=== PATIENT | male | born 1980 | race Caucasian/White ===

== ENCOUNTER 2022-01-29 16:15 | Emergency (ER) | payer MEDICAID ==
[~2022-01-29] VITALS: Ht 175 cm; Wt 90.7 kg
--- NOTE | 2022-01-29 17:08 | ED Neurological Problem ---
General Chief Complaint: Eye Problems Stated Complaint: VISION PROBLEMS Nursing Triage Note: PT AMBULATORY TO ER, REPORTS WOKE UP ON THURSDAY 01/25, UNABLE TO SEE OUT OF HIS L EYE, REPORTS JUST BLACK. PT REPORTS THAT HIS R EYE IS BLURRY. PT REPORTS HE IS LEGALLY BRANDI IN HIS R EYE. PT STATES HE WAITED SO LONG TO BE SEEN BECAUSE HE DOES NOT LIKE GOING TO THE DOCTOR. PT REPORTS SAW A EYE DOCTOR RECENTLY DUE TO VISION CHANGES, BUT NEVER FOLLOWED UP. Source: patient, family Exam Limitations: no limitations History of Present Illness Date Seen by Provider: January 29, 2022 Time Seen by Provider: 23:25 Allergies and Home Medications Allergies Coded Allergies: No Known Drug Allergies (Unverified , 01/29/22) Past Glkbkja-Cabtkb-Zcwiym Hx Patient Social History Tobacco Use?: No Use of E-Cig and/or Vaping dev: No Substance use?: No Alcohol Use?: No Pt feels they are or have been: No Immunizations Up To Date First/Initial COVID19 Vaccinat: NO Physical Exam Vital Signs Vital Signs - First Documented 01/29/22 01/29/22 16:26 17:41 Temp 36.4 Pulse 107 Resp 18 B/P (MAP) 189/97 (127) Pulse Ox 18 O2 Delivery Room Air Capillary Refill : Height, Weight, BMI Height: '" Weight: lbs. oz. kg; 29.00 BMI Method: Progress/Results/Core Measures Results/Orders Lab Results Laboratory Tests Test 01/29/22 17:00 01/29/22 17:01 01/29/22 17:37 Range/Units Glucometer 399 H 70-110 MG/DL White Blood Count 7.9 4.3-11.0 10^3/uL Red Blood Count 4.64 4.30-5.52 10^6/uL Hemoglobin 12.9 L 13.3-17.7 g/dL Hematocrit 38 L 40-54 % Mean Corpuscular Volume 81 80-99 fL Mean Corpuscular Hemoglobin 28 25-34 pg Mean Corpuscular Hemoglobin Concent 34 32-36 g/dL Red Cell Distribution Width 12.7 10.0-14.5 % Platelet Count 407 H 130-400 10^3/uL Mean Platelet Volume 10.2 9.0-12.2 fL Immature Granulocyte % (Auto) 2 % Neutrophils (%) (Auto) 73 42-75 % Lymphocytes (%) (Auto) 14 12-44 % Monocytes (%) (Auto) 8 0-12 % Eosinophils (%) (Auto) 2 0-10 % Basophils (%) (Auto) 1 0-10 % Neutrophils # (Auto) 5.8 1.8-7.8 10^3/uL Lymphocytes # (Auto) 1.1 1.0-4.0 10^3/uL Monocytes # (Auto) 0.7 0.0-1.0 10^3/uL Eosinophils # (Auto) 0.1 0.0-0.3 10^3/uL Basophils # (Auto) 0.1 0.0-0.1 10^3/uL Immature Granulocyte # (Auto) 0.1 0.0-0.1 10^3/uL Prothrombin Time 12.3 12.2-14.7 SEC INR Comment 0.9 0.8-1.4 Activated Partial Thromboplast Time 35 24-35 SEC D-Dimer 0.94 H 0.00-0.49 UG/ML Sodium Level 132 L 135-145 MMOL/L Potassium Level 4.0 3.6-5.0 MMOL/L Chloride Level 100 98-107 MMOL/L Carbon Dioxide Level 23 21-32 MMOL/L Anion Gap 9 5-14 MMOL/L Blood Urea Nitrogen 19 H 7-18 MG/DL Creatinine 1.03 0.60-1.30 MG/DL Estimat Glomerular Filtration Rate 92 BUN/Creatinine Ratio 18 Glucose Level 430 *H 70-105 MG/DL Calcium Level 8.0 L 8.5-10.1 MG/DL Corrected Calcium 9.4 8.5-10.1 MG/DL Total Bilirubin 0.2 0.1-1.0 MG/DL Aspartate Amino Transf (AST/SGOT) 12 5-34 U/L Alanine Aminotransferase (ALT/SGPT) 14 0-55 U/L Alkaline Phosphatase 142 H 40-136 U/L Troponin I < 0.028 <0.028 NG/ML Total Protein 4.8 L 6.4-8.2 GM/DL Albumin 2.3 L 3.2-4.5 GM/DL Urine Color YELLOW Urine Clarity CLEAR Urine pH 6.5 5-9 Urine Specific [place] 1.015 L 1.016-1.022 Urine Protein 3+ H NEGATIVE Urine Glucose (UA) 3+ H NEGATIVE Urine Ketones NEGATIVE NEGATIVE Urine Nitrite NEGATIVE NEGATIVE Urine Bilirubin NEGATIVE NEGATIVE Urine Urobilinogen 0.2 < = 1.0 MG/DL Urine Leukocyte Esterase NEGATIVE NEGATIVE Urine RBC (Auto) 2+ H NEGATIVE Urine RBC 2-5 H /HPF Urine WBC 0-2 /HPF Urine Squamous Epithelial Cells 0-2 /HPF Urine Renal Epithelial Cells NONE /HPF Urine Crystals NONE /LPF Urine Bacteria NEGATIVE /HPF Urine Casts NONE /LPF Urine Mucus NEGATIVE /LPF Urine Culture Indicated NO My Orders Orders - VERITO DE LA ROSA APRN Cbc With Automated Diff (01/29/22 16:56) Protime With Inr (01/29/22 16:56) Partial Thromboplastin Time (01/29/22 16:56) Comprehensive Metabolic Panel (01/29/22 16:56) Fibrin Degradation Products (01/29/22 16:56) Troponin I Lacy (01/29/22 16:56) Ua Culture If Indicated (01/29/22 16:56) Chest 1 View, Ap/Pa Only (01/29/22 16:56) Ekg Tracing (01/29/22 16:56) Accucheck Stat ONCE (01/29/22 16:56) Ed Iv/Invasive Line Start (01/29/22 16:56) Ed Iv/Invasive Line Start (01/29/22 16:56) Vital Signs Stroke Patient Q15M (01/29/22 16:56) Ct Head Wo-R/O Stroke (01/29/22 16:56) O2 (01/29/22 16:56) Intake & Output 06,14,22 (01/29/22 16:56) Monitor-Rhythm Ecg Trace Only (01/29/22 16:56) Dysphagia Screening Tool Q10MX1 (01/29/22 16:56) Lipid Panel (01/30/22 06:00) Insulin Aspart (Novolog) (Novolog (Charg (01/29/22 18:30) Tetracaine 0.5% Ophth Malgorzata Sdv (Tetracai (01/29/22 18:30) Tetracaine 0.5% Ophth Malgorzata Sdv (Tetracai (01/29/22 18:31) Medications Given in ED Current Medications Medications Dose Ordered Sig/Bang Route Start Time Stop Time Status Last Admin Dose Admin Insulin Aspart 10 unit ONCE ONCE SC 01/29/22 18:30 01/29/22 18:31 DC 01/29/22 18:27 10 UNIT Tetracaine HCl 1 OR 2 DROPS INTO AFFEC... ONCE ONCE OP 01/29/22 18:30 01/29/22 18:31 DC 01/29/22 18:47 1 ML Vital Signs/I&O 01/29/22 01/29/22 01/29/22 01/29/22 16:26 17:05 17:41 18:07 Temp 36.4 Pulse 107 107 104 Resp 18 B/P (MAP) 189/97 (127) 167/97 156/99 Pulse Ox 18 95 99 100 O2 Delivery Room Air Room Air Room Air Blood Pressure Mean: 127 FSBG Bedside Testing Finger Stick Blood Glucose: 399 Departure Impression Primary Impression: Diabetic retinopathy associated with uncontrolled type 2 diabetes mellitus Disposition: 01 HOME, SELF-CARE Condition: Stable Departure-Patient Inst. Decision time for Depature: 19:04 Patient Instructions: High Blood Sugar, Adult ED Add. Discharge Instructions: Plan: 1. Call your eye doctor tomorrow for close follow up. 2. Try to keep your blood glucose below 250. When your blood sugar is constantly elevated this causes damage to the tiny arteries of the eyes. 3. Return for any new, concerning, or worsening symptoms. All discharge instructions reviewed with patient and/or family. Voiced understanding. VERITO DE LA ROSA ROTARY RIG ENGINE OPERATOR January 29, 2022 17:08
[2022-01-29 17:20] LABS: BASOPHILS # (AUTO) 0.1 10^3/uL (0.0-0.1); BASOPHILS % (AUTO) 1 % (0-10); EOSINOPHILS # (AUTO) 0.1 10^3/uL (0.0-0.3); EOSINOPHILS % (AUTO) 2 % (0-10); HEMATOCRIT 38 % (40-54); HEMOGLOBIN 12.9 g/dL (13.3-17.7); LYMPHOCYTES # (AUTO) 1.1 10^3/uL (1.0-4.0); LYMPHOCYTES % (AUTO) 14 % (12-44); MEAN CORPUSCULAR HEMOGLOBIN 28 pg (25-34); MEAN CORPUSCULAR HGB CONC 34 g/dL (32-36); MEAN CORPUSCULAR VOLUME 81 fL (80-99); MEAN PLATELET VOLUME 10.2 fL (9.0-12.2); MONOCYTES # (AUTO) 0.7 10^3/uL (0.0-1.0); MONOCYTES % (AUTO) 8 % (0-12); NEUTROPHILS # (AUTO) 5.8 10^3/uL (1.8-7.8); NEUTROPHILS % (AUTO) 73 % (42-75); PLATELET COUNT 407 10^3/uL (130-400); WHITE BLOOD COUNT 7.9 10^3/uL (4.3-11.0)
--- NOTE | 2022-01-29 17:29 | Diagnostic Imaging Report ---
EXAMINATION: CT head without contrast. TECHNIQUE: Multiple contiguous axial images were obtained through the brain without the use of intravenous contrast. All CT scans use one or more of the following dose optimizing techniques: automated exposure control, MA and/or KvP adjustment based on patient size and exam type or iterative reconstruction. HISTORY: Right-sided vision loss. COMPARISON: None available. FINDINGS: The ventricles and sulci are normal. No abnormal attenuation of brain parenchyma is present. No acute intracranial hemorrhage or abnormal extra-axial fluid collections are present. Calcification of the intracranial ICAs. No hyperdense vessel. The calvarium is intact. The mastoid air cells are clear. The visualized paranasal sinuses are clear. The orbits are normal. IMPRESSION: No acute intracranial abnormality. Results communicated to Sol Cohen APRN by Dr. Jere Bejarano at 5:25 PM on 01/29/2022. Dictated by: Dictated on workstation # [id number]
[2022-01-29 17:31] LABS: ALBUMIN 2.3 GM/DL (3.2-4.5); CHLORIDE 100 MMOL/L (98-107); SODIUM 132 MMOL/L (135-145)
--- NOTE | 2022-01-29 17:32 | Diagnostic Imaging Report ---
EXAMINATION: Chest 1 view. HISTORY: Strokelike symptoms. Right-sided vision loss. COMPARISON: None available. FINDINGS: The lung volumes are normal. No focal consolidation is seen. No large pleural effusion or pneumothorax is seen. The cardiomediastinal silhouette is normal in size and contour. No acute osseous abnormality is seen. IMPRESSION: No acute pleuroparenchymal process. Dictated by: Dictated on workstation # [id number]
[2022-01-29 17:33] LABS: FIBRIN DEGRADATION PRODUCTS 0.94 UG/ML (0.00-0.49); INR 0.9 (0.8-1.4); PROTHROMBIN TIME PATIENT 12.3 SEC (12.2-14.7); TOTAL PROTEIN 4.8 GM/DL (6.4-8.2)
[2022-01-29 17:35] LABS: BILIRUBIN,TOTAL 0.2 MG/DL (0.1-1.0); CARBON DIOXIDE 23 MMOL/L (21-32)
[2022-01-29 17:37] LABS: ALKALINE PHOSPHATASE 142 U/L (40-136); CREATININE SERUM 1.03 MG/DL (0.60-1.30); GFR ESTIMATED 92
[2022-01-29 17:38] LABS: BUN/CREATININE RATIO 18
[2022-01-29 17:40] LABS: ALANINE AMINOTRANSFERASE 14 U/L (0-55)
[2022-01-29 17:41] VITALS: BP 167/97
[2022-01-29 17:45] LABS: BILIRUBIN,URINE NEGATIVE (NEGATIVE); CLARITY,URINE CLEAR; COLOR,URINE YELLOW; GLUCOSE, URINE (UA) 3+ (NEGATIVE); KETONES,URINE NEGATIVE (NEGATIVE); LEUKOCYTE ESTERASE ,URINE NEGATIVE (NEGATIVE); NITRITE,URINE NEGATIVE (NEGATIVE); PH,URINE 6.5 (5-9); PROTEIN,URINE 3+ (NEGATIVE)
[2022-01-29 17:55] LABS: BACTERIA,URINE NEGATIVE /HPF; SQUAMOUS EPITHELIAL CELL,UR 0-2 /HPF; WBC,URINE 0-2 /HPF
[2022-01-29 18:05] LABS: GLUCOSE 430 MG/DL (70-105)
[2022-01-29] MEDS ORDERED: inSUlin ASPART (NovoLOG) 1 UNIT/0.01 ML (CHARGE PER UNIT) SC ONE (18:30)
[2022-01-29] MEDS ORDERED: TETRACAINE 0.5% OPHTH SOLN 4 ML BTL (SINGLE DOSE ONLY) OP ONE (18:30)
[2022-01-29] MEDS ORDERED: TETRACAINE 0.5% OPHTH SOLN 4 ML BTL (SINGLE DOSE ONLY) ONE (18:31)
[2022-01-29 19:24] VITALS: BP 135/89
== END 2022-01-29 19:24 | disposition home or self-care (01) ==
LOC: ER 16:20
DX: E11.319 Type 2 diabetes mellitus with unspecified diabetic retinopathy without macular edema (principal)
CPT/HCPCS: 36415; 70450; 71045; 80053; 81000; 82947; 84484; 85025; 85379; 85610; 85730; 93005; 93041

== ENCOUNTER 2022-05-28 12:18 | Inpatient (IN) | payer MEDICARE, MEDICAID ==
[~2022-05-28] VITALS: Ht 142 cm; Wt 112.3 kg
[~2022-05-28 12:18] MED LIST: ACETAMINOPHEN 325 MG TABLET PO PRN; ACHD5005 PO; ALLO100T PO; ALPRAZolam 0.25 MG (XANAX) TAB PO PRN; ATOR40TA70 PO; BISACODYL 10 MG SUPP (DULCOLAX) PR PRN; CALCIUM CARBONATE 500 MG (TUMS) TAB.CHEW PO PRN; CITA20TA9 PO; DOCU100C37 PO; DOCUSATE SODIUM 100 MG (COLACE) CAP PO PRN; DOCUSATE SODIUM 100 MG (COLACE) CAP PO SCH; FAMO20TA5 PO; FERR-74 PO; FLEET ENEMA ADULT 1 EA BTL PR PRN; INSU100V SQ; INSU100V6 SQ; LACT1CAP39 PO; LACTULOSE SYRUP 10GM/15ML (ENULOSE) 30ML UDC PO PRN; LEVE500T99 PO; MELATONIN 3 MG TABLET PO PRN; NIFE60TA2 PO; ONDANSETRON 4 MG (ZOFRAN) ORAL DISSOLVE TAB PO PRN; diphenhydrAMINE 25 MG TAB (BENADRYL) PO PRN; guaiFENesin/CODEINE (ROBITUSSIN AC) 10ML UDC PO PRN
--- NOTE | 2022-05-28 12:30 | PM&R Post Admission Assessment ---
PM&R Date of Visit: May 28, 2022 Time of Visit: 14:00 History of Present Illness CC: Bilateral BKA HPI: This is a 42yoWM with no PCP who has a h/o DM who presents to the ARU in need of recovery following bilateral BKA's. He does not take any home meds and does not check his sugar. Pain is a 5/10 right now. Bowels have not moved so will initiate meds. Using IS. PLOF was independent. Patient not forthcoming with details. CC: Bilateral BKA HPI: Patient is a 42 y/o M with history of DM and retinopathy who presents to inpatient rehab after having bilateral BKA approximately 1 week ago at [facility]. He states he was initially septic with an infection in both lower extremities when he presented to the ER at [facility]. Patient then had surgery. He states his pain is currently at a 6/10 and he is receiving pain medications. Denies chest pain, SOB, fever, chills. PMH: IDDM, DM retinopathy PSH: Bilateral BKA Allergies: None Home Medications Allopurinol (Allopurinol), 100 MG PO DAILY, (Reported) Atorvastatin Calcium (Atorvastatin Calcium), 40 MG PO HS, (Reported) Citalopram Hydrobromide (Citalopram HBr), 20 MG PO DAILY, (Reported) Docusate Sodium (Docusate Sodium), 200 MG PO BID, (Reported) Famotidine (Famotidine), 20 MG PO HS, (Reported) Ferrous Sulfate (Ferrous Sulfate), 325 MG PO BID WITH MEALS, (Reported) Insulin Glargine,Hum.rec.anlog (Lantus), 30 UNIT SQ DAILY, (Reported) Insulin Lispro (Humalog), 10 UNIT SQ AC, (Reported) Lactobacillus Rhamnosus GG (Culturelle), 1 EACH PO BID, (Reported) Levetiracetam (Keppra), 500 MG PO BID, (Reported) Nifedipine (Procardia Xl), 60 MG PO DAILY, (Reported) Hydrocodone/Acetaminophen (Hydrocodone-Acetamin 5-325 mg), 1-2 TAB PO Q6H PRN for PAIN-MODERATE (5-7)(Reported) SH: Denies any smoking, EtOH, or illicit drug use. FH: denies ROS: denies chest pain, denies SOB, denies fever, or chills. EXAM: General Appearance: Patient is calm and cooperative. Heart: RRR, no m/r/gs Lungs: CTAB Extremities: lower extremities with dressing Labs/Imaging: none Assessment: S/p Bilateral BKA at [facility] DM Retinopathy Plan: PT/OT Pain control Home Meds Monitor sugars Past Hrpopbh-Cizmki-Dzqagc Hx Past Med/Social Hx: Reviewed Nursing Past Med/Soc Hx, Reviewed and Corrections made Patient Social History Marrital Status: Employed/Student: unemployed Alcohol Use: Denies Use Smoking Status: Former Smoker Past Medical History Surgeries: Orthopedic Cardiac: High Cholesterol, Hypertension, Peripheral Vascular Neurological: Seizure Disorder Musculoskeletal: Gout Endocrine: Diabetes, Non-Insulin dep Psychosocial: Depression PM&R Allergy/Meds/Data Review Allergies Coded Allergies: No Known Drug Allergies (Unverified , 01/29/22) Home Medications Scheduled Allopurinol (Allopurinol), 100 MG PO DAILY, (Reported) Atorvastatin Calcium (Atorvastatin Calcium), 40 MG PO HS, (Reported) Citalopram Hydrobromide (Citalopram HBr), 20 MG PO DAILY, (Reported) Docusate Sodium (Docusate Sodium), 200 MG PO BID, (Reported) Famotidine (Famotidine), 20 MG PO HS, (Reported) Ferrous Sulfate (Ferrous Sulfate), 325 MG PO BID WITH MEALS, (Reported) Insulin Glargine,Hum.rec.anlog (Lantus), 30 UNIT SQ DAILY, (Reported) Insulin Lispro (Humalog), 10 UNIT SQ AC, (Reported) Lactobacillus Rhamnosus GG (Culturelle), 1 EACH PO BID, (Reported) Levetiracetam (Keppra), 500 MG PO BID, (Reported) Nifedipine (Procardia Xl), 60 MG PO DAILY, (Reported) Scheduled PRN Hydrocodone/Acetaminophen (Hydrocodone-Acetamin 5-325 mg), 1-2 TAB PO Q6H PRN for PAIN-MODERATE (5-7), (Reported) Current Medications Current Medications Reviewed Review of Systems Constitutional: see HPI, malaise, weakness EENTM: no symptoms reported Respiratory: no symptoms reported Cardiovascular: no symptoms reported Gastrointestinal: constipation Genitourinary: no symptoms reported Musculoskeletal: back pain, joint pain Skin: no symptoms reported Psychiatric/Neurological: Depressed All Other Systems Reviewed Negative Unless Noted: Yes Physical Exam Physical Exam Vital Signs Capillary Refill : Height, Weight, BMI Height: '" Weight: lbs. oz. kg; 29.00 BMI Method: General Appearance: No Apparent Distress, WD/WN, Chronically ill, Obese Eyes: Bilateral Eye Normal Inspection, Bilateral Eye PERRL HEENT: PERRL/EOMI, Normal ENT Inspection, Pharynx Normal Neck: Full Range of Motion, Normal Inspection, Non Tender, Supple, Carotid Bruit Respiratory: Chest Non Tender, Lungs Clear, Normal Breath Sounds, No Accessory Muscle Use, No Respiratory Distress Cardiovascular: Regular Rate, Rhythm, No Edema, No Gallop, No JVD, No Murmur, Normal Peripheral Pulses Gastrointestinal: Normal Bowel Sounds, No Organomegaly, No Pulsatile Mass, Non Tender, Soft Back: Normal Inspection, No CVA Tenderness, No Vertebral Tenderness Extremity: Normal Capillary Refill, Normal Inspection, Normal Range of Motion, Non Tender, No Calf Tenderness, No Pedal Edema Neurologic/Psychiatric: Alert, Oriented x3, No Motor/Sensory Deficits, sign fabricator II- XII Norm as Tested, Depressed Affect, Motor Weakness (legs BKA bilateral) Skin: Normal Color, Warm/Dry Lymphatic: No Adenopathy PM&R Medical Assessment & Plan REHAB/MEDICAL ASSESSMENT AND PLAN: REHAB IMPAIRMENT GROUP: bilateral BKA's ETIOLOGIC DIAGNOSIS: bilateral BKA's The comorbidities that impact the patients function and/or functional outcome by: DM, seizures, HTN, HLP, social dysfunction REHAB PLAN: The patient is being admitted to our comprehensive inpatient rehabilitation facility and can tolerate the intensity of service consisting of at least: 180 minutes of therapy a day, 5 out of 7 days a week Rehab treatment will consist of: PT OT will focus on regaining function with use of AD in order to decrease coremaker floor burden at DC and help with wheelchair mobiity The patient/family has a good understanding of our discharge process and will benefit from an interdisciplinary inpatient rehabilitation program. The patient has potential to make improvement and is in need of at least two of the following multidisciplinary therapies including but not limited to physical, occupational, speech, and prosthetics and orthotics. Additionally the patient will need services from respiratory, nutritional services, wound care, psychology, etc. (Customize this to each patient). Given the patients complex condition and risk of further medical complications, rehabilitation services cannot be safely or effectively provided at a lower level of care such as a [facility] facility. BARRIERS TO DISCHARGE: bilateral BKA ESTIMATED LOS: 14 days DISPOSITION: [facility]'s home RELEVANT CHANGES SINCE PREADMISSION SCREENING: I have compared the patients medical and functional status at the time of the preadmission screening and there are: no changes PROGNOSIS: Fair REHABILITATION GOALS: 1. PT OT will focus on regaining function with use of AD in order to decrease coremaker floor burden at DC and help with wheelchair mobiity All the above goals were reviewed with the patient and he/she is in agreement. By signing this document, I acknowledge that I have personally performed a full physical examination on this patient within 24 hours of admission to this inpatient rehabilitation facility and have determined the patient to be able to tolerate the above course of treatment at an intensive level for a reasonable period of time. I will be completing a detailed individualized Plan of Care for this patient by day #4 of the patients stay based upon the Preadmission Screen, the Post-Admission Evaluation, and the therapy evaluations. Admission Dx/Comorbidities: (1) S/P bilateral below knee amputation ICD Codes: Z89.512 - Acquired absence of left leg below knee; Z89.511 - Acquired absence of right leg below knee (2) Diabetic retinopathy associated with uncontrolled type 2 diabetes mellitus Status: Acute Assessment/Plan Assessment and Plan Assess & Plan/Chief Complaint Assessment: Bilateral BKA's DM HTN HLP Low vision from retinopathy Seizures Poor social situation Plan: Pain control PT OT Wheelchair mobility FINA OTTO DO May 28, 2022 12:30
[2022-05-28 12:31] VITALS: BP 133/74
--- NOTE | 2022-05-28 14:04 | ST Cognitive Linguistic Eval ---
Speech Evaluation-General Medical Diagnosis Bilateral BKA Onset Date: May 28, 2022 Therapy Diagnosis Therapy Diagnosis: Intact Cognitive Linguistic Skills Precautions Precautions: Fall, Pressure Ulcer Precautions/Isolations: Fall Prevention, Contact/Enteric Isolation, Pressure Ulcer Referral Referring Physician: Dr. Dowd Reason for Referral: Evaluation/Treatment Medical History Pertinent Medical History: DM Current History The patient reports to the inpatient rehabilitation unit following a bilateral BKA. Social History Home: Single Level (The patient reported he will be moving into "I believe it's a trailer" following discharge.) Current Living Status: Friend ("Stacy"- Friend.) Speech PLF-Current Status Prior Level of Function The patient denied prior challenges or current concerns with speech, cognition, or language. Subjective The patient was reclined in bed, awake and alert upon entrance to his room by the clinician. The patient greeted the clinician appropriately and was agreeable to participation in the cognitive linguistic assessment. Language Eval: Auditory Comprehends Simple Yes/No Ques: Functional Indent/Objects Multiple Siegel: Functional Follows 1-Step Commands: Functional Follows General Conversations: Functional Language Eval: Verbal Language Completes Spontaneous Greeting: Functional Produces Auto, Serial Info: Functional Imitates Simple Words/Phrases: Functional Word Finding: Functional Requests Basic Needs: Functional States Basic Personal Info: Functional Language Evaluation: Reading The patient reports a visual deficit to the clinician. 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 The patient stated, "That's one not very good either. It's also blurry. I have glasses and they sometimes help." The patient could not recall if his glasses were present in the room. With permission, the clinician searched the patient's belongings, however, the glasses were not located. Cognitive Patient Orientation The patient was independently oriented to month, year, location, and city. Per patient, "I honestly couldn't tell you the day of the week." Objective Cognitive Domain Attention: WNL Memory: WNL Problem Solving: Functional Composite Severity Rating: WNL Objective Oral Motor/Speech Production The patient does not display dysarthria or apraxia of speech at this time. The patient remains 100% intelligible in known and unknown contexts. Impression The patient demonstrates intact cognitive linguistic skills. The patient reports a visual deficit to the clinician. 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 The patient stated, "That's one not very good either. It's also blurry. I have glasses and they sometimes help." The patient could not recall if his glasses were present in the room. With permission, the clinician searched the patient's belongings, however, the glasses were not located. Speech Patient Assess Expression of Ideas/Wants: Expression (4) Understanding Verbal Content: Understands (4) Brief Interview-Mental Status: Yes Repetition of Three Words: Three (3) Temporal Orientation: Year: Correct (3) Temporal Orientation: Month: Accurate within 5 days(2) Temporal Orientation: Day: Incorrect or No Answer(0) Recall : Wear to say "Sock": Yes, no cue required (2) Recall : Color: Yes, no cue required (2) Recall : Bed: Yes, no cue required (2) Memory/Recall Ability: Current season, That he or she is in a hsp/hsp unit Speech-Plan Treatment Plan Speech Therapy Treatment Plan: Discontinue ST Treatment Duration: May 28, 2022 Frequency: 1 time per week Estimated Hrs Per Day: .5 hour per day Rehab Potential: Fair Pt/Family Agrees to Plan: Yes Safety Risks/Education Teaching Recipient: Patient Teaching Methods: Discussion Response to Teaching: Verbalize Understanding Education Topics Provided: Results, Plan of Care Time Speech Therapy Time In: 12:19 Speech Therapy Time Out: 12:49 Total Billed Time: 30 Billed Treatment Time 1, HALLIE MCCULLOUGH [facility] May 28, 2022 14:04
--- NOTE | 2022-05-28 14:17 | Progress Note ---
AGNIESZKA RAPP 05/28/22 1417: Progress Note CC: Bilateral BKA HPI: Patient is a 42 y/o M with history of DM and retinopathy who presents to inpatient rehab after having bilateral BKA approximately 1 week ago at [place]. He states he was initially septic with an infection in both lower extremities when he presented to the ER at [place]. Patient then had surgery. He states his pain is currently at a 6/10 and he is receiving pain medications. Denies chest pain, SOB, fever, chills. PMH: IDDM, DM retinopathy PSH: Bilateral BKA Allergies: None Home Medications Allopurinol (Allopurinol), 100 MG PO DAILY, (Reported) Atorvastatin Calcium (Atorvastatin Calcium), 40 MG PO HS, (Reported) Citalopram Hydrobromide (Citalopram HBr), 20 MG PO DAILY, (Reported) Docusate Sodium (Docusate Sodium), 200 MG PO BID, (Reported) Famotidine (Famotidine), 20 MG PO HS, (Reported) Ferrous Sulfate (Ferrous Sulfate), 325 MG PO BID WITH MEALS, (Reported) Insulin Glargine,Hum.rec.anlog (Lantus), 30 UNIT SQ DAILY, (Reported) Insulin Lispro (Humalog), 10 UNIT SQ AC, (Reported) Lactobacillus Rhamnosus GG (Culturelle), 1 EACH PO BID, (Reported) Levetiracetam (Keppra), 500 MG PO BID, (Reported) Nifedipine (Procardia Xl), 60 MG PO DAILY, (Reported) Hydrocodone/Acetaminophen (Hydrocodone-Acetamin 5-325 mg), 1-2 TAB PO Q6H PRN for PAIN-MODERATE (5-7)(Reported) SH: Denies any smoking, EtOH, or illicit drug use. FH: denies ROS: denies chest pain, denies SOB, denies fever, or chills. EXAM: General Appearance: Patient is calm and cooperative. Heart: RRR, no m/r/gs Lungs: CTAB Extremities: lower extremities with dressing Labs/Imaging: none Assessment: S/p Bilateral BKA at [place] DM Retinopathy Plan: PT/OT Pain control Home Meds Monitor STEPHANY Duque DO 05/28/222048: Supervisory-Addendum Brief Verification & Attestation Participated in pt care: history, MDM, physical Personally performed: exam, history, MDM, supervision of care Care discussed with: Medical Student Procedures: n/a Results interpretation: Verified all documentation Verification and Attestation of Medical Student E/M Service A medical student performed and documented this service in my presence. I reviewed and verified all information documented by the medical student and made modifications to such information, when appropriate. I personally performed the physical exam and medical decision making. Stephany Dowd, May 28, 2022,20:49 AGNIESZKA RAPP May 28, 2022 14:17 STEPHANY DOWD DO May 28, 2022 20:49
--- NOTE | 2022-05-28 14:29 | Occupational Therapy Eval ---
OT Evaluation-General/PLF Medical Diagnosis Admission Date May 28, 2022 at 12:18 Medical Diagnosis: Bilateral BKA Onset Date: May 21, 2022 Therapy Diagnosis Therapy Diagnosis: Impaired mobility, and ADLs Precautions Precautions/Isolations: Fall Prevention, Standard Precautions, Contact/Enteric Isolation, Pressure Ulcer Referral Physician: Nile Maciel Reason: Evaluation/Treatment Medical History Pertinent Medical History: DM, HTN, Neuropathy Current History Pt arrived to ARU with bilateral BKA. He was living at home with his and daughter, but states that he will not be going back home after ARU stay. Pt stated he will be living with a friend at their house but does not know anything about the home. He reports being independent with all ADLs and IADLs prior to hospitalization. He stated he used a walker and a w/c before hospitalization. He reported minimal feeling and lack of interior wirer strength in bilateral hands/fingers, which makes gripping items hard. Reviewed History: Yes Social History Current Living Status: Friend ("Stacy"- Friend.) Does not know anything about the friends house that he will be staying in. Pt stated he will not be going home to his and daughter after ARU stay. ADL-Prior Level of Function SCALE: Activities may be completed with or without assistive devices. 7-Xxjfiamqej-iozkccc completes the activity by him/herself with no assistance from a helper. 5-Set-up or Clean-up Assistance-helper sets up or cleans up; patient completes activity. [place] assists only prior to or following the activity. 4-Supervision or Touching Assistance-helper provides verbal cues and/or touching/steadying and/or contact guard assistance as patient completes activity. Assistance may be provided throughout the activity or intermittently. 3-Partial/Moderate Assistance-helper does LESS THAN HALF the effort. [place] lifts, holds or supports trunk or limbs, but provides less than half the effort. 2-Substantial/Maximal Assistance-helper does MORE THAN HALF the effort. [place] lifts or holds trunk or limbs and provides more than half the effort. 5-Hagryvdad-txcqqc does ALL the effort. Patient does none of the effort to complete the activity. Or, the assistance of 2 or more helpers is required for the patient to complete the activity. If activity was not attempted, code reason: 7-Patient Refused. 9-Not Applicable-not attempted and the patient did not perform the activity before the current illness, exacerbation or injury. 10-Not Attempted due to Environmental Limitations-(lack of equipment, weather restraints, etc.). 88-Not Attempted due to Medical Conditions or Safety Concerns. Self Care: Independent Functional Cognition: Independent Drive Self: Yes OT Current Status Subjective Pt laying in bed upon arrival with PT present. C/o of 5/10 pain at beginning of OT session with reports of phantom pain at times. Co-treat ([id number]) was completed with PT secondary to fall risk, decreased strength, balance deficits, and lack of mobility. Appearance Pt left laying in bed with wound care nurse and student in room. All needs within reach. Mental Status/Objective Patient Orientation: Person, Place, Time, Situation Attachments: Jerry Catheter, IV (PIC line) Current Glasses/Contacts: Yes (Loss of vision in R eye) Dentures/Partials: No Hand Dominance: Right Upper Extremity ROM WFL Upper Extremity Strength [place] Hammerer Strength: Right: 27.33 pounds (average for age 116.8 lbs) Left: 24.33 pounds (average for age 112.8 lbs) ADL-Treatment Eating (QC): 5 Oral Hygiene (QC): 5 Shower/Bathe Self (QC): 7 Upper Body Dressing (QC): 5 Lower Body Dressing (QC): 3 On/Off Footwear (QC): 9 Toileting Hygiene (QC): 2 Bed mobility: Min assist with min cues for technique and safety. Dressing performed at bed level. Post cue for long sitting, pt was able to don briefs and shorts over bilateral stumps. Pt cued to return to supine for rolling to each side in order to pull up brief and pants. Min-mod verbal cues and mod assist needed secondary to poor sensation and interior wirer in bilateral hands. While managing pants, OT observed what appears to be yeast infection on inner groin as well as an ulcer on sacrum. RN notified. Slide board transfer (bed <>chair) with min verbal cues and min assist. Pt sat in w/c to eat lunch. He was able to hold onto utensil but with some difficulty. OT provided pt with built up handle which appeared to help. Post modification, He reports that he uses built up handles at home. Education OT Patient Education: Correct positioning, Disease process, Energy conservation, Modified ADL techniques, Progress toward Goal/Update tx plan, Purpose of tx/functional activities, Reviewed precautions, Rehab process, Safety issues, Transfer techniques, Use of adapted equipment, W/C management Teaching Recipient: Patient Teaching Methods: Demonstration, Discussion Response to Teaching: Verbalize Understanding, Return Demonstration, Reinforcement Needed OT Short Term Goals Short Term Goals Time Frame: Jun 07, 2022 Eatin Oral hygiene: 6 Toileting hygiene: 3 Shower/bathe self: 4 Upper body dressin Lower body dressin Putting on/taking off footwear: 9 OT Special Needs Teacher Goals Special Needs Teacher Goals Time Frame: Jun 14, 2022 Eating (QC): 6 Oral Hygiene (QC): 6 Toileting Hygiene (QC): 5 Shower/Bathe Self (QC): 5 Upper Body Dressing (QC): 6 Lower Body Dressing (QC): 5 On/Off Footwear (QC): 9 Additional Goals: 1-Demonstrate ADL Tasks, 2-Verbalize Understanding, 3-ImproveStrength/Slade 1=Demonstrate adherence to instructed precautions during ADL tasks. 2=Patient will verbalize/demonstrate understanding of assistive devices/modifications for ADL. 3=Patient will improve strength/tolerance for activity to enable patient to perform ADL's. OT Education/Plan Problem List/Assessment Assessment: Decreased Activ Tolerance, Decreased Safety Aware, Decreased UE Strength, Impaired Cognition, Impaired Coordination, Impaired Funct Balance, Impaired I ADL's, Impaired Self-Care Skills, Restricted Funct UE ROM, Visual- Perceptual Deficit Discharge Recommendations Plan/Recommendations: Continue POC Therapy Discharge Recommendati: Post Acute OT (home health) Treatment Plan/Plan of Care Treatment,Training & Education: Yes Patient would benefit from OT for education, treatment and training to promote independence in ADL's, mobility, safety and/or upper extremity function for AD L's. Plan of Care: ADL Retraining, Caregiver Training, Functional Mobility, Group Exercise/Act as Ind, Orthotic Fitting/Training, UE Funct Exercise/Act, UE Neuromus Re-Ed/Coord, W/C Management Training Treatment Duration: Jun 14, 2022 Frequency: At least 5 of 7 days/Wk (IRF) Estimated Hrs Per Day: 1.5 hours per day (75-90 min per day) Agreement: Yes Rehab Potential: Fair Time/GCodes Start Time: 13:40 Stop Time: 14:55 Total Time Billed (hr/min): 75 Billed Treatment Time 1 visit EVM (10 min) ADL x4 (65 min) OT eval: ([id number]) Co-treat ([id number]) Alisha Rios OT May 28, 2022 14:29
--- NOTE | 2022-05-28 14:43 | Physical Therapy Evaluation ---
PT Evaluation-General Medical Diagnosis Admission Date May 28, 2022 at 12:18 Medical Diagnosis: Bilateral BKA Onset Date: May 28, 2022 Therapy Diagnosis Therapy Diagnosis: Strength deficit, poor mobility Precautions Precautions/Isolations: Fall Prevention, Contact/Enteric Isolation, Pressure Ulcer Weight Bear Status Right Lower Extremity: Right Non Weight Bearing Left Lower Extremity: Left Non Weight Bearing Referral Physician: Nile Reason for Referral: Evaluation/Treatment Medical History Pertinent Medical History: DM Reviewed History: Yes Social History Home: Current Living Status: Friend ("Stacy"- Friend.) Entry Into Home: Ramp Patient reports he will be living in a trailer with a friend and they are currently putting in a ramp. Prior Prior Level of Function SCALE: Activities may be completed with or without assistive devices. 3-Aqvjwbdljx-dgfunkk completes the activity by him/herself with no assistance from a helper. 5-Set-up or Clean-up Assistance-helper sets up or cleans up; patient completes activity. [place] assists only prior to or following the activity. 4-Supervision or Touching Assistance-helper provides verbal cues and/or touching/steadying and/or contact guard assistance as patient completes acti vity. Assistance may be provided throughout the activity or intermittently. 3-Partial/Moderate Assistance-helper does LESS THAN HALF the effort. [place] lifts, holds or supports trunk or limbs, but provides less than half the effort. 2-Substantial/Maximal Assistance-helper does MORE THAN HALF the effort. [place] lifts or holds trunk or limbs and provides more than half the effort. 7-Qxawtymjk-vaaspp does ALL the effort. Patient does none of the effort to complete the activity. Or, the assistance of 2 or more helpers is required for the patient to complete the activity. If activity was not attempted, code reason: 7-Patient Refused. 9-Not Applicable-not attempted and the patient did not perform the activity before the current illness, exacerbation or injury. 10-Not Attempted due to Environmental Limitations-(lack of equipment, weather restraints, etc.). 88-Not Attempted due to Medical Conditions or Safety Concerns. Bed Mobility: 6 Transfers (B,C,W/C): 6 Gait: 6 Stairs: 6 Reports he has a F4WW, w/c, shower chair and BSC at home PT Evaluation-Current Subjective Patient lying supine in bed upon PT arrival, agreeable to treatment. Patient rates pain at 5/10 in bilateral residual limbs. ROM/Strength ROM Lower Extremities Right knee extension limited 20 degrees, left knee extension limited 15 degrees. All other ROMs appear WFLs bilaterally. Strength Lower Extremities 3/5 bilaterally all planes. Integumentary/Posture Bowel Incontinence: Yes Bladder Incontinence: Jerry Cath Sensory Vision: R eye Hearing: Functional Sensation Right Lower Extremit: Impaired Sensation Left Lower Extremity: Impaired Transfers Roll Left & Right (QC): 3 Sit to Lying (QC): 4 Lying to Sitting/Side of Bed(Q: 4 Sit to Stand (QC): 88 Chair/Ocx-ef-Umyuj Xfer(QC): 3 Toilet Transfer (QC): 88 Car Transfer (QC): 88 Gait Does the Patient Walk?: No and Walking Goal NOT indicated Mode of Locomotion: Wheelchair Anticipated Mode of Locomotion: Wheelchair Walk 10 feet (QC): 88 Walk 50 ft with 2 Turns(QC): 88 Walk 150 ft (QC): 88 Walking 10ft/uneven surface-QC: 88 Wheelchair Training Does the Pt Use a Wheelchair?: Yes Distance: 0 Wheel 50 ft with 2 turns (QC): 88 Wheel 150 ft (QC): 88 Type of Wheelchair: Manual Patient transferred to W/C with Slideboard. His tray was then brought and he requested to eat. Stairs #of Steps: 0 1 Step (curb) (QC): 88 4 Steps (QC): 88 12 Steps (QC): 88 Balance Sitting Static: Fair Sitting Dynamic: Fair Picking up an Object (QC): 88 Assessment/Needs Patient tolerated treatment fair. He received co-treatment with OT due to increased level of complexity of the patient and the benefit of receiving both therapies at the same time. OT addressed functional ADLs, dressing, hygiene, and PT addressed bed mobility, transfers with the slideboard and w/c management. Patient performed all bed mobility with CGA/min A. He rolled in the bed with PT and OT assisted him verbally and physically with lower body dressing. Patient presents with redness and irritation along the abdomen, inferior to the umbilicus. Patient also presents with tunnelling wound in the sacro-coxxygeal region. Nurse was notified and manufacturing specialist contacted for assessment. Patient was educated on and performed bed mobility and slideboard transfers to the wheelchair with focus on proper performance and safety. Patient in w/c with OT in the room, eating lunch upon PT departure. Rehab Potential: Fair Equipment Needs slideboard PT [employer] Weapons Sergeant Goals [employer] Weapons Sergeant Goals PT [employer] Weapons Sergeant Goals Time Frame: Jul 11, 2022 Roll Left & Right (QC): 6 Sit to Lying (QC): 6 Lying-Sitting on Side/Bed(QC): 6 Sit to Stand (QC): 88 Chair/Jxf-nm-Qllau Xfer(QC): 6 Toilet Transfer (QC): 6 Car Transfer (QC): 6 Does the Patient Walk: No and Walking Goal NOT indicated Walk 10 feet (QC): 88 Walk 50ft with 2 Turns (QC): 88 Walk 150 ft (QC): 88 Walking 10ft on Uneven Surface: 88 1 Step (curb) (QC): 88 4 Steps (QC): 88 12 Steps (QC): 88 Picking up an Object (QC): 88 Does the Pt use WC or Scooter?: Yes Wheel 50 feet with 2 turns (QC: 6 Type: Manual Wheel 150 feet: 6 Type: Manual PT Plan Problem List Problem List: Activity Tolerance, Functional Strength, Safety, Balance, Transfer, Bed Mobility, ROM Treatment/Plan Treatment Plan: Continue Plan of Care Treatment Plan: Bed Mobility, Education, Functional Activity Slade, Functional Strength, Group Therapy, Safety, Therapeutic Exercise, Transfers Treatment Duration: Jul 12, 2022 Frequency: At least 5 of 7 days/Wk (IRF) Estimated Hrs Per Day: 1.5 hours per day Patient and/or Family Agrees t: Yes Safety Risks/Education Patient Education: Transfer Techniques, W/C Management Teaching Recipient: Patient Teaching Methods: Demonstration, Discussion Response to Teaching: Reinforcement Needed Time/GCodes Time In: 1325 Time Out: 1420 Total Billed Treatment Time: 45 Total Billed Treatment Visit, EVM (10), FA (35) co-treat with OT 35 minutes GABY WAGNER PT May 28, 2022 14:43
--- NOTE | 2022-05-28 14:59 | Physical Therapy Daily Note ---
PT Daily Note-Current Subjective Pt. sitting up in w/c finishing lunch .PT OT co Rx for orientation to rehab and complexity of TRFs and mobility. Pt. states his pain right now is 5/10 in distal residual limbs bilat. Pt. explains a long history of diabetes and early deaths in his family . Pt. agrees to TRF btb after orientation etc. Pain Numeric Pain Scale: 5-Moderate Pain Location: Left (and right) Location Body Site: Calf (residual distal LE amp) Pain Description: Pressure Appearance edema in trunk and all of LEs bilat, necrotic areas on distal phalanges left hand, bilat trigger finger mult fingers Mental Status Patient Orientation: Normal For Age Attachments: Jerry Catheter Transfers SCALE: Activities may be completed with or without assistive devices. 8-Cvnvmvfmnh-fwxbnhh completes the activity by him/herself with no assistance from a helper. 5-Set-up or Clean-up Assistance-helper sets up or cleans up; patient completes activity. [place] assists only prior to or following the activity. 4-Supervision or Touching Assistance-helper provides verbal cues and/or touching/steadying and/or contact guard assistance as patient completes activity. Assistance may be provided throughout the activity or intermittently. 3-Partial/Moderate Assistance-helper does LESS THAN HALF the effort. [place] lifts, holds or supports trunk or limbs, but provides less than half the effort. 2-Substantial/Maximal Assistance-helper does MORE THAN HALF the effort. [place] lifts or holds trunk or limbs and provides more than half the effort. 2-Vguexuvzr-sujtxr does ALL the effort. Patient does none of the effort to complete the activity. Or, the assistance of 2 or more helpers is required for the patient to complete the activity. If activity was not attempted, code reason: 7-Patient Refused. 9-Not Applicable-not attempted and the patient did not perform the activity before the current illness, exacerbation or injury. 10-Not Attempted due to Environmental Limitations-(lack of equipment, weather restraints, etc.). 88-Not Attempted due to Medical Conditions or Safety Concerns. Chair/Nif-np-Iwwmr Xfer(QC): 2 slide brd TRF w/c to bed with mod assist of 2, pt. essentially laying back in bed as soon as he reached a safe enough position and layed down then used UEs to straighten and move pretty well with mod assist Weight Bearing Right Lower Extremity: Right Non Weight Bearing Left Lower Extremity: Left Non Weight Bearing Wheelchair Training pt. required assist to brake and to move roll back arm rest Exercises Supine Ex: Rolling Supine Reps: 4 Treatments orientation, OT assessed eating and set pt up with adaptive utensils , sld brd TRF, rolling, Assessment Current Status: Good Progress pleasant and gives good effort PT Manager Utility Goals Manager Utility Goals PT Manager Utility Goals Time Frame: Jul 11, 2022 Roll Left & Right (QC): 6 Sit to Lying (QC): 6 Lying-Sitting on Side/Bed(QC): 6 Sit to Stand (QC): 88 Chair/Pgf-ev-Kixbd Xfer(QC): 6 Toilet Transfer (QC): 6 Car Transfer (QC): 6 Does the Patient Walk: No and Walking Goal NOT indicated Walk 10 feet (QC): 88 Walk 50ft with 2 Turns (QC): 88 Walk 150 ft (QC): 88 Walking 10ft on Uneven Surface: 88 1 Step (curb) (QC): 88 4 Steps (QC): 88 12 Steps (QC): 88 Picking up an Object (QC): 88 Does the Pt use WC or Scooter?: Yes Wheel 50 feet with 2 turns (QC: 6 Type: Manual Wheel 150 feet: 6 Type: Manual PT Plan Treatment/Plan Treatment Plan: Continue Plan of Care Treatment Plan: Bed Mobility, Education, Functional Activity Slade, Functional Strength, Group Therapy, Safety, Therapeutic Exercise, Transfers Treatment Duration: Jul 12, 2022 Frequency: At least 5 of 7 days/Wk (IRF) Estimated Hrs Per Day: 1.5 hours per day Patient and/or Family Agrees t: Yes Safety Risks/Education Patient Education: Transfer Techniques, Correct Positioning, W/C Management, Disease Process, Safety Issues Teaching Recipient: Patient Teaching Methods: Demonstration, Discussion Response to Teaching: Verbalize Understanding, Unable to Return Demonstration, Reinforcement Needed Time/GCodes Time In: 1425 Time Out: 1455 Total Billed Treatment Time: 0 Total Billed Treatment 1,FA30m (30 m co Rx ) DIMAS URSSELL TICKET PRINTER May 28, 2022 14:59
[2022-05-28] MEDS: polyethylene glycoL POWDER 17 GM (MIRALAX) PACK PO SCH ×2 (15:01→19:45)
[2022-05-28] MEDS: SENNA W/DOCUSATE (SENOKOT S) TABLET PO SCH ×2 (15:01→19:45)
--- NOTE | 2022-05-28 15:36 | Wound Care Assessment ---
Wound Care Assessment Date Seen by Provider: May 28, 2022 Time Seen by Provider: 15:15 Chief Complaint Sacral pressure ulcer SOFIA Parsons is a 42yo M with a past medical history of diabetes mellitus type 1 and seizures. He has come to the rehabilitation facility from [facility] after having bilateral below the knee amputations 1 week ago. While he was there he had to have debridement done on his legs for osteomyelitis and a necrotizing soft tissue infection. He was on broad spectrum antibiotics (Zosyn and vancomycin) for those infections. He has had a stage 4 sacral pressure ulcer for over a year and was seen in a wound clinic at [facility] for it. Patient reports that he has had a wound vacuum on the sacral wound before. The patient was laying in bed awake at the start of the interview. He reports that his sacral area is somewhat tender. Per nurse reports, when his sacral bandage was initially changed there was a large amount of yellow exudate around the wound. The primary etiology of the wound is being bedridden and secondary etiology is diabetes mellitus. Past Medical History: Admits Diabetes Type I Smoking Status: Current Everyday Smoker Recreational Drug Use: Yes Alcohol Use: Occasionally Uses Other Social Hx Is planning on moving in with a friend in [place] after being discharged from the hospital Review of Systems General: No Chills, No Night Sweats; Fatigue HEENT: No Head Aches, No Visual Changes, No Sinus Congestion, No Sore Throat Pulmonary: No Dyspnea, No Cough Cardiovascular: No: Chest Pain, Palpitations Gastrointestinal: No: Nausea, Vomiting, Diarrhea, Constipation Neurological: No: Weakness, Numbness Exam Vital Signs Date Time Temp Pulse Resp B/P (MAP) Pulse Ox O2 Delivery O2 Flow Rate FiO2 05/28/22 14:00 Room Air 05/28/22 12:31 37.2 87 16 133/74 (93) 93 Capillary Refill : General Appearance: WD/WN, no apparent distress HEENT: PERRL/EOMI Neck: non-tender, full range of motion, supple Cardiovascular: regular rate, rhythm, no edema, no murmur Respiratory: lungs clear, normal breath sounds, no respiratory distress Gastrointestinal: non tender, soft Back: normal inspection Extremities: normal range of motion, other (bilateral BKA with stichetes and sherman still in place, no erythema or discharge around the surgical wounds) Neurologic/Psychiatric: no motor/sensory deficits, alert, normal mood/affect, oriented x 3 Skin: normal color, warm/dry Skin Problem Location: other (Sacral area) Sacral wound is a stage 4 pressure ulcer measuring 1.5x0.9x0.6 with tunneling at the 4:00 position that measures 3cm. There was a small amount of serosanguineous exudate. Margins have epibole. Medium amount of granulation, no epithelial ization, and a small amount of slough. There are no deep structures exposed. Surrounding area has erythema with blanching and appears to be a fungal infection Assessment/Plan/Dx Assessment: Stage 3 sacral pressure ulcer Yeast infection of the buttock area Bilateral BKA DM type 1 Plan: 1) The sacral wound will be packed with vashe wet to dry. Iodoform and barrier cream will be used as well 2) Miconazole powder will be used on the skin surrounding the sacral ulcer 3) A culture of the sacral ulcer was taken to assess for infection due to the amount of exudate at the initial bandage change 4) ESR and CRP have been ordered to assess for infection as well 5) [facility] will be contacted to ensure that a MRI or CT scan of that sacral area has been done in the past to rule out osteomyelitis 6) Work with PT and OT to regain strength 7) Tight control of blood sugars is conducive to wound healing and is being managed by the primary team Supervisory-Addendum Brief Verification & Attestation Participated in pt care: history, MDM, physical Personally performed: exam, history, MDM, supervision of care Care discussed with: Medical Student Procedures: n/a Results interpretation: Verified all documentation GARETT Shaw May 28, 2022 15:36 TOMMY PARRA MD May 28, 2022 15:59
[2022-05-28] MEDS ORDERED: NON-FORMULARY MEDICATION 1 EA EA (Insulin Lispro (Humalog) 10 UNIT) SQ SCH (17:00)
[2022-05-28] MEDS: inSUlin ASPART (NovoLOG) 1 UNIT/0.01 ML (CHARGE PER UNIT) SC SCH (17:22)
[2022-05-28] MEDS: FERROUS SULF 325 MG (IRON) TAB PO SCH (17:22)
[2022-05-28 19:05] VITALS: BP 151/71
[2022-05-28] MEDS: DOCUSATE SODIUM 100 MG (COLACE) CAP PO SCH (19:45)
[2022-05-28] MEDS ORDERED: NON-FORMULARY MEDICATION 1 EA EA (Lactobacillus Rhamnosus GG (Culturelle) 1 EACH) PO SCH (21:00)
[2022-05-28] MEDS: FAMOTIDINE 20 MG (PEPCID) TABLET PO SCH (21:11)
[2022-05-28] MEDS: LACTOBACILLUS ACIDOPHILUS (PROBIOTIC) CAPSULE PO SCH (21:11)
[2022-05-28] MEDS: MICONAZOLE 2% POWDER (DESENEX AF) 90 GM TOP SCH (21:11)
[2022-05-28] MEDS: HYDROcodone/APAP 5 MG/325 MG (LORTAB) TAB PO PRN (21:14)
[2022-05-29] MEDS: inSUlin ASPART (NovoLOG) 1 UNIT/0.01 ML (CHARGE PER UNIT) SC SCH ×3 (07:03→16:52)
[2022-05-29 07:28] LABS: ALBUMIN 1.6 GM/DL (3.2-4.5); BILIRUBIN,TOTAL 0.1 MG/DL (0.1-1.0); CALCIUM 7.8 MG/DL (8.5-10.1); CREATININE SERUM 0.84 MG/DL (0.60-1.30); POTASSIUM 4.6 MMOL/L (3.6-5.0); TOTAL PROTEIN 4.8 GM/DL (6.4-8.2)
[2022-05-29 07:46] VITALS: BP 169/84
[2022-05-29] MEDS: MICONAZOLE 2% POWDER (DESENEX AF) 90 GM TOP SCH ×2 (08:08→21:12)
[2022-05-29] MEDS: FERROUS SULF 325 MG (IRON) TAB PO SCH ×2 (08:09→16:51)
[2022-05-29] MEDS: LACTOBACILLUS ACIDOPHILUS (PROBIOTIC) CAPSULE PO SCH ×2 (08:09→20:35)
[2022-05-29] MEDS: ALLOPURINOL 100 MG (ZYLOPRIM) TAB PO SCH (08:09)
[2022-05-29] MEDS: HYDROcodone/APAP 5 MG/325 MG (LORTAB) TAB PO PRN ×3 (08:09→20:36)
[2022-05-29] MEDS: DOCUSATE SODIUM 100 MG (COLACE) CAP PO SCH ×2 (08:10→20:44)
[2022-05-29] MEDS: polyethylene glycoL POWDER 17 GM (MIRALAX) PACK PO SCH ×2 (08:10→20:44)
[2022-05-29] MEDS: SENNA W/DOCUSATE (SENOKOT S) TABLET PO SCH ×2 (08:10→20:44)
[2022-05-29] MEDS: NIFEdipine ER 60 MG (PROCARDIA XL) TAB PO SCH (08:10)
[2022-05-29] MEDS ORDERED: NIFEDIPINE 60 MG PO SCH (09:00)
[2022-05-29] MEDS ORDERED: INSULIN GLARGINE HUM REC ANLOG 30 UNIT SQ SCH (09:00)
[2022-05-29 09:41] VITALS: BP 174/91
[2022-05-29 09:57] LABS: BASOPHILS # (AUTO) 0.1 10^3/uL (0.0-0.1); BASOPHILS % (AUTO) 1 % (0-10); EOSINOPHILS # (AUTO) 0.2 10^3/uL (0.0-0.3); EOSINOPHILS % (AUTO) 2 % (0-10); HEMATOCRIT 23 % (40-54); HEMOGLOBIN 7.4 g/dL (13.3-17.7); LYMPHOCYTES # (AUTO) 1.3 10^3/uL (1.0-4.0); LYMPHOCYTES % (AUTO) 17 % (12-44); MEAN CORPUSCULAR HEMOGLOBIN 28 pg (25-34); MEAN CORPUSCULAR HGB CONC 32 g/dL (32-36); MEAN CORPUSCULAR VOLUME 88 fL (80-99); MEAN PLATELET VOLUME 9.3 fL (9.0-12.2); MONOCYTES # (AUTO) 0.5 10^3/uL (0.0-1.0); MONOCYTES % (AUTO) 6 % (0-12); NEUTROPHILS # (AUTO) 5.5 10^3/uL (1.8-7.8); NEUTROPHILS % (AUTO) 72 % (42-75); PLATELET COUNT 385 10^3/uL (130-400); WHITE BLOOD COUNT 7.6 10^3/uL (4.3-11.0)
[2022-05-29] MEDS ORDERED: amLODIPine 5 MG (NORVASC) TAB PO NR (10:30)
[2022-05-29] MEDS ORDERED: lisINopril 10 MG (PRINIVIL) TABLET PO NR (10:30)
--- NOTE | 2022-05-29 10:42 | Individualized Plan of Care ---
Individualized Plan of Care Rehab Nursing IPOC Order Admission Date May 28, 2022 at 12:18 Current Orders Orders Admission Order(Inpt,Obs,Sdc) (05/27/22 20:23) Vital Signs: Per Unit Policy ( 08,16,00 (05/27/22 20:23) Brett Bass ,21 (05/27/22 20:23) Sequential Compression Device (05/27/22 20:23) Stress Analyst-Inpt Rehab Con (05/27/22 20:23) Rehab Nursing Orders-Ipoc (05/27/22 20:23) Physical Therapy Rehab Orders (05/27/22 20:23) Occupational Therapy Rehab Ord (05/27/22 20:23) Speech Therapy Rehab Orders (05/27/22:) Cbc With Automated Diff (05/29/22 06:00) Comprehensive Metabolic Panel (05/29/22 06:00) Precautions (Aru) (05/27/22:) Weekly Weight WEEK (05/27/22:) Rehab-Intensity Of Therapy (05/27/22:23) Initiate Admission Nursing Pro .admission (05/27/22 20:23) Alprazolam Tablet (Xanax Tablet) (05/27/22 20:30) Calcium Carbonate Chew Tablet (Antacid C (05/27/22 20:30) Diphenhydramine Tablet (Benadryl Tablet) (05/27/22 20:30) Docusate Sodium Capsule (Colace Capsule) (05/27/22 21:00) Docusate Sodium Capsule (Colace Capsule) (05/27/22 20:30) Bisacodyl Suppository (Dulcolax Supposit (05/27/22 20:30) Lactulose Oral Solution (Enulose Oral So (05/27/22 20:30) Na Phos/Na Biphos Enema (Fleet Enema Chuckie (05/27/22 20:30) Guaifenesin/Codeine Syrup (Robitussin Ac (05/27/22 20:30) Loperamide Tablet (Imodium Tablet) (05/27/22 20:30) Melatonin Tablet (Melatonin Tablet) (05/27/22 20:30) Polyethylene Glycol Powder Pkt (Miralax (05/27/22 21:00) Ondansetron Oral Dissolve Tab (Zofran (05/27/22 20:30) Senna S Tablet (Senokot S Tablet) (05/27/22 21:00) Acetaminophen Tablet/Caplet (Tylenol T (05/27/22 20:30) Code/Resuscitation (05/27/22 20:23) Initiate Admission Nursing Pro .admission (05/27/22 20:23) Admission Arrival Bed Request (05/28/22 12:18) Allopurinol Tablet (Zyloprim Tablet) (05/29/22 09:00) Atorvastatin Tablet (Lipitor Tablet) (05/28/22 21:00) Citalopram Tablet (Celexa Tablet) (05/29/22 09:00) Docusate Sodium Capsule (Colace Capsule) (05/28/22 21:00) Famotidine Tablet (Pepcid Tablet) (05/28/22 21:00) Ferrous Sulfate Tablet (Feosol Tablet) (05/28/22 18:00) Hydrocodone/Apap 5/325 Tablet (Lortab 5 (05/28/22 12:30) Levetiracetam Tablet (Keppra Tablet) (05/28/22 21:00) (Nf) Insulin Glargine,Hum.Rec.Anlog (Merrill (05/29/22 09:00) (Nf) Insulin Lispro (Humalog) (05/28/22 17:00) (Nf) Lactobacillus Rhamnosus Gg (Culture (05/28/22 21:00) (Nf) Nifedipine (Procardia Xl) (05/29/22 09:00) Lactobacillus Acidophilus Cap (Acidophil (05/28/22 21:00) Nifedipine Xl Tablet (Procardia Xl Tab (05/29/22 09:00) Insulin Aspart (Novolog) (Novolog (Charg (05/28/22 17:00) Insulin Determir (Per Unit) (Levemir (Pe (05/29/22 09:00) Cho 75g/M 1snack (21-2400 Jose) (05/28/22 Lunch) Accucheck Achs ACHS (05/28/22 12:53) Patient Visit (05/28/22 ) Treat. Speech/Lang/Voice (05/28/22 ) Speech Sound Lang Comp (05/28/22 ) Consult Wound Care Physician (05/28/22 14:04) Wound Culture (05/28/22 14:05) Patient Visit (05/28/22 ) Pt Eval Moderate Complexity (05/28/22 ) Functional Activities, Ea 15 (05/28/22 ) Miconazole 2% Powder (Phytoplex Af 2% Po (05/28/22 21:00) Dressing Order (Intervention) BID PRN (05/28/22 15:37) Patient Visit (05/28/22 ) Functional Activities, Ea 15 (05/28/22 ) Erythrocyte Sedimentation Rate (05/28/22 15:59) Hs C Reactive Protein (05/28/22 15:59) Amlodipine Tablet (Norvasc Tablet) (05/29/22 10:30) Amlodipine Tablet (Norvasc Tablet) (05/30/22 09:00) Lisinopril Tablet (Zestril Tablet) (05/29/22 10:30) Lisinopril Tablet (Zestril Tablet) (05/30/22 09:00) Iron Test (Fe) (05/29/22 10:21) Vitamin B 12 (05/29/22 10:21) Patient Visit (05/29/22 ) Functional Activities, Ea 15 (05/29/22 ) Hypochlorous Acid/Sod Chloride (Vashe Wo (05/29/22 15:30) Hypochlorous Acid/Sod Chloride (Vashe Wo (05/29/22 15:30) Rehab Nursing Orders: Ongoing Assess. of Cognitive Status, Ongoing Assess. of Function Status, Bladder Management, Bladder Scan, Bladder Training, Bowel Management, Bowel Training, Disease Management & Educaiton, DVT Prophylaxis, Fall Prevention, Fluid/Electrolyte/Nutrition Mgmt, Infection Prevention, Medication Management & Education, Management of Risks & Complications, Management of Skin Intergrity, Nutrition Management, Pain Management, Safety Management, Wound Management Intensity of Therapy to be met Patient to be seen: Min.3h per day/5 of 7d PT IPOC Problem List: Activity Tolerance, Functional Strength, Safety, Balance, Transfer, Bed Mobility, ROM Treatment Plan: Continue Plan of Care Bed Mobility, Education, Functional Activity Slade, Functional Strength, Group Therapy, Safety, Therapeutic Exercise, Transfers Treatment Duration: Jul 12, 2022 Frequency: At least 5 of 7 days/Wk (IRF) Estimated Hrs Per Day: 1.5 hours per day OT IPOC Problems: Decreased Activ Tolerance, Decreased Safety Aware, Decreased UE Strength, Impaired Cognition, Impaired Coordination, Impaired Funct Balance, Impaired I ADL's, Impaired Self-Care Skills, Restricted Funct UE ROM, Visual- Perceptual Deficit OT Treatment, Training and Edu: Yes Plan of Care: ADL Retraining, Caregiver Training, Functional Mobility, Group Exercise/Act as Ind, Orthotic Fitting/Training, UE Funct Exercise/Act, UE Jorge romus Re-Ed/Coord, W/C Management Training Treatment Duration: Jun 14, 2022 Frequency: At least 5 of 7 days/Wk (IRF) Estimated Hrs Per Day: 1.5 hours per day (75-90 min per day) ST IPOC Speech Therapy Treatment Plan: Discontinue ST Treatment Duration: May 28, 2022 Frequency: 1 time per week Estimated Hrs Per Day: .5 hour per day Stress Analyst/Case Mgmt Stress Analyst/Case Managemen: Discharge Planning Dietitian/Touring Production Manager Dietitian/Touring Production Manager to monitor nutritional status and make changes and/or recommendations as needed and work with speech pathology on dietary upgrades as the occur. Physician IPOC Medical Issues being managed closely and that require the 24 hour availability of a physician: Recent bilateral BKA's will need close monitoring of the wounds along with sugar and BP levels in order to help regain function to gain independence to return to independence living Medical Issues: Bowel/Bladder Function, DVT Prophylaxis, Falls Precautions, Fluid/Electrolyte/Nutrition Balance, Infection Protection, Pain Management, Wound Care Brief Synthesis of Preadmission Screen, Post-Admission Evaluation, and Therapy Evaluations: PT OT will focus on regaining function with use of assistive devices in order to regain function to return home and live independently Medical Prognosis: Fair Anticipated Length of Stay: 10 days FINA OTTO DO May 29, 2022 10:42
--- NOTE | 2022-05-29 10:42 | PM&R Progress Note ---
Subjective HPI/CC On Admission Date Seen by Provider: May 29, 2022 Time Seen by Provider: 10:00 Subjective/Events-last exam 05/29/2022: Doing well Pain controlled BP elevated so will begin treatment Labs reviewed Iron level and B12 checked and pending No issues Review of Systems General: Fatigue, Malaise Musculoskeletal: leg pain Objective Exam Vital Signs Vital Signs Date Time Temp Pulse Resp B/P (MAP) Pulse Ox O2 Delivery O2 Flow Rate FiO2 05/29/22 21:40 Room Air 05/29/22 20:33 36.7 82 16 132/73 (92) 95 Capillary Refill : General Appearance: No Apparent Distress, WD/WN, Chronically ill, Obese HEENT: PERRL/EOMI, Normal ENT Inspection, Pharynx Normal Neck: Full Range of Motion, Normal Inspection, Non Tender, Supple, Carotid Bruit Respiratory: Chest Non Tender, Lungs Clear, Normal Breath Sounds, No Accessory Muscle Use, No Respiratory Distress Cardiovascular: Regular Rate, Rhythm, No Edema, No Gallop, No JVD, No Murmur, Normal Peripheral Pulses Gastrointestinal: Normal Bowel Sounds, No Organomegaly, No Pulsatile Mass, Non Tender, Soft Back: Normal Inspection, No CVA Tenderness, No Vertebral Tenderness Extremity: Normal Capillary Refill, Normal Inspection, Normal Range of Motion, Non Tender, No Calf Tenderness, No Pedal Edema Neurologic/Psychiatric: Alert, Oriented x3, No Motor/Sensory Deficits, dependency case manager II- XII Norm as Tested, Depressed Affect, Motor Weakness (legs BKA bilateral) Skin: Normal Color, Warm/Dry Lymphatic: No Adenopathy Results/Procedures Lab Laboratory Tests 05/29/22 06:40 05/29/22 09:50 Patient resulted labs reviewed. FIM Transfers Therapy Code Descriptions/Definitions Functional [place] Measure: 0=Not Assessed/NA 4=Minimal Assistance 1=Total Assistance 5=Supervision or Setup 2=Maximal Assistance 6=Modified [place] 3=Moderate Assistance 7=Complete IndependenceSCALE: Activities may be completed with or without assistive devices. 4-Zkaoeafgoo-eoojtae completes the activity by him/herself with no assistance from a helper. 5-Set-up or Clean-up Assistance-helper sets up or cleans up; patient completes activity. [place] assists only prior to or following the activity. 4-Supervision or Touching Assistance-helper provides verbal cues and/or touching/steadying and/or contact guard assistance as patient completes activity. Assistance may be provided throughout the activity or intermittently. 3-Partial/Moderate Assistance-helper does LESS THAN HALF the effort. [place] lifts, holds or supports trunk or limbs, but provides less than half the effort. 2-Substantial/Maximal Assistance-helper does MORE THAN HALF the effort. [place] lifts or holds trunk or limbs and provides more than half the effort. 1-Wnjyrkbwj-oatimz does ALL the effort. Patient does none of the effort to complete the activity. Or, the assistance of 2 or more helpers is required for the patient to complete the activity. If activity was not attempted, code reason: 7-Patient Refused. 9-Not Applicable-not attempted and the patient did not perform the activity before the current illness, exacerbation or injury. 10-Not Attempted due to Environmental Limitations-(lack of equipment, weather restraints, etc.). 88-Not Attempted due to Medical Conditions or Safety Concerns. Roll Left to Right (QC): 3 Sit to Lying (QC): 4 Sit to Stand (QC): 88 Chair/Nob-rx-Omadx Xfer(QC): 2 Car Transfer (QC): 88 Gait Training Does the Patient Walk?: No and Walking Goal NOT indicated Walk 10 feet (QC): 88 Walk 50 ft with 2 Turns(QC): 88 Walk 150 ft (QC): 88 Walking 10ft/uneven surface-QC: 88 Wheelchair Training Does the Pt Use a Wheelchair?: Yes Distance: 0 Wheel 50 ft with 2 turns (QC): 88 Wheel 150 ft (QC): 88 Type of Wheelchair: Manual Stair Training #of Steps: 0 1 Step (curb) (QC): 88 4 Steps (QC): 88 12 Steps (QC): 88 Balance Picking up an Object (QC): 88 ADL-Treatment Eating (QC): 5 Oral Hygiene (QC): 5 Shower/Bathe Self (QC): 7 Upper Body Dressing (QC): 5 Lower Body Dressing (QC): 3 On/Off Footwear (QC): 9 Toileting Hygiene (QC): 2 Assessment/Plan Assessment and Plan Assess & Plan/Chief Complaint Assessment: Bilateral BKA's DM HTN HLP Low vision from retinopathy Seizures Poor social situation Post op acute blood loss anemia Plan: Pain control PT OT Wheelchair mobility 05/29/2022: Pain control Iron check (1) S/P bilateral below knee amputation (2) Diabetic retinopathy associated with uncontrolled type 2 diabetes mellitus Status: FINA Salinas DO May 29, 2022 10:42
--- NOTE | 2022-05-29 11:53 | Physical Therapy Daily Note ---
PT Daily Note-Current Subjective Patient in bed pre tx, agrees to PT, has 6/10 pain in legs. Will be co-treating with OT due to poor patient mobility, strength, endurance, severe debility and pain with activity, coordinate UE and LE with activity, safety and reduce risk of falls. Appearance Patient in WC at bedside post tx with nurse call, phone, tray, all needs met. Mental Status Patient Orientation: Person, Place, Situation Attachments: Jerry Catheter Transfers SCALE: Activities may be completed with or without assistive devices. 4-Woqxacqbrr-wrvubxp completes the activity by him/herself with no assistance from a helper. 5-Set-up or Clean-up Assistance-helper sets up or cleans up; patient completes activity. [place] assists only prior to or following the activity. 4-Supervision or Touching Assistance-helper provides verbal cues and/or touching/steadying and/or contact guard assistance as patient completes activity. Assistance may be provided throughout the activity or intermittently. 3-Partial/Moderate Assistance-helper does LESS THAN HALF the effort. [place] lifts, holds or supports trunk or limbs, but provides less than half the effort. 2-Substantial/Maximal Assistance-helper does MORE THAN HALF the effort. [place] lifts or holds trunk or limbs and provides more than half the effort. 1-Cwpdhxqty-matazk does ALL the effort. Patient does none of the effort to complete the activity. Or, the assistance of 2 or more helpers is required for the patient to complete the activity. If activity was not attempted, code reason: 7-Patient Refused. 9-Not Applicable-not attempted and the patient did not perform the activity before the current illness, exacerbation or injury. 10-Not Attempted due to Environmental Limitations-(lack of equipment, weather restraints, etc.). 88-Not Attempted due to Medical Conditions or Safety Concerns. Roll Left & Right (QC): 4 Lying to Sitting/Side of Bed(Q: 3 Chair/Qgx-go-Flwgz Xfer(QC): 3 Min assist for supine to sit. Patient transfers to using sliding board with mod assist, propels WC to shower and mod assist sliding board transfer to shower bench. Patient showers, dries off, dresses on shower bench and then mod assist sliding board transfer to . Weight Bearing Right Lower Extremity: Right Non Weight Bearing Left Lower Extremity: Left Non Weight Bearing Wheelchair Training Does the Pt Use a Wheelchair?: Yes Wheel 50 ft with 2 turns (QC): 4 Wheel 150 ft (QC): 4 Type of Wheelchair: Manual SBA, slow propelling, needs occasional rest break, patient went down and up fairly long ramp, was able to propel all the way from the bottom to the top without resting, ramp was approx 50' long. Overall patient propelled WC a di stance of about 1000' Exercises 2 sets of 10 of wheelchair pushups Treatments PT performed bed mobility and transfers, WC mobility, positioning and safety during bathing and dressing, UE strengthening, OT performed bathing, dressing, UE positioning and safety during activity. Assessment Current Status: Fair Progress patient needs to strengthen arms to improve sliding board transfers PT Fire Dispatcher Goals Fire Dispatcher Goals PT Senior Living Goals Time Frame: Jul 11, 2022 Roll Left & Right (QC): 6 Sit to Lying (QC): 6 Lying-Sitting on Side/Bed(QC): 6 Sit to Stand (QC): 88 Chair/Ftz-vd-Gutqk Xfer(QC): 6 Toilet Transfer (QC): 6 Car Transfer (QC): 6 Does the Patient Walk: No and Walking Goal NOT indicated Walk 10 feet (QC): 88 Walk 50ft with 2 Turns (QC): 88 Walk 150 ft (QC): 88 Walking 10ft on Uneven Surface: 88 1 Step (curb) (QC): 88 4 Steps (QC): 88 12 Steps (QC): 88 Picking up an Object (QC): 88 Does the Pt use WC or Scooter?: Yes Wheel 50 feet with 2 turns (QC: 6 Type: Manual Wheel 150 feet: 6 Type: Manual PT Plan Problem List Problem List: Activity Tolerance, Functional Strength, Safety, Balance, Gait, Transfer, Bed Mobility, ROM Treatment/Plan Treatment Plan: Continue Plan of Care Treatment Plan: Bed Mobility, Education, Functional Activity Slade, Functional Strength, Group Therapy, Safety, Therapeutic Exercise, Transfers Treatment Duration: Jul 12, 2022 Frequency: At least 5 of 7 days/Wk (IRF) Estimated Hrs Per Day: 1.5 hours per day Patient and/or Family Agrees t: Yes Safety Risks/Education Patient Education: Transfer Techniques, Correct Positioning, W/C Management, Safety Issues Teaching Recipient: Patient Teaching Methods: Demonstration, Discussion Response to Teaching: Reinforcement Needed Time/GCodes Time In: 1030 Time Out: 1200 Total Billed Treatment Time: 90 Total Billed Treatment 1 visit FA NUNO FERREIRA PT May 29, 2022 11:53
--- NOTE | 2022-05-29 13:17 | Occupational Ther Daily Note ---
OT Current Status-Daily Note Subjective Pt was in bed upon arrival. Pt agrees to a shower. Co-treat was completed with pt secondary to fall risk, coordination, weakness, and impaired balance. Appearance Pt left seated in w/c with all needs within reach. Mental Status/Objective Patient Orientation: Person, Place, Time, Situation Attachments: Jerry Catheter, IV ADL-Treatment Therapy Code Descriptions/Definitions Functional [place] Measure: 0=Not Assessed/NA 4=Minimal Assistance 1=Total Assistance 5=Supervision or Setup 2=Maximal Assistance 6=Modified [place] 3=Moderate Assistance 7=Complete IndependenceSCALE: Activities may be completed with or without assistive devices. 4-Jltrkrifpn-jvtffya completes the activity by him/herself with no assistance from a helper. 5-Set-up or Clean-up Assistance-helper sets up or cleans up; patient completes activity. [place] assists only prior to or following the activity. 4-Supervision or Touching Assistance-helper provides verbal cues and/or touching/steadying and/or contact guard assistance as patient completes activity. Assistance may be provided throughout the activity or intermittently. 3-Partial/Moderate Assistance-helper does LESS THAN HALF the effort. [place] lifts, holds or supports trunk or limbs, but provides less than half the effort. 2-Substantial/Maximal Assistance-helper does MORE THAN HALF the effort. [place] lifts or holds trunk or limbs and provides more than half the effort. 7-Jxtzjjtqu-ogmjxk does ALL the effort. Patient does none of the effort to complete the activity. Or, the assistance of 2 or more helpers is required for the patient to complete the activity. If activity was not attempted, code reason: 7-Patient Refused. 9-Not Applicable-not attempted and the patient did not perform the activity before the current illness, exacerbation or injury. 10-Not Attempted due to Environmental Limitations-(lack of equipment, weather restraints, etc.). 88-Not Attempted due to Medical Conditions or Safety Concerns. Shower/Bathe Self (QC): 4 Upper Body Dressing (QC): 5 Lower Body Dressing (QC): 2 (Pt able to help therapists by leaning side to side to help with clothing management, but unable to pul them up.) On/Off Footwear: 9 Slide board transfer completed x3 with min assist and min cues for hand and slide board positioning. Pt completed shower 100% in seated with supervision, showing good balance and ability to reach buttocks by leaning side to side. Unable to thread bilateral legs secondary to needing one hand to hold onto grab bar and inability to raise legs. Max assist for LE clothing management while seated due to incoordination and balance deficits. Other Treatment Pt participated in w/c mobility using a ramp. He was able to control w/c appropriately and make it back up the ramp with no rest breaks or assist. Increased fatigue and reports of "arms feel like jello" after completion of ramp. He participated in 2x10 seated w/c pushups with an increased rest break in between. Pt unable to raise bottom completely off of w/c. Education OT Patient Education: Correct positioning, Disease process, Energy conservation, Exercise program, Home exercise program, Modified ADL techniques, Progress toward Goal/Update tx plan, Purpose of tx/functional activities, Reviewed precautions, Rehab process, Safety issues, Transfer techniques, W/C management Teaching Recipient: Patient Teaching Methods: Demonstration, Discussion Response to Teaching: Verbalize Understanding, Return Demonstration OT Short Term Goals Short Term Goals Time Frame: Jun 07, 2022 Eatin Oral hygiene: 6 Toileting hygiene: 3 Shower/bathe self: 4 Upper body dressin Lower body dressin Putting on/taking off footwear: 9 OT Intermediate Goals Intermediate Goals Time Frame: Jun 14, 2022 Eating (QC): 6 Oral Hygiene (QC): 6 Toileting Hygiene (QC): 5 Shower/Bathe Self (QC): 5 Upper Body Dressing (QC): 6 Lower Body Dressing (QC): 5 On/Off Footwear (QC): 9 Additional Goals: 1-Demonstrate ADL Tasks, 2-Verbalize Understanding, 3- ImproveStrength/[place] 1=Demonstrate adherence to instructed precautions during ADL tasks. 2=Patient will verbalize/demonstrate understanding of assistive devices/modifications for ADL. 3=Patient will improve strength/tolerance for activity to enable patient to perform ADL's. OT Education/Plan Problem List/Assessment Assessment: Decreased Activ Tolerance, Decreased Safety Aware, Decreased UE Strength, Dependent Transfers, Impaired Bed Mobility, Impaired Cognition, Impaired Coordination, Impaired Funct Balance, Impaired I ADL's, Impaired Self- Care Skills, Restricted Funct UE ROM Discharge Recommendations Plan/Recommendations: Continue POC Treatment Plan/Plan of Care Treatment,Training & Education: Yes Patient would benefit from OT for education, treatment and training to promote independence in ADL's, mobility, safety and/or upper extremity function for ADL's. Plan of Care: ADL Retraining, Caregiver Training, Functional Mobility, Group Exercise/Act as Ind, Orthotic Fitting/Training, UE Funct Exercise/Act, UE Neuromus Re-Ed/Coord, W/C Management Training Treatment Duration: Jun 14, 2022 Frequency: At least 5 of 7 days/Wk (IRF) Estimated Hrs Per Day: 1.5 hours per day (75-90 min per day) Agreement: Yes Rehab Potential: Fair Time/GCodes Start Time: 10:35 Stop Time: 12:05 Total Time Billed (hr/min): 90 Billed Treatment Time 1 visit ADL x4 (60 minutes) EX x2 (30 minutes) Co-treat ([id number]) Alisha Rios OT May 29, 2022 13:17
[2022-05-29] MEDS: HYPOCHLOROUS ACID/NaCl (VASHE) 250 ML IR SCH ×2 (16:09→21:12)
[2022-05-29 20:33] VITALS: BP 132/73
[2022-05-29] MEDS: FAMOTIDINE 20 MG (PEPCID) TABLET PO SCH (20:35)
[2022-05-30] MEDS: inSUlin ASPART (NovoLOG) 1 UNIT/0.01 ML (CHARGE PER UNIT) SC SCH ×3 (06:53→17:38)
[2022-05-30 07:35] VITALS: BP 162/79
[2022-05-30] MEDS: LACTOBACILLUS ACIDOPHILUS (PROBIOTIC) CAPSULE PO SCH ×2 (08:29→21:23)
[2022-05-30] MEDS: DOCUSATE SODIUM 100 MG (COLACE) CAP PO SCH ×2 (08:29→21:27)
[2022-05-30] MEDS: SENNA W/DOCUSATE (SENOKOT S) TABLET PO SCH ×2 (08:29→21:27)
[2022-05-30] MEDS: NIFEdipine ER 60 MG (PROCARDIA XL) TAB PO SCH (08:29)
[2022-05-30] MEDS: FERROUS SULF 325 MG (IRON) TAB PO SCH ×2 (08:29→17:38)
[2022-05-30] MEDS: lisINopril 10 MG (PRINIVIL) TABLET PO SCH (08:29)
[2022-05-30] MEDS: ALLOPURINOL 100 MG (ZYLOPRIM) TAB PO SCH (08:29)
[2022-05-30] MEDS: polyethylene glycoL POWDER 17 GM (MIRALAX) PACK PO SCH ×2 (08:30→21:27)
[2022-05-30] MEDS: HYDROcodone/APAP 5 MG/325 MG (LORTAB) TAB PO PRN ×2 (08:30→17:43)
[2022-05-30] MEDS: amLODIPine 5 MG (NORVASC) TAB PO SCH (08:30)
[2022-05-30] MEDS: HYPOCHLOROUS ACID/NaCl (VASHE) 250 ML IR SCH ×2 (09:00→21:25)
--- NOTE | 2022-05-30 09:53 | Occupational Ther Daily Note ---
OT Current Status-Daily Note Subjective Pt in bed upon arrival. He agrees to therapy. Appearance Pt left in w/c. All needs within reach. Mental Status/Objective Patient Orientation: Person, Place, Time, Situation Attachments: Jerry Catheter, IV Acute change in mental status: 0 Inattention: 0 Disorganized thinkin Altered level of consciousness: 0 ADL-Treatment Therapy Code Descriptions/Definitions Functional [place] Measure: 0=Not Assessed/NA 4=Minimal Assistance 1=Total Assistance 5=Supervision or Setup 2=Maximal Assistance 6=Modified [place] 3=Moderate Assistance 7=Complete IndependenceSCALE: Activities may be completed with or without assistive devices. 4-Amgdzajgnm-jwjtaup completes the activity by him/herself with no assistance from a helper. 5-Set-up or Clean-up Assistance-helper sets up or cleans up; patient completes activity. [place] assists only prior to or following the activity. 4-Supervision or Touching Assistance-helper provides verbal cues and/or touching/steadying and/or contact guard assistance as patient completes activity. Assistance may be provided throughout the activity or intermittently. 3-Partial/Moderate Assistance-helper does LESS THAN HALF the effort. [place] lifts, holds or supports trunk or limbs, but provides less than half the effort. 2-Substantial/Maximal Assistance-helper does MORE THAN HALF the effort. [place] lifts or holds trunk or limbs and provides more than half the effort. 8-Qtbkktmto-nobggv does ALL the effort. Patient does none of the effort to complete the activity. Or, the assistance of 2 or more helpers is required for the patient to complete the activity. If activity was not attempted, code reason: 7-Patient Refused. 9-Not Applicable-not attempted and the patient did not perform the activity before the current illness, exacerbation or injury. 10-Not Attempted due to Environmental Limitations-(lack of equipment, weather restraints, etc.). 88-Not Attempted due to Medical Conditions or Safety Concerns. Slide board transfer initially was mod assist and moved to min assist for set up of board and slide technique. Pt's is independent with w/c mobility and has been maneuvering throughout room when therapy is not present. Pt combed hair and washed face with set up assist. Other Treatment (Session 1) Practiced slide board transfers on gym mat with min assist. Participated in functional activity of reaching to each side, forward and backwards to retrieve and drop objects to improve coordination, pelvic rotation, fine motor skills, upper body and core strength and balance x15 to improve funct ional activities such as dressing, bathing, and transfers. Practiced leaning on bilateral forearms and using core strength to sit back up x10 each side. Pt performed 2x10 reps of seated crunches to improve core strength and balance. (Session 2) Handout and yellow theraputty given to pt for a home exercise program. All theraputty exercises were explained, demonstrated and practiced 10+x to improve hand and finger strength, hand manipulation, and proprioceptive input. Beads were incorporated into theraputty to work on hand manipulation and fine motor skills. He was able to follow directions and tolerated it well. Advanced resistance in theraputty will be beneficial in future sessions. Education OT Patient Education: Correct positioning, Disease process, Energy conservation, Exercise program, Home exercise program, Progress toward Goal/Update tx plan, Purpose of tx/functional activities, Reviewed precautions, Rehab process, Safety issues, Transfer techniques, W/C management Teaching Recipient: Patient Teaching Methods: Demonstration, Discussion Response to Teaching: Verbalize Understanding, Return Demonstration OT Short Term Goals Short Term Goals Time Frame: Jun 07, 2022 Eatin Oral hygiene: 6 Toileting hygiene: 3 Shower/bathe self: 4 Upper body dressin Lower body dressin Putting on/taking off footwear: 9 OT Senior Care Goals Managed Care Director Goals Time Frame: Jun 14, 2022 Acute change in mental status: 0 Inattention: 0 Disorganized thinkin Altered level of consciousness: 0 Eating (QC): 6 Oral Hygiene (QC): 6 Toileting Hygiene (QC): 5 Shower/Bathe Self (QC): 5 Upper Body Dressing (QC): 6 Lower Body Dressing (QC): 5 On/Off Footwear (QC): 9 Additional Goals: 1-Demonstrate ADL Tasks, 2-Verbalize Understanding, 3- ImproveStrength/[place] 1=Demonstrate adherence to instructed precautions during ADL tasks. 2=Patient will verbalize/demonstrate understanding of assistive devices/modifications for ADL. 3=Patient will improve strength/tolerance for activity to enable patient to perform ADL's. OT Education/Plan Problem List/Assessment Assessment: Decreased Activ Tolerance, Decreased Safety Aware, Decreased UE Strength, Dependent Transfers, Edema, Impaired Bed Mobility, Impaired Coordination, Impaired Funct Balance, Impaired I ADL's, Impaired Self-Care Skil ls, Restricted Funct UE ROM Discharge Recommendations Plan/Recommendations: Continue POC Treatment Plan/Plan of Care Treatment,Training & Education: Yes Patient would benefit from OT for education, treatment and training to promote independence in ADL's, mobility, safety and/or upper extremity function for ADL's. Plan of Care: ADL Retraining, Caregiver Training, Functional Mobility, Group Exercise/Act as Ind, Orthotic Fitting/Training, UE Funct Exercise/Act, UE Neuromus Re-Ed/Coord, W/C Management Training Treatment Duration: Jun 14, 2022 Frequency: At least 5 of 7 days/Wk (IRF) Estimated Hrs Per Day: 1.5 hours per day (75-90 min per day) Agreement: Yes Rehab Potential: Fair Time/GCodes Start Time: 09:00 (1130) Stop Time: 10:00 (1200) Total Time Billed (hr/min): 90 Billed Treatment Time 2 visits 1st session: [id number] ADL (10 min) FA x3 (50 min) 2nd session: [id number] EX x2 (30 min) Alisha Rios OT May 30, 2022 09:53
--- NOTE | 2022-05-30 09:56 | Physical Therapy Daily Note ---
PT Daily Note-Current Subjective Patient in bed pre tx, agrees to PT, has no complaints of pain. Will be co- treating with OT due to poor patient mobility, strength, endurance, severe debility, coordinate UE and LE during activity, safety and reduce risk of falls. Pain Section J - Health Conditions 1. Rarely or not at all 2. Occasionally 3. Frequently 4. Almost constantly 8. Unable to answer Pain Effect on Sleep: 1 Pain Interference with Therapy: 2 Pain Interference w/Day-to-Day: 2 Appearance Patient in WC post tx with nurse call, phone, tray, all needs met. Mental Status Patient Orientation: Person, Place, Situation Attachments: Jerry Catheter Transfers SCALE: Activities may be completed with or without assistive devices. 0-Hwrdhvrmnv-bkeladl completes the activity by him/herself with no assistance from a helper. 5-Set-up or Clean-up Assistance-helper sets up or cleans up; patient completes activity. [place] assists only prior to or following the activity. 4-Supervision or Touching Assistance-helper provides verbal cues and/or touching/steadying and/or contact guard assistance as patient completes activity. Assistance may be provided throughout the activity or intermittently. 3-Partial/Moderate Assistance-helper does LESS THAN HALF the effort. [place] lifts, holds or supports trunk or limbs, but provides less than half the effort. 2-Substantial/Maximal Assistance-helper does MORE THAN HALF the effort. [place] lifts or holds trunk or limbs and provides more than half the effort. 9-Shovhotpm-bizjvh does ALL the effort. Patient does none of the effort to complete the activity. Or, the assistance of 2 or more helpers is required for the patient to complete the activity. If activity was not attempted, code reason: 7-Patient Refused. 9-Not Applicable-not attempted and the patient did not perform the activity before the current illness, exacerbation or injury. 10-Not Attempted due to Environmental Limitations-(lack of equipment, weather restraints, etc.). 88-Not Attempted due to Medical Conditions or Safety Concerns. Roll Left & Right (QC): 4 Lying to Sitting/Side of Bed(Q: 4 Chair/Epj-th-Qabjm Xfer(QC): 3 mod assist sliding board transfer to Weight Bearing Right Lower Extremity: Right Non Weight Bearing Left Lower Extremity: Left Non Weight Bearing Wheelchair Training Does the Pt Use a Wheelchair?: Yes Wheel 50 ft with 2 turns (QC): 4 Wheel 150 ft (QC): 4 Type of Wheelchair: Manual 150'x2 Exercises Sliding board transfer to therapy table (mod assist), practice trunk strengthening and limits of stability with reaching and leaning all 4 directions, sliding board transfer back to WC and then he propels back to his room. Treatments PT performed bed mobility and transfers, positioning and safety during trunk activity, OT performed UE positioning and safety during activity, reaching and leaning activity. Assessment Current Status: Fair Progress Patient needs careful guarding and assistance from a therapist experienced with sliding board transfers, he tends to slide forward on the board and proper positioning and directional assistance is needed to prevent a fall. PT Customer Service Sales Consultant Goals Retirement Goals PT Customer Service Sales Consultant Goals Time Frame: Jul 11, 2022 Roll Left & Right (QC): 6 Sit to Lying (QC): 6 Lying-Sitting on Side/Bed(QC): 6 Sit to Stand (QC): 88 Chair/Sri-ta-Bvrom Xfer(QC): 6 Toilet Transfer (QC): 6 Car Transfer (QC): 6 Does the Patient Walk: No and Walking Goal NOT indicated Walk 10 feet (QC): 88 Walk 50ft with 2 Turns (QC): 88 Walk 150 ft (QC): 88 Walking 10ft on Uneven Surface: 88 1 Step (curb) (QC): 88 4 Steps (QC): 88 12 Steps (QC): 88 Picking up an Object (QC): 88 Does the Pt use WC or Scooter?: Yes Wheel 50 feet with 2 turns (QC: 6 Type: Manual Wheel 150 feet: 6 Type: Manual PT Plan Problem List Problem List: Activity Tolerance, Functional Strength, Safety, Balance, Gait, Transfer, Bed Mobility, ROM Treatment/Plan Treatment Plan: Continue Plan of Care Treatment Plan: Bed Mobility, Education, Functional Activity [place], Functional Strength, Group Therapy, Safety, Therapeutic Exercise, Transfers Treatment Duration: Jul 12, 2022 Frequency: At least 5 of 7 days/Wk (IRF) Estimated Hrs Per Day: 1.5 hours per day Patient and/or Family Agrees t: Yes Safety Risks/Education Patient Education: Transfer Techniques, Correct Positioning, W/C Management, Safety Issues Teaching Recipient: Patient Teaching Methods: Demonstration, Discussion Response to Teaching: Reinforcement Needed Time/GCodes Time In: 0900 Time Out: 1000 Total Billed Treatment Time: 60 Total Billed Treatment 1 visit FA 60' NUNO DUNCAN PT May 30, 2022 09:56
[2022-05-30] MEDS: MICONAZOLE 2% POWDER (DESENEX AF) 90 GM TOP SCH ×2 (10:04→21:26)
--- NOTE | 2022-05-30 11:29 | Physical Therapy Daily Note ---
PT Daily Note-Current Subjective Patient in WC at bedside pre tx, agrees to PT, has 6/10 pain in legs. Pain Section J - Health Conditions 1. Rarely or not at all 2. Occasionally 3. Frequently 4. Almost constantly 8. Unable to answer Pain Effect on Sleep: 2 Pain Interference with Therapy: 2 Pain Interference w/Day-to-Day: 2 Appearance Patient in WC at bedside post tx with nurse call, phone, tray, all needs met. Mental Status Patient Orientation: Person, Place, Situation Attachments: Jerry Catheter Transfers SCALE: Activities may be completed with or without assistive devices. 1-Mitzrdcxwx-doiiggu completes the activity by him/herself with no assistance from a helper. 5-Set-up or Clean-up Assistance-helper sets up or cleans up; patient completes activity. [place] assists only prior to or following the activity. 4-Supervision or Touching Assistance-helper provides verbal cues and/or touching/steadying and/or contact guard assistance as patient completes activity. Assistance may be provided throughout the activity or intermittently. 3-Partial/Moderate Assistance-helper does LESS THAN HALF the effort. [place] lifts, holds or supports trunk or limbs, but provides less than half the effort. 2-Substantial/Maximal Assistance-helper does MORE THAN HALF the effort. [place] lifts or holds trunk or limbs and provides more than half the effort. 5-Ctqhkoyva-dltosl does ALL the effort. Patient does none of the effort to complete the activity. Or, the assistance of 2 or more helpers is required for the patient to complete the activity. If activity was not attempted, code reason: 7-Patient Refused. 9-Not Applicable-not attempted and the patient did not perform the activity before the current illness, exacerbation or injury. 10-Not Attempted due to Environmental Limitations-(lack of equipment, weather restraints, etc.). 88-Not Attempted due to Medical Conditions or Safety Concerns. Weight Bearing Right Lower Extremity: Right Non Weight Bearing Left Lower Extremity: Left Non Weight Bearing Wheelchair Training Does the Pt Use a Wheelchair?: Yes Wheel 50 ft with 2 turns (QC): 6 Type of Wheelchair: Manual 120'x2, slow propulsion but is able to do it safely on his own. Exercises Seated Therapy Exercises: Long arc quads, Hip flexion, Hamstring Curls, Hip a bd/add (with ball and RTB) knee extension stretch BLE for 5 min Treatments BLE strengthening and stretching, WC mobility Assessment Current Status: Fair Progress Patient expressed some depression due to his current circumstances and marital issues. PT County Manager Goals County Manager Goals PT County Manager Goals Time Frame: Jul 11, 2022 Roll Left & Right (QC): 6 Sit to Lying (QC): 6 Lying-Sitting on Side/Bed(QC): 6 Sit to Stand (QC): 88 Chair/Jyb-sk-Iuosh Xfer(QC): 6 Toilet Transfer (QC): 6 Car Transfer (QC): 6 Does the Patient Walk: No and Walking Goal NOT indicated Walk 10 feet (QC): 88 Walk 50ft with 2 Turns (QC): 88 Walk 150 ft (QC): 88 Walking 10ft on Uneven Surface: 88 1 Step (curb) (QC): 88 4 Steps (QC): 88 12 Steps (QC): 88 Picking up an Object (QC): 88 Does the Pt use WC or Scooter?: Yes Wheel 50 feet with 2 turns (QC: 6 Type: Manual Wheel 150 feet: 6 Type: Manual PT Plan Problem List Problem List: Activity Tolerance, Functional Strength, Safety, Balance, Transfer, Bed Mobility, ROM Treatment/Plan Treatment Plan: Continue Plan of Care Treatment Plan: Bed Mobility, Education, Functional Activity [place], Functional Strength, Group Therapy, Safety, Therapeutic Exercise, Transfers Treatment Duration: Jul 12, 2022 Frequency: At least 5 of 7 days/Wk (IRF) Estimated Hrs Per Day: 1.5 hours per day Patient and/or Family Agrees t: Yes Safety Risks/Education Patient Education: Transfer Techniques, Correct Positioning, W/C Management, Safety Issues Teaching Recipient: Patient Teaching Methods: Demonstration, Discussion Response to Teaching: Reinforcement Needed Time/GCodes Time In: 1100 Time Out: 1130 Total Billed Treatment Time: 30 Total Billed Treatment 1 visit EX 30' NUNO DUNCAN PT May 30, 2022 11:29
--- NOTE | 2022-05-30 12:30 | PM&R Progress Note ---
Subjective HPI/CC On Admission Date Seen by Provider: May 30, 2022 Time Seen by Provider: 11:30 Subjective/Events-last exam 05/30/2022: Doing well Depression noted so ordered Behavioral health evaluation Pain about the same No falls DC catheter today BM+ 05/29/2022: Doing well Pain controlled BP elevated so will begin treatment Labs reviewed Iron level and B12 checked and pending No issues Review of Systems General: Fatigue, Malaise Musculoskeletal: leg pain Objective Exam Vital Signs Vital Signs Date Time Temp Pulse Resp B/P (MAP) Pulse Ox O2 Delivery O2 Flow Rate FiO2 05/30/22 21:20 Room Air 05/30/22 20:24 36.6 81 16 133/70 (91) 95 Capillary Refill : General Appearance: No Apparent Distress, WD/WN, Chronically ill, Obese HEENT: PERRL/EOMI, Normal ENT Inspection, Pharynx Normal Neck: Full Range of Motion, Normal Inspection, Non Tender, Supple, Carotid B ruit Respiratory: Chest Non Tender, Lungs Clear, Normal Breath Sounds, No Accessory Muscle Use, No Respiratory Distress Cardiovascular: Regular Rate, Rhythm, No Edema, No Gallop, No JVD, No Murmur, Normal Peripheral Pulses Gastrointestinal: Normal Bowel Sounds, No Organomegaly, No Pulsatile Mass, Non Tender, Soft Back: Normal Inspection, No CVA Tenderness, No Vertebral Tenderness Extremity: Normal Capillary Refill, Normal Inspection, Normal Range of Motion, Non Tender, No Calf Tenderness, No Pedal Edema Neurologic/Psychiatric: Alert, Oriented x3, No Motor/Sensory Deficits, beet flumer II- XII Norm as Tested, Depressed Affect, Motor Weakness (legs BKA bilateral) Skin: Normal Color, Warm/Dry Lymphatic: No Adenopathy Results/Procedures Lab Patient resulted labs reviewed. FIM Transfers Therapy Code Descriptions/Definitions Functional [place] Measure: 0=Not Assessed/NA 4=Minimal Assistance 1=Total Assistance 5=Supervision or Setup 2=Maximal Assistance 6=Modified [place] 3=Moderate Assistance 7=Complete IndependenceSCALE: Activities may be completed with or without assistive devices. 8-Zqgjfzjhod-kizjsja completes the activity by him/herself with no assistance from a helper. 5-Set-up or Clean-up Assistance-helper sets up or cleans up; patient completes activity. [place] assists only prior to or following the activity. 4-Supervision or Touching Assistance-helper provides verbal cues and/or touching/steadying and/or contact guard assistance as patient completes activity. Assistance may be provided throughout the activity or intermittently. 3-Partial/Moderate Assistance-helper does LESS THAN HALF the effort. [place] lifts, holds or supports trunk or limbs, but provides less than half the effort. 2-Substantial/Maximal Assistance-helper does MORE THAN HALF the effort. [place] lifts or holds trunk or limbs and provides more than half the effort. 8-Pwicccgku-jexhit does ALL the effort. Patient does none of the effort to complete the activity. Or, the assistance of 2 or more helpers is required for the patient to complete the activity. If activity was not attempted, code reason: 7-Patient Refused. 9-Not Applicable-not attempted and the patient did not perform the activity before the current illness, exacerbation or injury. 10-Not Attempted due to Environmental Limitations-(lack of equipment, weather restraints, etc.). 88-Not Attempted due to Medical Conditions or Safety Concerns. Roll Left to Right (QC): 4 Sit to Lying (QC): 4 Sit to Stand (QC): 88 Chair/Hos-ey-Rsxrx Xfer(QC): 3 Car Transfer (QC): 88 Gait Training Does the Patient Walk?: No and Walking Goal NOT indicated Walk 10 feet (QC): 88 Walk 50 ft with 2 Turns(QC): 88 Walk 150 ft (QC): 88 Walking 10ft/uneven surface-QC: 88 Wheelchair Training Does the Pt Use a Wheelchair?: Yes Distance: 0 Wheel 50 ft with 2 turns (QC): 6 Wheel 150 ft (QC): 4 Type of Wheelchair: Manual Stair Training #of Steps: 0 1 Step (curb) (QC): 88 4 Steps (QC): 88 12 Steps (QC): 88 Balance Picking up an Object (QC): 88 ADL-Treatment Eating (QC): 5 Oral Hygiene (QC): 5 Shower/Bathe Self (QC): 4 Upper Body Dressing (QC): 5 Lower Body Dressing (QC): 2 (Pt able to help therapists by leaning side to side to help with clothing management, but unable to pul them up.) On/Off Footwear (QC): 9 Toileting Hygiene (QC): 2 Assessment/Plan Assessment and Plan Assess & Plan/Chief Complaint Assessment: Bilateral BKA's DM HTN HLP Low vision from retinopathy Seizures Poor social situation Post op acute blood loss anemia with severe iron def ordered iron infusions Jerry cath in place so DC 05/30/22 Poor nutrition albumin 1.8 Plan: Pain control PT OT Wheelchair mobility 05/29/2022: Pain control Iron check 05/30/2022: DC catheter Venofer B12 injection (1) S/P bilateral below knee amputation (2) Diabetic retinopathy associated with uncontrolled type 2 diabetes mellitus Status: Acute FINA OTTO DO May 30, 2022 12:30
[2022-05-30] MEDS ORDERED: CATHETER FLUSH 10 ML SYR IVP PRN (17:45)
[2022-05-30 20:24] VITALS: BP 133/70
[2022-05-30] MEDS: FAMOTIDINE 20 MG (PEPCID) TABLET PO SCH (21:23)
[2022-05-30] MEDS: HYPOCHLOROUS ACID/NaCl (VASHE) 250 ML IR PRN (21:24)
[2022-05-30] MEDS: CATHETER FLUSH 10 ML SYR IVP SCH (22:24)
[2022-05-31] MEDS: inSUlin ASPART (NovoLOG) 1 UNIT/0.01 ML (CHARGE PER UNIT) SC SCH ×3 (07:05→17:07)
[2022-05-31] MEDS: CATHETER FLUSH 10 ML SYR IVP SCH ×3 (07:05→20:57)
[2022-05-31 07:08] VITALS: BP 165/84
--- NOTE | 2022-05-31 07:09 | PM&R Progress Note ---
Subjective HPI/CC On Admission Date Seen by Provider: May 31, 2022 Time Seen by Provider: 11:00 Subjective/Events-last exam 05/31/2022: Doing well Urinary retention discussed and will start Flomax and Urecholine although he is emptying he does have tendency for retention and he reports he had issues like this before Dr Ramsey will see him Thursday at 1300 for depression Loose stools so will hold laxatives Lortab used on occasion 05/30/2022: Doing well Depression noted so ordered Behavioral health evaluation Pain about the same No falls DC catheter today BM+ 05/29/2022: Doing well Pain controlled BP elevated so will begin treatment Labs reviewed Iron level and B12 checked and pending No issues Review of Systems General: Fatigue, Malaise Gastrointestinal: Diarrhea Genitourinary: Retention Musculoskeletal: leg pain Objective Exam Vital Signs Vital Signs Date Time Temp Pulse Resp B/P (MAP) Pulse Ox O2 Delivery O2 Flow Rate FiO2 05/31/22 09:00 Room Air 05/31/22 07:08 36.9 80 16 165/84 (111) 96 Capillary Refill : General Appearance: No Apparent Distress, WD/WN, Chronically ill, Obese HEENT: PERRL/EOMI, Normal ENT Inspection, Pharynx Normal Neck: Full Range of Motion, Normal Inspection, Non Tender, Supple, Carotid Bruit Respiratory: Chest Non Tender, Lungs Clear, Normal Breath Sounds, No Accessory Muscle Use, No Respiratory Distress Cardiovascular: Regular Rate, Rhythm, No Edema, No Gallop, No JVD, No Murmur, Normal Peripheral Pulses Gastrointestinal: Normal Bowel Sounds, No Organomegaly, No Pulsatile Mass, Non Tender, Soft Back: Normal Inspection, No CVA Tenderness, No Vertebral Tenderness Extremity: Normal Capillary Refill, Normal Inspection, Normal Range of Motion, Non Tender, No Calf Tenderness, No Pedal Edema Neurologic/Psychiatric: Alert, Oriented x3, No Motor/Sensory Deficits, 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 FIM Transfers Therapy Code Descriptions/Definitions Functional [place] Measure: 0=Not Assessed/NA 4=Minimal Assistance 1=Total Assistance 5=Supervision or Setup 2=Maximal Assistance 6=Modified [place] 3=Moderate Assistance 7=Complete IndependenceSCALE: Activities may be completed with or without assistive devices. 9-Blmifndtca-kdaykds completes the activity by him/herself with no assistance from a helper. 5-Set-up or Clean-up Assistance-helper sets up or cleans up; patient completes activity. [place] assists only prior to or following the activity. 4-Supervision or Touching Assistance-helper provides verbal cues and/or touching/steadying and/or contact guard assistance as patient completes activity. Assistance may be provided throughout the activity or intermittently. 3-Partial/Moderate Assistance-helper does LESS THAN HALF the effort. [place] lifts, holds or supports trunk or limbs, but provides less than half the effort. 2-Substantial/Maximal Assistance-helper does MORE THAN HALF the effort. [place] lifts or holds trunk or limbs and provides more than half the effort. 3-Vgdkgjxhr-doufhk does ALL the effort. Patient does none of the effort to complete the activity. Or, the assistance of 2 or more helpers is required for the patient to complete the activity. If activity was not attempted, code reason: 7-Patient Refused. 9-Not Applicable-not attempted and the patient did not perform the activity before the current illness, exacerbation or injury. 10-Not Attempted due to Environmental Limitations-(lack of equipment, weather restraints, etc.). 88-Not Attempted due to Medical Conditions or Safety Concerns. Roll Left to Right (QC): 4 Sit to Lying (QC): 4 Sit to Stand (QC): 88 Chair/Vrc-as-Boakf Xfer(QC): 3 Car Transfer (QC): 88 Gait Training Does the Patient Walk?: No and Walking Goal NOT indicated Walk 10 feet (QC): 88 Walk 50 ft with 2 Turns(QC): 88 Walk 150 ft (QC): 88 Walking 10ft/uneven surface-QC: 88 Wheelchair Training Does the Pt Use a Wheelchair?: Yes Distance: 0 Wheel 50 ft with 2 turns (QC): 6 Wheel 150 ft (QC): 4 Type of Wheelchair: Manual Stair Training #of Steps: 0 1 Step (curb) (QC): 88 4 Steps (QC): 88 12 Steps (QC): 88 Balance Picking up an Object (QC): 88 ADL-Treatment Eating (QC): 5 Oral Hygiene (QC): 5 Shower/Bathe Self (QC): 4 Upper Body Dressing (QC): 5 Lower Body Dressing (QC): 2 (Pt able to help therapists by leaning side to side to help with clothing management, but unable to pul them up.) On/Off Footwear (QC): 9 Toileting Hygiene (QC): 2 Assessment/Plan Assessment and Plan Assess & Plan/Chief Complaint Assessment: Bilateral BKA's DM HTN HLP Low vision from retinopathy Seizures Poor social situation Post op acute blood loss anemia with severe iron def ordered iron infusions Jerry cath in place so DC 05/30/22 and having acute on chronic urinary retention Poor nutrition albumin 1.8 Plan: Pain control PT OT Wheelchair mobility 05/29/2022: Pain control Iron check 05/30/2022: DC catheter Venofer B12 injection 05/31/2022: Flomax Urecholine (1) S/P bilateral below knee amputation (2) Diabetic retinopathy associated with uncontrolled type 2 diabetes mellitus Status: Acute FINA OTTO DO May 31, 2022 07:09
[2022-05-31] MEDS: HYDROcodone/APAP 5 MG/325 MG (LORTAB) TAB PO PRN ×3 (07:23→20:43)
[2022-05-31] MEDS ORDERED: CYANOCOBALAMIN INJ 1000 MCG/ML IM ONE (08:00)
[2022-05-31] MEDS: IRON SUCROSE 200 MG/10 ML (VENOFER) VIAL IV SCH (08:55)
[2022-05-31] MEDS: ALLOPURINOL 100 MG (ZYLOPRIM) TAB PO SCH (09:00)
[2022-05-31] MEDS: FERROUS SULF 325 MG (IRON) TAB PO SCH ×2 (09:00→17:06)
[2022-05-31] MEDS: LACTOBACILLUS ACIDOPHILUS (PROBIOTIC) CAPSULE PO SCH ×2 (09:00→20:43)
[2022-05-31] MEDS: SENNA W/DOCUSATE (SENOKOT S) TABLET PO SCH ×2 (09:01→20:45)
[2022-05-31] MEDS: DOCUSATE SODIUM 100 MG (COLACE) CAP PO SCH ×2 (09:01→20:44)
[2022-05-31] MEDS: NIFEdipine ER 60 MG (PROCARDIA XL) TAB PO SCH (09:01)
[2022-05-31] MEDS: lisINopril 10 MG (PRINIVIL) TABLET PO SCH (09:01)
[2022-05-31] MEDS: amLODIPine 5 MG (NORVASC) TAB PO SCH (09:01)
[2022-05-31] MEDS: polyethylene glycoL POWDER 17 GM (MIRALAX) PACK PO SCH ×2 (09:02→20:45)
[2022-05-31] MEDS: MICONAZOLE 2% POWDER (DESENEX AF) 90 GM TOP SCH ×2 (09:22→20:45)
[2022-05-31] MEDS: HYPOCHLOROUS ACID/NaCl (VASHE) 250 ML IR SCH ×2 (11:12→20:44)
--- NOTE | 2022-05-31 12:04 | Physical Therapy Daily Note ---
PT Daily Note-Current Subjective Pt laying Supine in bed upon arrival. Pt agrees to B LE ROM & EX as pt is pantless and wants to continue "airing out". Pain Section J - Health Conditions 1. Rarely or not at all 2. Occasionally 3. Frequently 4. Almost constantly 8. Unable to answer Pain Effect on Sleep: 2 Pain Interference with Therapy: 2 Pain Interference w/Day-to-Day: 2 Mental Status Patient Orientation: Person, Place, Time, Situation Transfers SCALE: Activities may be completed with or without assistive devices. 8-Pkcryxrgzn-ermpabo completes the activity by him/herself with no assistance from a helper. 5-Set-up or Clean-up Assistance-helper sets up or cleans up; patient completes activity. [place] assists only prior to or following the activity. 4-Supervision or Touching Assistance-helper provides verbal cues and/or touching/steadying and/or contact guard assistance as patient completes activity. Assistance may be provided throughout the activity or intermittently. 3-Partial/Moderate Assistance-helper does LESS THAN HALF the effort. [place] lifts, holds or supports trunk or limbs, but provides less than half the effort. 2-Substantial/Maximal Assistance-helper does MORE THAN HALF the effort. [place] lifts or holds trunk or limbs and provides more than half the effort. 6-Dhadgivua-zeyceh does ALL the effort. Patient does none of the effort to complete the activity. Or, the assistance of 2 or more helpers is required for the patient to complete the activity. If activity was not attempted, code reason: 7-Patient Refused. 9-Not Applicable-not attempted and the patient did not perform the activity before the current illness, exacerbation or injury. 10-Not Attempted due to Environmental Limitations-(lack of equipment, weather restraints, etc.). 88-Not Attempted due to Medical Conditions or Safety Concerns. Weight Bearing Right Lower Extremity: Right Non Weight Bearing Left Lower Extremity: Left Non Weight Bearing Exercises Supine Ex: Quad Set, Glut sets, Heel Slides, Straight leg raise, Hip abd/add Supine Reps: 15 Treatments Pt completes Supine EX as AROM. Pt resting at end of tx with all needs met, call light in hand. Assessment Current Status: Good Progress Pt is able to move fairly easily with a little resistance at times due to tightness. PT Long-Term Goals Supervisor Cartography Goals PT Long-Term Goals Time Frame: Jul 11, 2022 Roll Left & Right (QC): 6 Sit to Lying (QC): 6 Lying-Sitting on Side/Bed(QC): 6 Sit to Stand (QC): 88 Chair/Oxe-sb-Juoww Xfer(QC): 6 Toilet Transfer (QC): 6 Car Transfer (QC): 6 Does the Patient Walk: No and Walking Goal NOT indicated Walk 10 feet (QC): 88 Walk 50ft with 2 Turns (QC): 88 Walk 150 ft (QC): 88 Walking 10ft on Uneven Surface: 88 1 Step (curb) (QC): 88 4 Steps (QC): 88 12 Steps (QC): 88 Picking up an Object (QC): 88 Does the Pt use WC or Scooter?: Yes Wheel 50 feet with 2 turns (QC: 6 Type: Manual Wheel 150 feet: 6 Type: Manual PT Plan Problem List Problem List: Activity Tolerance Treatment/Plan Treatment Plan: Continue Plan of Care Treatment Plan: Bed Mobility, Education, Functional Activity [place], Functional Strength, Group Therapy, Safety, Therapeutic Exercise, Transfers Treatment Duration: Jul 12, 2022 Frequency: At least 5 of 7 days/Wk (IRF) Estimated Hrs Per Day: 1.5 hours per day Patient and/or Family Agrees t: Yes Time/GCodes Time In: 1020 Time Out: 1040 Total Billed Treatment Time: 20 Total Billed Treatment 1, EX (20m) LINDSEY CARVALHO PTA May 31, 2022 12:04
[2022-05-31] MEDS: BETHANECHOL 10 MG (URECHOLINE) TAB PO SCH ×2 (15:43→20:43)
[2022-05-31 20:00] VITALS: BP 131/63
[2022-05-31] MEDS: FAMOTIDINE 20 MG (PEPCID) TABLET PO SCH (20:43)
[2022-05-31] MEDS: TAMSULOSIN 0.4 MG (FLOMAX) CAP PO SCH (20:43)
[2022-06-01] MEDS: CATHETER FLUSH 10 ML SYR IVP SCH ×3 (05:33→23:23)
[2022-06-01] MEDS: BETHANECHOL 10 MG (URECHOLINE) TAB PO SCH ×4 (05:34→20:05)
[2022-06-01] MEDS: inSUlin ASPART (NovoLOG) 1 UNIT/0.01 ML (CHARGE PER UNIT) SC SCH ×3 (06:42→16:06)
[2022-06-01 07:03] VITALS: BP 176/89
--- NOTE | 2022-06-01 08:31 | PM&R Progress Note ---
Subjective HPI/CC On Admission Date Seen by Provider: Jun 01, 2022 Time Seen by Provider: 16:00 Subjective/Events-last exam 06/01/2022: Improved status Sleeping right now No falls No pain most of the time 05/31/2022: Doing well Urinary retention discussed and will start Flomax and Urecholine although he is emptying he does have tendency for retention and he reports he had issues like this before Dr Ramsey will see him Thursday at 1300 for depression Loose stools so will hold laxatives Lortab used on occasion 05/30/2022: Doing well Depression noted so ordered Behavioral health evaluation Pain about the same No falls DC catheter today BM+ 05/29/2022: Doing well Pain controlled BP elevated so will begin treatment Labs reviewed Iron level and B12 checked and pending No issues Review of Systems General: Fatigue, Malaise Genitourinary: Retention Musculoskeletal: leg pain Objective Exam Vital Signs Vital Signs Date Time Temp Pulse Resp B/P (MAP) Pulse Ox O2 Delivery O2 Flow Rate FiO2 06/01/22 21:00 Room Air 06/01/22 19:55 37.2 83 18 127/61 (83) 94 Capillary Refill : General Appearance: No Apparent Distress, WD/WN, Chronically ill, Obese HEENT: PERRL/EOMI, Normal ENT Inspection, Pharynx Normal Neck: Full Range of Motion, Normal Inspection, Non Tender, Supple, Carotid Bruit Respiratory: Chest Non Tender, Lungs Clear, Normal Breath Sounds, No Accessory Muscle Use, No Respiratory Distress Cardiovascular: Regular Rate, Rhythm, No Edema, No Gallop, No JVD, No Murmur, Normal Peripheral Pulses Gastrointestinal: Normal Bowel Sounds, No Organomegaly, No Pulsatile Mass, Non Tender, Soft Back: Normal Inspection, No CVA Tenderness, No Vertebral Tenderness Extremity: Normal Capillary Refill, Normal Inspection, Normal Range of Motion, Non Tender, No Calf Tenderness, No Pedal Edema Neurologic/Psychiatric: Alert, Oriented x3, No Motor/Sensory Deficits, 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 FIM Transfers Therapy Code Descriptions/Definitions Functional [place] Measure: 0=Not Assessed/NA 4=Minimal Assistance 1=Total Assistance 5=Supervision or Setup 2=Maximal Assistance 6=Modified [place] 3=Moderate Assistance 7=Complete IndependenceSCALE: Activities may be completed with or without assistive devices. 6-Spvlznjztq-iwpxeyn completes the activity by him/herself with no assistance from a helper. 5-Set-up or Clean-up Assistance-helper sets up or cleans up; patient completes activity. [place] assists only prior to or following the activity. 4-Supervision or Touching Assistance-helper provides verbal cues and/or touching/steadying and/or contact guard assistance as patient completes activity. Assistance may be provided throughout the activity or intermittently. 3-Partial/Moderate Assistance-helper does LESS THAN HALF the effort. [place] lifts, holds or supports trunk or limbs, but provides less than half the effort. 2-Substantial/Maximal Assistance-helper does MORE THAN HALF the effort. [place] lifts or holds trunk or limbs and provides more than half the effort. 1-Mukecnolv-cdexkd does ALL the effort. Patient does none of the effort to complete the activity. Or, the assistance of 2 or more helpers is required for the patient to complete the activity. If activity was not attempted, code reason: 7-Patient Refused. 9-Not Applicable-not attempted and the patient did not perform the activity before the current illness, exacerbation or injury. 10-Not Attempted due to Environmental Limitations-(lack of equipment, weather restraints, etc.). 88-Not Attempted due to Medical Conditions or Safety Concerns. Roll Left to Right (QC): 4 Sit to Lying (QC): 4 Sit to Stand (QC): 88 Chair/Xtv-ws-Qvrvv Xfer(QC): 3 Car Transfer (QC): 88 Gait Training Does the Patient Walk?: No and Walking Goal NOT indicated Walk 10 feet (QC): 88 Walk 50 ft with 2 Turns(QC): 88 Walk 150 ft (QC): 88 Walking 10ft/uneven surface-QC: 88 Wheelchair Training Does the Pt Use a Wheelchair?: Yes Distance: 0 Wheel 50 ft with 2 turns (QC): 6 Wheel 150 ft (QC): 4 Type of Wheelchair: Manual Stair Training #of Steps: 0 1 Step (curb) (QC): 88 4 Steps (QC): 88 12 Steps (QC): 88 Balance Picking up an Object (QC): 88 ADL-Treatment Eating (QC): 5 Oral Hygiene (QC): 5 Shower/Bathe Self (QC): 4 Upper Body Dressing (QC): 5 Lower Body Dressing (QC): 2 (Pt able to help therapists by leaning side to side to help with clothing management, but unable to pul them up.) On/Off Footwear (QC): 9 Toileting Hygiene (QC): 2 Assessment/Plan Assessment and Plan Assess & Plan/Chief Complaint Assessment: Bilateral BKA's DM HTN HLP Low vision from retinopathy Seizures Poor social situation Post op acute blood loss anemia with severe iron def ordered iron infusions Jerry cath in place so DC 05/30/22 and having acute on chronic urinary retention Poor nutrition albumin 1.8 Plan: Pain control PT OT Wheelchair mobility 05/29/2022: Pain control Iron check 05/30/2022: DC catheter Venofer B12 injection 05/31/2022: Flomax Urecholine 06/01/2022: Monitor sugar (1) S/P bilateral below knee amputation (2) Diabetic retinopathy associated with uncontrolled type 2 diabetes mellitus Status: Acute FINA OTTO DO Jun 01, 2022 08:31
[2022-06-01] MEDS: LACTOBACILLUS ACIDOPHILUS (PROBIOTIC) CAPSULE PO SCH ×2 (08:43→20:04)
[2022-06-01] MEDS: FERROUS SULF 325 MG (IRON) TAB PO SCH ×2 (08:43→18:05)
[2022-06-01] MEDS: lisINopril 10 MG (PRINIVIL) TABLET PO SCH (08:43)
[2022-06-01] MEDS: amLODIPine 5 MG (NORVASC) TAB PO SCH (08:43)
[2022-06-01] MEDS: NIFEdipine ER 60 MG (PROCARDIA XL) TAB PO SCH (08:43)
[2022-06-01] MEDS: ALLOPURINOL 100 MG (ZYLOPRIM) TAB PO SCH (08:43)
[2022-06-01] MEDS: TAMSULOSIN 0.4 MG (FLOMAX) CAP PO SCH ×2 (08:43→20:05)
[2022-06-01] MEDS: HYPOCHLOROUS ACID/NaCl (VASHE) 250 ML IR PRN ×2 (08:44→08:45)
[2022-06-01] MEDS: DOCUSATE SODIUM 100 MG (COLACE) CAP PO SCH ×2 (08:44→20:06)
[2022-06-01] MEDS: SENNA W/DOCUSATE (SENOKOT S) TABLET PO SCH ×2 (08:44→20:07)
[2022-06-01] MEDS: polyethylene glycoL POWDER 17 GM (MIRALAX) PACK PO SCH ×2 (08:44→20:07)
[2022-06-01] MEDS: MICONAZOLE 2% POWDER (DESENEX AF) 90 GM TOP SCH ×2 (08:46→20:07)
[2022-06-01] MEDS: HYDROcodone/APAP 5 MG/325 MG (LORTAB) TAB PO PRN ×2 (08:46→16:49)
[2022-06-01] MEDS: HYPOCHLOROUS ACID/NaCl (VASHE) 250 ML IR SCH ×2 (08:50→20:06)
[2022-06-01 19:55] VITALS: BP 127/61
[2022-06-01] MEDS: FAMOTIDINE 20 MG (PEPCID) TABLET PO SCH (20:05)
[2022-06-02] MEDS: BETHANECHOL 10 MG (URECHOLINE) TAB PO SCH ×4 (05:38→19:51)
[2022-06-02] MEDS: CATHETER FLUSH 10 ML SYR IVP SCH ×3 (05:40→19:52)
[2022-06-02 05:50] LABS: BASOPHILS # (AUTO) 0.1 10^3/uL (0.0-0.1); BASOPHILS % (AUTO) 1 % (0-10); EOSINOPHILS # (AUTO) 0.2 10^3/uL (0.0-0.3); EOSINOPHILS % (AUTO) 4 % (0-10); HEMATOCRIT 21 % (40-54); LYMPHOCYTES # (AUTO) 1.3 10^3/uL (1.0-4.0); LYMPHOCYTES % (AUTO) 23 % (12-44); MEAN CORPUSCULAR HEMOGLOBIN 28 pg (25-34); MEAN CORPUSCULAR HGB CONC 32 g/dL (32-36); MEAN CORPUSCULAR VOLUME 89 fL (80-99); MONOCYTES # (AUTO) 0.5 10^3/uL (0.0-1.0); MONOCYTES % (AUTO) 8 % (0-12); NEUTROPHILS # (AUTO) 3.5 10^3/uL (1.8-7.8); NEUTROPHILS % (AUTO) 63 % (42-75); PLATELET COUNT 327 10^3/uL (130-400); WHITE BLOOD COUNT 5.6 10^3/uL (4.3-11.0)
[2022-06-02 06:06] LABS: ALANINE AMINOTRANSFERASE 15 U/L (0-55); ALBUMIN 1.8 GM/DL (3.2-4.5); ALKALINE PHOSPHATASE 84 U/L (40-136); BILIRUBIN,TOTAL < 0.1 MG/DL (0.1-1.0); BUN/CREATININE RATIO 21; CALCIUM 8.1 MG/DL (8.5-10.1); CARBON DIOXIDE 23 MMOL/L (21-32); CHLORIDE 106 MMOL/L (98-107); CREATININE SERUM 1.16 MG/DL (0.60-1.30); GFR ESTIMATED 80; GLUCOSE 142 MG/DL (70-105); POTASSIUM 5.3 MMOL/L (3.6-5.0); SODIUM 136 MMOL/L (135-145)
[2022-06-02] MEDS: inSUlin ASPART (NovoLOG) 1 UNIT/0.01 ML (CHARGE PER UNIT) SC SCH ×3 (06:07→17:17)
[2022-06-02 06:09] LABS: HEMOGLOBIN 6.7 g/dL (13.3-17.7)
[2022-06-02] MEDS ORDERED: NS IV 500 ML 500 ML IV SCH (06:30)
[2022-06-02 07:33] VITALS: BP 158/75
[2022-06-02] MEDS: TAMSULOSIN 0.4 MG (FLOMAX) CAP PO SCH ×2 (08:07→19:51)
[2022-06-02] MEDS: ALLOPURINOL 100 MG (ZYLOPRIM) TAB PO SCH (08:07)
[2022-06-02] MEDS: NIFEdipine ER 60 MG (PROCARDIA XL) TAB PO SCH (08:07)
[2022-06-02] MEDS: amLODIPine 5 MG (NORVASC) TAB PO SCH (08:07)
[2022-06-02] MEDS: HYDROcodone/APAP 5 MG/325 MG (LORTAB) TAB PO PRN ×3 (08:07→19:51)
[2022-06-02] MEDS: lisINopril 10 MG (PRINIVIL) TABLET PO SCH (08:07)
[2022-06-02] MEDS: LACTOBACILLUS ACIDOPHILUS (PROBIOTIC) CAPSULE PO SCH ×2 (08:07→19:50)
[2022-06-02] MEDS: FERROUS SULF 325 MG (IRON) TAB PO SCH ×2 (08:08→17:08)
[2022-06-02] MEDS: MICONAZOLE 2% POWDER (DESENEX AF) 90 GM TOP SCH ×2 (08:46→10:22)
[2022-06-02] MEDS: HYPOCHLOROUS ACID/NaCl (VASHE) 250 ML IR PRN ×2 (08:46→10:22)
--- NOTE | 2022-06-02 08:54 | Physical Therapy Daily Note ---
PT Daily Note-Current Subjective Patient in bed pre tx, agrees to PT, has 7/10 pain in legs. Will be co-treating with OT due to poor patient mobility, strength, endurance, severe debility, coordinate UE and LE during activity, safety and reduce risk of falls. Pain Section J - Health Conditions 1. Rarely or not at all 2. Occasionally 3. Frequently 4. Almost constantly 8. Unable to answer Pain Effect on Sleep: 2 Pain Interference with Therapy: 2 Pain Interference w/Day-to-Day: 2 Appearance Patient in bed post tx with nurse call, phone, tray, all needs met. Mental Status Patient Orientation: Person, Place, Situation Transfers SCALE: Activities may be completed with or without assistive devices. 7-Tedgsskivy-fzkokto completes the activity by him/herself with no assistance from a helper. 5-Set-up or Clean-up Assistance-helper sets up or cleans up; patient completes activity. [place] assists only prior to or following the activity. 4-Supervision or Touching Assistance-helper provides verbal cues and/or touching/steadying and/or contact guard assistance as patient completes activity. Assistance may be provided throughout the activity or intermittently. 3-Partial/Moderate Assistance-helper does LESS THAN HALF the effort. [place] lifts, holds or supports trunk or limbs, but provides less than half the effort. 2-Substantial/Maximal Assistance-helper does MORE THAN HALF the effort. [place] lifts or holds trunk or limbs and provides more than half the effort. 5-Knxjujxyz-xfjlui does ALL the effort. Patient does none of the effort to complete the activity. Or, the assistance of 2 or more helpers is required for the patient to complete the activity. If activity was not attempted, code reason: 7-Patient Refused. 9-Not Applicable-not attempted and the patient did not perform the activity before the current illness, exacerbation or injury. 10-Not Attempted due to Environmental Limitations-(lack of equipment, weather restraints, etc.). 88-Not Attempted due to Medical Conditions or Safety Concerns. Roll Left & Right (QC): 6 Sit to Lying (QC): 4 Lying to Sitting/Side of Bed(Q: 4 (patient had difficulty with this but was eventually able to do it on his own.) Chair/Bbj-xl-Sfqof Xfer(QC): 3 Toilet Transfer (QC): 3 Patient transferred from bed to , wheeled into restroom and transferred to shower bench, showered, dried off and partially dressed, transferred to commode, when done transferred to WC, wheeled to sink to wash hands, then transferred one last time to bed. All transfers were sliding board transfers mod assist. Careful attention to keep patient from sliding forward off of board. Weight Bearing Right Lower Extremity: Right Non Weight Bearing Left Lower Extremity: Left Non Weight Bearing Treatments PT performed bed mobility and transfers, positioning and safety during bathing and dressing and toileting, OT performed bathing, dressing, toileting, UE positioning and safety during activity Assessment Current Status: Fair Progress Patient has not made a lot of progress with sliding board transfers due to weight and weakness PT Skilled Nursing Goals Food Technologist Goals PT Skilled Nursing Goals Time Frame: Jul 11, 2022 Roll Left & Right (QC): 6 Sit to Lying (QC): 6 Lying-Sitting on Side/Bed(QC): 6 Sit to Stand (QC): 88 Chair/Sse-ml-Zrmso Xfer(QC): 6 Toilet Transfer (QC): 6 Car Transfer (QC): 6 Does the Patient Walk: No and Walking Goal NOT indicated Walk 10 feet (QC): 88 Walk 50ft with 2 Turns (QC): 88 Walk 150 ft (QC): 88 Walking 10ft on Uneven Surface: 88 1 Step (curb) (QC): 88 4 Steps (QC): 88 12 Steps (QC): 88 Picking up an Object (QC): 88 Does the Pt use WC or Scooter?: Yes Wheel 50 feet with 2 turns (QC: 6 Type: Manual Wheel 150 feet: 6 Type: Manual PT Plan Problem List Problem List: Activity Tolerance, Functional Strength, Safety, Balance, Gait, Transfer, Bed Mobility, ROM Treatment/Plan Treatment Plan: Continue Plan of Care Treatment Plan: Bed Mobility, Education, Functional Activity [place], Functional Strength, Group Therapy, Safety, Therapeutic Exercise, Transfers Treatment Duration: Jul 12, 2022 Frequency: At least 5 of 7 days/Wk (IRF) Estimated Hrs Per Day: 1.5 hours per day Patient and/or Family Agrees t: Yes Safety Risks/Education Patient Education: Transfer Techniques, Correct Positioning, W/C Management, Safety Issues Teaching Recipient: Patient Teaching Methods: Demonstration, Discussion Response to Teaching: Reinforcement Needed Time/GCodes Time In: 0800 Time Out: 0900 Total Billed Treatment Time: 60 Total Billed Treatment 1 visit FA 60' co-treated for 60' NUNO DUNCAN PT Jun 02, 2022 08:54
[2022-06-02] MEDS: polyethylene glycoL POWDER 17 GM (MIRALAX) PACK PO SCH ×2 (09:00→19:56)
[2022-06-02] MEDS: SENNA W/DOCUSATE (SENOKOT S) TABLET PO SCH ×2 (09:00→19:57)
[2022-06-02] MEDS: HYPOCHLOROUS ACID/NaCl (VASHE) 250 ML IR SCH ×2 (09:00→21:03)
[2022-06-02] MEDS: DOCUSATE SODIUM 100 MG (COLACE) CAP PO SCH ×2 (09:00→19:56)
--- NOTE | 2022-06-02 09:16 | Occupational Ther Daily Note ---
OT Current Status-Daily Note Subjective Pt laying in bed upon arrival. Pt states he would like to shower. Nursing stated if he feels up to it, then it's fine to shower, but his hemoglobin is low. Co- treat was completed secondary to fall risk, weakness, balance, coordination, and balance deficits. Appearance Pt left sitting in bed with all needs within reach. Mental Status/Objective Patient Orientation: Person, Place, Time, Situation Attachments: IV Acute change in mental status: 0 Inattention: 0 Disorganized thinkin Altered level of consciousness: 0 ADL-Treatment Therapy Code Descriptions/Definitions Functional [place] Measure: 0=Not Assessed/NA 4=Minimal Assistance 1=Total Assistance 5=Supervision or Setup 2=Maximal Assistance 6=Modified [place] 3=Moderate Assistance 7=Complete IndependenceSCALE: Activities may be completed with or without assistive devices. 5-Gfveqmzknp-mfvmqru completes the activity by him/herself with no assistance from a helper. 5-Set-up or Clean-up Assistance-helper sets up or cleans up; patient completes activity. [place] assists only prior to or following the activity. 4-Supervision or Touching Assistance-helper provides verbal cues and/or touching/steadying and/or contact guard assistance as patient completes activity. Assistance may be provided throughout the activity or intermittently. 3-Partial/Moderate Assistance-helper does LESS THAN HALF the effort. [place] lifts, holds or supports trunk or limbs, but provides less than half the effort. 2-Substantial/Maximal Assistance-helper does MORE THAN HALF the effort. [place] lifts or holds trunk or limbs and provides more than half the effort. 4-Mnkyxtxye-kuopfm does ALL the effort. Patient does none of the effort to complete the activity. Or, the assistance of 2 or more helpers is required for the patient to complete the activity. If activity was not attempted, code reason: 7-Patient Refused. 9-Not Applicable-not attempted and the patient did not perform the activity before the current illness, exacerbation or injury. 10-Not Attempted due to Environmental Limitations-(lack of equipment, weather restraints, etc.). 88-Not Attempted due to Medical Conditions or Safety Concerns. Shower/Bathe Self (QC): 5 Upper Body Dressing (QC): 5 Lower Body Dressing (QC): 4 On/Off Footwear: 9 Toileting Hygiene (QC): 2 Toilet Transfer (QC): 3 Slide board transfer x5 with min-mod assist and min verbal cues. Pt completed shower 100% in sitting with no physical assistance required. He was able to reach/wash buttocks by leaning side to side. He transferred from shower chair to commode for toileting, but required max assist for toileting hygiene due to safety, thoroughness and poor mail distributor strength. LB clothing donned at bed level. Pt able to thread shorts in long sitting and then completed clothing management in supine with supervision. He reports that the friend he will be staying with post discharge has a "garden tub" with an attachable shower head. Further discussion and problem solving for transferring in/out of that specific tub will be necessary in further sessions. Other Treatment Pt participated in UE AROM exercises in all planes to assist in ROM, strength, edema, and overall functional performance in ADLs. He tolerated well with short rest breaks. Encouragement to complete these exercises throughout the day was given with pt agreeable. Education on edema management also provided. Education OT Patient Education: Correct positioning, Disease process, Energy conservation, Modified ADL techniques, Progress toward Goal/Update tx plan, Purpose of tx/functional activities, Reviewed precautions, Rehab process, Safety issues, Transfer techniques, W/C management Teaching Recipient: Patient Teaching Methods: Discussion Response to Teaching: Verbalize Understanding, Return Demonstration OT Short Term Goals Short Term Goals Time Frame: Jun 07, 2022 Eatin Oral hygiene: 6 Toileting hygiene: 3 Shower/bathe self: 4 Upper body dressin Lower body dressin Putting on/taking off footwear: 9 OT Order Make Up Clerk Goals Alf Goals Time Frame: Jun 14, 2022 Acute change in mental status: 0 Inattention: 0 Disorganized thinkin Altered level of consciousness: 0 Eating (QC): 6 Oral Hygiene (QC): 6 Toileting Hygiene (QC): 5 Shower/Bathe Self (QC): 5 Upper Body Dressing (QC): 6 Lower Body Dressing (QC): 5 On/Off Footwear (QC): 9 Additional Goals: 1-Demonstrate ADL Tasks, 2-Verbalize Understanding, 3- ImproveStrength/[place] 1=Demonstrate adherence to instructed precautions during ADL tasks. 2=Patient will verbalize/demonstrate understanding of assistive devices/modifications for ADL. 3=Patient will improve strength/tolerance for activity to enable patient to perform ADL's. OT Education/Plan Problem List/Assessment Assessment: Decreased Activ Tolerance, Decreased Safety Aware, Decreased UE Strength, Edema, Impaired Cognition, Impaired Coordination, Impaired Funct Balance, Impaired I ADL's, Impaired Self-Care Skills, Restricted Funct UE ROM Discharge Recommendations Plan/Recommendations: Continue POC Treatment Plan/Plan of Care Treatment,Training & Education: Yes Patient would benefit from OT for education, treatment and training to promote independence in ADL's, mobility, safety and/or upper extremity function for ADL's. Plan of Care: ADL Retraining, Caregiver Training, Functional Mobility, Group Exercise/Act as Ind, Orthotic Fitting/Training, UE Funct Exercise/Act, UE Neuromus Re-Ed/Coord, W/C Management Training Treatment Duration: Jun 14, 2022 Frequency: At least 5 of 7 days/Wk (IRF) Estimated Hrs Per Day: 1.5 hours per day (75-90 min per day) Agreement: Yes Rehab Potential: Fair Time/GCodes Start Time: 07:45 Stop Time: 09:15 Total Time Billed (hr/min): 90 Billed Treatment Time 1 visit ADL x5 (80 min) EX (10 min) Co-treat ([id number]) Alisha Rios OT Jun 02, 2022 09:15
[2022-06-02] MEDS: IRON SUCROSE 200 MG/10 ML (VENOFER) VIAL IV SCH (10:21)
--- NOTE | 2022-06-02 11:00 | PM&R Progress Note ---
Subjective HPI/CC On Admission Date Seen by Provider: Jun 02, 2022 Subjective/Events-last exam 06/02/2022: Pt is doing about the same Hemoglobin is 6.7, will get one unit of blood Keppra maintained for possible seizure disorder 06/01/2022: Improved status Sleeping right now No falls No pain most of the time 05/31/2022: Doing well Urinary retention discussed and will start Flomax and Urecholine although he is emptying he does have tendency for retention and he reports he had issues like this before Dr Ramsey will see him Thursday at 1300 for depression Loose stools so will hold laxatives Lortab used on occasion 05/30/2022: Doing well Depression noted so ordered Behavioral health evaluation Pain about the same No falls DC catheter today BM+ 05/29/2022: Doing well Pain controlled BP elevated so will begin treatment Labs reviewed Iron level and B12 checked and pending No issues Review of Systems General: Fatigue, Malaise Musculoskeletal: leg pain Objective Exam Vital Signs Vital Signs Date Time Temp Pulse Resp B/P (MAP) Pulse Ox O2 Delivery O2 Flow Rate FiO2 06/02/22 20:38 Room Air 06/02/22 19:24 37.0 77 20 155/79 (104) 95 Capillary Refill : General Appearance: No Apparent Distress, WD/WN, Chronically ill, Obese HEENT: PERRL/EOMI, Normal ENT Inspection, Pharynx Normal Neck: Full Range of Motion, Normal Inspection, Non Tender, Supple, Carotid Bruit Respiratory: Chest Non Tender, Lungs Clear, Normal Breath Sounds, No Accessory Muscle Use, No Respiratory Distress Cardiovascular: Regular Rate, Rhythm, No Edema, No Gallop, No JVD, No Murmur, Normal Peripheral Pulses Gastrointestinal: Normal Bowel Sounds, No Organomegaly, No Pulsatile Mass, Non Tender, Soft Back: Normal Inspection, No CVA Tenderness, No Vertebral Tenderness Extremity: Normal Capillary Refill, Normal Inspection, Normal Range of Motion, Non Tender, No Calf Tenderness, No Pedal Edema Neurologic/Psychiatric: Alert, Oriented x3, No Motor/Sensory Deficits, irrigation flume layer II- XII Norm as Tested, Depressed Affect, Motor Weakness (legs BKA bilateral) Skin: Normal Color, Warm/Dry Lymphatic: No Adenopathy Results/Procedures Lab Laboratory Tests 06/02/22 05:42 Patient resulted labs reviewed. FIM Transfers Therapy Code Descriptions/Definitions Functional [place] Measure: 0=Not Assessed/NA 4=Minimal Assistance 1=Total Assistance 5=Supervision or Setup 2=Maximal Assistance 6=Modified [place] 3=Moderate Assistance 7=Complete IndependenceSCALE: Activities may be completed with or without assistive devices. 8-Bgdjltgtvk-vkzoogx completes the activity by him/herself with no assistance from a helper. 5-Set-up or Clean-up Assistance-helper sets up or cleans up; patient completes activity. [place] assists only prior to or following the activity. 4-Supervision or Touching Assistance-helper provides verbal cues and/or touching/steadying and/or contact guard assistance as patient completes activity. Assistance may be provided throughout the activity or intermittently. 3-Partial/Moderate Assistance-helper does LESS THAN HALF the effort. [place] lifts, holds or supports trunk or limbs, but provides less than half the effort. 2-Substantial/Maximal Assistance-helper does MORE THAN HALF the effort. [place] lifts or holds trunk or limbs and provides more than half the effort. 9-Moejarsqa-ujdnrq does ALL the effort. Patient does none of the effort to complete the activity. Or, the assistance of 2 or more helpers is required for the patient to complete the activity. If activity was not attempted, code reason: 7-Patient Refused. 9-Not Applicable-not attempted and the patient did not perform the activity before the current illness, exacerbation or injury. 10-Not Attempted due to Environmental Limitations-(lack of equipment, weather restraints, etc.). 88-Not Attempted due to Medical Conditions or Safety Concerns. Roll Left to Right (QC): 6 Sit to Lying (QC): 4 Sit to Stand (QC): 88 Chair/Fku-nw-Oeeyl Xfer(QC): 3 Car Transfer (QC): 88 Gait Training Does the Patient Walk?: No and Walking Goal NOT indicated Walk 10 feet (QC): 88 Walk 50 ft with 2 Turns(QC): 88 Walk 150 ft (QC): 88 Walking 10ft/uneven surface-QC: 88 Wheelchair Training Does the Pt Use a Wheelchair?: Yes Distance: 0 Wheel 50 ft with 2 turns (QC): 6 Wheel 150 ft (QC): 4 Type of Wheelchair: Manual Stair Training #of Steps: 0 1 Step (curb) (QC): 88 4 Steps (QC): 88 12 Steps (QC): 88 Balance Picking up an Object (QC): 88 ADL-Treatment Eating (QC): 5 Oral Hygiene (QC): 5 Shower/Bathe Self (QC): 5 Upper Body Dressing (QC): 5 Lower Body Dressing (QC): 4 On/Off Footwear (QC): 9 Toileting Hygiene (QC): 2 Toilet Transfer (QC): 3 Assessment/Plan Assessment and Plan Assess & Plan/Chief Complaint Assessment: Bilateral BKA's DM HTN HLP Low vision from retinopathy Seizures Poor social situation Post op acute blood loss anemia with severe iron def ordered iron infusions then transfused 1 unit 06/[address] so DC 05/30/22 and having acute on chronic urinary retention Poor nutrition albumin 1.8 Plan: Pain control PT OT Wheelchair mobility 05/29/2022: Pain control Iron check 05/30/2022: DC catheter Venofer B12 injection 05/31/2022: Flomax Urecholine 06/01/2022: Monitor sugar 06/02/2022: Transfuse (1) S/P bilateral below knee amputation (2) Diabetic retinopathy associated with uncontrolled type 2 diabetes mellitus Status: Acute FINA OTTO DO Jun 02, 2022 11:00
--- NOTE | 2022-06-02 11:43 | Progress Note ---
FERNANDO FINLEY 06/02/22 1143: Progress Note CC: Bilateral BKA HPI: This is a 42yoWM with no PCP who has a h/o DM who presents to the ARU in need of recovery following bilateral BKA's. He does not take any home meds and does not check his sugar. Patient lying in bed and reports he is doing overall well when I visited today. Pain is controlled. Today will provide OMM to patient for assistance with recovery ROS: General: Fatigue, Malaise Musculoskeletal: leg pain, improving and controlled today Exam: General Appearance: No Apparent Distress, Chronically ill, Obese HEENT: PERRL/EOMI Respiratory: Chest Non Tender, Lungs Clear, Normal Breath Sounds, No Accessory Muscle Use, No Respiratory Distress Cardiovascular: RRR, No Edema, No Gallop, No JVD, No Murmur, Normal Peripheral Pulses Upper Extremity Extremity: bilateral BKA bilateral, normal inspection, amputation site c/d/i Neurologic/Psychiatric: Alert, Oriented x3, Depressed Affect, Motor Weakness (legs BKA bilateral) Skin: Normal Color, Warm/Dry Lymphatic: No Adenopathy Assessment: Bilateral BKA's DM HTN HLP Low vision from retinopathy Seizures Poor social situation Post op acute blood loss anemia with severe iron def ordered iron infusions Jerry cath in place so DC 05/30/22 and having acute on chronic urinary retention Poor nutrition albumin 1.8 Somatic dysfunction due to bilateral BKA Plan: -Bilateral leg/thigh myofascial release and lymphatic drainage -Thoracic inlet release STEPHANY OTTO DO 06/03/22 0523: Supervisory-Addendum Brief Verification & Attestation Participated in pt care: history, MDM, physical Personally performed: exam, history, MDM, supervision of care Care discussed with: Medical Student Procedures: n/a Results interpretation: Verified all documentation Verification and Attestation of Medical Student E/M Service A medical student performed and documented this service in my presence. I reviewed and verified all information documented by the medical student and made modifications to such information, when appropriate. I personally performed the physical exam and medical decision making. Stephany Otto Jun 03, 2022,05:23 FERNANDO FINLEY Jun 02, 2022 11:43 STEPHANY OTTO DO Jun 03, 2022 05:23
[2022-06-02 11:44] VITALS: BP 116/63
[2022-06-02 11:59] VITALS: BP 115/63
[2022-06-02 13:51] VITALS: BP 129/62
--- NOTE | 2022-06-02 14:14 | Physical Therapy Daily Note ---
PT Daily Note-Current Subjective Patient in bed pre tx, agrees to PT, has 5/10 pain in both legs. Patient has scooted down in bed quite a bit, he is able to scoot back up with the use of bedrails and cues for positioning and with some difficulty. Pain Section J - Health Conditions 1. Rarely or not at all 2. Occasionally 3. Frequently 4. Almost constantly 8. Unable to answer Pain Effect on Sleep: 2 Pain Interference with Therapy: 2 Pain Interference w/Day-to-Day: 2 Appearance Patient in bed post tx with nurse call, phone, tray, all needs met. Mental Status Patient Orientation: Person, Place, Situation Attachments: IV Transfers SCALE: Activities may be completed with or without assistive devices. 0-Oyaimouqsm-tuonjjz completes the activity by him/herself with no assistance from a helper. 5-Set-up or Clean-up Assistance-helper sets up or cleans up; patient completes activity. [place] assists only prior to or following the activity. 4-Supervision or Touching Assistance-helper provides verbal cues and/or touching/steadying and/or contact guard assistance as patient completes activity. Assistance may be provided throughout the activity or intermittently. 3-Partial/Moderate Assistance-helper does LESS THAN HALF the effort. [place] lifts, holds or supports trunk or limbs, but provides less than half the effort. 2-Substantial/Maximal Assistance-helper does MORE THAN HALF the effort. [place] lifts or holds trunk or limbs and provides more than half the effort. 2-Tcnoibemn-ywefhh does ALL the effort. Patient does none of the effort to complete the activity. Or, the assistance of 2 or more helpers is required for the patient to complete the activity. If activity was not attempted, code reason: 7-Patient Refused. 9-Not Applicable-not attempted and the patient did not perform the activity before the current illness, exacerbation or injury. 10-Not Attempted due to Environmental Limitations-(lack of equipment, weather restraints, etc.). 88-Not Attempted due to Medical Conditions or Safety Concerns. Roll Left & Right (QC): 4 Weight Bearing Right Lower Extremity: Right Non Weight Bearing Left Lower Extremity: Left Non Weight Bearing Exercises Supine Ex: Bridging (legs on bolster), Quad Set, Glut sets, Lower trunk rotation (legs on theraball), Heel Slides (raises leg and flex/ext knee), Short Arc Quads, Straight leg raise, Hip abd/add Supine Reps: 20 Treatments positioning, LE strengthening Assessment Current Status: Fair Progress needed several rest breaks PT Yacht Builder Goals Yacht Builder Goals PT Group Home Goals Time Frame: Jul 11, 2022 Roll Left & Right (QC): 6 Sit to Lying (QC): 6 Lying-Sitting on Side/Bed(QC): 6 Sit to Stand (QC): 88 Chair/Thu-cp-Mvgcj Xfer(QC): 6 Toilet Transfer (QC): 6 Car Transfer (QC): 6 Does the Patient Walk: No and Walking Goal NOT indicated Walk 10 feet (QC): 88 Walk 50ft with 2 Turns (QC): 88 Walk 150 ft (QC): 88 Walking 10ft on Uneven Surface: 88 1 Step (curb) (QC): 88 4 Steps (QC): 88 12 Steps (QC): 88 Picking up an Object (QC): 88 Does the Pt use WC or Scooter?: Yes Wheel 50 feet with 2 turns (QC: 6 Type: Manual Wheel 150 feet: 6 Type: Manual PT Plan Problem List Problem List: Activity Tolerance, Functional Strength, Safety, Balance, Transfer, Bed Mobility, ROM Treatment/Plan Treatment Plan: Continue Plan of Care Treatment Plan: Bed Mobility, Education, Functional Activity [place], Functional Strength, Group Therapy, Safety, Therapeutic Exercise, Transfers Treatment Duration: Jul 12, 2022 Frequency: At least 5 of 7 days/Wk (IRF) Estimated Hrs Per Day: 1.5 hours per day Patient and/or Family Agrees t: Yes Safety Risks/Education Patient Education: Correct Positioning, Safety Issues Teaching Recipient: Patient Teaching Methods: Demonstration, Discussion Response to Teaching: Reinforcement Needed Time/GCodes Time In: 1345 Time Out: 1415 Total Billed Treatment Time: 30 Total Billed Treatment 1 visit FA 10' EX 20' NUNO DUNCAN PT Jun 02, 2022 14:14
--- NOTE | 2022-06-02 16:56 | Behavioral Health Consult ---
Consult- Consult Date Seen by Provider: Jun 02, 2022 Time Seen by Provider: 13:05 [facility] PSYCH[facility]ATION PATIENT: Issa Veras DATE: 1980 DATE OF EVALUATION: 06/02/22 (13:05-13:45) DATE OF REPORT: 06/02/22 REFERRAL QUESTION: Issa Veras is a 42-year-old male who was admitted to the hospital rehab floor due to recent bilateral leg amputation. Dr. Otto asked for a psychological consultation due to depressed mood. TESTS ADMINISTERED: Clinical Interview with Patient PRESENTING PROBLEMS: Issa Veras recently had both of his legs amputated below the knee. He talked about how his left him a few weeks ago and took their two children. He denies hearing from them since they left. He states that a week later his legs hurt bad enough that he knew he needed to go to the hospital. He states that he was surprised that they amputated both legs as he knew that his right leg was bad. Mr. 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 He states that he is doing okay with losing his legs and is ready to move forward with his life. He attempted to downplay the impact of losing his legs, his , and children. CURRENT/PREVIOUS MENTAL HEALTH TREATMENT: Mr. Veras denied any previous therapy or counseling. He states that used to take Xanax because he did not do well around crowds. MEDICAL HISTORY: See medical chart for detailed history. He reports being diagnosed with diabetes at 17. He states that he saw his mother lose her legs from diabetes as well and knows what the process is like. He states that he deals with heart issues as well as he mentioned having blockage. RECREATIONAL DRUG USAGE: Not assessed. EDUCATIONAL AND VOCATIONAL HISTORIES: Mr. 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 He reports that he went on disability last year. LEGAL HISTORY: No legal problems were reported although he said his house may go to probate. FAMILY AND SOCIAL HISTORIES/SOCIAL SUPPORT: Mr. Veras currently lives in [place], [place] in the house he grew up in with his mother. He states that his mother 22 years ago and that his father when he was [age] years old. He states that he and his sister do not get along well and that she is contesting the house. Mr. Veras states that he plans to move in with a female friend in [place], [place] upon discharge as she works as a home health aide. He reports that he has a 19 year-old son who lives with his mother in [place] who he talks to some. He states that his current is 21 years younger than him and the mother of his two younger children, ages 5 and 3. He states that he has not heard from her since she left a few weeks ago. BEHAVIORAL OBSERVATIONS/MENTAL STATUS: The patient was seen in his hospital room as he was lying on his side in his hospital bed. He was cooperative and alert throughout the interview and answered all the questions asked of him. Mr. Glory melton reports accepting his fate that his legs are gone and plans on doing what he can to get out of the hospital and to become mobile again. He appears motivated to follow through with his treatment. SUMMARY: Mr. Veras is currently at the hospital due to bilateral leg amputation. He is receiving physical therapy to help regain his functioning and ability to function at home. Mr. Bettencourt medical record indicates that he is taking Celexa and is recommended to continue to do so. Mr. Veras was p rovided information about following up with this provider on an outpatient basis as he will have a challenging adjustment when he leaves the hospital. DIAGNOSTIC IMPRESSIONS: F43.21 Adjustment Disorder with Depressed Mood Thank you for the opportunity to consult on this patient. Copy Copies To 1: FINA OTTO JEFFREY M PSYD Jun 02, 2022 16:56
[2022-06-02 19:24] VITALS: BP 155/79
[2022-06-02] MEDS: FAMOTIDINE 20 MG (PEPCID) TABLET PO SCH (19:50)
[2022-06-03] MEDS: glyBURIDE 2.5 MG (MICRONASE) TAB PO SCH (05:26)
[2022-06-03] MEDS: BETHANECHOL 10 MG (URECHOLINE) TAB PO SCH ×4 (05:26→20:46)
[2022-06-03] MEDS: CATHETER FLUSH 10 ML SYR IVP SCH ×3 (05:27→20:51)
[2022-06-03 05:34] LABS: BASOPHILS # (AUTO) 0.1 10^3/uL (0.0-0.1); BASOPHILS % (AUTO) 1 % (0-10); EOSINOPHILS # (AUTO) 0.3 10^3/uL (0.0-0.3); EOSINOPHILS % (AUTO) 5 % (0-10); HEMATOCRIT 25 % (40-54); HEMOGLOBIN 8.2 g/dL (13.3-17.7); LYMPHOCYTES % (AUTO) 18 % (12-44); MEAN CORPUSCULAR HEMOGLOBIN 29 pg (25-34); MEAN CORPUSCULAR HGB CONC 32 g/dL (32-36); MEAN CORPUSCULAR VOLUME 89 fL (80-99); MONOCYTES # (AUTO) 0.5 10^3/uL (0.0-1.0); MONOCYTES % (AUTO) 9 % (0-12); NEUTROPHILS # (AUTO) 3.7 10^3/uL (1.8-7.8); NEUTROPHILS % (AUTO) 66 % (42-75); PLATELET COUNT 339 10^3/uL (130-400); WHITE BLOOD COUNT 5.6 10^3/uL (4.3-11.0)
--- NOTE | 2022-06-03 05:40 | PM&R Progress Note ---
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 Psych visit went really well 06/02/2022: Pt is doing about the same Hemoglobin is 6.7, will get one unit of blood Keppra maintained for possible seizure disorder 06/01/2022: Improved status Sleeping right now No falls No pain most of the time 05/31/2022: Doing well Urinary retention discussed and will start Flomax and Urecholine although he is emptying he does have tendency for retention and he reports he had issues like this before Dr Ramsey will see him Thursday at 1300 for depression Loose stools so will hold laxatives Lortab used on occasion 05/30/2022: Doing well Depression noted so ordered Behavioral health evaluation Pain about the same No falls DC catheter today BM+ 05/29/2022: Doing well Pain controlled BP elevated so will begin treatment Labs reviewed Iron level and B12 checked and pending No issues Review of Systems General: Fatigue, Malaise Objective Exam Vital Signs Vital Signs Date Time Temp Pulse Resp B/P (MAP) Pulse Ox O2 Delivery O2 Flow Rate FiO2 06/03/22 21:00 Room Air 06/03/22 19:16 36.6 80 16 155/78 (103) 98 Capillary Refill : General Appearance: No Apparent Distress, WD/WN, Chronically ill, Obese HEENT: PERRL/EOMI, Normal ENT Inspection, Pharynx Normal Neck: Full Range of Motion, Normal Inspection, Non Tender, Supple, Carotid Bruit Respiratory: Chest Non Tender, Lungs Clear, Normal Breath Sounds, No Accessory Muscle Use, No Respiratory Distress Cardiovascular: Regular Rate, Rhythm, No Edema, No Gallop, No JVD, No Murmur, Normal Peripheral Pulses Gastrointestinal: Normal Bowel Sounds, No Organomegaly, No Pulsatile Mass, Non Tender, Soft Back: Normal Inspection, No CVA Tenderness, No Vertebral Tenderness Extremity: Normal Capillary Refill, Normal Inspection, Normal Range of Motion, Non Tender, No Calf Tenderness, No Pedal Edema Neurologic/Psychiatric: Alert, Oriented x3, No Motor/Sensory Deficits, director business integration II- XII Norm as Tested, Depressed Affect, Motor Weakness (legs BKA bilateral) Skin: Normal Color, Warm/Dry Lymphatic: No Adenopathy Results/Procedures Lab Laboratory Tests 06/03/22 05:25 Patient resulted labs reviewed. FIM Transfers Therapy Code Descriptions/Definitions Functional [place] Measure: 0=Not Assessed/NA 4=Minimal Assistance 1=Total Assistance 5=Supervision or Setup 2=Maximal Assistance 6=Modified [place] 3=Moderate Assistance 7=Complete IndependenceSCALE: Activities may be completed with or without assistive devices. 2-Hbskckbnyj-erijecj completes the activity by him/herself with no assistance from a helper. 5-Set-up or Clean-up Assistance-helper sets up or cleans up; patient completes activity. [place] assists only prior to or following the activity. 4-Supervision or Touching Assistance-helper provides verbal cues and/or touching/steadying and/or contact guard assistance as patient completes activity. Assistance may be provided throughout the activity or intermittently. 3-Partial/Moderate Assistance-helper does LESS THAN HALF the effort. [place] l ifts, holds or supports trunk or limbs, but provides less than half the effort. 2-Substantial/Maximal Assistance-helper does MORE THAN HALF the effort. [place] lifts or holds trunk or limbs and provides more than half the effort. 9-Buxkszrec-kuvpta does ALL the effort. Patient does none of the effort to complete the activity. Or, the assistance of 2 or more helpers is required for the patient to complete the activity. If activity was not attempted, code reason: 7-Patient Refused. 9-Not Applicable-not attempted and the patient did not perform the activity before the current illness, exacerbation or injury. 10-Not Attempted due to Environmental Limitations-(lack of equipment, weather restraints, etc.). 88-Not Attempted due to Medical Conditions or Safety Concerns. Roll Left to Right (QC): 4 Sit to Lying (QC): 4 Sit to Stand (QC): 88 Chair/Umc-tf-Stwwj Xfer(QC): 3 Car Transfer (QC): 88 Gait Training Does the Patient Walk?: No and Walking Goal NOT indicated Walk 10 feet (QC): 88 Walk 50 ft with 2 Turns(QC): 88 Walk 150 ft (QC): 88 Walking 10ft/uneven surface-QC: 88 Wheelchair Training Does the Pt Use a Wheelchair?: Yes Distance: 0 Wheel 50 ft with 2 turns (QC): 6 Wheel 150 ft (QC): 4 Type of Wheelchair: Manual Stair Training #of Steps: 0 1 Step (curb) (QC): 88 4 Steps (QC): 88 12 Steps (QC): 88 Balance Picking up an Object (QC): 88 ADL-Treatment Eating (QC): 5 Oral Hygiene (QC): 5 Shower/Bathe Self (QC): 5 Upper Body Dressing (QC): 5 Lower Body Dressing (QC): 4 On/Off Footwear (QC): 9 Toileting Hygiene (QC): 2 Toilet Transfer (QC): 3 Assessment/Plan Assessment and Plan Assess & Plan/Chief Complaint Assessment: Bilateral BKA's DM HTN HLP Low vision from retinopathy Seizures Poor social situation Post op acute blood loss anemia with severe iron def ordered iron infusions then transfused 1 unit 06/[address] so DC 05/30/22 and having acute on chronic urinary retention Poor nutrition albumin 1.8 Plan: Pain control PT OT Wheelchair mobility 05/29/2022: Pain control Iron check 05/30/2022: DC catheter Venofer B12 injection 05/31/2022: Flomax Urecholine 06/01/2022: Monitor sugar 06/02/2022: Transfuse 06/03/2022: Monitor hgb Pain control (1) S/P bilateral below knee amputation (2) Diabetic retinopathy associated with uncontrolled type 2 diabetes mellitus Status: Acute FINA OTTO DO Jun 03, 2022 05:40
[2022-06-03 05:46] LABS: POTASSIUM 5.2 MMOL/L (3.6-5.0)
[2022-06-03 05:48] LABS: CALCIUM 8.2 MG/DL (8.5-10.1)
[2022-06-03 05:49] LABS: TOTAL PROTEIN 5.6 GM/DL (6.4-8.2)
[2022-06-03 05:51] LABS: BILIRUBIN,TOTAL 0.1 MG/DL (0.1-1.0)
[2022-06-03 05:52] LABS: CREATININE SERUM 1.11 MG/DL (0.60-1.30)
[2022-06-03] MEDS: inSUlin ASPART (NovoLOG) 1 UNIT/0.01 ML (CHARGE PER UNIT) SC SCH ×3 (06:24→16:48)
[2022-06-03 07:25] VITALS: BP 182/86
[2022-06-03] MEDS: FERROUS SULF 325 MG (IRON) TAB PO SCH ×2 (08:17→16:48)
[2022-06-03] MEDS: amLODIPine 5 MG (NORVASC) TAB PO SCH (08:17)
[2022-06-03] MEDS: ALLOPURINOL 100 MG (ZYLOPRIM) TAB PO SCH (08:17)
[2022-06-03] MEDS: lisINopril 10 MG (PRINIVIL) TABLET PO SCH (08:17)
[2022-06-03] MEDS: LACTOBACILLUS ACIDOPHILUS (PROBIOTIC) CAPSULE PO SCH ×2 (08:17→20:46)
[2022-06-03] MEDS: HYDROcodone/APAP 5 MG/325 MG (LORTAB) TAB PO PRN (08:17)
[2022-06-03] MEDS: NIFEdipine ER 60 MG (PROCARDIA XL) TAB PO SCH (08:17)
[2022-06-03] MEDS: TAMSULOSIN 0.4 MG (FLOMAX) CAP PO SCH ×2 (08:17→20:46)
[2022-06-03] MEDS: SENNA W/DOCUSATE (SENOKOT S) TABLET PO SCH ×2 (09:00→20:48)
[2022-06-03] MEDS: DOCUSATE SODIUM 100 MG (COLACE) CAP PO SCH ×2 (09:00→20:47)
[2022-06-03] MEDS: polyethylene glycoL POWDER 17 GM (MIRALAX) PACK PO SCH ×2 (09:00→20:47)
--- NOTE | 2022-06-03 09:55 | Physical Therapy Daily Note ---
PT Daily Note-Current Subjective Patient in bed pre tx, agrees to PT, has 8/10 pain in legs. Nurse has already given him pain meds. Patient has had a BM in bed and needs to be cleaned. Will be co-treating with OT due to poor patient mobility, strength, endurance, severe debility, coordinate UE and LE during activity, safety and reduce risk of falls. Pain Section J - Health Conditions 1. Rarely or not at all 2. Occasionally 3. Frequently 4. Almost constantly 8. Unable to answer Pain Effect on Sleep: 2 Pain Interference with Therapy: 2 Pain Interference w/Day-to-Day: 2 Appearance Patient in WC in therapy gym post tx to continue with OT. Mental Status Patient Orientation: Person, Place, Situation Transfers SCALE: Activities may be completed with or without assistive devices. 8-Kherbsuusm-wthmwsv completes the activity by him/herself with no assistance from a helper. 5-Set-up or Clean-up Assistance-helper sets up or cleans up; patient completes activity. [place] assists only prior to or following the activity. 4-Supervision or Touching Assistance-helper provides verbal cues and/or touching/steadying and/or contact guard assistance as patient completes activity. Assistance may be provided throughout the activity or intermittently. 3-Partial/Moderate Assistance-helper does LESS THAN HALF the effort. [place] lifts, holds or supports trunk or limbs, but provides less than half the effort. 2-Substantial/Maximal Assistance-helper does MORE THAN HALF the effort. [place] lifts or holds trunk or limbs and provides more than half the effort. 7-Lrcfdbqnf-tldgkm does ALL the effort. Patient does none of the effort to complete the activity. Or, the assistance of 2 or more helpers is required for the patient to complete the activity. If activity was not attempted, code reason: 7-Patient Refused. 9-Not Applicable-not attempted and the patient did not perform the activity before the current illness, exacerbation or injury. 10-Not Attempted due to Environmental Limitations-(lack of equipment, weather restraints, etc.). 88-Not Attempted due to Medical Conditions or Safety Concerns. Roll Left & Right (QC): 6 Sit to Lying (QC): 6 Lying to Sitting/Side of Bed(Q: 4 Chair/Dpb-qk-Vaoaq Xfer(QC): 3 Patient rolls from side to side to clean BM and replace pads. Nurse comes in to change dressing (more rolling required). When done patient has to roll again fr om side to side to get his shorts on. Patient puts his own shirt on while sitting. Patient practiced sliding board transfers going to each side (performed 5 transfers) with min assist, he can perform them much easier when he has pants/shorts on. Weight Bearing Right Lower Extremity: Right Non Weight Bearing Left Lower Extremity: Left Non Weight Bearing Wheelchair Training Does the Pt Use a Wheelchair?: Yes Wheel 50 ft with 2 turns (QC): 6 Type of Wheelchair: Manual 120' Exercises modified sit-up in bed with head elevated 3 sets of 10 Treatments PT performed rolling, supine <-> sit, positioning and safety during cleaning and dressing, transfers, strengthening, OT performed cleaning, dressing, UE positioning and safety during activity. Assessment Current Status: Fair Progress improved sliding board transfers PT Intermediate Goals Salt Manager Goals PT Salt Manager Goals Time Frame: Jul 11, 2022 Roll Left & Right (QC): 6 Sit to Lying (QC): 6 Lying-Sitting on Side/Bed(QC): 6 Sit to Stand (QC): 88 Chair/Ima-ai-Wvgpl Xfer(QC): 6 Toilet Transfer (QC): 6 Car Transfer (QC): 6 Does the Patient Walk: No and Walking Goal NOT indicated Walk 10 feet (QC): 88 Walk 50ft with 2 Turns (QC): 88 Walk 150 ft (QC): 88 Walking 10ft on Uneven Surface: 88 1 Step (curb) (QC): 88 4 Steps (QC): 88 12 Steps (QC): 88 Picking up an Object (QC): 88 Does the Pt use WC or Scooter?: Yes Wheel 50 feet with 2 turns (QC: 6 Type: Manual Wheel 150 feet: 6 Type: Manual PT Plan Problem List Problem List: Activity Tolerance, Functional Strength, Safety, Balance, Gait, Transfer, Bed Mobility, ROM Treatment/Plan Treatment Plan: Continue Plan of Care Treatment Plan: Bed Mobility, Education, Functional Activity Slade, Functional Strength, Group Therapy, Safety, Therapeutic Exercise, Transfers Treatment Duration: Jul 12, 2022 Frequency: At least 5 of 7 days/Wk (IRF) Estimated Hrs Per Day: 1.5 hours per day Patient and/or Family Agrees t: Yes Safety Risks/Education Patient Education: Transfer Techniques, Correct Positioning, W/C Management, Safety Issues Teaching Recipient: Patient Teaching Methods: Demonstration, Discussion Response to Teaching: Reinforcement Needed Time/GCodes Time In: 0900 Time Out: 1000 Total Billed Treatment Time: 60 Total Billed Treatment 1 visit FA 60' co-treated for 60' NUNO DUNCAN PT Jun 03, 2022 09:55
--- NOTE | 2022-06-03 10:21 | Occupational Ther Daily Note ---
OT Current Status-Daily Note Subjective Pt in bed upon arrival. He agrees to therapy. Co-treat with PT was completed secondary to fall risk, balance deficits, weakness, and lack of coordination. Appearance Pt was left in w/c upon completion of session. All needs within reach. Mental Status/Objective Patient Orientation: Person, Place, Time, Situation Attachments: IV Acute change in mental status: 0 Inattention: 0 Disorganized thinkin Altered level of consciousness: 0 ADL-Treatment Therapy Code Descriptions/Definitions Functional [place] Measure: 0=Not Assessed/NA 4=Minimal Assistance 1=Total Assistance 5=Supervision or Setup 2=Maximal Assistance 6=Modified [place] 3=Moderate Assistance 7=Complete IndependenceSCALE: Activities may be completed with or without assistive devices. 0-Erguygnics-exnpwey completes the activity by him/herself with no assistance from a helper. 5-Set-up or Clean-up Assistance-helper sets up or cleans up; patient completes activity. [place] assists only prior to or following the activity. 4-Supervision or Touching Assistance-helper provides verbal cues and/or touching/steadying and/or contact guard assistance as patient completes activity. Assistance may be provided throughout the activity or intermittently. 3-Partial/Moderate Assistance-helper does LESS THAN HALF the effort. [place] lifts, holds or supports trunk or limbs, but provides less than half the effort. 2-Substantial/Maximal Assistance-helper does MORE THAN HALF the effort. [place] lifts or holds trunk or limbs and provides more than half the effort. 3-Zvmthimkk-iguctw does ALL the effort. Patient does none of the effort to complete the activity. Or, the assistance of 2 or more helpers is required for the patient to complete the activity. If activity was not attempted, code reason: 7-Patient Refused. 9-Not Applicable-not attempted and the patient did not perform the activity before the current illness, exacerbation or injury. 10-Not Attempted due to Environmental Limitations-(lack of equipment, weather restraints, etc.). 88-Not Attempted due to Medical Conditions or Safety Concerns. Upper Body Dressing (QC): 5 Lower Body Dressing (QC): 4 Toileting Hygiene (QC): 1 At start of treatment, pt completed modified seated crunches 3x10 at bed level. As he started to don clothing, therapist noticed pt had an episode of bowel incontinence. Vanessa care completed in sidelying; dependent. Pt able to thread bilateral stumps in long sitting and returned to supine to manage shorts up to waist with supervision. He performed slide board transfers x7 with mod assist initially, moving to SBA/CGA. Other Treatment Slide board transfers x7 performed to different heights with goal to increase endurance, safety, independence, and sequencing of transfer. Towards end of treatment, pt demonstrated more confidence and independence in completing slide board transfers. While sitting at EOM, He participated in functional activity with yellow theraband tied in a loop to mock donning/doffing pants. He tolerated and performed well in this activity. With each bout, size of theraband loop was made smaller, thus increasing complexity of task. Extra time but no physical assistance required to complete activity. Large Peg board utilized to promote increased fine motor strength and coordination. Pt compensates with shoulder abduction secondary to weakness in his hands. He requires cues for tip pinch vs palmar grasp. Pt utilizes L hand to assist with positioning of peg between thumb and index. Education OT Patient Education: Correct positioning, Disease process, Energy conservation, Modified ADL techniques, Progress toward Goal/Update tx plan, Purpose of tx/functional activities, Reviewed precautions, Rehab process, Safety issues, Transfer techniques, W/C management Teaching Recipient: Patient Teaching Methods: Demonstration, Discussion Response to Teaching: Verbalize Understanding, Return Demonstration OT Short Term Goals Short Term Goals Time Frame: Jun 07, 2022 Eatin Oral hygiene: 6 Toileting hygiene: 3 Shower/bathe self: 4 Upper body dressin Lower body dressin Putting on/taking off footwear: 9 OT Group Home Goals Group Home Goals Time Frame: Jun 14, 2022 Acute change in mental status: 0 Inattention: 0 Disorganized thinkin Altered level of consciousness: 0 Eating (QC): 6 Oral Hygiene (QC): 6 Toileting Hygiene (QC): 5 Shower/Bathe Self (QC): 5 Upper Body Dressing (QC): 6 Lower Body Dressing (QC): 5 On/Off Footwear (QC): 9 Additional Goals: 1-Demonstrate ADL Tasks, 2-Verbalize Understanding, 3- ImproveStrength/[place] 1=Demonstrate adherence to instructed precautions during ADL tasks. 2=Patient will verbalize/demonstrate understanding of assistive devices/modifications for ADL. 3=Patient will improve strength/tolerance for activity to enable patient to perform ADL's. OT Education/Plan Problem List/Assessment Assessment: Decreased Activ Tolerance, Decreased Safety Aware, Decreased UE Strength, Impaired Bed Mobility, Impaired Coordination, Impaired Funct Balance, Impaired I ADL's, Impaired Self-Care Skills Discharge Recommendations Plan/Recommendations: Continue POC Treatment Plan/Plan of Care Treatment,Training & Education: Yes Patient would benefit from OT for education, treatment and training to promote independence in ADL's, mobility, safety and/or upper extremity function for ADL's. Plan of Care: ADL Retraining, Caregiver Training, Functional Mobility, Group Exercise/Act as Ind, Orthotic Fitting/Training, UE Funct Exercise/Act, UE Neuromus Re-Ed/Coord, W/C Management Training Treatment Duration: Jun 14, 2022 Frequency: At least 5 of 7 days/Wk (IRF) Estimated Hrs Per Day: 1.5 hours per day (75-90 min per day) Agreement: Yes Rehab Potential: Fair Time/GCodes Start Time: 09:00 Stop Time: 10:30 Total Time Billed (hr/min): 90 Billed Treatment Time 1 visit ADL x2 (25 min) FA x4 (65 min) Co-treat ([id number]) Alisha Rios OT Jun 03, 2022 10:21
[2022-06-03] MEDS: MICONAZOLE 2% POWDER (DESENEX AF) 90 GM TOP SCH ×2 (11:32→20:47)
[2022-06-03] MEDS: HYPOCHLOROUS ACID/NaCl (VASHE) 250 ML IR SCH ×2 (11:32→20:47)
--- NOTE | 2022-06-03 13:46 | Progress Note ---
FERNANDO FINLEY 06/03/22 1346: Progress Note CC: Bilateral BKA HPI: This is a 42yoWM with no PCP who has a h/o DM who presents to the ARU in need of recovery following bilateral BKA's. He does not take any home meds and does not check his sugar. Patient lying in bed and reports he is doing well. Has some leg pain, but it is controlled. Today will provide OMM to patient for assistance with recovery. ROS: General: Fatigue, Malaise Musculoskeletal: leg pain, controlled Exam: General Appearance: No Apparent Distress, Chronically ill, Obese HEENT: PERRL/EOMI Respiratory: Chest Non Tender, Lungs Clear, Normal Breath Sounds, No Accessory Muscle Use, No Respiratory Distress Cardiovascular: RRR, No Edema, No Gallop, No JVD, No Murmur, Normal Peripheral Pulses Upper Extremity Extremity: bilateral BKA bilateral, normal inspection, amputation site c/d/i Neurologic/Psychiatric: Alert, Oriented x3, Depressed Affect, Motor Weakness (legs BKA bilateral) Skin: Normal Color, Warm/Dry Lymphatic: No Adenopathy Assessment: Bilateral BKA's DM HTN HLP Low vision from retinopathy Seizures Poor social situation Post op acute blood loss anemia with severe iron def ordered iron infusions Jerry cath in place so DC 05/30/22 and having acute on chronic urinary retention Poor nutrition albumin 1.8 Somatic dysfunction due to bilateral BKA Plan: -Bilateral leg/thigh myofascial release and lymphatic drainage -Thoracic inlet release STEPHANY OTTO DO 06/04/22 0552: Supervisory-Addendum Brief Verification & Attestation Participated in pt care: history, MDM, physical Personally performed: exam, history, MDM, supervision of care Care discussed with: Medical Student Procedures: n/a Results interpretation: Verified all documentation Verification and Attestation of Medical Student E/M Service A medical student performed and documented this service in my presence. I reviewed and verified all information documented by the medical student and made modifications to such information, when appropriate. I personally performed the physical exam and medical decision making. Stephany Otto Jun 04, 2022,05:52 FERNANDO FINLEY Jun 03, 2022 13:46 STEPHANY OTTO DO Jun 04, 2022 05:52
--- NOTE | 2022-06-03 14:26 | Physical Therapy Daily Note ---
PT Daily Note-Current Subjective Patient agrees to PT. No c/o at this time. Pain Section J - Health Conditions 1. Rarely or not at all 2. Occasionally 3. Frequently 4. Almost constantly 8. Unable to answer Pain Effect on Sleep: 2 Pain Interference with Therapy: 2 Pain Interference w/Day-to-Day: 2 Mental Status Patient Orientation: Normal For Age Transfers SCALE: Activities may be completed with or without assistive devices. 6-Jyykgtjlqq-tdystpo completes the activity by him/herself with no assistance from a helper. 5-Set-up or Clean-up Assistance-helper sets up or cleans up; patient completes activity. [place] assists only prior to or following the activity. 4-Supervision or Touching Assistance-helper provides verbal cues and/or touching/steadying and/or contact guard assistance as patient completes activity. Assistance may be provided throughout the activity or intermittently. 3-Partial/Moderate Assistance-helper does LESS THAN HALF the effort. [place] lifts, holds or supports trunk or limbs, but provides less than half the effort. 2-Substantial/Maximal Assistance-helper does MORE THAN HALF the effort. [place] lifts or holds trunk or limbs and provides more than half the effort. 7-Rknrmjnwx-jkhieo does ALL the effort. Patient does none of the effort to complete the activity. Or, the assistance of 2 or more helpers is required for the patient to complete the activity. If activity was not attempted, code reason: 7-Patient Refused. 9-Not Applicable-not attempted and the patient did not perform the activity before the current illness, exacerbation or injury. 10-Not Attempted due to Environmental Limitations-(lack of equipment, weather restraints, etc.). 88-Not Attempted due to Medical Conditions or Safety Concerns. Weight Bearing Right Lower Extremity: Right Non Weight Bearing Left Lower Extremity: Left Non Weight Bearing Wheelchair Training Does the Pt Use a Wheelchair?: Yes Wheel 50 ft with 2 turns (QC): 6 Wheel 150 ft (QC): 6 Type of Wheelchair: Manual Treatments Patient performed w/c mobility on all terrains. Requires minimal assistance outside on concrete on an incline and with turns due to incline grade. 200' x4 Assessment Patient requires recovery periods due to fatigue. PT to continue to increase activity with patient increase in functional tolerance. PT Shelter Goals Shelter Goals PT Shelter Goals Time Frame: Jul 11, 2022 Roll Left & Right (QC): 6 Sit to Lying (QC): 6 Lying-Sitting on Side/Bed(QC): 6 Sit to Stand (QC): 88 Chair/Ddm-wr-Jpgug Xfer(QC): 6 Toilet Transfer (QC): 6 Car Transfer (QC): 6 Does the Patient Walk: No and Walking Goal NOT indicated Walk 10 feet (QC): 88 Walk 50ft with 2 Turns (QC): 88 Walk 150 ft (QC): 88 Walking 10ft on Uneven Surface: 88 1 Step (curb) (QC): 88 4 Steps (QC): 88 12 Steps (QC): 88 Picking up an Object (QC): 88 Does the Pt use WC or Scooter?: Yes Wheel 50 feet with 2 turns (QC: 6 Type: Manual Wheel 150 feet: 6 Type: Manual PT Plan Treatment/Plan Treatment Plan: Continue Plan of Care Treatment Plan: Bed Mobility, Education, Functional Activity [place], Functional Strength, Group Therapy, Safety, Therapeutic Exercise, Transfers Treatment Duration: Jul 12, 2022 Frequency: At least 5 of 7 days/Wk (IRF) Estimated Hrs Per Day: 1.5 hours per day Patient and/or Family Agrees t: Yes Time/GCodes Time In: 1355 Time Out: 1425 Total Billed Treatment Time: 30 Total Billed Treatment 1 visit [facility] x 2 30 min VALERIO REYEZ PT Jun 03, 2022 14:26
[2022-06-03 19:16] VITALS: BP 155/78
[2022-06-03] MEDS: FAMOTIDINE 20 MG (PEPCID) TABLET PO SCH (20:46)
[2022-06-04] MEDS: CATHETER FLUSH 10 ML SYR IVP SCH ×3 (05:39→20:43)
[2022-06-04] MEDS: BETHANECHOL 10 MG (URECHOLINE) TAB PO SCH ×4 (05:40→20:39)
[2022-06-04] MEDS: glyBURIDE 2.5 MG (MICRONASE) TAB PO SCH (05:40)
--- NOTE | 2022-06-04 05:56 | PM&R Progress Note ---
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 Psych visit went really well 06/02/2022: Pt is doing about the same Hemoglobin is 6.7, will get one unit of blood Keppra maintained for possible seizure disorder 06/01/2022: Improved status Sleeping right now No falls No pain most of the time 05/31/2022: Doing well Urinary retention discussed and will start Flomax and Urecholine although he is emptying he does have tendency for retention and he reports he had issues like this before Dr Ramsey will see him Thursday at 1300 for depression Loose stools so will hold laxatives Lortab used on occasion 05/30/2022: Doing well Depression noted so ordered Behavioral health evaluation Pain about the same No falls DC catheter today BM+ 05/29/2022: Doing well Pain controlled BP elevated so will begin treatment Labs reviewed Iron level and B12 checked and pending No issues Review of Systems General: Fatigue, Malaise Musculoskeletal: leg pain Objective Exam Vital Signs Vital Signs Date Time Temp Pulse Resp B/P (MAP) Pulse Ox O2 Delivery O2 Flow Rate FiO2 06/04/22 08:42 Room Air 06/04/22 07:35 37.0 65 16 115/59 (77) 95 Capillary Refill : General Appearance: No Apparent Distress, WD/WN, Chronically ill, Obese HEENT: PERRL/EOMI, Normal ENT Inspection, Pharynx Normal Neck: Full Range of Motion, Normal Inspection, Non Tender, Supple, Carotid Bruit Respiratory: Chest Non Tender, Lungs Clear, Normal Breath Sounds, No Accessory Muscle Use, No Respiratory Distress Cardiovascular: Regular Rate, Rhythm, No Edema, No Gallop, No JVD, No Murmur, Normal Peripheral Pulses Gastrointestinal: Normal Bowel Sounds, No Organomegaly, No Pulsatile Mass, Non Tender, Soft Back: Normal Inspection, No CVA Tenderness, No Vertebral Tenderness Extremity: Normal Capillary Refill, Normal Inspection, Normal Range of Motion, Non Tender, No Calf Tenderness, No Pedal Edema Neurologic/Psychiatric: Alert, Oriented x3, No Motor/Sensory Deficits, electrical cad designer II- XII Norm as Tested, Depressed Affect, Motor Weakness (legs BKA bilateral) Skin: Normal Color, Warm/Dry Lymphatic: No Adenopathy Results/Procedures Lab Patient resulted labs reviewed. FIM Transfers Therapy Code Descriptions/Definitions Functional [place] Measure: 0=Not Assessed/NA 4=Minimal Assistance 1=Total Assistance 5=Supervision or Setup 2=Maximal Assistance 6=Modified [place] 3=Moderate Assistance 7=Complete IndependenceSCALE: Activities may be completed with or without assistive devices. 2-Ablfokqmyw-fvnsoeo completes the activity by him/herself with no assistance from a helper. 5-Set-up or Clean-up Assistance-helper sets up or cleans up; patient completes activity. [place] assists only prior to or following the activity. 4-Supervision or Touching Assistance-helper provides verbal cues and/or touching/steadying and/or contact guard assistance as patient completes activity. Assistance may be provided throughout the activity or intermittently. 3-Partial/Moderate Assistance-helper does LESS THAN HALF the effort. [place] lifts, holds or supports trunk or limbs, but provides less than half the effort. 2-Substantial/Maximal Assistance-helper does MORE THAN HALF the effort. [place] lifts or holds trunk or limbs and provides more than half the effort. 4-Inqkxgixa-kcknoe does ALL the effort. Patient does none of the effort to complete the activity. Or, the assistance of 2 or more helpers is required for the patient to complete the activity. If activity was not attempted, code reason: 7-Patient Refused. 9-Not Applicable-not attempted and the patient did not perform the activity before the current illness, exacerbation or injury. 10-Not Attempted due to Environmental Limitations-(lack of equipment, weather restraints, etc.). 88-Not Attempted due to Medical Conditions or Safety Concerns. Roll Left to Right (QC): 6 Sit to Lying (QC): 6 Sit to Stand (QC): 88 Chair/Mgx-ai-Ffrgo Xfer(QC): 3 Car Transfer (QC): 88 Gait Training Does the Patient Walk?: No and Walking Goal NOT indicated Walk 10 feet (QC): 88 Walk 50 ft with 2 Turns(QC): 88 Walk 150 ft (QC): 88 Walking 10ft/uneven surface-QC: 88 Wheelchair Training Does the Pt Use a Wheelchair?: Yes Distance: 0 Wheel 50 ft with 2 turns (QC): 6 Wheel 150 ft (QC): 6 Type of Wheelchair: Manual Stair Training #of Steps: 0 1 Step (curb) (QC): 88 4 Steps (QC): 88 12 Steps (QC): 88 Balance Picking up an Object (QC): 88 ADL-Treatment Eating (QC): 5 Oral Hygiene (QC): 5 Shower/Bathe Self (QC): 5 Upper Body Dressing (QC): 5 Lower Body Dressing (QC): 4 On/Off Footwear (QC): 9 Toileting Hygiene (QC): 1 Toilet Transfer (QC): 3 Assessment/Plan Assessment and Plan Assess & Plan/Chief Complaint Assessment: Bilateral BKA's DM HTN HLP Low vision from retinopathy Seizures Poor social situation Post op acute blood loss anemia with severe iron def ordered iron infusions then transfused 1 unit 06/[address] so DC 05/30/22 and having acute on chronic urinary retention Poor nutrition albumin 1.8 Plan: Pain control PT OT Wheelchair mobility 05/29/2022: Pain control Iron check 05/30/2022: DC catheter Venofer B12 injection 05/31/2022: Flomax Urecholine 06/01/2022: Monitor sugar 06/02/2022: Transfuse 06/03/2022: Monitor hgb Pain control 06/04/2022: Monitor hgb Monitor pain Urinary retention improved (1) S/P bilateral below knee amputation (2) Diabetic retinopathy associated with uncontrolled type 2 diabetes mellitus Status: Acute FINA OTTO DO Jun 04, 2022 05:56
[2022-06-04] MEDS: inSUlin ASPART (NovoLOG) 1 UNIT/0.01 ML (CHARGE PER UNIT) SC SCH ×3 (06:19→17:27)
[2022-06-04 07:22] VITALS: BP 174/81
[2022-06-04 07:35] VITALS: BP 115/59
[2022-06-04] MEDS: TAMSULOSIN 0.4 MG (FLOMAX) CAP PO SCH ×2 (08:41→20:40)
[2022-06-04] MEDS: LACTOBACILLUS ACIDOPHILUS (PROBIOTIC) CAPSULE PO SCH ×2 (08:41→20:39)
[2022-06-04] MEDS: ALLOPURINOL 100 MG (ZYLOPRIM) TAB PO SCH (08:41)
[2022-06-04] MEDS: IRON SUCROSE 200 MG/10 ML (VENOFER) VIAL IV SCH (08:41)
[2022-06-04] MEDS: amLODIPine 5 MG (NORVASC) TAB PO SCH (08:42)
[2022-06-04] MEDS: NIFEdipine ER 60 MG (PROCARDIA XL) TAB PO SCH (08:42)
[2022-06-04] MEDS: HYDROcodone/APAP 5 MG/325 MG (LORTAB) TAB PO PRN ×2 (08:42→14:32)
[2022-06-04] MEDS: lisINopril 10 MG (PRINIVIL) TABLET PO SCH (08:42)
[2022-06-04] MEDS: FERROUS SULF 325 MG (IRON) TAB PO SCH ×2 (08:42→17:37)
[2022-06-04] MEDS: DOCUSATE SODIUM 100 MG (COLACE) CAP PO SCH ×2 (09:23→20:41)
[2022-06-04] MEDS: MICONAZOLE 2% POWDER (DESENEX AF) 90 GM TOP SCH ×2 (09:24→20:40)
[2022-06-04] MEDS: SENNA W/DOCUSATE (SENOKOT S) TABLET PO SCH ×2 (09:24→20:42)
[2022-06-04] MEDS: polyethylene glycoL POWDER 17 GM (MIRALAX) PACK PO SCH ×2 (09:24→20:41)
--- NOTE | 2022-06-04 09:34 | Physical Therapy Daily Note ---
PT Daily Note-Current Subjective Pt reports he didn't sleep well due to phantom leg pain. Pain Section J - Health Conditions 1. Rarely or not at all 2. Occasionally 3. Frequently 4. Almost constantly 8. Unable to answer Pain Effect on Sleep: 2 Pain Interference with Therapy: 2 Pain Interference w/Day-to-Day: 2 Mental Status Patient Orientation: Normal For Age Transfers SCALE: Activities may be completed with or without assistive devices. 1-Jxunlyiten-bfwmztk completes the activity by him/herself with no assistance from a helper. 5-Set-up or Clean-up Assistance-helper sets up or cleans up; patient completes activity. [place] assists only prior to or following the activity. 4-Supervision or Touching Assistance-helper provides verbal cues and/or touching/steadying and/or contact guard assistance as patient completes act ivity. Assistance may be provided throughout the activity or intermittently. 3-Partial/Moderate Assistance-helper does LESS THAN HALF the effort. [place] lifts, holds or supports trunk or limbs, but provides less than half the effort. 2-Substantial/Maximal Assistance-helper does MORE THAN HALF the effort. [place] lifts or holds trunk or limbs and provides more than half the effort. 7-Akhujgeat-nctcip does ALL the effort. Patient does none of the effort to complete the activity. Or, the assistance of 2 or more helpers is required for the patient to complete the activity. If activity was not attempted, code reason: 7-Patient Refused. 9-Not Applicable-not attempted and the patient did not perform the activity before the current illness, exacerbation or injury. 10-Not Attempted due to Environmental Limitations-(lack of equipment, weather restraints, etc.). 88-Not Attempted due to Medical Conditions or Safety Concerns. Roll Left & Right (QC): 6 Sit to Lying (QC): 6 Lying to Sitting/Side of Bed(Q: 6 Chair/Qjm-rm-Dqqjh Xfer(QC): 4 transfer slide board to and from w/c x 2 trials with Min A for LE and Min A placing slide board Weight Bearing Right Lower Extremity: Right Non Weight Bearing Left Lower Extremity: Left Non Weight Bearing Wheelchair Training practiced w/c propulsion including managment of brakes and armrests. 100ft x 2 trials Exercises Supine Ex: Bridging, Pelvic tilt, Quad Set, Rolling, Glut sets, Lower trunk r otation, Knee to chest, Short Arc Quads, Scooting, Straight leg raise, Hip abd/add Supine Reps: 20 performed 2 x 10 double LE leg raise, 2 x 10 crunches Assessment Pt had good understanding of slide board management and transfer techniques. LE knee flexion contracture (B) roughly 5 degrees, encouraged self stretching. PT Electric Serviceman Goals Mcc Goals PT Mcc Goals Time Frame: Jul 11, 2022 Roll Left & Right (QC): 6 Sit to Lying (QC): 6 Lying-Sitting on Side/Bed(QC): 6 Sit to Stand (QC): 88 Chair/Kze-wo-Esztg Xfer(QC): 6 Toilet Transfer (QC): 6 Car Transfer (QC): 6 Does the Patient Walk: No and Walking Goal NOT indicated Walk 10 feet (QC): 88 Walk 50ft with 2 Turns (QC): 88 Walk 150 ft (QC): 88 Walking 10ft on Uneven Surface: 88 1 Step (curb) (QC): 88 4 Steps (QC): 88 12 Steps (QC): 88 Picking up an Object (QC): 88 Does the Pt use WC or Scooter?: Yes Wheel 50 feet with 2 turns (QC: 6 Type: Manual Wheel 150 feet: 6 Type: Manual PT Plan Treatment/Plan Treatment Plan: Continue Plan of Care Treatment Plan: Bed Mobility, Education, Functional Activity [place], Functional Strength, Group Therapy, Safety, Therapeutic Exercise, Transfers Treatment Duration: Jul 12, 2022 Frequency: At least 5 of 7 days/Wk (IRF) Estimated Hrs Per Day: 1.5 hours per day Patient and/or Family Agrees t: Yes Time/GCodes Time In: 0800 Time Out: 0845 Total Billed Treatment Time: 45 Total Billed Treatment visit, exercise 30min, FA 15min JUDY LAGOS PT Jun 04, 2022 09:34
--- NOTE | 2022-06-04 10:11 | Occupational Ther Daily Note ---
OT Current Status-Daily Note Subjective Pt was in his w/c upon arrival working with PT. He agreed to therapy. During today's session, he was making light of possibly loosing his finger due to a sore. Therapist reiterated the importance of DM management, and he responded with "it is what it is". Appearance Pt left in w/c with all needs within reach. Mental Status/Objective Patient Orientation: Person, Place, Time, Situation Attachments: IV Acute change in mental status: 0 Inattention: 0 Disorganized thinkin Altered level of consciousness: 0 ADL-Treatment Therapy Code Descriptions/Definitions Functional [place] Measure: 0=Not Assessed/NA 4=Minimal Assistance 1=Total Assistance 5=Supervision or Setup 2=Maximal Assistance 6=Modified [place] 3=Moderate Assistance 7=Complete IndependenceSCALE: Activities may be completed with or without assistive devices. 2-Vkoomazdrg-nviuguj completes the activity by him/herself with no assistance from a helper. 5-Set-up or Clean-up Assistance-helper sets up or cleans up; patient completes activity. [place] assists only prior to or following the activity. 4-Supervision or Touching Assistance-helper provides verbal cues and/or touching/steadying and/or contact guard assistance as patient completes activity. Assistance may be provided throughout the activity or intermittently. 3-Partial/Moderate Assistance-helper does LESS THAN HALF the effort. [place] lifts, holds or supports trunk or limbs, but provides less than half the effort. 2-Substantial/Maximal Assistance-helper does MORE THAN HALF the effort. [place] lifts or holds trunk or limbs and provides more than half the effort. 9-Vvslhkmaj-wesxxi does ALL the effort. Patient does none of the effort to compl ete the activity. Or, the assistance of 2 or more helpers is required for the patient to complete the activity. If activity was not attempted, code reason: 7-Patient Refused. 9-Not Applicable-not attempted and the patient did not perform the activity before the current illness, exacerbation or injury. 10-Not Attempted due to Environmental Limitations-(lack of equipment, weather restraints, etc.). 88-Not Attempted due to Medical Conditions or Safety Concerns. Oral Hygiene (QC): 6 Toilet Transfer (QC): 4 Pt completed grooming tasks 100% seated in w/c at sink. He required encouragement to perform oral hygiene and needed initiation for combing hair. Pt practiced commode transfers with the slide board with SBA/CGA and mod verbal cues for placement of hands, board and w/c to improve independence with ADL task of toileting. He stated feeling comfortable with the task. Pt practiced lower body clothing management while seated in w/c. He was able to lean side to side and pull pants around thighs and bring them back up around waist. This task took increased time, and he expressed difficulty with task due to lack of sensation in fingers and lack of room. Encouraged to keep practicing task, as it is important for ADL tasks such as toileting. Other Treatment Pt participated in fine motor strengthening and coordination tasks by stretching rubber bands to make specific designs on a peg board. This task was performed with 2 lb wrist weights on to enhance the difficulty of the task. He used his 5th digits to stretch the bands rather than using his 1st and second fingers. He stated he does a lot with his 5th digits due to having more functionality in those digits. He used resistance clothespins to take off and put them back on different circumference bars with bilateral hands to focus on hand and finger strength and coordination. This task was also completed with 2 lb wrist weights. Education OT Patient Education: Correct positioning, Disease process, Energy conservation, Modified ADL techniques, Progress toward Goal/Update tx plan, Purpose of tx/functional activities, Reviewed precautions, Rehab process, Safety issues, Transfer techniques, W/C management Teaching Recipient: Patient Teaching Methods: Demonstration, Discussion Response to Teaching: Verbalize Understanding, Return Demonstration OT Short Term Goals Short Term Goals Time Frame: Jun 07, 2022 Eatin Oral hygiene: 6 Toileting hygiene: 3 Shower/bathe self: 4 Upper body dressin Lower body dressin Putting on/taking off footwear: 9 OT Grades 7 And 8 Teacher Goals Grades 7 And 8 Teacher Goals Time Frame: Jun 14, 2022 Acute change in mental status: 0 Inattention: 0 Disorganized thinkin Altered level of consciousness: 0 Eating (QC): 6 Oral Hygiene (QC): 6 Toileting Hygiene (QC): 5 Shower/Bathe Self (QC): 5 Upper Body Dressing (QC): 6 Lower Body Dressing (QC): 5 On/Off Footwear (QC): 9 Additional Goals: 1-Demonstrate ADL Tasks, 2-Verbalize Understanding, 3- ImproveStrength/[place] 1=Demonstrate adherence to instructed precautions during ADL tasks. 2=Patient will verbalize/demonstrate understanding of assistive devices/modifications for ADL. 3=Patient will improve strength/tolerance for activity to enable patient to perform ADL's. OT Education/Plan Problem List/Assessment Assessment: Decreased Activ Tolerance, Decreased Safety Aware, Decreased UE Strength, Dependent Transfers, Edema, Impaired Bed Mobility, Impaired Cognition, Impaired Coordination, Impaired Funct Balance, Impaired I ADL's, Impaired Self- Care Skills, Restricted Funct UE ROM Discharge Recommendations Plan/Recommendations: Continue POC Treatment Plan/Plan of Care Treatment,Training & Education: Yes Patient would benefit from OT for education, treatment and training to promote independence in ADL's, mobility, safety and/or upper extremity function for ADL's. Plan of Care: ADL Retraining, Caregiver Training, Functional Mobility, Group Exercise/Act as Ind, Orthotic Fitting/Training, UE Funct Exercise/Act, UE Neuromus Re-Ed/Coord, W/C Management Training Treatment Duration: Jun 14, 2022 Frequency: At least 5 of 7 days/Wk (IRF) Estimated Hrs Per Day: 1.5 hours per day (75-90 min per day) Agreement: Yes Rehab Potential: Fair Time/GCodes Start Time: 08:45 Stop Time: 10:15 Total Time Billed (hr/min): 90 Billed Treatment Time 1 visit ADLx3 (45 min) FA x3 (45 min) Alisha Rios OT Jun 04, 2022 10:11
--- NOTE | 2022-06-04 11:38 | Physical Therapy Daily Note ---
PT Daily Note-Current Subjective Pt. agrees to Rx, States his pain is much better than it had been. Pt. agrees to instruction and practice donning and doffing custom splint / residual limb protectors Pain Location: No Pain Reported Section J - Health Conditions 1. Rarely or not at all 2. Occasionally 3. Frequently 4. Almost constantly 8. Unable to answer Pain Effect on Sleep: 2 Pain Interference with Therapy: 2 Pain Interference w/Day-to-Day: 2 Appearance good extension bilat, good strength and management of LEs and w/c for positioning Mental Status Patient Orientation: Normal For Age Attachments: Other-See Comments (splint /protectos bilat) Transfers SCALE: Activities may be completed with or without assistive devices. 0-Fxsftteqtg-blhaqjh completes the activity by him/herself with no assistance from a helper. 5-Set-up or Clean-up Assistance-helper sets up or cleans up; patient completes activity. [place] assists only prior to or following the activity. 4-Supervision or Touching Assistance-helper provides verbal cues and/or touching/steadying and/or contact guard assistance as patient completes activity. Assistance may be provided throughout the activity or intermittently. 3-Partial/Moderate Assistance-helper does LESS THAN HALF the effort. [place] lifts, holds or supports trunk or limbs, but provides less than half the effort. 2-Substantial/Maximal Assistance-helper does MORE THAN HALF the effort. [place] lifts or holds trunk or limbs and provides more than half the effort. 7-Gqxptmybd-dqlydo does ALL the effort. Patient does none of the effort to complete the activity. Or, the assistance of 2 or more helpers is required for the patient to complete the activity. If activity was not attempted, code reason: 7-Patient Refused. 9-Not Applicable-not attempted and the patient did not perform the activity before the current illness, exacerbation or injury. 10-Not Attempted due to Environmental Limitations-(lack of equipment, weather restraints, etc.). 88-Not Attempted due to Medical Conditions or Safety Concerns. Chair/Bhb-jx-Cdhvg Xfer(QC): 4 slide brd w/c to bed min asst to place brd and min to guide pt Weight Bearing Right Lower Extremity: Right Non Weight Bearing Left Lower Extremity: Left Non Weight Bearing Wheelchair Training Type of Wheelchair: Manual indep about his room etc, pt. aligned w/c to bed accurately to do his slide brd TRF Exercises Supine Ex: Quad Set, Rolling, Glut sets, Knee to chest, Scooting, Straight leg raise, Hip abd/add Supine Reps: 30 Seated Therapy Exercises: Long arc quads, Hip flexion Seated Reps: 30 Treatments w/c mob, ther ex as above, donning and doffing splint/limb protectors, slide brd TRFs with curve board Assessment Current Status: Good Progress PT Law Office Receptionist Goals Law Office Receptionist Goals PT Residential Goals Time Frame: Jul 11, 2022 Roll Left & Right (QC): 6 Sit to Lying (QC): 6 Lying-Sitting on Side/Bed(QC): 6 Sit to Stand (QC): 88 Chair/Rmo-ud-Purmn Xfer(QC): 6 Toilet Transfer (QC): 6 Car Transfer (QC): 6 Does the Patient Walk: No and Walking Goal NOT indicated Walk 10 feet (QC): 88 Walk 50ft with 2 Turns (QC): 88 Walk 150 ft (QC): 88 Walking 10ft on Uneven Surface: 88 1 Step (curb) (QC): 88 4 Steps (QC): 88 12 Steps (QC): 88 Picking up an Object (QC): 88 Does the Pt use WC or Scooter?: Yes Wheel 50 feet with 2 turns (QC: 6 Type: Manual Wheel 150 feet: 6 Type: Manual PT Plan Treatment/Plan Treatment Plan: Continue Plan of Care Treatment Plan: Bed Mobility, Education, Functional Activity [place], Functional Strength, Group Therapy, Safety, Therapeutic Exercise, Transfers Treatment Duration: Jul 12, 2022 Frequency: At least 5 of 7 days/Wk (IRF) Estimated Hrs Per Day: 1.5 hours per day Patient and/or Family Agrees t: Yes Safety Risks/Education Patient Education: Transfer Techniques, Correct Positioning, W/C Management, Reviewed Don/Doff Brace, Safety Issues Teaching Recipient: Patient Teaching Methods: Demonstration, Discussion Response to Teaching: Verbalize Understanding, Return Demonstration, Reinforcement Needed Time/GCodes Time In: 1015 (1300) Time Out: 1030 (1330) Total Billed Treatment Time: 15 (30) Total Billed Treatment 1x2, EX25m,FA20m DIMAS RUSSELL PRODUCT SAFETY COMPLIANCE LEADER Jun 04, 2022 11:38
[2022-06-04] MEDS: HYPOCHLOROUS ACID/NaCl (VASHE) 250 ML IR SCH ×2 (14:50→20:41)
--- NOTE | 2022-06-04 17:54 | Progress Note ---
FERNANDO FINLEY 06/04/22 2654: Progress Note CC: Bilateral BKA HPI: This is a 42yoWM with no PCP who has a h/o DM who presents to the ARU in need of recovery following bilateral BKA's. He does not take any home meds and does not check his sugar. Patient lying in bed and reports he is doing well when I visited. Continuing to make improvements. Leg pain is controlled. Declines OMM treatments today. ROS: General: Fatigue, Malaise Musculoskeletal: leg pain, controlled Exam: General Appearance: No Apparent Distress, Chronically ill, Obese HEENT: PERRL/EOMI Respiratory: Chest Non Tender, Lungs Clear, Normal Breath Sounds, No Accessory Muscle Use, No Respiratory Distress Cardiovascular: RRR, No Edema, No Gallop, No JVD, No Murmur, Normal Peripheral Pulses Upper Extremity Extremity: bilateral BKA bilateral, normal inspection, amputation site c/d/i Neurologic/Psychiatric: Alert, Oriented x3, Depressed Affect, Motor Weakness (legs BKA bilateral) Skin: Normal Color, Warm/Dry Lymphatic: No Adenopathy Assessment: Bilateral BKA's DM HTN HLP Low vision from retinopathy Seizures Poor social situation Post op acute blood loss anemia with severe iron def ordered iron infusions Jerry cath in place so DC 05/30/22 and having acute on chronic urinary retention Poor nutrition albumin 1.8 Somatic dysfunction due to bilateral BKA Plan: -Patient declines OMM treatment for today STEPHANY OTTO DO 06/04/222111: Supervisory-Addendum Brief Verification & Attestation Participated in pt care: history, MDM, physical Personally performed: exam, history, MDM, supervision of care Care discussed with: Medical Student Procedures: n/a Results interpretation: Verified all documentation Verification and Attestation of Medical Student E/M Service A medical student performed and documented this service in my presence. I reviewed and verified all information documented by the medical student and made modifications to such information, when appropriate. I personally performed the physical exam and medical decision making. Stephany Otto, Jun 04, 2022,21:12 FERNANDO FINLEY Jun 04, 2022 17:54 STEPHANY OTTO DO Jun 04, 2022 21:12
[2022-06-04] MEDS: FAMOTIDINE 20 MG (PEPCID) TABLET PO SCH (20:39)
[2022-06-04] MEDS: HYPOCHLOROUS ACID/NaCl (VASHE) 250 ML IR PRN (20:40)
[2022-06-04 20:46] VITALS: BP 127/60
--- NOTE | 2022-06-05 05:41 | PM&R Progress Note ---
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 Psych visit went really well 06/02/2022: Pt is doing about the same Hemoglobin is 6.7, will get one unit of blood Keppra maintained for possible seizure disorder 06/01/2022: Improved status Sleeping right now No falls No pain most of the time 05/31/2022: Doing well Urinary retention discussed and will start Flomax and Urecholine although he is emptying he does have tendency for retention and he reports he had issues like this before Dr Ramsey will see him Thursday at 1300 for depression Loose stools so will hold laxatives Lortab used on occasion 05/30/2022: Doing well Depression noted so ordered Behavioral health evaluation Pain about the same No falls DC catheter today BM+ 05/29/2022: Doing well Pain controlled BP elevated so will begin treatment Labs reviewed Iron level and B12 checked and pending No issues Review of Systems General: Fatigue, Malaise Musculoskeletal: leg pain Objective Exam Vital Signs Vital Signs Date Time Temp Pulse Resp B/P (MAP) Pulse Ox O2 Delivery O2 Flow Rate FiO2 06/05/22 21:50 Room Air 06/05/22 20:57 37.6 85 20 129/69 (89) 97 Capillary Refill : General Appearance: No Apparent Distress, WD/WN, Chronically ill, Obese HEENT: PERRL/EOMI, Normal ENT Inspection, Pharynx Normal Neck: Full Range of Motion, Normal Inspection, Non Tender, Supple, Carotid Bruit Respiratory: Chest Non Tender, Lungs Clear, Normal Breath Sounds, No Accessory Muscle Use, No Respiratory Distress Cardiovascular: Regular Rate, Rhythm, No Edema, No Gallop, No JVD, No Murmur, Normal Peripheral Pulses Gastrointestinal: Normal Bowel Sounds, No Organomegaly, No Pulsatile Mass, Non Tender, Soft Back: Normal Inspection, No CVA Tenderness, No Vertebral Tenderness Extremity: Normal Capillary Refill, Normal Inspection, Normal Range of Motion, Non Tender, No Calf Tenderness, No Pedal Edema Neurologic/Psychiatric: Alert, Oriented x3, No Motor/Sensory Deficits, bronze plater II- XII Norm as Tested, Depressed Affect, Motor Weakness (legs BKA bilateral) Skin: Normal Color, Warm/Dry Lymphatic: No Adenopathy Results/Procedures Lab Patient resulted labs reviewed. FIM Transfers Therapy Code Descriptions/Definitions Functional [place] Measure: 0=Not Assessed/NA 4=Minimal Assistance 1=Total Assistance 5=Supervision or Setup 2=Maximal Assistance 6=Modified [place] 3=Moderate Assistance 7=Complete IndependenceSCALE: Activities may be completed with or without assistive devices. 6-Fwtzihomix-odbleov completes the activity by him/herself with no assistance from a helper. 5-Set-up or Clean-up Assistance-helper sets up or cleans up; patient completes activity. [place] assists only prior to or following the activity. 4-Supervision or Touching Assistance-helper provides verbal cues and/or touching/steadying and/or contact guard assistance as patient completes activity. Assistance may be provided throughout the activity or intermittently. 3-Partial/Moderate Assistance-helper does LESS THAN HALF the effort. [place] lifts, holds or supports trunk or limbs, but provides less than half the effort. 2-Substantial/Maximal Assistance-helper does MORE THAN HALF the effort. [place] lifts or holds trunk or limbs and provides more than half the effort. 6-Gcylpfqak-cpioof does ALL the effort. Patient does none of the effort to co mplete the activity. Or, the assistance of 2 or more helpers is required for the patient to complete the activity. If activity was not attempted, code reason: 7-Patient Refused. 9-Not Applicable-not attempted and the patient did not perform the activity before the current illness, exacerbation or injury. 10-Not Attempted due to Environmental Limitations-(lack of equipment, weather restraints, etc.). 88-Not Attempted due to Medical Conditions or Safety Concerns. Roll Left to Right (QC): 6 Sit to Lying (QC): 6 Sit to Stand (QC): 88 Chair/Xnh-cc-Yqwmy Xfer(QC): 4 Car Transfer (QC): 88 Gait Training Does the Patient Walk?: No and Walking Goal NOT indicated Walk 10 feet (QC): 88 Walk 50 ft with 2 Turns(QC): 88 Walk 150 ft (QC): 88 Walking 10ft/uneven surface-QC: 88 Wheelchair Training Does the Pt Use a Wheelchair?: Yes Distance: 0 Wheel 50 ft with 2 turns (QC): 6 Wheel 150 ft (QC): 6 Type of Wheelchair: Manual Stair Training #of Steps: 0 1 Step (curb) (QC): 88 4 Steps (QC): 88 12 Steps (QC): 88 Balance Picking up an Object (QC): 88 ADL-Treatment Eating (QC): 5 Oral Hygiene (QC): 6 Shower/Bathe Self (QC): 5 Upper Body Dressing (QC): 5 Lower Body Dressing (QC): 4 On/Off Footwear (QC): 9 Toileting Hygiene (QC): 1 Toilet Transfer (QC): 4 Assessment/Plan Assessment and Plan Assess & Plan/Chief Complaint Assessment: Bilateral BKA's DM HTN HLP Low vision from retinopathy Seizures Poor social situation Post op acute blood loss anemia with severe iron def ordered iron infusions then transfused 1 unit 06/[address] so DC 05/30/22 and having acute on chronic urinary retention Poor nutrition albumin 1.8 Plan: Pain control PT OT Wheelchair mobility 05/29/2022: Pain control Iron check 05/30/2022: DC catheter Venofer B12 injection 05/31/2022: Flomax Urecholine 06/01/2022: Monitor sugar 06/02/2022: Transfuse 06/03/2022: Monitor hgb Pain control 06/04/2022: Monitor hgb Monitor pain Urinary retention improved 06/05/2022: Monitor isolated blood pressure elevation (1) S/P bilateral below knee amputation (2) Diabetic retinopathy associated with uncontrolled type 2 diabetes mellitus Status: Acute FINA OTTO DO Jun 05, 2022 05:41
[2022-06-05] MEDS: inSUlin ASPART (NovoLOG) 1 UNIT/0.01 ML (CHARGE PER UNIT) SC SCH ×3 (06:10→15:18)
[2022-06-05] MEDS: BETHANECHOL 10 MG (URECHOLINE) TAB PO SCH ×4 (06:11→22:22)
[2022-06-05] MEDS: glyBURIDE 2.5 MG (MICRONASE) TAB PO SCH (06:11)
[2022-06-05] MEDS: CATHETER FLUSH 10 ML SYR IVP SCH ×3 (06:12→22:23)
[2022-06-05 07:48] VITALS: BP 128/60
[2022-06-05] MEDS: LACTOBACILLUS ACIDOPHILUS (PROBIOTIC) CAPSULE PO SCH ×2 (08:45→22:22)
[2022-06-05] MEDS: ALLOPURINOL 100 MG (ZYLOPRIM) TAB PO SCH (08:45)
[2022-06-05] MEDS: TAMSULOSIN 0.4 MG (FLOMAX) CAP PO SCH ×2 (08:45→22:22)
[2022-06-05] MEDS: lisINopril 10 MG (PRINIVIL) TABLET PO SCH (08:45)
[2022-06-05] MEDS: amLODIPine 5 MG (NORVASC) TAB PO SCH (08:45)
[2022-06-05] MEDS: NIFEdipine ER 60 MG (PROCARDIA XL) TAB PO SCH (08:45)
[2022-06-05] MEDS: FERROUS SULF 325 MG (IRON) TAB PO SCH ×2 (08:45→18:06)
[2022-06-05] MEDS: polyethylene glycoL POWDER 17 GM (MIRALAX) PACK PO SCH ×2 (08:46→21:00)
[2022-06-05] MEDS: SENNA W/DOCUSATE (SENOKOT S) TABLET PO SCH ×2 (08:46→21:00)
[2022-06-05] MEDS: DOCUSATE SODIUM 100 MG (COLACE) CAP PO SCH ×2 (08:46→21:00)
--- NOTE | 2022-06-05 08:57 | Physical Therapy Daily Note ---
PT Daily Note-Current Subjective Pt. in bed, states he has still not recieved brkfst. Pt. states he doesn not remember everything the patcher said yesterday Pain Location: No Pain Reported Section J - Health Conditions 1. Rarely or not at all 2. Occasionally 3. Frequently 4. Almost constantly 8. Unable to answer Pain Effect on Sleep: 2 Pain Interference with Therapy: 2 Pain Interference w/Day-to-Day: 2 Mental Status Patient Orientation: Normal For Age Attachments: Other-See Comments (amputeee splint limb protectors) Transfers SCALE: Activities may be completed with or without assistive devices. 6-Bujerapngr-djzzdch completes the activity by him/herself with no assistance from a helper. 5-Set-up or Clean-up Assistance-helper sets up or cleans up; patient completes activity. [place] assists only prior to or following the activity. 4-Supervision or Touching Assistance-helper provides verbal cues and/or touching/steadying and/or contact guard assistance as patient completes activity. Assistance may be provided throughout the activity or intermittently. 3-Partial/Moderate Assistance-helper does LESS THAN HALF the effort. [place] lif ts, holds or supports trunk or limbs, but provides less than half the effort. 2-Substantial/Maximal Assistance-helper does MORE THAN HALF the effort. [place] lifts or holds trunk or limbs and provides more than half the effort. 5-[place]-rtcftm does ALL the effort. Patient does none of the effort to complete the activity. Or, the assistance of 2 or more helpers is required for the patient to complete the activity. If activity was not attempted, code reason: 7-Patient Refused. 9-Not Applicable-not attempted and the patient did not perform the activity before the current illness, exacerbation or injury. 10-Not Attempted due to Environmental Limitations-(lack of equipment, weather restraints, etc.). 88-Not Attempted due to Medical Conditions or Safety Concerns. Roll Left & Right (QC): 6 Lying to Sitting/Side of Bed(Q: 4 Chair/Lta-pb-Uwyof Xfer(QC): 4 pt. states he will not have a hosp bed at home, sup to side to sit was practiced with bed in flat position pt. director part using rail, pts tenosynovitis of fingers bilat intensifies this problem., pt. requird min to mod to come to full sit. sld brd TRF complicated by whether or not pt should have splints on before exiting bed or after. The complication of the proximal ends of the splints interfering with edge of the slide brd is a concern so pt. donned splints after up in w/c Weight Bearing Right Lower Extremity: Right Non Weight Bearing Left Lower Extremity: Left Non Weight Bearing Wheelchair Training Does the Pt Use a Wheelchair?: Yes Wheel 50 ft with 2 turns (QC): 6 Type of Wheelchair: Manual Exercises Supine Ex: Quad Set, Rolling, Glut sets, Knee to chest, Short Arc Quads, Scooting, Straight leg raise, Hip abd/add (in side lying) Supine Reps: 20 Seated Therapy Exercises: Long arc quads Seated Reps: 20 amputee protocol, Treatments pt. urinated in urinal 1000cc indep, this WEIGH MACHINE OPERATOR then managing disposal and recording. pt. performed amputee ex, dressed , bottom half with mod assist in sup, max assist to chris shrinkers, TRFd supine to side to sit mod to min assist, sld brd min to mod assist to w/c, managed w/c to elevate LEs on bed and donned splint protectors with mod assist, w/c mob 50-60 ft indep, set p for brkfst mod asst Assessment Current Status: Good Progress seeking instruction for frequency and duration of splint wearing PT Field Support Representative Goals [place] Goals PT Field Support Representative Goals Time Frame: Jul 11, 2022 Roll Left & Right (QC): 6 Sit to Lying (QC): 6 Lying-Sitting on Side/Bed(QC): 6 Sit to Stand (QC): 88 Chair/Icb-un-Jtclq Xfer(QC): 6 Toilet Transfer (QC): 6 Car Transfer (QC): 6 Does the Patient Walk: No and Walking Goal NOT indicated Walk 10 feet (QC): 88 Walk 50ft with 2 Turns (QC): 88 Walk 150 ft (QC): 88 Walking 10ft on Uneven Surface: 88 1 Step (curb) (QC): 88 4 Steps (QC): 88 12 Steps (QC): 88 Picking up an Object (QC): 88 Does the Pt use WC or Scooter?: Yes Wheel 50 feet with 2 turns (QC: 6 Type: Manual Wheel 150 feet: 6 Type: Manual PT Plan Treatment/Plan Treatment Plan: Continue Plan of Care Treatment Plan: Bed Mobility, Education, Functional Activity [place], Functional Strength, Group Therapy, Safety, Therapeutic Exercise, Transfers Treatment Duration: Jul 12, 2022 Frequency: At least 5 of 7 days/Wk (IRF) Estimated Hrs Per Day: 1.5 hours per day Patient and/or Family Agrees t: Yes Safety Risks/Education Patient Education: Transfer Techniques, Correct Positioning, W/C Management, Reviewed Don/Doff Brace, Disease Process, Safety Issues Teaching Recipient: Patient Teaching Methods: Demonstration, Discussion Response to Teaching: Verbalize Understanding, Return Demonstration, Reinforcement Needed Time/GCodes Time In: 730 Time Out: 900 Total Billed Treatment Time: 90 Total Billed Treatment 1,EX35m,FA55m DIMAS RUSSELL WEIGH MACHINE OPERATOR Jun 05, 2022 08:57
--- NOTE | 2022-06-05 09:50 | Occupational Ther Daily Note ---
OT Current Status-Daily Note Subjective Pt propelling w/c into the bathroom upon arrival. He agrees to therapy. During session, he reports feelings of lightheadedness and not feeling well. Nursing notified. Session terminated early due to high BP. Appearance Pt left laying in bed with all needs within reach. Mental Status/Objective Patient Orientation: Person, Time, Situation Acute change in mental status: 0 Inattention: 0 Disorganized thinkin Altered level of consciousness: 0 ADL-Treatment Therapy Code Descriptions/Definitions Functional [place] Measure: 0=Not Assessed/NA 4=Minimal Assistance 1=Total Assistance 5=Supervision or Setup 2=Maximal Assistance 6=Modified [place] 3=Moderate Assistance 7=Complete IndependenceSCALE: Activities may be completed with or without assistive devices. 1-Xrzmdperjp-dwvnjpb completes the activity by him/herself with no assistance from a helper. 5-Set-up or Clean-up Assistance-helper sets up or cleans up; patient completes activity. [place] assists only prior to or following the activity. 4-Supervision or Touching Assistance-helper provides verbal cues and/or touching/steadying and/or contact guard assistance as patient completes activity. Assistance may be provided throughout the activity or intermittently. 3-Partial/Moderate Assistance-helper does LESS THAN HALF the effort. [place] lifts, holds or supports trunk or limbs, but provides less than half the effort. 2-Substantial/Maximal Assistance-helper does MORE THAN HALF the effort. [place] lifts or holds trunk or limbs and provides more than half the effort. 7-Jdnkewppy-zezisf does ALL the effort. Patient does none of the effort to complete the activity. Or, the assistance of 2 or more helpers is required for the patient to complete the activity. If activity was not attempted, code reason: 7-Patient Refused. 9-Not Applicable-not attempted and the patient did not perform the activity before the current illness, exacerbation or injury. 10-Not Attempted due to Environmental Limitations-(lack of equipment, weather restraints, etc.). 88-Not Attempted due to Medical Conditions or Safety Concerns. Upper Body Dressing (QC): 5 Lower Body Dressing (QC): 5 Pt seated in w/c at sink to wash hands. Pt was encouraged to wash face and brush teeth, without success. Bilateral ampushields already donned, but appeared to not fit appropriately. Slide board transfer to bed with supervision. Therapist attempted to adjust ampushields fit without success. Reaching out to his prosthetic contact will be necessary for problem solving the fit of his ampushields. Due to wet pants (pt reports from water, however smelled like urine) clothing doffed and new clothing donned while supine in bed; set up assist. Pt reported not feeling well after sitting up on the side of the bed. BP was 183/88 with HR at 84 BPM and O2 at 97. After a few minutes of sitting on EOB BP was 191/92. Pt was asked to lay back down and after ~4-5 minutes his BP was 176/79. Nursing was notified and therapy session was concluded. OT will reassess later this morning if it is appropriate to complete time with pt. Education OT Patient Education: Correct positioning, Disease process, Instructions don/doff splint/brace, Modified ADL techniques, Progress toward Goal/Update tx plan, Purpose of tx/functional activities, Reviewed precautions, Rehab process, Safety issues, Transfer techniques, W/C management Teaching Recipient: Patient Teaching Methods: Discussion Response to Teaching: Verbalize Understanding, Return Demonstration OT Short Term Goals Short Term Goals Time Frame: Jun 07, 2022 Eatin Oral hygiene: 6 Toileting hygiene: 3 Shower/bathe self: 4 Upper body dressin Lower body dressin Putting on/taking off footwear: 9 OT Lab Support Tech Goals Lab Support Tech Goals Time Frame: Jun 14, 2022 Acute change in mental status: 0 Inattention: 0 Disorganized thinkin Altered level of consciousness: 0 Eating (QC): 6 Oral Hygiene (QC): 6 Toileting Hygiene (QC): 5 Shower/Bathe Self (QC): 5 Upper Body Dressing (QC): 6 Lower Body Dressing (QC): 5 On/Off Footwear (QC): 9 Additional Goals: 1-Demonstrate ADL Tasks, 2-Verbalize Understanding, 3- ImproveStrength/[place] 1=Demonstrate adherence to instructed precautions during ADL tasks. 2=Patient will verbalize/demonstrate understanding of assistive devices/modifications for ADL. 3=Patient will improve strength/tolerance for activity to enable patient to perform ADL's. OT Education/Plan Problem List/Assessment Assessment: Decreased Activ Tolerance, Decreased Safety Aware, Decreased UE Strength, Dependent Transfers, Impaired Bed Mobility, Impaired Coordination, Impaired Funct Balance, Impaired I ADL's, Impaired Self-Care Skills Discharge Recommendations Plan/Recommendations: Continue POC Treatment Plan/Plan of Care Treatment,Training & Education: Yes Patient would benefit from OT for education, treatment and training to promote independence in ADL's, mobility, safety and/or upper extremity function for ADL's. Plan of Care: ADL Retraining, Caregiver Training, Functional Mobility, Group Exercise/Act as Ind, Orthotic Fitting/Training, UE Funct Exercise/Act, UE Neuromus Re-Ed/Coord, W/C Management Training Treatment Duration: Jun 14, 2022 Frequency: At least 5 of 7 days/Wk (IRF) Estimated Hrs Per Day: 1.5 hours per day (75-90 min per day) Agreement: Yes Rehab Potential: Fair Time/GCodes Start Time: 09:00 Stop Time: 09:49 Total Time Billed (hr/min): 49 Billed Treatment Time 1 visit ADL x3 Alisha Rios OT Jun 05, 2022 09:50
[2022-06-05] MEDS: HYPOCHLOROUS ACID/NaCl (VASHE) 250 ML IR PRN (12:45)
[2022-06-05] MEDS: MICONAZOLE 2% POWDER (DESENEX AF) 90 GM TOP SCH ×2 (12:45→22:23)
--- NOTE | 2022-06-05 12:48 | Occupational Ther Daily Note ---
OT Current Status-Daily Note Subjective Pt laying in bed upon arrival and had just woken up. He stated feeling better. His BP was 159/74. Appearance Pt left sitting EOB with all needs within reach. Mental Status/Objective Acute change in mental status: 0 Inattention: 0 Disorganized thinkin Altered level of consciousness: 0 ADL-Treatment Therapy Code Descriptions/Definitions Functional [place] Measure: 0=Not Assessed/NA 4=Minimal Assistance 1=Total Assistance 5=Supervision or Setup 2=Maximal Assistance 6=Modified [place] 3=Moderate Assistance 7=Complete IndependenceSCALE: Activities may be completed with or without assistive devices. 2-Eoezmrvaix-hsgwqgg completes the activity by him/herself with no assistance from a helper. 5-Set-up or Clean-up Assistance-helper sets up or cleans up; patient completes activity. [place] assists only prior to or following the activity. 4-Supervision or Touching Assistance-helper provides verbal cues and/or touching/steadying and/or contact guard assistance as patient completes activity. Assistance may be provided throughout the activity or intermittently. 3-Partial/Moderate Assistance-helper does LESS THAN HALF the effort. [place] lifts, holds or supports trunk or limbs, but provides less than half the effort. 2-Substantial/Maximal Assistance-helper does MORE THAN HALF the effort. [place] lifts or holds trunk or limbs and provides more than half the effort. 9-Gpoboqxcl-olunyr does ALL the effort. Patient does none of the effort to complete the activity. Or, the assistance of 2 or more helpers is required for the patient to complete the activity. If activity was not attempted, code reason: 7-Patient Refused. 9-Not Applicable-not attempted and the patient did not perform the activity before the current illness, exacerbation or injury. 10-Not Attempted due to Environmental Limitations-(lack of equipment, weather restraints, etc.). 88-Not Attempted due to Medical Conditions or Safety Concerns. Other Treatment Pt participated in 1x10 reps of UE exercises in all planes while holding 3 lb weights. He tolerated these well but did require adequate rest breaks between each exercise. To improve hand and finger strength, pt completed 1x10 reps of hand and finger flexion using the yellow digiflex. Education OT Patient Education: Correct positioning, Energy conservation, Exercise program, Home exercise program, Progress toward Goal/Update tx plan, Purpose of tx/functional activities, Rehab process Teaching Recipient: Patient Teaching Methods: Demonstration, Discussion Response to Teaching: Verbalize Understanding, Return Demonstration OT Short Term Goals Short Term Goals Time Frame: Jun 07, 2022 Eatin Oral hygiene: 6 Toileting hygiene: 3 Shower/bathe self: 4 Upper body dressin Lower body dressin Putting on/taking off footwear: 9 OT Jail Goals College Specialist Goals Time Frame: Jun 14, 2022 Acute change in mental status: 0 Inattention: 0 Disorganized thinkin Altered level of consciousness: 0 Eating (QC): 6 Oral Hygiene (QC): 6 Toileting Hygiene (QC): 5 Shower/Bathe Self (QC): 5 Upper Body Dressing (QC): 6 Lower Body Dressing (QC): 5 On/Off Footwear (QC): 9 Additional Goals: 1-Demonstrate ADL Tasks, 2-Verbalize Understanding, 3- ImproveStrength/[place] 1=Demonstrate adherence to instructed precautions during ADL tasks. 2=Patient will verbalize/demonstrate understanding of assistive devices/modifications for ADL. 3=Patient will improve strength/tolerance for activity to enable patient to perform ADL's. OT Education/Plan Problem List/Assessment Assessment: Decreased Activ Tolerance, Decreased Safety Aware, Decreased UE Strength, Impaired Coordination, Impaired Funct Balance, Impaired I ADL's, Impaired Self-Care Skills, Restricted Funct UE ROM Discharge Recommendations Plan/Recommendations: Continue POC Treatment Plan/Plan of Care Treatment,Training & Education: Yes Patient would benefit from OT for education, treatment and training to promote independence in ADL's, mobility, safety and/or upper extremity function for ADL's. Plan of Care: ADL Retraining, Caregiver Training, Functional Mobility, Group Exercise/Act as Ind, Orthotic Fitting/Training, UE Funct Exercise/Act, UE Neuromus Re-Ed/Coord, W/C Management Training Treatment Duration: Jun 14, 2022 Frequency: At least 5 of 7 days/Wk (IRF) Estimated Hrs Per Day: 1.5 hours per day (75-90 min per day) Agreement: Yes Rehab Potential: Fair Time/GCodes Start Time: 11:28 Stop Time: 12:09 Total Time Billed (hr/min): 41 Billed Treatment Time 1 visit EX Alisha Garza OT Jun 05, 2022 12:48
[2022-06-05] MEDS: HYPOCHLOROUS ACID/NaCl (VASHE) 250 ML IR SCH ×2 (16:42→22:22)
[2022-06-05] MEDS: HYDROcodone/APAP 5 MG/325 MG (LORTAB) TAB PO PRN (18:36)
[2022-06-05 20:57] VITALS: BP 129/69
[2022-06-05] MEDS: FAMOTIDINE 20 MG (PEPCID) TABLET PO SCH (22:22)
[2022-06-06] MEDS: inSUlin ASPART (NovoLOG) 1 UNIT/0.01 ML (CHARGE PER UNIT) SC SCH ×3 (05:45→16:56)
--- NOTE | 2022-06-06 05:49 | PM&R Progress Note ---
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 Psych visit went really well 06/02/2022: Pt is doing about the same Hemoglobin is 6.7, will get one unit of blood Keppra maintained for possible seizure disorder 06/01/2022: Improved status Sleeping right now No falls No pain most of the time 05/31/2022: Doing well Urinary retention discussed and will start Flomax and Urecholine although he is emptying he does have tendency for retention and he reports he had issues like this before Dr Ramsey will see him Thursday at 1300 for depression Loose stools so will hold laxatives Lortab used on occasion 05/30/2022: Doing well Depression noted so ordered Behavioral health evaluation Pain about the same No falls DC catheter today BM+ 05/29/2022: Doing well Pain controlled BP elevated so will begin treatment Labs reviewed Iron level and B12 checked and pending No issues Review of Systems General: Fatigue, Malaise Objective Exam Vital Signs Vital Signs Date Time Temp Pulse Resp B/P (MAP) Pulse Ox O2 Delivery O2 Flow Rate FiO2 06/06/22 21:30 Room Air 06/06/22 20:48 37.4 83 20 133/75 (94) 91 Capillary Refill : General Appearance: No Apparent Distress, WD/WN, Chronically ill, Obese HEENT: PERRL/EOMI, Normal ENT Inspection, Pharynx Normal Neck: Full Range of Motion, Normal Inspection, Non Tender, Supple, Carotid Bruit Respiratory: Chest Non Tender, Lungs Clear, Normal Breath Sounds, No Accessory Muscle Use, No Respiratory Distress Cardiovascular: Regular Rate, Rhythm, No Edema, No Gallop, No JVD, No Murmur, Normal Peripheral Pulses Gastrointestinal: Normal Bowel Sounds, No Organomegaly, No Pulsatile Mass, Non Tender, Soft Back: Normal Inspection, No CVA Tenderness, No Vertebral Tenderness Extremity: Normal Capillary Refill, Normal Inspection, Normal Range of Motion, Non Tender, No Calf Tenderness, No Pedal Edema Neurologic/Psychiatric: Alert, Oriented x3, No Motor/Sensory Deficits, 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 FIM Transfers Therapy Code Descriptions/Definitions Functional [place] Measure: 0=Not Assessed/NA 4=Minimal Assistance 1=Total Assistance 5=Supervision or Setup 2=Maximal Assistance 6=Modified [place] 3=Moderate Assistance 7=Complete IndependenceSCALE: Activities may be completed with or without assistive devices. 6-Svygmqhbfr-dqwheps completes the activity by him/herself with no assistance from a helper. 5-Set-up or Clean-up Assistance-helper sets up or cleans up; patient completes activity. [place] assists only prior to or following the activity. 4-Supervision or Touching Assistance-helper provides verbal cues and/or touching/steadying and/or contact guard assistance as patient completes activity. Assistance may be provided throughout the activity or intermittently. 3-Partial/Moderate Assistance-helper does LESS THAN HALF the effort. [place] lifts, holds or supports trunk or limbs, but provides less than half the effort. 2-Substantial/Maximal Assistance-helper does MORE THAN HALF the effort. [place] lifts or holds trunk or limbs and provides more than half the effort. 9-Gqbznbypc-lxqfge does ALL the effort. Patient does none of the effort to complete the activity. Or, the assistance of 2 or more helpers is required for the patient to complete the activity. If activity was not attempted, code reason: 7-Patient Refused. 9-Not Applicable-not attempted and the patient did not perform the activity before the current illness, exacerbation or injury. 10-Not Attempted due to Environmental Limitations-(lack of equipment, weather restraints, etc.). 88-Not Attempted due to Medical Conditions or Safety Concerns. Roll Left to Right (QC): 6 Sit to Lying (QC): 6 Sit to Stand (QC): 88 Chair/Nwx-ye-Vzcac Xfer(QC): 4 Car Transfer (QC): 88 Gait Training Does the Patient Walk?: No and Walking Goal NOT indicated Walk 10 feet (QC): 88 Walk 50 ft with 2 Turns(QC): 88 Walk 150 ft (QC): 88 Walking 10ft/uneven surface-QC: 88 Wheelchair Training Does the Pt Use a Wheelchair?: Yes Distance: 0 Wheel 50 ft with 2 turns (QC): 6 Wheel 150 ft (QC): 6 Type of Wheelchair: Manual Stair Training #of Steps: 0 1 Step (curb) (QC): 88 4 Steps (QC): 88 12 Steps (QC): 88 Balance Picking up an Object (QC): 88 ADL-Treatment Eating (QC): 5 Oral Hygiene (QC): 6 Shower/Bathe Self (QC): 5 Upper Body Dressing (QC): 5 Lower Body Dressing (QC): 5 On/Off Footwear (QC): 9 Toileting Hygiene (QC): 1 Toilet Transfer (QC): 4 Assessment/Plan Assessment and Plan Assess & Plan/Chief Complaint Assessment: Bilateral BKA's DM HTN HLP Low vision from retinopathy Seizures Poor social situation Post op acute blood loss anemia with severe iron def ordered iron infusions then transfused 1 unit 06/[address] so DC 05/30/22 and having acute on chronic urinary retention Poor nutrition albumin 1.8 Plan: Pain control PT OT Wheelchair mobility 05/29/2022: Pain control Iron check 05/30/2022: DC catheter Venofer B12 injection 05/31/2022: Flomax Urecholine 06/01/2022: Monitor sugar 06/02/2022: Transfuse 06/03/2022: Monitor hgb Pain control 06/04/2022: Monitor hgb Monitor pain Urinary retention improved 06/05/2022: Monitor isolated blood pressure elevation 06/06/2022: Monitor sugar (1) S/P bilateral below knee amputation (2) Diabetic retinopathy associated with uncontrolled type 2 diabetes mellitus Status: Acute FINA OTTO DO Jun 06, 2022 05:49
[2022-06-06] MEDS: glyBURIDE 2.5 MG (MICRONASE) TAB PO SCH (06:27)
[2022-06-06] MEDS: BETHANECHOL 10 MG (URECHOLINE) TAB PO SCH ×4 (06:27→21:33)
[2022-06-06] MEDS: HYDROcodone/APAP 5 MG/325 MG (LORTAB) TAB PO PRN ×2 (06:27→21:33)
[2022-06-06] MEDS: CATHETER FLUSH 10 ML SYR IVP SCH ×3 (06:32→21:34)
[2022-06-06 07:19] VITALS: BP 138/73
[2022-06-06] MEDS: ALLOPURINOL 100 MG (ZYLOPRIM) TAB PO SCH (07:53)
[2022-06-06] MEDS: IRON SUCROSE 200 MG/10 ML (VENOFER) VIAL IV SCH (07:53)
[2022-06-06] MEDS: DOCUSATE SODIUM 100 MG (COLACE) CAP PO SCH ×2 (07:54→21:00)
[2022-06-06] MEDS: lisINopril 10 MG (PRINIVIL) TABLET PO SCH (07:54)
[2022-06-06] MEDS: amLODIPine 5 MG (NORVASC) TAB PO SCH (07:54)
[2022-06-06] MEDS: FERROUS SULF 325 MG (IRON) TAB PO SCH ×2 (07:54→16:56)
[2022-06-06] MEDS: SENNA W/DOCUSATE (SENOKOT S) TABLET PO SCH ×2 (07:54→21:00)
[2022-06-06] MEDS: NIFEdipine ER 60 MG (PROCARDIA XL) TAB PO SCH (07:54)
[2022-06-06] MEDS: LACTOBACILLUS ACIDOPHILUS (PROBIOTIC) CAPSULE PO SCH ×2 (07:54→21:33)
[2022-06-06] MEDS: TAMSULOSIN 0.4 MG (FLOMAX) CAP PO SCH ×2 (07:55→21:33)
[2022-06-06] MEDS: MICONAZOLE 2% POWDER (DESENEX AF) 90 GM TOP SCH ×2 (07:55→21:33)
[2022-06-06] MEDS: polyethylene glycoL POWDER 17 GM (MIRALAX) PACK PO SCH ×2 (07:55→21:00)
[2022-06-06] MEDS: HYPOCHLOROUS ACID/NaCl (VASHE) 250 ML IR SCH ×2 (07:56→21:32)
[2022-06-06] MEDS ORDERED: AMLO-250 PO (08:35)
--- NOTE | 2022-06-06 08:55 | Physical Therapy Daily Note ---
PT Daily Note-Current Subjective Patient in bed pre tx, agrees to PT, has 2/10 pain in legs. Patient has been having increased phantom pain recently. Pain Section J - Health Conditions 1. Rarely or not at all 2. Occasionally 3. Frequently 4. Almost constantly 8. Unable to answer Pain Effect on Sleep: 2 Pain Interference with Therapy: 2 Pain Interference w/Day-to-Day: 2 Appearance Patient in WC at bedside post tx with nurse call, phone, tray, all needs met. Mental Status Patient Orientation: Person, Place, Situation Transfers SCALE: Activities may be completed with or without assistive devices. 6-Jrdldbfbzg-rybzcuo completes the activity by him/herself with no assistance from a helper. 5-Set-up or Clean-up Assistance-helper sets up or cleans up; patient completes activity. [place] assists only prior to or following the activity. 4-Supervision or Touching Assistance-helper provides verbal cues and/or touching/steadying and/or contact guard assistance as patient completes activity. Assistance may be provided throughout the activity or intermittently. 3-Partial/Moderate Assistance-helper does LESS THAN HALF the effort. [place] lifts, holds or supports trunk or limbs, but provides less than half the effort. 2-Substantial/Maximal Assistance-helper does MORE THAN HALF the effort. [place] lifts or holds trunk or limbs and provides more than half the effort. 0-Hwkbhkwyb-bnukgg does ALL the effort. Patient does none of the effort to complete the activity. Or, the assistance of 2 or more helpers is required for the patient to complete the activity. If activity was not attempted, code reason: 7-Patient Refused. 9-Not Applicable-not attempted and the patient did not perform the activity before the current illness, exacerbation or injury. 10-Not Attempted due to Environmental Limitations-(lack of equipment, weather restraints, etc.). 88-Not Attempted due to Medical Conditions or Safety Concerns. Roll Left & Right (QC): 6 Sit to Lying (QC): 6 Lying to Sitting/Side of Bed(Q: 3 Chair/Fek-fd-Nejdy Xfer(QC): 3 min assist supine to sit, min assist sliding board transfer Weight Bearing Right Lower Extremity: Right Non Weight Bearing Left Lower Extremity: Left Non Weight Bearing Wheelchair Training Does the Pt Use a Wheelchair?: Yes Wheel 50 ft with 2 turns (QC): 6 Wheel 150 ft (QC): 6 Type of Wheelchair: Manual 300' Exercises Supine Ex: Quad Set, Glut sets, Heel Slides (knee flex/ext with leg elevated), Straight leg raise, Hip abd/add (sidelying) Supine Reps: 20 prone hip stretch 5 min, supine knee extension stretch 5 min, 3 sets of 10 of wheelchair pushups Treatments bed mobility and transfers, WC mobility, strengthening, stretching Assessment Current Status: Fair Progress slowly improving sliding board transfers PT Hris Administrator Goals Half-Way Goals PT Half-Way Goals Time Frame: Jul 11, 2022 Roll Left & Right (QC): 6 Sit to Lying (QC): 6 Lying-Sitting on Side/Bed(QC): 6 Sit to Stand (QC): 88 Chair/Uvh-fs-Toqko Xfer(QC): 6 Toilet Transfer (QC): 6 Car Transfer (QC): 6 Does the Patient Walk: No and Walking Goal NOT indicated Walk 10 feet (QC): 88 Walk 50ft with 2 Turns (QC): 88 Walk 150 ft (QC): 88 Walking 10ft on Uneven Surface: 88 1 Step (curb) (QC): 88 4 Steps (QC): 88 12 Steps (QC): 88 Picking up an Object (QC): 88 Does the Pt use WC or Scooter?: Yes Wheel 50 feet with 2 turns (QC: 6 Type: Manual Wheel 150 feet: 6 Type: Manual PT Plan Problem List Problem List: Activity Tolerance, Functional Strength, Safety, Balance, Gait, Transfer, Bed Mobility, ROM Treatment/Plan Treatment Plan: Continue Plan of Care Treatment Plan: Bed Mobility, Education, Functional Activity [place], Functional Strength, Group Therapy, Safety, Therapeutic Exercise, Transfers Treatment Duration: Jul 12, 2022 Frequency: At least 5 of 7 days/Wk (IRF) Estimated Hrs Per Day: 1.5 hours per day Patient and/or Family Agrees t: Yes Safety Risks/Education Patient Education: Transfer Techniques, Correct Positioning, W/C Management, Safety Issues Teaching Recipient: Patient Teaching Methods: Demonstration, Discussion Response to Teaching: Reinforcement Needed Time/GCodes Time In: 0800 Time Out: 0900 Total Billed Treatment Time: 60 Total Billed Treatment 1 visit EX 30' FA 30' NUNO DUNCAN PT Jun 06, 2022 08:55
--- NOTE | 2022-06-06 10:31 | Occupational Ther Daily Note ---
OT Current Status-Daily Note Subjective Pt was in w/c upon arrival. Appearance Pt left in bed upon completion. All needs within reach. Mental Status/Objective Patient Orientation: Person, Place, Time, Situation Attachments: IV Acute change in mental status: 0 Inattention: 0 Disorganized thinkin Altered level of consciousness: 0 ADL-Treatment Therapy Code Descriptions/Definitions Functional [place] Measure: 0=Not Assessed/NA 4=Minimal Assistance 1=Total Assistance 5=Supervision or Setup 2=Maximal Assistance 6=Modified [place] 3=Moderate Assistance 7=Complete IndependenceSCALE: Activities may be completed with or without assistive devices. 2-Elgmejtrqi-ewgburp completes the activity by him/herself with no assistance from a helper. 5-Set-up or Clean-up Assistance-helper sets up or cleans up; patient completes activity. [place] assists only prior to or following the activity. 4-Supervision or Touching Assistance-helper provides verbal cues and/or touching/steadying and/or contact guard assistance as patient completes activity. Assistance may be provided throughout the activity or intermittently. 3-Partial/Moderate Assistance-helper does LESS THAN HALF the effort. [place] lifts, holds or supports trunk or limbs, but provides less than half the effort. 2-Substantial/Maximal Assistance-helper does MORE THAN HALF the effort. [place] lifts or holds trunk or limbs and provides more than half the effort. 6-Pmolniokj-empvgk does ALL the effort. Patient does none of the effort to complete the activity. Or, the assistance of 2 or more helpers is required for the patient to complete the activity. If activity was not attempted, code reason: 7-Patient Refused. 9-Not Applicable-not attempted and the patient did not perform the activity before the current illness, exacerbation or injury. 10-Not Attempted due to Environmental Limitations-(lack of equipment, weather restraints, etc.). 88-Not Attempted due to Medical Conditions or Safety Concerns. Shower/Bathe Self (QC): 5 Upper Body Dressing (QC): 5 Lower Body Dressing (QC): 4 Toileting Hygiene (QC): 4 Toilet Transfer (QC): 4 Slide board transfers (w/c<>commode, w/c <> shower bench, w/c<> bed): CGA and extra time. He has gained more confidence with slide board transfers but still requires cues for hand and w/c placement. Pt showered 100% in sitting with set up. He donned shorts in w/c but required to be supine in bed to fully bring up to waist. While in bed, pt c/o of weakness, fatigue and dizziness. BP was taken and was 105/56 with HR at 90 BPM. After 4-5 minute supine rest break, BP was 107/57 with HR 89 BPM. Other Treatment Pt completed 1x10 reps of UE exercises sitting up in bed with 3 lb hand weight in all planes to improve endurance, weakness, and functional performance with ADLs. Pt weaker in R UE. Cues given to modify shoulder exercises to 90 degrees to reduce compensation at trunk/shoulder. Good follow through. Tolerates fair with rest breaks. Education OT Patient Education: Correct positioning, Energy conservation, Exercise program, Home exercise program, Modified ADL techniques, Progress toward Goal/Update tx plan, Purpose of tx/functional activities, Reviewed precautions, Rehab process, Safety issues, Transfer techniques, W/C management Teaching Recipient: Patient Teaching Methods: Demonstration, Discussion Response to Teaching: Verbalize Understanding, Return Demonstration OT Short Term Goals Short Term Goals Time Frame: Jun 07, 2022 Eatin Oral hygiene: 6 Toileting hygiene: 3 Shower/bathe self: 4 Upper body dressin Lower body dressin Putting on/taking off footwear: 9 OT Penitentiary Goals Penitentiary Goals Time Frame: Jun 14, 2022 Acute change in mental status: 0 Inattention: 0 Disorganized thinkin Altered level of consciousness: 0 Eating (QC): 6 Oral Hygiene (QC): 6 Toileting Hygiene (QC): 5 Shower/Bathe Self (QC): 5 Upper Body Dressing (QC): 6 Lower Body Dressing (QC): 5 On/Off Footwear (QC): 9 Additional Goals: 1-Demonstrate ADL Tasks, 2-Verbalize Understanding, 3- ImproveStrength/[place] 1=Demonstrate adherence to instructed precautions during ADL tasks. 2=Patient will verbalize/demonstrate understanding of assistive devices/modifications for ADL. 3=Patient will improve strength/tolerance for activity to enable patient to perform ADL's. OT Education/Plan Problem List/Assessment Assessment: Decreased Activ Tolerance, Decreased Safety Aware, Decreased UE Strength, Impaired Bed Mobility, Impaired Coordination, Impaired Funct Balance, Impaired I ADL's, Impaired Self-Care Skills, Restricted Funct UE ROM Discharge Recommendations Plan/Recommendations: Continue POC Treatment Plan/Plan of Care Treatment,Training & Education: Yes Patient would benefit from OT for education, treatment and training to promote independence in ADL's, mobility, safety and/or upper extremity function for ADL 's. Plan of Care: ADL Retraining, Caregiver Training, Functional Mobility, Group Exercise/Act as Ind, Orthotic Fitting/Training, UE Funct Exercise/Act, UE Neuromus Re-Ed/Coord, W/C Management Training Treatment Duration: Jun 14, 2022 Frequency: At least 5 of 7 days/Wk (IRF) Estimated Hrs Per Day: 1.5 hours per day (75-90 min per day) Agreement: Yes Rehab Potential: Fair Time/GCodes Start Time: 09:00 Stop Time: 10:30 Total Time Billed (hr/min): 90 Billed Treatment Time 1 visit ADL x5 (70 min) EX (20 min) Alisha Rios OT Jun 06, 2022 10:31
--- NOTE | 2022-06-06 12:55 | Physical Therapy Daily Note ---
PT Daily Note-Current Subjective Patient in bed pre tx, agrees to PT, has 4/10 pain in legs. Pain Section J - Health Conditions 1. Rarely or not at all 2. Occasionally 3. Frequently 4. Almost constantly 8. Unable to answer Pain Effect on Sleep: 2 Pain Interference with Therapy: 2 Pain Interference w/Day-to-Day: 2 Appearance Patient in bed post tx with nurse call, phone, tray, all needs met. Mental Status Patient Orientation: Person, Place, Situation Transfers SCALE: Activities may be completed with or without assistive devices. 8-Ehvyixbpik-nmbtdai completes the activity by him/herself with no assistance from a helper. 5-Set-up or Clean-up Assistance-helper sets up or cleans up; patient completes activity. [place] assists only prior to or following the activity. 4-Supervision or Touching Assistance-helper provides verbal cues and/or touching/steadying and/or contact guard assistance as patient completes activity. Assistance may be provided throughout the activity or intermittently. 3-Partial/Moderate Assistance-helper does LESS THAN HALF the effort. [place] lifts, holds or supports trunk or limbs, but provides less than half the effort. 2-Substantial/Maximal Assistance-helper does MORE THAN HALF the effort. [place] lifts or holds trunk or limbs and provides more than half the effort. 6-Maqtdfxtr-nrzyqh does ALL the effort. Patient does none of the effort to complete the activity. Or, the assistance of 2 or more helpers is required for the patient to complete the activity. If activity was not attempted, code reason: 7-Patient Refused. 9-Not Applicable-not attempted and the patient did not perform the activity before the current illness, exacerbation or injury. 10-Not Attempted due to Environmental Limitations-(lack of equipment, weather restraints, etc.). 88-Not Attempted due to Medical Conditions or Safety Concerns. Weight Bearing Right Lower Extremity: Right Non Weight Bearing Left Lower Extremity: Left Non Weight Bearing Exercises Supine Ex: Bridging (BLE on ball), Quad Set, Glut sets, Short Arc Quads (knee flex/ext with leg elevated), Straight leg raise, Hip abd/add Supine Reps: 20 (patient needed several rest breaks) Treatments LE ROM/strengthening Assessment Current Status: Fair Progress slowly improving BLE strength PT Surgery Tech Goals Surgery Tech Goals PT Custodial Goals Time Frame: Jul 11, 2022 Roll Left & Right (QC): 6 Sit to Lying (QC): 6 Lying-Sitting on Side/Bed(QC): 6 Sit to Stand (QC): 88 Chair/Oij-rm-Ecikb Xfer(QC): 6 Toilet Transfer (QC): 6 Car Transfer (QC): 6 Does the Patient Walk: No and Walking Goal NOT indicated Walk 10 feet (QC): 88 Walk 50ft with 2 Turns (QC): 88 Walk 150 ft (QC): 88 Walking 10ft on Uneven Surface: 88 1 Step (curb) (QC): 88 4 Steps (QC): 88 12 Steps (QC): 88 Picking up an Object (QC): 88 Does the Pt use WC or Scooter?: Yes Wheel 50 feet with 2 turns (QC: 6 Type: Manual Wheel 150 feet: 6 Type: Manual PT Plan Problem List Problem List: Activity Tolerance, Functional Strength, Safety, Balance, Transfer, Bed Mobility, ROM Treatment/Plan Treatment Plan: Continue Plan of Care Treatment Plan: Bed Mobility, Education, Functional Activity [place], Functional Strength, Group Therapy, Safety, Therapeutic Exercise, Transfers Treatment Duration: Jul 12, 2022 Frequency: At least 5 of 7 days/Wk (IRF) Estimated Hrs Per Day: 1.5 hours per day Patient and/or Family Agrees t: Yes Safety Risks/Education Patient Education: Correct Positioning, Safety Issues Teaching Recipient: Patient Teaching Methods: Demonstration, Discussion Response to Teaching: Reinforcement Needed Time/GCodes Time In: 1230 Time Out: 1300 Total Billed Treatment Time: 30 Total Billed Treatment 1 visit EX 30' NUNO DUNCAN PT Jun 06, 2022 12:55
[2022-06-06 20:48] VITALS: BP 133/75
[2022-06-06] MEDS: FAMOTIDINE 20 MG (PEPCID) TABLET PO SCH (21:33)
[2022-06-07] MEDS: inSUlin ASPART (NovoLOG) 1 UNIT/0.01 ML (CHARGE PER UNIT) SC SCH ×4 (06:16→21:33)
[2022-06-07] MEDS: glyBURIDE 2.5 MG (MICRONASE) TAB PO SCH (06:28)
[2022-06-07] MEDS: HYDROcodone/APAP 5 MG/325 MG (LORTAB) TAB PO PRN ×2 (06:28→20:41)
[2022-06-07] MEDS: BETHANECHOL 10 MG (URECHOLINE) TAB PO SCH ×4 (06:28→20:42)
[2022-06-07] MEDS: FERROUS SULF 325 MG (IRON) TAB PO SCH ×3 (06:29→16:49)
[2022-06-07] MEDS: CATHETER FLUSH 10 ML SYR IVP SCH ×3 (06:32→20:41)
--- NOTE | 2022-06-07 07:57 | PM&R Progress Note ---
Subjective HPI/CC On Admission Date Seen by Provider: Jun 07, 2022 Time Seen by Provider: 11:30 Subjective/Events-last exam 06/07/2022: Patient has no complaints No major concerns Pain is controlled 06/06/2022: No major issues Pain controlled No BP elevation 06/05/2022: No major events No pain reported right now Had an episode of isolated blood pressure elevation No other concerns 06/04/2022: Pt is doing well Stump shrinkers are maintained Lena will come to see the incisions Bowels are moving 06/03/2022: Pt is doing well Hemoglobin is 8.2 after one unit of blood Potassium is 5.2 Stump third hand is tolerated Psych visit went really well 06/02/2022: Pt is doing about the same Hemoglobin is 6.7, will get one unit of blood Keppra maintained for possible seizure disorder 06/01/2022: Improved status Sleeping right now No falls No pain most of the time 05/31/2022: Doing well Urinary retention discussed and will start Flomax and Urecholine although he is emptying he does have tendency for retention and he reports he had issues like this before Dr Ramsey will see him Thursday at 1300 for depression Loose stools so will hold laxatives Lortab used on occasion 05/30/2022: Doing well Depression noted so ordered Behavioral health evaluation Pain about the same No falls DC catheter today BM+ 05/29/2022: Doing well Pain controlled BP elevated so will begin treatment Labs reviewed Iron level and B12 checked and pending No issues Review of Systems General: Fatigue, Malaise Objective Exam Vital Signs Vital Signs Date Time Temp Pulse Resp B/P (MAP) Pulse Ox O2 Delivery O2 Flow Rate FiO2 06/07/22 21:30 Room Air 06/07/22 20:52 37.1 83 16 135/66 (89) 95 Capillary Refill : General Appearance: No Apparent Distress, WD/WN, Chronically ill, Obese HEENT: PERRL/EOMI, Normal ENT Inspection, Pharynx Normal Neck: Full Range of Motion, Normal Inspection, Non Tender, Supple, Carotid Bruit Respiratory: Chest Non Tender, Lungs Clear, Normal Breath Sounds, No Accessory Muscle Use, No Respiratory Distress Cardiovascular: Regular Rate, Rhythm, No Edema, No Gallop, No JVD, No Murmur, Normal Peripheral Pulses Gastrointestinal: Normal Bowel Sounds, No Organomegaly, No Pulsatile Mass, Non Tender, Soft Back: Normal Inspection, No CVA Tenderness, No Vertebral Tenderness Extremity: Normal Capillary Refill, Normal Inspection, Normal Range of Motion, Non Tender, No Calf Tenderness, No Pedal Edema Neurologic/Psychiatric: Alert, Oriented x3, No Motor/Sensory Deficits, 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 FIM Transfers Therapy Code Descriptions/Definitions Functional [place] Measure: 0=Not Assessed/NA 4=Minimal Assistance 1=Total Assistance 5=Supervision or Setup 2=Maximal Assistance 6=Modified [place] 3=Moderate Assistance 7=Complete IndependenceSCALE: Activities may be completed with or without assistive devices. 8-Cgyxqhpgkt-gimujta completes the activity by him/herself with no assistance from a helper. 5-Set-up or Clean-up Assistance-helper sets up or cleans up; patient completes activity. [place] assists only prior to or following the activity. 4-Supervision or Touching Assistance-helper provides verbal cues and/or touching/steadying and/or contact guard assistance as patient completes activity. Assistance may be provided throughout the activity or intermittently. 3-Partial/Moderate Assistance-helper does LESS THAN HALF the effort. [place] lifts, holds or supports trunk or limbs, but provides less than half the effort. 2-Substantial/Maximal Assistance-helper does MORE THAN HALF the effort. [place] lifts or holds trunk or limbs and provides more than half the effort. 3-Ntevwpgsm-sjdqgd does ALL the effort. Patient does none of the effort to complete the activity. Or, the assistance of 2 or more helpers is required for the patient to complete the activity. If activity was not attempted, code reason: 7-Patient Refused. 9-Not Applicable-not attempted and the patient did not perform the activity before the current illness, exacerbation or injury. 10-Not Attempted due to Environmental Limitations-(lack of equipment, weather restraints, etc.). 88-Not Attempted due to Medical Conditions or Safety Concerns. Roll Left to Right (QC): 6 Sit to Lying (QC): 6 Sit to Stand (QC): 88 Chair/Sqi-qh-Uqfgf Xfer(QC): 3 Car Transfer (QC): 88 Gait Training Does the Patient Walk?: No and Walking Goal NOT indicated Walk 10 feet (QC): 88 Walk 50 ft with 2 Turns(QC): 88 Walk 150 ft (QC): 88 Walking 10ft/uneven surface-QC: 88 Wheelchair Training Does the Pt Use a Wheelchair?: Yes Distance: 0 Wheel 50 ft with 2 turns (QC): 6 Wheel 150 ft (QC): 6 Type of Wheelchair: Manual Stair Training #of Steps: 0 1 Step (curb) (QC): 88 4 Steps (QC): 88 12 Steps (QC): 88 Balance Picking up an Object (QC): 88 ADL-Treatment Eating (QC): 5 Oral Hygiene (QC): 6 Shower/Bathe Self (QC): 5 Upper Body Dressing (QC): 5 Lower Body Dressing (QC): 4 On/Off Footwear (QC): 9 Toileting Hygiene (QC): 4 Toilet Transfer (QC): 4 Assessment/Plan Assessment and Plan Assess & Plan/Chief Complaint Assessment: Bilateral BKA's DM HTN HLP Low vision from retinopathy Seizures Poor social situation Post op acute blood loss anemia with severe iron def ordered iron infusions then transfused 1 unit 06/[address] so DC 05/30/22 and having acute on chronic urinary retention Poor nutrition albumin 1.8 Plan: Pain control PT OT Wheelchair mobility 05/29/2022: Pain control Iron check 05/30/2022: DC catheter Venofer B12 injection 05/31/2022: Flomax Urecholine 06/01/2022: Monitor sugar 06/02/2022: Transfuse 06/03/2022: Monitor hgb Pain control 06/04/2022: Monitor hgb Monitor pain Urinary retention improved 06/05/2022: Monitor isolated blood pressure elevation 06/06/2022: Monitor sugar 06/07/2022: Monitor pain (1) S/P bilateral below knee amputation (2) Diabetic retinopathy associated with uncontrolled type 2 diabetes mellitus Status: Acute FINA OTTO DO Jun 07, 2022 07:57
[2022-06-07 08:27] VITALS: BP 128/61
[2022-06-07] MEDS: DOCUSATE SODIUM 100 MG (COLACE) CAP PO SCH ×2 (09:00→21:00)
[2022-06-07] MEDS: SENNA W/DOCUSATE (SENOKOT S) TABLET PO SCH ×2 (09:00→21:00)
[2022-06-07] MEDS: polyethylene glycoL POWDER 17 GM (MIRALAX) PACK PO SCH ×2 (09:00→21:00)
[2022-06-07] MEDS: LACTOBACILLUS ACIDOPHILUS (PROBIOTIC) CAPSULE PO SCH ×2 (09:10→20:42)
[2022-06-07] MEDS: amLODIPine 5 MG (NORVASC) TAB PO SCH (09:10)
[2022-06-07] MEDS: TAMSULOSIN 0.4 MG (FLOMAX) CAP PO SCH ×2 (09:10→20:42)
[2022-06-07] MEDS: lisINopril 10 MG (PRINIVIL) TABLET PO SCH (09:10)
[2022-06-07] MEDS: ALLOPURINOL 100 MG (ZYLOPRIM) TAB PO SCH (09:10)
[2022-06-07] MEDS: NIFEdipine ER 60 MG (PROCARDIA XL) TAB PO SCH (09:10)
[2022-06-07] MEDS: MICONAZOLE 2% POWDER (DESENEX AF) 90 GM TOP SCH ×2 (09:11→20:41)
[2022-06-07] MEDS: HYPOCHLOROUS ACID/NaCl (VASHE) 250 ML IR PRN ×2 (09:11→09:12)
[2022-06-07] MEDS: HYPOCHLOROUS ACID/NaCl (VASHE) 250 ML IR SCH ×2 (11:18→20:40)
--- NOTE | 2022-06-07 11:18 | Physical Therapy Daily Note ---
PT Daily Note-Current Subjective Pt in bed upon arrival and agrees to PT. Says he is doing okay today. Requests to perform bed exs. Pain Section J - Health Conditions 1. Rarely or not at all 2. Occasionally 3. Frequently 4. Almost constantly 8. Unable to answer Pain Effect on Sleep: 2 Pain Interference with Therapy: 2 Pain Interference w/Day-to-Day: 2 Mental Status Patient Orientation: Person, Place, Time, Situation Transfers SCALE: Activities may be completed with or without assistive devices. 7-Vgmgzormgd-bdqjauf completes the activity by him/herself with no assistance f rom a helper. 5-Set-up or Clean-up Assistance-helper sets up or cleans up; patient completes activity. [place] assists only prior to or following the activity. 4-Supervision or Touching Assistance-helper provides verbal cues and/or touching/steadying and/or contact guard assistance as patient completes activity. Assistance may be provided throughout the activity or intermittently. 3-Partial/Moderate Assistance-helper does LESS THAN HALF the effort. [place] lifts, holds or supports trunk or limbs, but provides less than half the effort. 2-Substantial/Maximal Assistance-helper does MORE THAN HALF the effort. [place] lifts or holds trunk or limbs and provides more than half the effort. 4-Ijzxysjzp-cjfiec does ALL the effort. Patient does none of the effort to complete the activity. Or, the assistance of 2 or more helpers is required for the patient to complete the activity. If activity was not attempted, code reason: 7-Patient Refused. 9-Not Applicable-not attempted and the patient did not perform the activity before the current illness, exacerbation or injury. 10-Not Attempted due to Environmental Limitations-(lack of equipment, weather restraints, etc.). 88-Not Attempted due to Medical Conditions or Safety Concerns. Roll Left & Right (QC): 5 Weight Bearing Right Lower Extremity: Right Non Weight Bearing Left Lower Extremity: Left Non Weight Bearing Exercises Supine Ex: Quad Set, Glut sets, Heel Slides, Short Arc Quads, Straight leg raise, Hip abd/add Supine Reps: 30 Treatments Perform all exs in bed and all needs met and call light nearby as PT departs. Assessment Current Status: Good Progress Pt required tactile and verbal cues in order to performs exs correctly. Pt requested to perform bed exs and not TF to WC. PT Precision Inspector Goals Assisted Goals PT Assisted Goals Time Frame: Jul 11, 2022 Roll Left & Right (QC): 6 Sit to Lying (QC): 6 Lying-Sitting on Side/Bed(QC): 6 Sit to Stand (QC): 88 Chair/Zxh-qe-Prbdm Xfer(QC): 6 Toilet Transfer (QC): 6 Car Transfer (QC): 6 Does the Patient Walk: No and Walking Goal NOT indicated Walk 10 feet (QC): 88 Walk 50ft with 2 Turns (QC): 88 Walk 150 ft (QC): 88 Walking 10ft on Uneven Surface: 88 1 Step (curb) (QC): 88 4 Steps (QC): 88 12 Steps (QC): 88 Picking up an Object (QC): 88 Does the Pt use WC or Scooter?: Yes Wheel 50 feet with 2 turns (QC: 6 Type: Manual Wheel 150 feet: 6 Type: Manual PT Plan Problem List Problem List: Activity Tolerance, Functional Strength, Transfer Treatment/Plan Treatment Plan: Continue Plan of Care Treatment Plan: Bed Mobility, Education, Functional Activity [place], Functional Strength, Group Therapy, Safety, Therapeutic Exercise, Transfers Treatment Duration: Jul 12, 2022 Frequency: At least 5 of 7 days/Wk (IRF) Estimated Hrs Per Day: 1.5 hours per day Patient and/or Family Agrees t: Yes Time/GCodes Time In: 45 Time Out: 1000 Total Billed Treatment Time: 15 Total Billed Treatment 1, Ex GREGOR ROSALES DECK LID FITTER Jun 07, 2022 11:18
[2022-06-07] MEDS: FAMOTIDINE 20 MG (PEPCID) TABLET PO SCH (20:41)
[2022-06-07 20:52] VITALS: BP 135/66
[2022-06-08] MEDS: inSUlin ASPART (NovoLOG) 1 UNIT/0.01 ML (CHARGE PER UNIT) SC SCH ×4 (06:30→20:55)
[2022-06-08] MEDS: BETHANECHOL 10 MG (URECHOLINE) TAB PO SCH ×4 (06:44→20:55)
[2022-06-08] MEDS: glyBURIDE 2.5 MG (MICRONASE) TAB PO SCH (06:44)
[2022-06-08] MEDS: CATHETER FLUSH 10 ML SYR IVP SCH ×3 (06:45→20:57)
--- NOTE | 2022-06-08 07:01 | PM&R Progress Note ---
Subjective HPI/CC On Admission Date Seen by Provider: Jun 08, 2022 Time Seen by Provider: 12:00 Subjective/Events-last exam 06/08/2022: No major issues Labs due tomorrow No pain issues Loose stools imodium given 06/07/2022: Patient has no complaints No major concerns Pain is controlled 06/06/2022: No major issues Pain controlled No BP elevation 06/05/2022: No major events No pain reported right now Had an episode of isolated blood pressure elevation No other concerns 06/04/2022: Pt is doing well Stump shrinkers are maintained [place] will come to see the incisions Bowels are moving 06/03/2022: Pt is doing well Hemoglobin is 8.2 after one unit of blood Potassium is 5.2 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 Psych visit went really well 06/02/2022: Pt is doing about the same Hemoglobin is 6.7, will get one unit of blood Keppra maintained for possible seizure disorder 06/01/2022: Improved status Sleeping right now No falls No pain most of the time 05/31/2022: Doing well Urinary retention discussed and will start Flomax and Urecholine although he is emptying he does have tendency for retention and he reports he had issues like this before Dr Ramsey will see him Thursday at 1300 for depression Loose stools so will hold laxatives Lortab used on occasion 05/30/2022: Doing well Depression noted so ordered Behavioral health evaluation Pain about the same No falls DC catheter today BM+ 05/29/2022: Doing well Pain controlled BP elevated so will begin treatment Labs reviewed Iron level and B12 checked and pending No issues Review of Systems General: Fatigue, Malaise Musculoskeletal: leg pain Objective Exam Vital Signs Vital Signs Date Time Temp Pulse Resp B/P (MAP) Pulse Ox O2 Delivery O2 Flow Rate FiO2 06/08/22 09:00 Room Air 06/08/22 07:30 36.8 84 18 170/88 (115) 96 Capillary Refill : General Appearance: No Apparent Distress, WD/WN, Chronically ill, Obese HEENT: PERRL/EOMI, Normal ENT Inspection, Pharynx Normal Neck: Full Range of Motion, Normal Inspection, Non Tender, Supple, Carotid Bruit Respiratory: Chest Non Tender, Lungs Clear, Normal Breath Sounds, No Accessory Muscle Use, No Respiratory Distress Cardiovascular: Regular Rate, Rhythm, No Edema, No Gallop, No JVD, No Murmur, Normal Peripheral Pulses Gastrointestinal: Normal Bowel Sounds, No Organomegaly, No Pulsatile Mass, Non Tender, Soft Back: Normal Inspection, No CVA Tenderness, No Vertebral Tenderness Extremity: Normal Capillary Refill, Normal Inspection, Normal Range of Motion, Non Tender, No Calf Tenderness, No Pedal Edema Neurologic/Psychiatric: Alert, Oriented x3, No Motor/Sensory Deficits, 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 FIM Transfers Therapy Code Descriptions/Definitions Functional [place] Measure: 0=Not Assessed/NA 4=Minimal Assistance 1=Total Assistance 5=Supervision or Setup 2=Maximal Assistance 6=Modified [place] 3=Moderate Assistance 7=Complete IndependenceSCALE: Activities may be completed with or without assistive devices. 3-Wxxdaddyse-eenncst completes the activity by him/herself with no assistance from a helper. 5-Set-up or Clean-up Assistance-helper sets up or cleans up; patient completes activity. [place] assists only prior to or following the activity. 4-Supervision or Touching Assistance-helper provides verbal cues and/or touching/steadying and/or contact guard assistance as patient completes activity. Assistance may be provided throughout the activity or intermittently. 3-Partial/Moderate Assistance-helper does LESS THAN HALF the effort. [place] lifts, holds or supports trunk or limbs, but provides less than half the effort. 2-Substantial/Maximal Assistance-helper does MORE THAN HALF the effort. [place] lifts or holds trunk or limbs and provides more than half the effort. 8-Xtgrawlad-wqingk does ALL the effort. Patient does none of the effort to complete the activity. Or, the assistance of 2 or more helpers is required for the patient to complete the activity. If activity was not attempted, code reason: 7-Patient Refused. 9-Not Applicable-not attempted and the patient did not perform the activity before the current illness, exacerbation or injury. 10-Not Attempted due to Environmental Limitations-(lack of equipment, weather restraints, etc.). 88-Not Attempted due to Medical Conditions or Safety Concerns. Roll Left to Right (QC): 5 Sit to Lying (QC): 6 Sit to Stand (QC): 88 Chair/Dsx-vw-Wrswz Xfer(QC): 3 Car Transfer (QC): 88 Gait Training Does the Patient Walk?: No and Walking Goal NOT indicated Walk 10 feet (QC): 88 Walk 50 ft with 2 Turns(QC): 88 Walk 150 ft (QC): 88 Walking 10ft/uneven surface-QC: 88 Wheelchair Training Does the Pt Use a Wheelchair?: Yes Distance: 0 Wheel 50 ft with 2 turns (QC): 6 Wheel 150 ft (QC): 6 Type of Wheelchair: Manual Stair Training #of Steps: 0 1 Step (curb) (QC): 88 4 Steps (QC): 88 12 Steps (QC): 88 Balance Picking up an Object (QC): 88 ADL-Treatment Eating (QC): 5 Oral Hygiene (QC): 6 Shower/Bathe Self (QC): 5 Upper Body Dressing (QC): 5 Lower Body Dressing (QC): 4 On/Off Footwear (QC): 9 Toileting Hygiene (QC): 4 Toilet Transfer (QC): 4 Assessment/Plan Assessment and Plan Assess & Plan/Chief Complaint Assessment: Bilateral BKA's DM HTN HLP Low vision from retinopathy Seizures Poor social situation Post op acute blood loss anemia with severe iron def ordered iron infusions then transfused 1 unit 06/[address] so DC 05/30/22 and having acute on chronic urinary retention Poor nutrition albumin 1.8 Plan: Pain control PT OT Wheelchair mobility 05/29/2022: Pain control Iron check 05/30/2022: DC catheter Venofer B12 injection 05/31/2022: Flomax Urecholine 06/01/2022: Monitor sugar 06/02/2022: Transfuse 06/03/2022: Monitor hgb Pain control 06/04/2022: Monitor hgb Monitor pain Urinary retention improved 06/05/2022: Monitor isolated blood pressure elevation 06/06/2022: Monitor sugar 06/07/2022: Monitor pain 06/08/2022: Check labs in am (1) S/P bilateral below knee amputation (2) Diabetic retinopathy associated with uncontrolled type 2 diabetes mellitus Status: Acute FINA OTTO DO Jun 08, 2022 07:01
[2022-06-08 07:30] VITALS: BP 170/88
[2022-06-08] MEDS: FERROUS SULF 325 MG (IRON) TAB PO SCH ×2 (08:20→17:03)
[2022-06-08] MEDS: TAMSULOSIN 0.4 MG (FLOMAX) CAP PO SCH ×2 (08:20→20:56)
[2022-06-08] MEDS: ALLOPURINOL 100 MG (ZYLOPRIM) TAB PO SCH (08:20)
[2022-06-08] MEDS: LACTOBACILLUS ACIDOPHILUS (PROBIOTIC) CAPSULE PO SCH ×2 (08:20→20:55)
[2022-06-08] MEDS: amLODIPine 5 MG (NORVASC) TAB PO SCH (08:20)
[2022-06-08] MEDS: LOPERAMIDE 2 MG (IMODIUM) TABLET PO PRN (08:20)
[2022-06-08] MEDS: lisINopril 10 MG (PRINIVIL) TABLET PO SCH (08:20)
[2022-06-08] MEDS: MICONAZOLE 2% POWDER (DESENEX AF) 90 GM TOP SCH ×2 (08:20→20:55)
[2022-06-08] MEDS: NIFEdipine ER 60 MG (PROCARDIA XL) TAB PO SCH (08:20)
[2022-06-08] MEDS: HYPOCHLOROUS ACID/NaCl (VASHE) 250 ML IR SCH ×2 (08:21→20:55)
[2022-06-08] MEDS: polyethylene glycoL POWDER 17 GM (MIRALAX) PACK PO SCH ×2 (09:30→21:41)
[2022-06-08] MEDS: DOCUSATE SODIUM 100 MG (COLACE) CAP PO SCH ×2 (09:30→21:41)
[2022-06-08] MEDS: SENNA W/DOCUSATE (SENOKOT S) TABLET PO SCH ×2 (09:30→21:41)
[2022-06-08] MEDS: IRON SUCROSE 200 MG/10 ML (VENOFER) VIAL IV SCH (10:55)
[2022-06-08] MEDS: HYDROcodone/APAP 5 MG/325 MG (LORTAB) TAB PO PRN (17:03)
[2022-06-08 20:00] VITALS: BP 140/66
[2022-06-08] MEDS: FAMOTIDINE 20 MG (PEPCID) TABLET PO SCH (20:56)
--- NOTE | 2022-06-09 05:14 | PM&R Progress Note ---
Subjective HPI/CC On Admission Date Seen by Provider: Jun 09, 2022 Time Seen by Provider: 08:30 Subjective/Events-last exam 06/09/2022: Patient doing well Discharge planned for tomorrow Labs reviewed 06/08/2022: No major issues Labs due tomorrow No pain issues Loose stools imodium given 06/07/2022: Patient has no complaints No major concerns Pain is controlled 06/06/2022: No major issues Pain controlled No BP elevation 06/05/2022: No major events No pain reported right now Had an episode of isolated blood pressure elevation No other concerns 06/04/2022: Pt is doing well Stump shrinkers are maintained Lena will come to see the incisions Bowels are moving 06/03/2022: Pt is doing well Hemoglobin is 8.2 after one unit of blood Potassium is 5.2 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 Psych visit went really well 06/02/2022: Pt is doing about the same Hemoglobin is 6.7, will get one unit of blood Keppra maintained for possible seizure disorder 06/01/2022: Improved status Sleeping right now No falls No pain most of the time 05/31/2022: Doing well Urinary retention discussed and will start Flomax and Urecholine although he is emptying he does have tendency for retention and he reports he had issues like this before Dr Ramsey will see him Thursday at 1300 for depression Loose stools so will hold laxatives Lortab used on occasion 05/30/2022: Doing well Depression noted so ordered Behavioral health evaluation Pain about the same No falls DC catheter today BM+ 05/29/2022: Doing well Pain controlled BP elevated so will begin treatment Labs reviewed Iron level and B12 checked and pending No issues Review of Systems General: Fatigue, Malaise Musculoskeletal: leg pain Objective Exam Vital Signs Vital Signs Date Time Temp Pulse Resp B/P (MAP) Pulse Ox O2 Delivery O2 Flow Rate FiO2 06/09/22 21:01 Room Air 06/09/22 19:24 36.8 81 20 129/63 (85) 95 Capillary Refill : General Appearance: No Apparent Distress, WD/WN, Chronically ill, Obese HEENT: PERRL/EOMI, Normal ENT Inspection, Pharynx Normal Neck: Full Range of Motion, Normal Inspection, Non Tender, Supple, Carotid Bruit Respiratory: Chest Non Tender, Lungs Clear, Normal Breath Sounds, No Accessory Muscle Use, No Respiratory Distress Cardiovascular: Regular Rate, Rhythm, No Edema, No Gallop, No JVD, No Murmur, Normal Peripheral Pulses Gastrointestinal: Normal Bowel Sounds, No Organomegaly, No Pulsatile Mass, Non Tender, Soft Back: Normal Inspection, No CVA Tenderness, No Vertebral Tenderness Extremity: Normal Capillary Refill, Normal Inspection, Normal Range of Motion, Non Tender, No Calf Tenderness, No Pedal Edema Neurologic/Psychiatric: Alert, Oriented x3, No Motor/Sensory Deficits, 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 FIM Transfers Therapy Code Descriptions/Definitions Functional [place] Measure: 0=Not Assessed/NA 4=Minimal Assistance 1=Total Assistance 5=Supervision or Setup 2=Maximal Assistance 6=Modified [place] 3=Moderate Assistance 7=Complete IndependenceSCALE: Activities may be completed with or without assistive devices. 5-Vkxbspgxhy-qbcrsii completes the activity by him/herself with no assistance from a helper. 5-Set-up or Clean-up Assistance-helper sets up or cleans up; patient completes activity. [place] assists only prior to or following the activity. 4-Supervision or Touching Assistance-helper provides verbal cues and/or touching/steadying and/or contact guard assistance as patient completes activity. Assistance may be provided throughout the activity or intermittently. 3-Partial/Moderate Assistance-helper does LESS THAN HALF the effort. [place] lifts, holds or supports trunk or limbs, but provides less than half the effort. 2-Substantial/Maximal Assistance-helper does MORE THAN HALF the effort. [place] lifts or holds trunk or limbs and provides more than half the effort. 7-Dfgnolryf-lzwcqw does ALL the effort. Patient does none of the effort to comp lete the activity. Or, the assistance of 2 or more helpers is required for the patient to complete the activity. If activity was not attempted, code reason: 7-Patient Refused. 9-Not Applicable-not attempted and the patient did not perform the activity before the current illness, exacerbation or injury. 10-Not Attempted due to Environmental Limitations-(lack of equipment, weather restraints, etc.). 88-Not Attempted due to Medical Conditions or Safety Concerns. Roll Left to Right (QC): 5 Sit to Lying (QC): 6 Sit to Stand (QC): 88 Chair/Zyv-ow-Sihbr Xfer(QC): 3 Car Transfer (QC): 88 Gait Training Does the Patient Walk?: No and Walking Goal NOT indicated Walk 10 feet (QC): 88 Walk 50 ft with 2 Turns(QC): 88 Walk 150 ft (QC): 88 Walking 10ft/uneven surface-QC: 88 Wheelchair Training Does the Pt Use a Wheelchair?: Yes Distance: 0 Wheel 50 ft with 2 turns (QC): 6 Wheel 150 ft (QC): 6 Type of Wheelchair: Manual Stair Training #of Steps: 0 1 Step (curb) (QC): 88 4 Steps (QC): 88 12 Steps (QC): 88 Balance Picking up an Object (QC): 88 ADL-Treatment Eating (QC): 5 Oral Hygiene (QC): 6 Shower/Bathe Self (QC): 5 Upper Body Dressing (QC): 5 Lower Body Dressing (QC): 4 On/Off Footwear (QC): 9 Toileting Hygiene (QC): 4 Toilet Transfer (QC): 4 Assessment/Plan Assessment and Plan Assess & Plan/Chief Complaint Assessment: Bilateral BKA's DM HTN HLP Low vision from retinopathy Seizures Poor social situation Post op acute blood loss anemia with severe iron def ordered iron infusions then transfused 1 unit 06/[address] so DC 05/30/22 and having acute on chronic urinary retention Poor nutrition albumin 1.8 Plan: Pain control PT OT Wheelchair mobility 05/29/2022: Pain control Iron check 05/30/2022: DC catheter Venofer B12 injection 05/31/2022: Flomax Urecholine 06/01/2022: Monitor sugar 06/02/2022: Transfuse 06/03/2022: Monitor hgb Pain control 06/04/2022: Monitor hgb Monitor pain Urinary retention improved 06/05/2022: Monitor isolated blood pressure elevation 06/06/2022: Monitor sugar 06/07/2022: Monitor pain 06/08/2022: Check labs in am 06/09/2022: Discharge tomorrow Hemoglobin 7.7 indicates chronic disease (1) S/P bilateral below knee amputation (2) Diabetic retinopathy associated with uncontrolled type 2 diabetes mellitus Status: Acute OTTO,FINA DO Jun 09, 2022 05:14
[2022-06-09] MEDS: glyBURIDE 2.5 MG (MICRONASE) TAB PO SCH (06:08)
[2022-06-09] MEDS: BETHANECHOL 10 MG (URECHOLINE) TAB PO SCH ×4 (06:08→20:46)
[2022-06-09] MEDS: CATHETER FLUSH 10 ML SYR IVP SCH ×3 (06:10→20:50)
[2022-06-09 06:17] LABS: BASOPHILS % (AUTO) 1 % (0-10); EOSINOPHILS # (AUTO) 0.4 10^3/uL (0.0-0.3); EOSINOPHILS % (AUTO) 8 % (0-10); HEMATOCRIT 25 % (40-54); HEMOGLOBIN 7.7 g/dL (13.3-17.7); LYMPHOCYTES % (AUTO) 23 % (12-44); MEAN CORPUSCULAR HEMOGLOBIN 28 pg (25-34); MEAN CORPUSCULAR HGB CONC 31 g/dL (32-36); MEAN CORPUSCULAR VOLUME 90 fL (80-99); MEAN PLATELET VOLUME 9.9 fL (9.0-12.2); MONOCYTES # (AUTO) 0.5 10^3/uL (0.0-1.0); MONOCYTES % (AUTO) 11 % (0-12); NEUTROPHILS # (AUTO) 2.5 10^3/uL (1.8-7.8); NEUTROPHILS % (AUTO) 56 % (42-75); PLATELET COUNT 341 10^3/uL (130-400); WHITE BLOOD COUNT 4.4 10^3/uL (4.3-11.0)
[2022-06-09] MEDS: inSUlin ASPART (NovoLOG) 1 UNIT/0.01 ML (CHARGE PER UNIT) SC SCH ×4 (06:30→20:46)
[2022-06-09 06:32] LABS: ALANINE AMINOTRANSFERASE 19 U/L (0-55); ALBUMIN 2.1 GM/DL (3.2-4.5); ALKALINE PHOSPHATASE 109 U/L (40-136); BILIRUBIN,TOTAL < 0.1 MG/DL (0.1-1.0); BUN/CREATININE RATIO 25; CALCIUM 7.9 MG/DL (8.5-10.1); CARBON DIOXIDE 21 MMOL/L (21-32); CHLORIDE 109 MMOL/L (98-107); GFR ESTIMATED 69; GLUCOSE 136 MG/DL (70-105); POTASSIUM 4.5 MMOL/L (3.6-5.0); SODIUM 138 MMOL/L (135-145); TOTAL PROTEIN 5.5 GM/DL (6.4-8.2)
[2022-06-09] MEDS: polyethylene glycoL POWDER 17 GM (MIRALAX) PACK PO SCH ×2 (07:26→20:48)
[2022-06-09] MEDS: DOCUSATE SODIUM 100 MG (COLACE) CAP PO SCH ×2 (07:26→20:48)
[2022-06-09] MEDS: SENNA W/DOCUSATE (SENOKOT S) TABLET PO SCH ×2 (07:27→20:49)
[2022-06-09 07:32] VITALS: BP 175/81
[2022-06-09] MEDS: TAMSULOSIN 0.4 MG (FLOMAX) CAP PO SCH ×2 (07:46→20:46)
[2022-06-09] MEDS: lisINopril 10 MG (PRINIVIL) TABLET PO SCH (07:46)
[2022-06-09] MEDS: LACTOBACILLUS ACIDOPHILUS (PROBIOTIC) CAPSULE PO SCH ×2 (07:46→20:46)
[2022-06-09] MEDS: FERROUS SULF 325 MG (IRON) TAB PO SCH ×2 (07:46→17:14)
[2022-06-09] MEDS: ALLOPURINOL 100 MG (ZYLOPRIM) TAB PO SCH (07:46)
[2022-06-09] MEDS: NIFEdipine ER 60 MG (PROCARDIA XL) TAB PO SCH (07:46)
[2022-06-09] MEDS: MICONAZOLE 2% POWDER (DESENEX AF) 90 GM TOP SCH ×2 (07:47→20:46)
[2022-06-09] MEDS: HYPOCHLOROUS ACID/NaCl (VASHE) 250 ML IR SCH ×2 (07:47→20:45)
[2022-06-09] MEDS: amLODIPine 5 MG (NORVASC) TAB PO SCH (07:47)
--- NOTE | 2022-06-09 08:55 | Physical Therapy Daily Note ---
PT Daily Note-Current Subjective Patient in bed pre tx, agrees to PT, has 7/10 pain in legs, his bed is deflated and controls don't seem to work, nurse notified after patient got out of bed, she seemed to fix the bed. Pain Section J - Health Conditions 1. Rarely or not at all 2. Occasionally 3. Frequently 4. Almost constantly 8. Unable to answer Pain Effect on Sleep: 2 Pain Interference with Therapy: 2 Pain Interference w/Day-to-Day: 2 Appearance Patient in WC at bedside post tx with nurse call. Mental Status Patient Orientation: Person, Place, Situation Transfers SCALE: Activities may be completed with or without assistive devices. 9-Bfknhxvmpe-fwtdxvi completes the activity by him/herself with no assistance from a helper. 5-Set-up or Clean-up Assistance-helper sets up or cleans up; patient completes activity. [place] assists only prior to or following the activity. 4-Supervision or Touching Assistance-helper provides verbal cues and/or touching/steadying and/or contact guard assistance as patient completes activity. Assistance may be provided throughout the activity or intermittently. 3-Partial/Moderate Assistance-helper does LESS THAN HALF the effort. [place] lifts, holds or supports trunk or limbs, but provides less than half the effort. 2-Substantial/Maximal Assistance-helper does MORE THAN HALF the effort. [place] lifts or holds trunk or limbs and provides more than half the effort. 9-Rammgyuuv-gvmcki does ALL the effort. Patient does none of the effort to complete the activity. Or, the assistance of 2 or more helpers is required for the patient to complete the activity. If activity was not attempted, code reason: 7-Patient Refused. 9-Not Applicable-not attempted and the patient did not perform the activity before the current illness, exacerbation or injury. 10-Not Attempted due to Environmental Limitations-(lack of equipment, weather restraints, etc.). 88-Not Attempted due to Medical Conditions or Safety Concerns. Roll Left & Right (QC): 6 Sit to Lying (QC): 6 Lying to Sitting/Side of Bed(Q: 6 Sit to Stand (QC): 9 Chair/Rge-xv-Dafli Xfer(QC): 4 Toilet Transfer (QC): 4 Car Transfer (QC): 4 Patient performs rolling and supine <-> sit with independence, sliding board transfer with CGA as well as car transfer (also with sliding board). Patient has some difficulty with supine to sit but can do it on his own. Patient dresses in bed before sliding board transfer to . Weight Bearing Right Lower Extremity: Right Non Weight Bearing Left Lower Extremity: Left Non Weight Bearing Gait Training Walk 10 feet (QC): 9 Walk 50 ft with 2 Turns(QC): 9 Walk 150 ft (QC): 9 Walking 10ft/uneven surface-QC: 9 Wheelchair Training Does the Pt Use a Wheelchair?: Yes Wheel 50 ft with 2 turns (QC): 6 Wheel 150 ft (QC): 6 Type of Wheelchair: Manual Patient can propel a manual WC 1000' with independence, patient practiced ramps and uneven surfaces. Stair Training 1 Step (curb) (QC): 9 4 Steps (QC): 9 12 Steps (QC): 9 Balance Picking up an Object (QC): 9 Exercises prone hip stretch 5 min, supine knee extension stretch 5 min Treatments bed mobility and transfers, WC mobility, stretching Assessment Current Status: Fair Progress improved sliding board transfer, patient can place board on his own but sometimes with difficulty, needs some cues for safety PT Retirement Goals Sales And Marketing Executive Goals PT Retirement Goals Time Frame: Jul 11, 2022 Roll Left & Right (QC): 6 Sit to Lying (QC): 6 Lying-Sitting on Side/Bed(QC): 6 Sit to Stand (QC): 88 Chair/Bzu-to-Ggrmm Xfer(QC): 6 Toilet Transfer (QC): 6 Car Transfer (QC): 6 Does the Patient Walk: No and Walking Goal NOT indicated Walk 10 feet (QC): 88 Walk 50ft with 2 Turns (QC): 88 Walk 150 ft (QC): 88 Walking 10ft on Uneven Surface: 88 1 Step (curb) (QC): 88 4 Steps (QC): 88 12 Steps (QC): 88 Picking up an Object (QC): 88 Does the Pt use WC or Scooter?: Yes Wheel 50 feet with 2 turns (QC: 6 Type: Manual Wheel 150 feet: 6 Type: Manual PT Plan Problem List Problem List: Activity Tolerance, Functional Strength, Safety, Balance, Gait, Transfer, Bed Mobility, ROM Treatment/Plan Treatment Plan: Continue Plan of Care Treatment Plan: Bed Mobility, Education, Functional Activity Slade, Functional Strength, Group Therapy, Safety, Therapeutic Exercise, Transfers Treatment Duration: Jul 12, 2022 Frequency: At least 5 of 7 days/Wk (IRF) Estimated Hrs Per Day: 1.5 hours per day Patient and/or Family Agrees t: Yes Safety Risks/Education Patient Education: Transfer Techniques, Correct Positioning, W/C Management, Safety Issues Teaching Recipient: Patient Teaching Methods: Demonstration, Discussion Response to Teaching: Reinforcement Needed Time/GCodes Time In: 0800 Time Out: 0900 Total Billed Treatment Time: 60 Total Billed Treatment 1 visit EX 10' FA 50' NUNO DUNCAN PT Jun 09, 2022 08:55
--- NOTE | 2022-06-09 09:48 | Progress Note ---
AGNIESZKA RAPP 06/09/22 0948: Progress Note CC: Bilateral BKA HPI: Patient is a 42 y/o M with history of uncontrolled diabetes mellitus who presented to ARU after having bilateral BKAs at [place]. He states he has been working with PT/OT. Today he rates his pain at a 7/10 but states it is "always like that". He also reports he has been moving his bowels regularly and they are no longer loose. Patient hemoglobin continues to stabilize at 7.7 today following blood transfusion last week. All other labs were reviewed. ROS: General: Denies Fever, chills Cardio: Denies chest pain, palpitations MSK: pain in lower extremities Exam: Vitals: T: 36.9, P: 83, RR: 18, BP: 175/81, O2: 94 General Appearance: No acute distress, calm Heart: sinus tachycardia, no murmurs Lungs: CTAB Assessment: Bilateral BKA's DM - blood sugars at 125 today HTN HLP Low vision from diabetic retinopathy Seizures Poor social situation Post op acute blood loss anemia with severe iron deficiency - Hb today 7.7 Acute on Chronic Urinary Retention - Improving Poor nutrition - improving albumin from 1.8 to 2.1 today Plan: Patient to be discharged and continue home health care with [facility]. Continue home meds. STEPHANY OTTO DO 06/10/22 0519: Supervisory-Addendum Brief Verification & Attestation Participated in pt care: history, MDM, physical Personally performed: exam, history, MDM, supervision of care Care discussed with: Medical Student Procedures: n/a Results interpretation: Verified all documentation Verification and Attestation of Medical Student E/M Service A medical student performed and documented this service in my presence. I reviewed and verified all information documented by the medical student and made modifications to such information, when appropriate. I personally performed the physical exam and medical decision making. Stephany Otto Jun 10, 2022,05:18 AGNIESZKA RAPP Jun 09, 2022 09:48 STEPHANY OTTO DO Jun 10, 2022 05:19
--- NOTE | 2022-06-09 10:09 | Occupational Ther Daily Note ---
OT Current Status-Daily Note Subjective Pt sitting in w/c upon arrival. He agrees to a shower. Co-treat with PT at end of session secondary to fall risk, coordination, and balance. Mental Status/Objective Patient Orientation: Person, Place, Time, Situation Attachments: IV Acute change in mental status: 0 Inattention: 0 Disorganized thinkin Altered level of consciousness: 0 ADL-Treatment Therapy Code Descriptions/Definitions Functional [place] Measure: 0=Not Assessed/NA 4=Minimal Assistance 1=Total Assistance 5=Supervision or Setup 2=Maximal Assistance 6=Modified [place] 3=Moderate Assistance 7=Complete IndependenceSCALE: Activities may be completed with or without assistive devices. 8-Kawnostjws-lovyjka completes the activity by him/herself with no assistance from a helper. 5-Set-up or Clean-up Assistance-helper sets up or cleans up; patient completes activity. [place] assists only prior to or following the activity. 4-Supervision or Touching Assistance-helper provides verbal cues and/or touching/steadying and/or contact guard assistance as patient completes activity. Assistance may be provided throughout the activity or intermittently. 3-Partial/Moderate Assistance-helper does LESS THAN HALF the effort. [place] lifts, holds or supports trunk or limbs, but provides less than half the effort. 2-Substantial/Maximal Assistance-helper does MORE THAN HALF the effort. [place] lifts or holds trunk or limbs and provides more than half the effort. 9-Qpwhldeul-hrzbej does ALL the effort. Patient does none of the effort to complete the activity. Or, the assistance of 2 or more helpers is required for the patient to complete the activity. If activity was not attempted, code reason: 7-Patient Refused. 9-Not Applicable-not attempted and the patient did not perform the activity before the current illness, exacerbation or injury. 10-Not Attempted due to Environmental Limitations-(lack of equipment, weather restraints, etc.). 88-Not Attempted due to Medical Conditions or Safety Concerns. Eating (QC): 5 (Needs assistance with packets) Oral Hygiene (QC): 6 (Pt requires encouragement to complete oral hygiene) Shower/Bathe Self (QC): 5 Upper Body Dressing (QC): 6 Lower Body Dressing (QC): 4 On/Off Footwear: 9 Toileting Hygiene (QC): 4 Slide board transfers (w/c<>commode, w/c <> shower bench, w/c<> bed): CGA and extra time. Cues for hand and w/c placement is needed 75% of the time. Pt showered 100% in sitting with set up. He was able to complete lower body doffing/donning sitting on commode and on shower chair. He requires total assist to apply stump shrinkers due to lack of parking officer and hand strength. He reported no concerns of going home or any questions about transfers/ADLs once at home. Other Treatment Pt performed seated crunches 4x10 reps and push ups with bed grab rails 2x10 reps in bed to improve core and UE strength and balance. Education OT Patient Education: Correct positioning, Energy conservation, Exercise program, Home exercise program, Instructions don/doff splint/brace, Modified ADL techniques, Progress toward Goal/Update tx plan, Purpose of tx/functional activities, Reviewed precautions, Rehab process, Safety issues, Transfer techniques, W/C management Teaching Recipient: Patient Teaching Methods: Demonstration, Discussion Response to Teaching: Verbalize Understanding, Return Demonstration, Reinforcement Needed OT Short Term Goals Short Term Goals Time Frame: Jun 07, 2022 Eatin Oral hygiene: 6 Toileting hygiene: 3 Shower/bathe self: 4 Upper body dressin Lower body dressin Putting on/taking off footwear: 9 OT Senior Care Goals Senior Care Goals Time Frame: Jun 14, 2022 Acute change in mental status: 0 Inattention: 0 Disorganized thinkin Altered level of consciousness: 0 Eating (QC): 6 (not met) Oral Hygiene (QC): 6 (met) Toileting Hygiene (QC): 5 (not met) Shower/Bathe Self (QC): 5 (met) Upper Body Dressing (QC): 6 (met) Lower Body Dressing (QC): 5 (not met, supervison for safety) On/Off Footwear (QC): 9 Additional Goals: 1-Demonstrate ADL Tasks, 2-Verbalize Understanding, 3- ImproveStrength/Slade 1=Demonstrate adherence to instructed precautions during ADL tasks. 2=Patient will verbalize/demonstrate understanding of assistive devices/modifications for ADL. 3=Patient will improve strength/tolerance for activity to enable patient to perform ADL's. OT Education/Plan Problem List/Assessment Assessment: Decreased Activ Tolerance, Decreased Safety Aware, Decreased UE Strength, Dependent Transfers, Impaired Bed Mobility, Impaired Cognition, Impaired Coordination, Impaired Funct Balance, Impaired I ADL's, Impaired Self- Care Skills, Restricted Funct UE ROM, Visual-Perceptual Deficit Discharge Recommendations Plan/Recommendations: Continue POC Treatment Plan/Plan of Care Treatment,Training & Education: Yes Patient would benefit from OT for education, treatment and training to promote independence in ADL's, mobility, safety and/or upper extremity function for ADL's. Plan of Care: ADL Retraining, Caregiver Training, Functional Mobility, Group Exercise/Act as Ind, Orthotic Fitting/Training, UE Funct Exercise/Act, UE Neuromus Re-Ed/Coord, W/C Management Training Treatment Duration: Jun 14, 2022 Frequency: At least 5 of 7 days/Wk (IRF) Estimated Hrs Per Day: 1.5 hours per day (75-90 min per day) Agreement: Yes Rehab Potential: Fair Time/GCodes Start Time: 09:00 Stop Time: 10:30 Total Time Billed (hr/min): 90 Billed Treatment Time 1 visit ADL x5 (75 min) EX (15 min) Co-treat ([id number]) Alisha Rios OT Jun 09, 2022 10:08
--- NOTE | 2022-06-09 10:31 | Physical Therapy Daily Note ---
PT Daily Note-Current Subjective Patient in bed pre tx, agrees to PT, voices no complaints of pain. Will be co- treating with OT due to poor patient mobility, strength, endurance, coordinate UE during activity, safety and reduce risk of falls, work on trunk strength and balance. Pain Section J - Health Conditions 1. Rarely or not at all 2. Occasionally 3. Frequently 4. Almost constantly 8. Unable to answer Pain Effect on Sleep: 2 Pain Interference with Therapy: 2 Pain Interference w/Day-to-Day: 2 Appearance Patient in bed post tx with nurse call, phone, tray, all needs met. Mental Status Patient Orientation: Person, Place, Situation Transfers SCALE: Activities may be completed with or without assistive devices. 3-Ygfmmifbfr-zhcwrpg completes the activity by him/herself with no assistance from a helper. 5-Set-up or Clean-up Assistance-helper sets up or cleans up; patient completes activity. [place] assists only prior to or following the activity. 4-Supervision or Touching Assistance-helper provides verbal cues and/or touching/steadying and/or contact guard assistance as patient completes activity. Assistance may be provided throughout the activity or intermittently. 3-Partial/Moderate Assistance-helper does LESS THAN HALF the effort. [place] lifts, holds or supports trunk or limbs, but provides less than half the effort. 2-Substantial/Maximal Assistance-helper does MORE THAN HALF the effort. [place] lifts or holds trunk or limbs and provides more than half the effort. 1-Vbsxpwzhc-nqysbg does ALL the effort. Patient does none of the effort to comp lete the activity. Or, the assistance of 2 or more helpers is required for the patient to complete the activity. If activity was not attempted, code reason: 7-Patient Refused. 9-Not Applicable-not attempted and the patient did not perform the activity before the current illness, exacerbation or injury. 10-Not Attempted due to Environmental Limitations-(lack of equipment, weather restraints, etc.). 88-Not Attempted due to Medical Conditions or Safety Concerns. Roll Left & Right (QC): 6 Patient had to roll on his side and pull down shorts, nurse came in to change his dressing on his backside. Weight Bearing Right Lower Extremity: Right Non Weight Bearing Left Lower Extremity: Left Non Weight Bearing Exercises Supine Ex: Short Arc Quads (knee flex/ext with leg elevated) Supine Reps: 20 3 sets of 10 of bed pushups using bedrails, 3 sets of 10 of situps with elevated head of the bed Treatments PT performed rolling, strengthening, positioning during dressing change, OT performed UE positioning and safety during activity, dressing. Assessment Current Status: Fair Progress put stump shrinkers back on PT Toll Gate Tender Goals Toll Gate Tender Goals PT Group Home Goals Time Frame: Jul 11, 2022 Roll Left & Right (QC): 6 Sit to Lying (QC): 6 Lying-Sitting on Side/Bed(QC): 6 Sit to Stand (QC): 88 Chair/Tnz-en-Yvfte Xfer(QC): 6 Toilet Transfer (QC): 6 Car Transfer (QC): 6 Does the Patient Walk: No and Walking Goal NOT indicated Walk 10 feet (QC): 88 Walk 50ft with 2 Turns (QC): 88 Walk 150 ft (QC): 88 Walking 10ft on Uneven Surface: 88 1 Step (curb) (QC): 88 4 Steps (QC): 88 12 Steps (QC): 88 Picking up an Object (QC): 88 Does the Pt use WC or Scooter?: Yes Wheel 50 feet with 2 turns (QC: 6 Type: Manual Wheel 150 feet: 6 Type: Manual PT Plan Problem List Problem List: Activity Tolerance, Functional Strength, Safety, Balance, Transfer, Bed Mobility, ROM Treatment/Plan Treatment Plan: Continue Plan of Care Treatment Plan: Bed Mobility, Education, Functional Activity Slade, Functional Strength, Group Therapy, Safety, Therapeutic Exercise, Transfers Treatment Duration: Jul 12, 2022 Frequency: At least 5 of 7 days/Wk (IRF) Estimated Hrs Per Day: 1.5 hours per day Patient and/or Family Agrees t: Yes Safety Risks/Education Patient Education: Correct Positioning, Safety Issues Teaching Recipient: Patient Teaching Methods: Demonstration, Discussion Response to Teaching: Reinforcement Needed Time/GCodes Time In: 1000 Time Out: 1030 Total Billed Treatment Time: 30 Total Billed Treatment 1 visit EX 15' FA 15' NUNO DUNCAN PT Jun 09, 2022 10:31
[2022-06-09] MEDS: HYDROcodone/APAP 5 MG/325 MG (LORTAB) TAB PO PRN (16:35)
[2022-06-09 19:24] VITALS: BP 129/63
[2022-06-09] MEDS: FAMOTIDINE 20 MG (PEPCID) TABLET PO SCH (20:46)
[2022-06-10] MEDS: LOPERAMIDE 2 MG (IMODIUM) TABLET PO PRN ×2 (03:48→08:10)
[2022-06-10] MEDS: HYDROcodone/APAP 5 MG/325 MG (LORTAB) TAB PO PRN (03:56)
[2022-06-10] MEDS: inSUlin ASPART (NovoLOG) 1 UNIT/0.01 ML (CHARGE PER UNIT) SC SCH ×2 (05:44→11:09)
[2022-06-10] MEDS ORDERED: ALLO100T PO (05:46)
[2022-06-10] MEDS ORDERED: TMSL.4C PO (05:46)
[2022-06-10] MEDS ORDERED: ACHD5005 PO (05:46)
[2022-06-10] MEDS ORDERED: AMLO-250 PO (05:46)
[2022-06-10] MEDS ORDERED: ATOR40TA70 PO (05:46)
[2022-06-10] MEDS ORDERED: CITA20TA9 PO (05:46)
[2022-06-10] MEDS ORDERED: FAMO20TA5 PO (05:46)
[2022-06-10] MEDS ORDERED: LISI10TA25 PO (05:46)
[2022-06-10] MEDS ORDERED: GLBR2.5T PO (05:46)
[2022-06-10] MEDS ORDERED: LEVE500T99 PO (05:46)
[2022-06-10] MEDS ORDERED: BTH10T PO (05:46)
--- NOTE | 2022-06-10 05:48 | D/C HH Face to Face Order ---
D/C Face to Face Orders Reconcile Patient Problems Problems Reviewed?: Yes Instructions for Patient Home health Patient Instructions/FollowUp: PCP in 1 week Physician to follow Patient: [facility] Discharge Diet for Home: ADA Diet Patient Problems: Bilateral below the knee amputations Patient Data-Allergies,Ht & Wt Patient Allergies: Coded Allergies: No Known Drug Allergies (Unverified , 01/29/22) Home Health Need/Face to Face Date of Face to Face: Jun 10, 2022 Clinical Findings: Generalized weakness and fatigue, Non or partial weight bearing, Pain with ambulation, Unsteady gait I have seen Pt jikl-[id number]: Yes Discharged To: Home Diagnosis/Conditions: Bilateral below the knee amputations Patient is Homebound due to: Muscle weakness, Non-weight bearing Homebound Status Due to the above stated illness, injury or surgical procedure (medical condition or diagnosis) and associated clinical findings, the patient is homebound because of his/her inability to leave home except with aid of a supportive device and/or person AND leaving the home requires a considerable and taxing effort or is medically contraindicated. Pt req the following assistanc: Wheelchair Home Health Nursing Orders Home Health Services Order: Nursing Services, Clerical Warehouse Worker-Evaluate & Treat, Physical Therapy-Evaluate & Treat, Wound Care-Eval/Treat Certify Stmt I certify that this patient is under my care and that I, a nurse practitioner or a physician; a credit control assistant working with me, had a face to face encounter that - meets the physician face to face encounter requirements with this patient as FINA Robledo DO Jun 10, 2022 05:48
--- NOTE | 2022-06-10 05:49 | Discharge Summary ---
Diagnosis/Chief Complaint Date of Admission May 28, 2022 at 12:18 Date of Discharge Discharge Date: Jun 10, 2022 Discharge Diagnosis Assessment: Bilateral BKA's DM HTN HLP Low vision from retinopathy Seizures Poor social situation Post op acute blood loss anemia with severe iron def ordered iron infusions then transfused 1 unit 06/[address] so DC 05/30/22 and having acute on chronic urinary retention Poor nutrition albumin 1.8 Plan: Pain control PT OT Wheelchair mobility 05/29/2022: Pain control Iron check 05/30/2022: DC catheter Venofer B12 injection 05/31/2022: Flomax Urecholine 06/01/2022: Monitor sugar 06/02/2022: Transfuse 06/03/2022: Monitor hgb Pain control 06/04/2022: Monitor hgb Monitor pain Urinary retention improved 06/05/2022: Monitor isolated blood pressure elevation 06/06/2022: Monitor sugar 06/07/2022: Monitor pain 06/08/2022: Check labs in am 06/09/2022: Discharge tomorrow Hemoglobin 7.7 indicates chronic disease (1) S/P bilateral below knee amputation (2) Diabetic retinopathy associated with uncontrolled type 2 diabetes mellitus Status: Acute Discharge Summary Discharge Physical Examination Allergies: Coded Allergies: No Known Drug Allergies (Unverified , 01/29/22) Vitals & I&Os Vital Signs Date Time Temp Pulse Resp B/P (MAP) Pulse Ox O2 Delivery O2 Flow Rate FiO2 06/10/22 08:41 Room Air 06/10/22 07:35 37.1 85 20 173/79 (110) 95 General Appearance: Alert, Oriented X3, Cooperative Respiratory: Clear to Auscultation Cardiovascular: Regular Rate Psych/Mental Status: Mental Status NL Hospital Course Was the Problem List Reviewed?: Yes Lengthy course after admitted to ARU following 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 He was able to participate in therapies and incisions healed enough to place stump shrinkers. PICC line maintained and required 1 unit of blood along with iron infusions. Patient remained anemic presumed chronic illness and CKD driven. Glucose remained stable and transitioned to OHA from insulin by time of DC. Pain was well controlled on Hydrocodone and BM regimen maintained for constipation. Good return of function with use of AD with therapy and he was ready for DC. Labs (last 24 hrs) Laboratory Tests 05/28/22 12:18: Lab Scanned Report Referred Lab Report 05/28/22 15:50: Glucometer 172H 05/28/22 16:32: Erythrocyte Sedimentation Rate > 140H, C-Reactive Protein High Sensitivity 1.61H 05/28/22 20:28: Glucometer 176H 05/29/22 06:11: Glucometer 122H 05/29/22 06:40: Sodium Level 136, Potassium Level 4.6, Chloride Level 106, Carbon Dioxide Level 23, Anion Gap 7, Blood Urea Nitrogen 20H, Creatinine 0.84, Estimat Glomerular Filtration Rate 110, BUN/Creatinine Ratio 24, Glucose Level 127H, Calcium Level 7.8L, Corrected Calcium 9.7, Total Bilirubin 0.1, Aspartate Amino Transf (AST/SGOT) 11, Alanine Aminotransferase (ALT/SGPT) 12, Alkaline Phosphatase 76, Total Protein 4.8L, Albumin 1.6L 05/29/22 09:50: White Blood Count 7.6, Red Blood Count 2.64L, Hemoglobin 7.4L, Hematocrit 23L, Mean Corpuscular Volume 88, Mean Corpuscular Hemoglobin 28, Mean Corpuscular Hemoglobin Concent 32, Red Cell Distribution Width 15.3H, Platelet Count 385, Mean Platelet Volume 9.3, Immature Granulocyte % (Auto) 1, Neutrophils (%) (Auto) 72, Lymphocytes (%) (Auto) 17, Monocytes (%) (Auto) 6, Eosinophils (%) (Auto) 2, Basophils (%) (Auto) 1, Neutrophils # (Auto) 5.5, Lymphocytes # (Auto) 1.3, Monocytes # (Auto) 0.5, Eosinophils # (Auto) 0.2, Basophils # (Auto) 0.1, Immature Granulocyte # (Auto) 0.1, Iron Level 29L, Vitamin B12 Level 718 05/29/22 10:40: Glucometer 162H 05/29/22 15:57: Glucometer 187H 05/29/22 20:31: Glucometer 139H 05/30/22 05:38: Glucometer 118H 05/30/22 11:04: Glucometer 99 05/30/22 15:30: Glucometer 115H 05/30/22 20:23: Glucometer 102 05/31/22 05:40: Glucometer 92 05/31/22 10:49: Glucometer 138H 05/31/22 13:59: Glucometer 122H 05/31/22 16:05: Glucometer 131H 05/31/22 20:03: Glucometer 162H 06/01/22 05:54: Glucometer 163H 06/01/22 10:58: Glucometer 127H 06/01/22 15:50: Glucometer 111H 06/01/22 20:58: Glucometer 170H 06/02/22 05:41: Glucometer 127H 06/02/22 05:42: White Blood Count 5.6, Red Blood Count 2.38L, Hemoglobin 6.7*L, Hematocrit 21L, Mean Corpuscular Volume 89, Mean Corpuscular Hemoglobin 28, Mean Corpuscular Hemoglobin Concent 32, Red Cell Distribution Width 14.8H, Platelet Count 327, Mean Platelet Volume 10.0, Immature Granulocyte % (Auto) 1, Neutrophils (%) (Auto) 63, Lymphocytes (%) (Auto) 23, Monocytes (%) (Auto) 8, Eosinophils (%) (Auto) 4, Basophils (%) (Auto) 1, Neutrophils # (Auto) 3.5, Lymphocytes # (Auto) 1.3, Monocytes # (Auto) 0.5, Eosinophils # (Auto) 0.2, Basophils # (Auto) 0.1, Immature Granulocyte # (Auto) 0.0, Sodium Level 136, Potassium Level 5.3H, Chloride Level 106, Carbon Dioxide Level 23, Anion Gap 7, Blood Urea Nitrogen 24H, Creatinine 1.16, Estimat Glomerular Filtration Rate 80, BUN/Creatinine Ratio 21, Glucose Level 142H, Calcium Level 8.1L, Corrected Calcium 9.9, Total Bilirubin < 0.1L, Aspartate Amino Transf (AST/SGOT) 18, Alanine Aminotransferase (ALT/SGPT) 15, Alkaline Phosphatase 84, Total Protein 5.0L, Albumin 1.8L 06/02/22 10:51: Glucometer 171H 06/02/22 15:29: Glucometer 181H 06/02/22 20:50: Glucometer 157H 06/03/22 05:24: Glucometer 168H 06/03/22 05:25: White Blood Count 5.6, Red Blood Count 2.86L, Hemoglobin 8.2#L, Hematocrit 25L, Mean Corpuscular Volume 89, Mean Corpuscular Hemoglobin 29, Mean Corpuscular Hemoglobin Concent 32, Red Cell Distribution Width 14.7H, Platelet Count 339, Mean Platelet Volume 10.0, Immature Granulocyte % (Auto) 1, Neutrophils (%) (Auto) 66, Lymphocytes (%) (Auto) 18, Monocytes (%) (Auto) 9, Eosinophils (%) (Auto) 5, Basophils (%) (Auto) 1, Neutrophils # (Auto) 3.7, Lymphocytes # (Auto) 1.0, Monocytes # (Auto) 0.5, Eosinophils # (Auto) 0.3, Basophils # (Auto) 0.1, Immature Granulocyte # (Auto) 0.0, Sodium Level 138, Potassium Level 5.2H, Chloride Level 106, Carbon Dioxide Level 22, Anion Gap 10, Blood Urea Nitrogen 24H, Creatinine 1.11, Estimat Glomerular Filtration Rate 84, BUN/Creatinine Ratio 22, Glucose Level 189H, Calcium Level 8.2L, Corrected Calcium 9.8, Total Bilirubin 0.1, Aspartate Amino Transf (AST/SGOT) 13, Alanine Aminotransferase (ALT/SGPT) 14, Alkaline Phosphatase 91, Total Protein 5.6L, Albumin 2.0L 06/03/22 10:45: Glucometer 143H 06/03/22 15:35: Glucometer 122H 06/03/22 20:25: Glucometer 111H 06/04/22 05:46: Glucometer 100 06/04/22 10:41: Glucometer 122H 06/04/22 15:43: Glucometer 93 06/04/22 20:03: Glucometer 118H 06/05/22 05:49: Glucometer 90 06/05/22 10:55: Glucometer 111H 06/05/22 15:13: Glucometer 75 06/05/22 20:12: Glucometer 135H 06/06/22 05:12: Glucometer 127H 06/06/22 10:40: Glucometer 156H 06/06/22 15:15: Glucometer 106 06/06/22 20:44: Glucometer 76 06/07/22 05:44: Glucometer 108 06/07/22 10:50: Glucometer 143H 06/07/22 15:16: Glucometer 127H 06/07/22 20:51: Glucometer 194H 06/08/22 05:29: Glucometer 117H 06/08/22 11:04: Glucometer 172H 06/08/22 15:52: Glucometer 213H 06/08/22 20:30: Glucometer 236H 06/09/22 05:48: Glucometer 125H 06/09/22 06:00: White Blood Count 4.4, Red Blood Count 2.71L, Hemoglobin 7.7L, Hematocrit 25L, Mean Corpuscular Volume 90, Mean Corpuscular Hemoglobin 28, Mean Corpuscular Hemoglobin Concent 31L, Red Cell Distribution Width 14.6H, Platelet Count 341, Mean Platelet Volume 9.9, Immature Granulocyte % (Auto) 1, Neutrophils (%) (Auto) 56, Lymphocytes (%) (Auto) 23, Monocytes (%) (Auto) 11, Eosinophils (%) (Auto) 8, Basophils (%) (Auto) 1, Neutrophils # (Auto) 2.5, Lymphocytes # (Auto) 1.0, Monocytes # (Auto) 0.5, Eosinophils # (Auto) 0.4H, Basophils # (Auto) 0.0, Immature Granulocyte # (Auto) 0.0, Sodium Level 138, Potassium Level 4.5, Chloride Level 109H, Carbon Dioxide Level 21, Anion Gap 8, Blood Urea Nitrogen 32H, Creatinine 1.30, Estimat Glomerular Filtration Rate 69, BUN/Creatinine Ratio 25, Glucose Level 136H, Calcium Level 7.9L, Corrected Calcium 9.4, Total Bilirubin < 0.1L, Aspartate Amino Transf (AST/SGOT) 15, Alanine Aminotransferase (ALT/SGPT) 19, Alkaline Phosphatase 109, Total Protein 5.5L, Albumin 2.1L 06/09/22 15:31: Glucometer 162H 06/09/22 20:26: Glucometer 179H 06/10/22 05:35: Glucometer 128H 06/10/22 11:01: Glucometer 131H Microbiology 05/28/22 Gram Stain - Final, Complete 05/28/22 Wound Culture - Final, Complete Mixed Bacterial Sona Pseudomonas aeruginosa YEAST Pending Labs Microbiology Date/Time Source Procedure Growth Status 05/28/22 14:15 Ulcer Coccyx Gram Stain - Final Complete 05/28/22 14:15 Wound Culture - Final Mixed Bacterial Sona Pseudomonas aeruginosa YEAST Complete Laboratory Tests 05/28/22 12:18: Lab Scanned Report Referred Lab Report 05/28/22 15:50: Glucometer 172 05/28/22 16:32: Erythrocyte Sedimentation Rate > 140, C-Reactive Protein High Sensitivity 1.61 05/28/22 20:28: Glucometer 176 05/29/22 06:11: Glucometer 122 05/29/22 06:40: Sodium Level 136, Potassium Level 4.6, Chloride Level 106, Carbon Dioxide Level 23, Anion Gap 7, Blood Urea Nitrogen 20, Creatinine 0.84, Estimat Glomerular Filtration Rate 110, BUN/Creatinine Ratio 24, Glucose Level 127, Calcium Level 7.8, Corrected Calcium 9.7, Total Bilirubin 0.1, Aspartate Amino Transf (AST/SGOT) 11, Alanine Aminotransferase (ALT/SGPT) 12, Alkaline Phosphatase 76, Total Protein 4.8, Albumin 1.6 05/29/22 09:50: White Blood Count 7.6, Red Blood Count 2.64, Hemoglobin 7.4, Hematocrit 23, Mean Corpuscular Volume 88, Mean Corpuscular Hemoglobin 28, Mean Corpuscular Hemoglobin Concent 32, Red Cell Distribution Width 15.3, Platelet Count 385, Mean Platelet Volume 9.3, Immature Granulocyte % (Auto) 1, Neutrophils (%) (Auto) 72, Lymphocytes (%) (Auto) 17, Monocytes (%) (Auto) 6, Eosinophils (%) (Auto) 2, Basophils (%) (Auto) 1, Neutrophils # (Auto) 5.5, Lymphocytes # (Auto) 1.3, Monocytes # (Auto) 0.5, Eosinophils # (Auto) 0.2, Basophils # (Auto) 0.1, Immature Granulocyte # (Auto) 0.1, Iron Level 29, Vitamin B12 Level 718 05/29/22 10:40: Glucometer 162 05/29/22 15:57: Glucometer 187 05/29/22 20:31: Glucometer 139 05/30/22 05:38: Glucometer 118 05/30/22 11:04: Glucometer 99 05/30/22 15:30: Glucometer 115 05/30/22 20:23: Glucometer 102 05/31/22 05:40: Glucometer 92 05/31/22 10:49: Glucometer 138 05/31/22 13:59: Glucometer 122 05/31/22 16:05: Glucometer 131 05/31/22 20:03: Glucometer 162 06/01/22 05:54: Glucometer 163 06/01/22 10:58: Glucometer 127 06/01/22 15:50: Glucometer 111 06/01/22 20:58: Glucometer 170 06/02/22 05:41: Glucometer 127 06/02/22 05:42: White Blood Count 5.6, Red Blood Count 2.38, Hemoglobin 6.7, Hematocrit 21, Mean Corpuscular Volume 89, Mean Corpuscular Hemoglobin 28, Mean Corpuscular H emoglobin Concent 32, Red Cell Distribution Width 14.8, Platelet Count 327, Mean Platelet Volume 10.0, Immature Granulocyte % (Auto) 1, Neutrophils (%) (Auto) 63, Lymphocytes (%) (Auto) 23, Monocytes (%) (Auto) 8, Eosinophils (%) (Auto) 4, Basophils (%) (Auto) 1, Neutrophils # (Auto) 3.5, Lymphocytes # (Auto) 1.3, Monocytes # (Auto) 0.5, Eosinophils # (Auto) 0.2, Basophils # (Auto) 0.1, Immature Granulocyte # (Auto) 0.0, Sodium Level 136, Potassium Level 5.3, Chloride Level 106, Carbon Dioxide Level 23, Anion Gap 7, Blood Urea Nitrogen 24, Creatinine 1.16, Estimat Glomerular Filtration Rate 80, BUN/Creatinine Ratio 21, Glucose Level 142, Calcium Level 8.1, Corrected Calcium 9.9, Total Bilirubin < 0.1, Aspartate Amino Transf (AST/SGOT) 18, Alanine Aminotransferase (ALT/SGPT) 15, Alkaline Phosphatase 84, Total Protein 5.0, Albumin 1.8 06/02/22 10:51: Glucometer 171 06/02/22 15:29: Glucometer 181 06/02/22 20:50: Glucometer 157 06/03/22 05:24: Glucometer 168 06/03/22 05:25: White Blood Count 5.6, Red Blood Count 2.86, Hemoglobin 8.2, Hematocrit 25, Mean Corpuscular Volume 89, Mean Corpuscular Hemoglobin 29, Mean Corpuscular Hemoglobin Concent 32, Red Cell Distribution Width 14.7, Platelet Count 339, Mean Platelet Volume 10.0, Immature Granulocyte % (Auto) 1, Neutrophils (%) (Auto) 66, Lymphocytes (%) (Auto) 18, Monocytes (%) (Auto) 9, Eosinophils (%) (Auto) 5, Basophils (%) (Auto) 1, Neutrophils # (Auto) 3.7, Lymphocytes # (Auto) 1.0, Monocytes # (Auto) 0.5, Eosinophils # (Auto) 0.3, Basophils # (Auto) 0.1, Immature Granulocyte # (Auto) 0.0, Sodium Level 138, Potassium Level 5.2, Chloride Level 106, Carbon Dioxide Level 22, Anion Gap 10, Blood Urea Nitrogen 24, Creatinine 1.11, Estimat Glomerular Filtration Rate 84, BUN/Creatinine Ratio 22, Glucose Level 189, Calcium Level 8.2, Corrected Calcium 9.8, Total Bilirubin 0.1, Aspartate Amino Transf (AST/SGOT) 13, Alanine Aminotransferase (ALT/SGPT) 14, Alkaline Phosphatase 91, Total Protein 5.6, Albumin 2.0 06/03/22 10:45: Glucometer 143 06/03/22 15:35: Glucometer 122 06/03/22 20:25: Glucometer 111 06/04/22 05:46: Glucometer 100 06/04/22 10:41: Glucometer 122 06/04/22 15:43: Glucometer 93 06/04/22 20:03: Glucometer 118 06/05/22 05:49: Glucometer 90 06/05/22 10:55: Glucometer 111 06/05/22 15:13: Glucometer 75 06/05/22 20:12: Glucometer 135 06/06/22 05:12: Glucometer 127 06/06/22 10:40: Glucometer 156 06/06/22 15:15: Glucometer 106 06/06/22 20:44: Glucometer 76 06/07/22 05:44: Glucometer 108 06/07/22 10:50: Glucometer 143 06/07/22 15:16: Glucometer 127 06/07/22 20:51: Glucometer 194 06/08/22 05:29: Glucometer 117 06/08/22 11:04: Glucometer 172 06/08/22 15:52: Glucometer 213 06/08/22 20:30: Glucometer 236 06/09/22 05:48: Glucometer 125 06/09/22 06:00: White Blood Count 4.4, Red Blood Count 2.71, Hemoglobin 7.7, Hematocrit 25, Mean Corpuscular Volume 90, Mean Corpuscular Hemoglobin 28, Mean Corpuscular Hemoglobin Concent 31, Red Cell Distribution Width 14.6, Platelet Count 341, Mean Platelet Volume 9.9, Immature Granulocyte % (Auto) 1, Neutrophils (%) (Auto) 56, Lymphocytes (%) (Auto) 23, Monocytes (%) (Auto) 11, Eosinophils (%) (Auto) 8, Basophils (%) (Auto) 1, Neutrophils # (Auto) 2.5, Lymphocytes # (Auto) 1.0, Monocytes # (Auto) 0.5, Eosinophils # (Auto) 0.4, Basophils # (Auto) 0.0, Immature Granulocyte # (Auto) 0.0, Sodium Level 138, Potassium Level 4.5, Chloride Level 109, Carbon Dioxide Level 21, Anion Gap 8, Blood Urea Nitrogen 32, Creatinine 1.30, Estimat Glomerular Filtration Rate 69, BUN/Creatinine Ratio 25, Glucose Level 136, Calcium Level 7.9, Corrected Calcium 9.4, Total Bilirubin < 0.1, Aspartate Amino Transf (AST/SGOT) 15, Alanine Aminotransferase (ALT/SGPT) 19, Alkaline Phosphatase 109, Total Protein 5.5, Albumin 2.1 06/09/22 15:31: Glucometer 162 06/09/22 20:26: Glucometer 179 06/10/22 05:35: Glucometer 128 06/10/22 11:01: Glucometer 131 Discharge Home Medications: Active Scripts Active Glyburide 2.5 Mg Tablet 1.25 Mg PO DAILY@0630 Citalopram HBr (Citalopram Hydrobromide) 20 Mg Tablet 20 Mg PO DAILY HYDROcodone/APAP 5 MG/325 MG TAB (Acetaminophen/Hydrocodone Bitart) 1 Tab Tab 1-2 Ea PO Q6H PRN Lisinopril 10 Mg Tablet 10 Mg PO DAILY Flomax (Tamsulosin HCl) 0.4 Mg Cap 0.4 Mg PO BID Urecholine (Bethanechol Chloride) 10 Mg Tablet 10 Mg PO ACHS Amlodipine Besylate 5 Mg Tablet 5 Mg PO DAILY Atorvastatin Calcium 40 Mg Tablet 40 Mg PO HS Keppra (Levetiracetam) 500 Mg Tablet 500 Mg PO BID Allopurinol 100 Mg Tablet 100 Mg PO DAILY Famotidine 20 Mg Tablet 20 Mg PO HS Instructions to patient/family Please see electronic discharge instructions given to patient. Diagnosis/Problems Diagnosis/Problems (1) S/P bilateral below knee amputation (2) Diabetic retinopathy associated with uncontrolled type 2 diabetes mellitus Status: Acute FINA OTTO DO Jun 10, 2022 05:49
[2022-06-10] MEDS: BETHANECHOL 10 MG (URECHOLINE) TAB PO SCH ×2 (06:10→11:25)
[2022-06-10] MEDS: CATHETER FLUSH 10 ML SYR IVP SCH (06:10)
[2022-06-10] MEDS: glyBURIDE 2.5 MG (MICRONASE) TAB PO SCH (06:10)
[2022-06-10] MEDS: DOCUSATE SODIUM 100 MG (COLACE) CAP PO SCH (07:18)
[2022-06-10] MEDS: SENNA W/DOCUSATE (SENOKOT S) TABLET PO SCH (07:18)
[2022-06-10] MEDS: polyethylene glycoL POWDER 17 GM (MIRALAX) PACK PO SCH (07:19)
[2022-06-10 07:35] VITALS: BP 173/79
[2022-06-10] MEDS: ALLOPURINOL 100 MG (ZYLOPRIM) TAB PO SCH (08:10)
[2022-06-10] MEDS: lisINopril 10 MG (PRINIVIL) TABLET PO SCH (08:10)
[2022-06-10] MEDS: TAMSULOSIN 0.4 MG (FLOMAX) CAP PO SCH (08:10)
[2022-06-10] MEDS: HYPOCHLOROUS ACID/NaCl (VASHE) 250 ML IR SCH (08:10)
[2022-06-10] MEDS: FERROUS SULF 325 MG (IRON) TAB PO SCH (08:10)
[2022-06-10] MEDS: NIFEdipine ER 60 MG (PROCARDIA XL) TAB PO SCH (08:10)
[2022-06-10] MEDS: LACTOBACILLUS ACIDOPHILUS (PROBIOTIC) CAPSULE PO SCH (08:10)
[2022-06-10] MEDS: amLODIPine 5 MG (NORVASC) TAB PO SCH (08:10)
[2022-06-10] MEDS: MICONAZOLE 2% POWDER (DESENEX AF) 90 GM TOP SCH (08:11)
--- NOTE | 2022-06-10 09:27 | Physical Therapy Progress Note ---
Therapy Progress Note Patient will need a hospital bed for home use due to the need for adjustable height for proper and safe sliding board transfers which will also decrease risk of falling. Also, a hospital bed will have bedrails and adjustable head height allowing patient to move in bed better and perform pressure relief more effectively, decreasing risk of pressure sores, patient will have more difficulty in general moving in bed due to amputations and impaired leverage in bed. Patient will also need a power chair. A manual chair will not be good long-term due to shoulder injury and fatigue. Patient will need a power chair long-term, and it will decrease wear and tear on his shoulder and further complications with them on down the line. NUNO DUNCAN PT Jun 10, 2022 09:27
--- NOTE | 2022-06-10 10:10 | Therapy Team Discharge Summary ---
Therapy Discharge Summary Discharge Recommendations Date of Discharge Therapy D/C Recommendations: Bath Aide, Home w/ Family Support, Occupational Therapy Home Care, Homemaker Support Physical Therapy Roll Left to Right (QC): 6 Sit to Lying (QC): 6 Lying to Sitting/Side of Bed(Q: 6 Sit to Stand (QC): 9 Chair/[id number]-Rgneu Xfer(QC): 4 Toilet Transfer (QC): 3 Car Transfer (QC): 4 Does the Patient Walk: No and Walking Goal NOT indicated Mode of Locomotion: Wheelchair Anticipated Mode of Locomotion: Wheelchair Walk 10 feet (QC): 9 Walk 50 ft with 2 Turns(QC): 9 Walk 150 ft (QC): 9 Walking 10ft on uneven surface: 9 Does the Pt Use a Wheelchair: Yes Wheelchair Distance: 0 Wheel 50 ft with 2 turns (QC): 6 Wheel 150 ft (QC): 6 Type of Wheelchair: Manual #of Steps: 0 1 Step (curb) (QC): 9 4 Steps (QC): 9 12 Steps (QC): 9 Balance Sitting Static: Fair Balance Sitting Dynamic: Fair Picking up an Object (QC): 9 Occupational Therapy Pt admitted to ARU s/p bilateral BKA. At time of evaluation, he was max a for toileting, mod a for lower body dressing, CGA for bathing, and set up for eating, oral care, and upper body dressing. During ARU stay OT focused on slide board transfers, infection/wound management/education, ADLs, balance, UE and core strength, fine motor tasks, and coordination in order to increase independence and performance in ADLs and functional transfers. Pt made good progress and met all goals except for lower body dressing as pt required supervision for safety. See below for current levels of assist. Pt will d/c from this facility today and will be discharged from OT at this time. Decreased Activ Tolerance, Decreased Safety Aware, Decreased UE Strength, Dependent Transfers, Impaired Bed Mobility, Impaired Cognition, Impaired Coord ination, Impaired Funct Balance, Impaired I ADL's, Impaired Self-Care Skills, Restricted Funct UE ROM, Visual-Perceptual Deficit Eating (QC): 5 (Needs assistance with packets) Oral Hygiene (QC): 6 (Pt requires encouragement to complete oral hygiene) Shower/Bathe Self (QC): 5 Upper Body Dressing (QC): 6 Lower Body Dressing (QC): 4 On/Off Footwear (QC): 9 Toileting Hygiene (QC): 4 PT Stoker Installation Mechanic Goals Stoker Installation Mechanic Goals PT Stoker Installation Mechanic Goals Time Frame: Jul 11, 2022 Scoring Section J - Health Conditions 1. Rarely or not at all 2. Occasionally 3. Frequently 4. Almost constantly 8. Unable to answer Roll Left to Right (QC): 6 Sit to Lying (QC): 6 Lying-Sitting on Side/Bed(QC): 6 Sit to Stand (QC): 88 Chair/Vov-im-Nhjrr Xfer(QC): 6 Car Transfer (QC): 6 Does the Patient Walk: No and Walking Goal NOT indicated Walk 10 feet (QC): 88 Walk 10ft-Uneven Surface(QC): 88 Walk 50ft with 2 Turns (QC): 88 Walk 150 ft (QC): 88 Does the Pt use WC or Scooter?: Yes Wheel 50 feet with 2 turns (QC: 6 1 Step (curb) (QC): 88 4 Steps (QC): 88 12 Steps (QC): 88 Picking up an Object (QC): 88 OT Stoker Installation Mechanic Goals Intermediate Goals Time Frame: Jun 14, 2022 Acute change in mental status: 0 Inattention: 0 Disorganized thinkin Altered level of consciousness: 0 Eating (QC): 6 (not met) Oral Hygiene (QC): 6 (met) Toileting Hygiene (QC): 5 (not met) Shower/Bathe Self (QC): 5 (met) Upper Body Dressing (QC): 6 (met) Lower Body Dressing (QC): 5 (not met, supervison for safety) On/Off Footwear (QC): 9 Additional Goals: 1-Demonstrate ADL Tasks, 2-Verbalize Understanding, 3- ImproveStrength/Slade 1=Demonstrate adherence to instructed precautions during ADL tasks. 2=Patient will verbalize/demonstrate understanding of assistive devices/modifications for ADL. 3=Patient will improve strength/tolerance for activity to enable patient to perform ADL's. Alisha Rios OT Jun 10, 2022 10:10
--- NOTE | 2022-06-10 12:44 | Diagnostic Imaging Report ---
INDICATION: Right upper extremity PICC difficulty. Single AP view of the chest including right upper extremity reveals the entire course of right upper extremity PICC. Catheter reaches the mid superior vena cava. There is a wire-like retainer device which appears to be at the skin surface just above the elbow. Otherwise the catheter is intact. There is no pneumothorax. There is mild right basilar atelectasis. IMPRESSION: Right basilar atelectasis without evidence of unusual course of the right upper extremity PICC. Dictated by: Dictated on workstation # [id number]
--- NOTE | 2022-06-11 11:33 | Therapy Team Discharge Summary ---
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 Upon evaluation patient performs rolling with min/mod assist, supine <-> sit CGA/SBA, transfers min/mod assist. Patient has been performing bed mobility and transfer training, WC mobility training, strengthening and stretching, and education. Patient has made fair progress and has met all of his correction goals except for transfers. Now, patient performs rolling and supine <-> sit with independence, sliding board transfer with CGA as well as car transfer (also with sliding board), propel a manual WC 1000' with independence. Patient has been discharged from this facility and will be discharged from PT at this time. Roll Left to Right (QC): 6 Sit to Lying (QC): 6 Lying to Sitting/Side of Bed(Q: 6 Sit to Stand (QC): 9 Chair/Flq-gp-Ncrgs Xfer(QC): 4 Toilet Transfer (QC): 3 Car Transfer (QC): 4 Does the Patient Walk: No and Walking Goal NOT indicated Mode of Locomotion: Wheelchair Anticipated Mode of Locomotion: Wheelchair Walk 10 feet (QC): 9 Walk 50 ft with 2 Turns(QC): 9 Walk 150 ft (QC): 9 Walking 10ft on uneven surface: 9 Does the Pt Use a Wheelchair: Yes Wheelchair Distance: 0 Wheel 50 ft with 2 turns (QC): 6 Wheel 150 ft (QC): 6 Type of Wheelchair: Manual #of Steps: 0 1 Step (curb) (QC): 9 4 Steps (QC): 9 12 Steps (QC): 9 Balance Sitting Static: Fair Balance Sitting Dynamic: Fair Picking up an Object (QC): 9 Occupational Therapy Decreased Activ Tolerance, Decreased Safety Aware, Decreased UE Strength, Dependent Transfers, Impaired Bed Mobility, Impaired Cognition, Impaired Coordination, Impaired Funct Balance, Impaired I ADL's, Impaired Self-Care Skills, Restricted Funct UE ROM, Visual-Perceptual Deficit Eating (QC): 5 (Needs assistance with packets) Oral Hygiene (QC): 6 (Pt requires encouragement to complete oral hygiene) Shower/Bathe Self (QC): 5 Upper Body Dressing (QC): 6 Lower Body Dressing (QC): 4 On/Off Footwear (QC): 9 Toileting Hygiene (QC): 4 PT Correction Goals Correction Goals PT Correction Goals Time Frame: Jul 11, 2022 Scoring Section J - Health Conditions 1. Rarely or not at all 2. Occasionally 3. Frequently 4. Almost constantly 8. Unable to answer Roll Left to Right (QC): 6 Sit to Lying (QC): 6 Lying-Sitting on Side/Bed(QC): 6 Sit to Stand (QC): 88 Chair/Wal-wb-Halbf Xfer(QC): 6 Car Transfer (QC): 6 Does the Patient Walk: No and Walking Goal NOT indicated Walk 10 feet (QC): 88 Walk 10ft-Uneven Surface(QC): 88 Walk 50ft with 2 Turns (QC): 88 Walk 150 ft (QC): 88 Does the Pt use WC or Scooter?: Yes Wheel 50 feet with 2 turns (QC: 6 1 Step (curb) (QC): 88 4 Steps (QC): 88 12 Steps (QC): 88 Picking up an Object (QC): 88 OT Behavioral Health Consultant Goals Correction Goals Time Frame: Jun 14, 2022 Acute change in mental status: 0 Inattention: 0 Disorganized thinkin Altered level of consciousness: 0 Eating (QC): 6 (not met) Oral Hygiene (QC): 6 (met) Toileting Hygiene (QC): 5 (not met) Shower/Bathe Self (QC): 5 (met) Upper Body Dressing (QC): 6 (met) Lower Body Dressing (QC): 5 (not met, supervison for safety) On/Off Footwear (QC): 9 Additional Goals: 1-Demonstrate ADL Tasks, 2-Verbalize Understanding, 3- ImproveStrength/Slade 1=Demonstrate adherence to instructed precautions during ADL tasks. 2=Patient will verbalize/demonstrate understanding of assistive devices/modifications for ADL. 3=Patient will improve strength/tolerance for activity to enable patient to perform ADL's. NUNO DUNCAN PT Jun 11, 2022 11:33
--- NOTE | 2022-06-11 11:49 | Progress Note-Post Operative ---
Post-Operative Progess Note Surgeon (s)/Wire Frame Maker (s) Surgeon RAMILA STRAUSS DO Wire Frame Maker: none Pre-Operative Diagnosis Malfunctioning PICC line Post-Operative Diagnosis same Procedure & Operative Findings Date of Procedure 06/11/22 Procedure Performed/Findings Removal of PICC line Nurse was having trouble removing picc line, I ordered an Xray to make sure it was not knotted up or twisted inside. I reviewed the films myself and went over them with Radiologist. There was an odd looking wire seen near hub of picc. I pulled the PICC line with slightly extra force and was able to remove it easily, minimal pain to pt. When it came out there was noted to be a wire on both sides of the catheter that had been holding it inside the pt. All of the PICC line came out and patient tolerated it well. Dressing placed. Anesthesia Type none Estimated Blood Loss Estimated blood loss (mL): none Specimens/Packing Specimens Removed PICC line, not sent to pathology RAMILA STRAUSS DO Jun 11, 2022 11:49
[2022-06-12] MEDS ORDERED: ACHD5005 PO (16:27)
== END 2022-06-10 14:10 | disposition home health service (06) | DRG 559 ==
PROVIDERS: ADMIT Internal Medicine; ATTEND Internal Medicine
DX: Z47.81 Encounter for orthopedic aftercare following surgical amputation (principal); L89.153 Pressure ulcer of sacral region, stage 3; D62 Acute posthemorrhagic anemia; Z89.512 Acquired absence of left leg below knee; Z89.511 Acquired absence of right leg below knee; E10.319 Type 1 diabetes mellitus with unspecified diabetic retinopathy without macular edema; E10.65 Type 1 diabetes mellitus with hyperglycemia; B37.2 Candidiasis of skin and nail; I12.9 Hypertensive chronic kidney disease with stage 1 through stage 4 chronic kidney disease, or unspecified chronic kidney disease; E78.00 Pure hypercholesterolemia, unspecified; G40.909 Epilepsy, unspecified, not intractable, without status epilepticus; M10.9 Gout, unspecified; E10.22 Type 1 diabetes mellitus with diabetic chronic kidney disease; N18.9 Chronic kidney disease, unspecified; R33.9 Retention of urine, unspecified; F43.21 Adjustment disorder with depressed mood; Z28.310 Unvaccinated for COVID-19; Z79.4 Long term (current) use of insulin; Z79.899 Other long term (current) drug therapy; Z87.891 Personal history of nicotine dependence
CPT/HCPCS: 36415; 71045; 80053; 82607; 82947; 83540; 85025; 85652; 86141; 86850; 86900; 86901; 86920; 87070; 87077; 87186; 87205

== ENCOUNTER 2022-12-15 01:35 | Inpatient (IN) | payer MEDICARE, MEDICAID ==
[~2022-12-15] VITALS: Ht 180 cm; Wt 118.9 kg
[2022-12-15] VITALS (7 sets, daily range): BP systolic 97–127; BP diastolic 56–85
[~2022-12-15 01:35] MED LIST changes: -ACETAMINOPHEN 325 MG TABLET PO PRN; -ALPRAZolam 0.25 MG (XANAX) TAB PO PRN; +AMLO-250 PO; -BISACODYL 10 MG SUPP (DULCOLAX) PR PRN; +BTH10T PO; -CALCIUM CARBONATE 500 MG (TUMS) TAB.CHEW PO PRN; -DOCUSATE SODIUM 100 MG (COLACE) CAP PO PRN; -DOCUSATE SODIUM 100 MG (COLACE) CAP PO SCH; -FLEET ENEMA ADULT 1 EA BTL PR PRN; +GLBR2.5T PO; -LACTULOSE SYRUP 10GM/15ML (ENULOSE) 30ML UDC PO PRN; +LISI10TA25 PO; -MELATONIN 3 MG TABLET PO PRN; -ONDANSETRON 4 MG (ZOFRAN) ORAL DISSOLVE TAB PO PRN; +TMSL.4C PO; -diphenhydrAMINE 25 MG TAB (BENADRYL) PO PRN; -guaiFENesin/CODEINE (ROBITUSSIN AC) 10ML UDC PO PRN
[2022-12-15] MEDS ORDERED: methylPREDNISolone 125 MG (Solu-MEDROL) VIAL IV STA (01:44)
[2022-12-15] MEDS ORDERED: RT-ALBUTEROL SULF 2.5 MG/3 ML PRE-MIX VIAL INH STA (01:44)
[2022-12-15] MEDS ORDERED: LIDOCAINE UROJET 2% GEL 10 ML PKG TOP ONE ×2 (01:45→15:00)
[2022-12-15] MEDS ORDERED: FUROSEMIDE 40 MG/4 ML INJ (LASIX) IVP ONE (01:45)
[2022-12-15] MEDS ORDERED: RT-ALBUTEROL/IPRATROPIUM 3 ML (DUONEB) VIAL INH ONE (01:45)
[2022-12-15] MEDS ORDERED: CEFEPIME INJECTION 1,000 MG in NS (IVPB) 50 ML IV ONE ×2 (01:45→03:30)
--- NOTE | 2022-12-15 01:54 | ED General ---
General Stated Complaint: SOB,BLOOD SUGAR ISSUES Source of Information: Patient (VERY LIMITED HISTORIAN), EMS, Old Records History of Present Illness Date Seen by Provider: Dec 15, 2022 Time Seen by Provider: 01:38 Initial Comments PT ARRIVES VIA EMS FROM LOCAL RESIDENCE PT HAS BEEN SICK FOR THE LAST WEEK WITH: -PRODUCTIVE COUGH -SHORTNESS OF BREATH -SWELLING ALL OVER -BLOOD SUGARS READING "HIGH" FOR THE LAST WEEK PT HAS NOT SOUGHT CARE UNTIL TONIGHT EMS REPORT O2 SATS IN 70'S ON ROOM AIR, UP TO 90'S ON 15L/NRB PT DENIES ANY HISTORY OF PNEUMONIA OR RESPIRATORY PROBLEMS ACCUCHECK BY EMS--"HIGH" EMS REPORT BP 91/27 EMS REPORT THAT LIVING CONDITIONS WERE DEPLORABLE AND PT HAS BEEN LAYING IN HIS OWN FECES AND URINE FOR UNKNOWN LENGTH OF TIME PT IS INSULIN DEPENDENT DIABETIC, 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 AT THAT TIME HE HAD REPORTED THAT PRIOR TO GOING TO [facility], HE DID NOT TAKE ANY MEDICATION, INCLUDING NO INSULIN, AND NEVER CHECKED HIS BLOOD SUGAR. PT STATES HE HAS NOT SEEN A DR SINCE HE WAS DISMISSED FROM THE HOSPITAL LAST . PT IS NOT COVID OR FLU VACCINATED. Allergies and Home Medications Allergies Coded Allergies: No Known Drug Allergies (Unverified , 01/29/22) Patient Home Medication List Allopurinol (Allopurinol) 100 Mg Tablet, 100 MG PO DAILY Prescribed by: FINA OTTO on 06/10/22545 Amlodipine Besylate (Amlodipine Besylate) 5 Mg Tablet, 5 MG PO DAILY Prescribed by: FINA OTTO on 06/10/22545 Atorvastatin Calcium (Atorvastatin Calcium) 40 Mg Tablet, 40 MG PO HS Prescribed by: FINA OTTO on 06/10/22545 Bethanechol Chloride (Urecholine) 10 Mg Tablet, 10 MG PO ACHS Prescribed by: FINA OTTO on 06/10/22545 Citalopram Hydrobromide (Citalopram HBr) 20 Mg Tablet, 20 MG PO DAILY Prescribed by: FINA OTTO on 06/10/22545 Famotidine (Famotidine) 20 Mg Tablet, 20 MG PO HS Prescribed by: FINA OTTO on 06/10/22545 Glyburide (Glyburide) 2.5 Mg Tablet, 1.25 MG PO DAILY@0630 Prescribed by: FINA OTTO on 06/10/22 0546 Hydrocodone/Acetaminophen (Hydrocodone-Acetamin 5-325 mg) 5 Mg-325 Mg Tablet, 1 TAB PO BID PRN for PAIN-MODERATE (5-7) Prescribed by: FINA OTTO on 06/12/22 1627 Levetiracetam (Keppra) 500 Mg Tablet, 500 MG PO BID Prescribed by: FINA OTTO on 06/10/22 0546 Lisinopril (Lisinopril) 10 Mg Tablet, 10 MG PO DAILY Prescribed by: FINA OTTO on 06/10/22 0546 Tamsulosin HCl (Flomax) 0.4 Mg Cap, 0.4 MG PO BID Prescribed by: FINA OTTO on 06/10/22 0546 Review of Systems Review of Systems Constitutional: see HPI, malaise, weakness Respiratory: see HPI, cough, short of breath Cardiovascular: No chest pain; edema Gastrointestinal: no symptoms reported; No abdominal pain, No nausea, No vomiting Skin: no symptoms reported Psychiatric/Neurological: No Symptoms Reported Past Zonxnkv-Olngkx-Eleseg Hx Patient Social History Tobacco Use?: Yes Tobacco type used: Cigarettes Smoking Status: Former Smoker Substance use?: Yes Substance type: Methamphetamine, Marijuana Substance frequency: Several times a month Alcohol Use?: Yes Alcohol Frequency: Once in a while Immunizations Up To Date First/Initial COVID19 Vaccinat: NO Past Medical History Surgeries: Yes (BILATERAL BKA) Amputation, Orthopedic Cardiac: Yes Chronic Edema/Swelling, High Cholesterol, Hypertension, Peripheral Vascular Neurological: Yes Seizure Disorder Musculoskeletal: Yes (BILATERAL BKA) Amputee, Gout Endocrine: Yes (MORBID OBESITY) Diabetes, Insulin dep HEENT: Yes (DIABETIC RETINOPATHY) Loss of Vision: Bilateral Psychosocial: Yes Depression Family Medical History SOCIAL HISTORY: - SMOKED IN THE PAST, MOSTLY A TEEN. --ETOH--OCCASIONAL USE --DRUGS--SMOKES METH "HERE AND THERE" . DENIES IV USE Physical Exam Vital Signs Vital Signs - First Documented 12/15/22 12/15/22 01:40 02:00 Temp 36.6 Pulse 108 Resp 28 B/P (MAP) 125/78 (94) Pulse Ox 95 O2 Delivery Non Rebreather O2 Flow Rate 10.00 FiO2 92 Capillary Refill : Height, Weight, BMI Height: '" Weight: lbs. oz. kg; 57.42 BMI Method: General Appearance: Mild Distress, Obese (MORBIDLY OBESE), Other (LETHARGIC BUT AWAKE. VERY UNKEMPT AND EXTREMELY MALODOROUS, CLOTHING / BEDDING SATURATED WITH URINE AND FECES. LARGE AMOUNT OF FECES IS DRIED, CAKED AND ADHERED TO SKIN) Respiratory: Accessory Muscle Use, Decreased Breath Sounds (DECREASED AERATION IN BILATERAL BASES), Respiratory Distress (MILD ), Other (DIFFUSE RHONCHI BILATERALLY, WITH LOOSE COUGH; SIGNIFICANT ORTHOPNEA) Cardiovascular: Tachycardia, Other (UNABLE TO DETERMINE IF JVD IS PRESENT DUE TO BODY HABITUS. ) Gastrointestinal: Non Tender, Other (PITTING EDEMA OF ENTIRE ABDOMEN) Genital/Rectal: Other (SIGNIFICANT SCROTAL AND PENILE EDEMA. ) Extremity: Other (PT HAS ANASARCA WITH MASSIVE EDEMA OF ENTIRE BODY--FOREARMS WITH 4+ PITTING EDEMA. BILATERAL BKA. ) Neurologic/Psychiatric: Alert, Oriented x3, Other (LETHARGIC, GROSS MOTOR AND SENSORY ARE INTACT. ) Skin: Diaphoresis, Other (WARM. MULTIPLE DECUBITUS ULCERS TO BUTTOCKS, SACRUM AND COCCYX) Focused Exam Sepsis Stage: Sepsis Possible Source: Pulmonary Lactate Level 12/15/22 02:12: Lactic Acid Level 1.68 Time of Focused Exam: 03:20 Respiratory: No Respiratory Distress, Other (ON BIPAP, NO WHEEZING, INCREASED AERATION, DECREASED RHONCHI. RESPIRATIONS NON-LABORED) Cardiovascular: Regular Rate, Rhythm Capillary Refill: Less Than 3 Seconds Skin: warm/dry Lactic Acid Level Laboratory Tests Test 12/15/22 02:12 Lactic Acid Level 1.68 MMOL/L (0.50-2.00) Within 3hrs of presentation: Admin ABX, Blood cultures prior to ABX's, Focus exam, Lactate level Progress/Results/Core Measures Suspected Sepsis SIRS Temperature: Pulse: Respiratory Rate: Laboratory Tests 12/15/22 02:12: White Blood Count 13.6H Blood Pressure / Mean: 12/15/22 02:12: Lactic Acid Level 1.68 Laboratory Tests 12/15/22 02:12: Creatinine 3.97H, INR Comment 1.2, Platelet Count 418H, Total Bilirubin 0.2 Results/Orders Lab Results Laboratory Tests Test 12/15/22 01:42 12/15/22 01:51 12/15/22 01:52 12/15/22 02:12 Range/Units Glucometer 280 H 70-110 MG/DL Influenza Type A (RT-PCR) Not Detected Not Detecte Influenza Type B (RT-PCR) Not Detected Not Detecte SARS-CoV-2 RNA (RT-PCR) Not Detected Not Detecte Blood Gas Puncture Site R RAD Blood Gas Patient Temperature 36.6 Arterial Blood pH 7.23 *L 7.37-7.43 Arterial Blood Partial Pressure CO2 47 H 35-45 MMHG Arterial Blood Partial Pressure O2 79 79-93 MMHG Arterial Blood HCO3 19 L 23-27 MMOL/L Arterial Blood Total CO2 20.6 L 21.0-31.0 MMOL/L Arterial Blood Oxygen Saturation 92 L 94-100 % Arterial Blood Base Excess -7.2 L -2.5-2.5 MMOL/L Ariel Test YES-POS Blood Gas Ventilator Setting NO Blood Gas Inspired Oxygen UNK White Blood Count 13.6 H 4.3-11.0 10^3/uL Red Blood Count 4.21 L 4.30-5.52 10^6/uL Hemoglobin 11.0 L 13.3-17.7 g/dL Hematocrit 35 L 40-54 % Mean Corpuscular Volume 82 80-99 fL Mean Corpuscular Hemoglobin 26 25-34 pg Mean Corpuscular Hemoglobin Concent 32 32-36 g/dL Red Cell Distribution Width 14.1 10.0-14.5 % Platelet Count 418 H 130-400 10^3/uL Mean Platelet Volume 10.6 9.0-12.2 fL Immature Granulocyte % (Auto) 0 % Neutrophils (%) (Auto) 92 H 42-75 % Lymphocytes (%) (Auto) 3 L 12-44 % Monocytes (%) (Auto) 4 0-12 % Eosinophils (%) (Auto) 1 0-10 % Basophils (%) (Auto) 1 0-10 % Neutrophils # (Auto) 12.5 H 1.8-7.8 10^3/uL Lymphocytes # (Auto) 0.4 L 1.0-4.0 10^3/uL Monocytes # (Auto) 0.6 0.0-1.0 10^3/uL Eosinophils # (Auto) 0.1 0.0-0.3 10^3/uL Basophils # (Auto) 0.1 0.0-0.1 10^3/uL Immature Granulocyte # (Auto) 0.0 0.0-0.1 10^3/uL Neutrophils % (Manual) 59 % Lymphocytes % (Manual) 6 % Monocytes % (Manual) 4 % Band Neutrophils 31 % Polychromasia SLIGHT Daphnie Cells MODERATE Erythrocyte Sedimentation Rate 81 H 0-15 MM/HR Prothrombin Time 15.3 H 12.2-14.7 SEC INR Comment 1.2 0.8-1.4 Activated Partial Thromboplast Time 40 H 24-35 SEC D-Dimer 6.66 H 0.00-0.49 UG/ML Sodium Level 132 L 135-145 MMOL/L Potassium Level 5.4 H 3.6-5.0 MMOL/L Chloride Level 104 98-107 MMOL/L Carbon Dioxide Level 16 L 21-32 MMOL/L Anion Gap 12 5-14 MMOL/L Blood Urea Nitrogen 66 H 7-18 MG/DL Creatinine 3.97 H 0.60-1.30 MG/DL Estimat Glomerular Filtration Rate 18 BUN/Creatinine Ratio 17 Glucose Level 334 H 70-105 MG/DL Lactic Acid Level 1.68 0.50-2.00 MMOL/L Calcium Level 8.1 L 8.5-10.1 MG/DL Corrected Calcium 9.8 8.5-10.1 MG/DL Magnesium Level 2.0 1.6-2.4 MG/DL Total Bilirubin 0.2 0.1-1.0 MG/DL Aspartate Amino Transf (AST/SGOT) 25 5-34 U/L Alanine Aminotransferase (ALT/SGPT) 25 0-55 U/L Alkaline Phosphatase 208 H 40-136 U/L Total Creatine Kinase 71 30-200 U/L Creatine Kinase MB 8.2 *H <6.6 NG/ML Myoglobin 303.0 H 10.0-92.0 NG/ML Troponin I 3.698 *H <0.028 NG/ML C-Reactive Protein High Sensitivity 39.38 H 0.00-0.50 MG/DL B-Type Natriuretic Peptide 2774.5 H <100.0 PG/ML Total Protein 5.1 L 6.4-8.2 GM/DL Albumin 1.9 L 3.2-4.5 GM/DL Amylase Level 9 L 25-125 U/L Lipase 6 L 8-78 U/L TSH Onida Testing 3.68 0.35-4.94 UIU/ML Acetaminophen Level < 10 L 10-30 UG/ML Serum Alcohol < 10 <10 MG/DL Test 12/15/22 03:28 Range/Units Blood Gas Puncture Site R RAD Blood Gas Patient Temperature 97.3 Arterial Blood pH 7.28 *L 7.37-7.43 Arterial Blood Partial Pressure CO2 42 35-45 MMHG Arterial Blood Partial Pressure O2 69 L 79-93 MMHG Arterial Blood HCO3 19 L 23-27 MMOL/L Arterial Blood Total CO2 20.2 L 21.0-31.0 MMOL/L Arterial Blood Oxygen Saturation 90 L 94-100 % Arterial Blood Base Excess -6.6 L -2.5-2.5 MMOL/L Ariel Test YES-POS Blood Gas Ventilator Setting NO Blood Gas Inspired Oxygen 50% My Orders Orders - SLY POWERS DO Accucheck Stat ONCE (12/15/22:44) Ed Iv/Invasive Line Start (12/15/22:44) Ekg Tracing (12/15/2244) Catheter(Urinary) Insert & Ass 03,15 (12/15/22:44) O2 (12/15/22:44) Monitor-Rhythm Ecg Trace Only (12/15/22:44) Chest 1 View, Ap/Pa Only (12/15/22:44) Alcohol (12/15/22:44) Amylase (12/15/22:44) Arterial Blood Gas (12/15/22:44) Bnp Lacy (12/15/22:44) Cbc With Automated Diff (12/15/22:44) Comprehensive Metabolic Panel (12/15/22:44) Creatine Kinase (12/15/22:44) Creatine Kinase Mb (12/15/22:44) Hs C Reactive Protein (12/15/22:44) Fibrin Degradation Products (12/15/22:44) Drug Screen Stat (Urine) (12/15/22:44) Lactic Acid Analyzer (12/15/22:44) Lipase (12/15/22:44) Magnesium (12/15/22:44) Protime With Inr (12/15/22:44) Partial Thromboplastin Time (4/3/23 01:44) Thyroid Analyzer (12/15/22 01:44) Ua Culture If Indicated (12/15/22 01:44) Blood Culture (12/15/22 01:44) Erythrocyte Sedimentation Rate (12/15/22 01:44) Myoglobin Serum (12/15/22 01:44) Troponin I Lacy (12/15/22 01:44) Cefepime Injection (Maxipime Injection) (12/15/22 01:45) Albuterol Pre-Mix Nebs (Rt) (Proventil (12/15/22 01:44) Albuterol/Ipra Inhalation Soln (Duoneb I (12/15/22 01:45) Dexamethasone Injection (Decadron Injec (12/15/22 01:45) Rt Request For Service (12/15/22 01:44) Methylprednisolone Sod Succ (Solu-Medrol (12/15/22 01:44) Covid 19 Inhouse Test (12/15/22 01:44) Sputum Culture (12/15/22 02:40) Urine Culture (12/15/22 01:44) Ed Iv/Invasive Line Start (12/15/22 01:44) Ed Iv/Invasive Line Start (12/15/22 01:44) Vital Signs Adult Sepsis Patie Q15M (12/15/22 01:44) O2 (12/15/22 01:44) Remove Rings In Anticipation O (12/15/22 01:44) Lidocaine 2% (Urojet) (Xylocaine Urojet) (12/15/22 01:45) Svn Small Volume Nebulizer (12/15/22 01:44) Svn Small Volume Nebulizer (12/15/22 01:44) Influenza A And B By Pcr (12/15/22 01:44) Isolation Central Supply Req (12/15/22 01:44) Furosemide Injection (Lasix Injection) (12/15/22 01:45) Acetaminophen (12/15/22 01:44) Manual Differential (12/15/22 02:12) Arterial Blood Draw - Obtain (12/15/22 ) Insulin (Regular) Human (Novolin R (Per (12/15/22 03:00) Enoxaparin Injection (Lovenox Injection) (12/15/22 03:15) Enoxaparin Injection (Lovenox Injection) (12/15/22 03:30) Arterial Blood Gas (12/15/22 03:21) Cefepime Injection (Maxipime Injection) (12/15/22 03:30) Arterial Blood Draw - Obtain (12/15/22 ) Aspirin Chewable Tablet (Baby Aspirin Ch (12/15/22 04:45) Medications Given in ED Current Medications Medications Dose Ordered Sig/Bang Route Start Time Stop Time Status Last Admin Dose Admin Albuterol/ Ipratropium 3 ml ONCE ONCE INH 12/15/22 01:45 12/15/22 01:48 DC 12/15/22 02:11 3 ML Aspirin 324 mg ONCE ONCE PO 12/15/22 04:45 12/15/22 04:46 DC 12/15/22 05:26 324 MG Cefepime HCl 1000 mg/Sodium Chloride 50 ml @ 100 mls/hr ONCE ONCE IV 12/15/22 01:45 12/15/22 02:14 DC 12/15/22 02:40 100 MLS/HR Dexamethasone Sodium Phosphate 20 mg ONCE ONCE IH 12/15/22 01:45 12/15/22 01:49 DC 12/15/22 02:11 20 MG Enoxaparin Sodium 120 mg ONCE ONCE SC 12/15/22 03:30 12/15/22 03:31 DC 12/15/22 03:41 120 MG Furosemide 80 mg ONCE ONCE IVP 12/15/22 01:45 12/15/22 01:49 DC 12/15/22 02:41 80 MG Insulin Human Regular 15 unit ONCE ONCE IV 12/15/22 03:00 12/15/22 03:01 DC 12/15/22 03:41 15 UNIT Vital Signs/I&O 12/15/22 12/15/22 12/15/22 12/15/22 01:40 02:00 02:07 03:31 Temp 36.6 Pulse 108 104 101 Resp 28 26 26 B/P (MAP) 125/78 (94) Pulse Ox 95 95 95 O2 Delivery Non Rebreather Non Rebreather O2 Flow Rate 10.00 10.00 50.00 50.00 FiO2 92 Capillary Refill : Progress Note : Progress Note PLACED IN ISOLATION ROOM PPE WORN COVID AND FLU TESTING DONE SEPSIS PROTOCOL INITIATED PT IMMEDIATELY PLACED ON BIPAP--O2 SATS UP TO 96%, AND RESPIRATIONS ARE MUCH LESS LABORED. PT TOLERATING BIPAP VERY WELL AND STATES HE FEELS BETTER MUCH DIFFICULTY IN OBTAINING IV ACCESS DUE TO EDEMA MULTIPLE ATTEMPTS TO PLACE LOPES WERE UNSUCCESSFUL DUE TO OBESITY AND SIGNIFICANT EDEMA OF PENIS AND SCROTUM PT WAS GIVEN: -SOLU-MEDROL -NEB TREATMENTS -LASIX -LOVENOX -CEFEPIME -INSULIN LENGTHY DISCUSSION WITH PT ABOUT MULTIPLE DIAGNOSES AND DISCUSSED POOR PROGNOSIS, AND POSSIBILITY THAT HE MIGHT NOT SURVIVE THIS, AND HE APPEARS TO UNDERSTAND PT STATES HE DOES NOT WANT TO BE RESUSCITATED OR BE ON VENTILATOR OR DIALYSIS, OR ANY AGGRESSIVE SURGERIES/PROCEDURES I SPECIFICALLY ASKED HIM IF HE WANTS TO AND HE STATES NO. PT IS CRITICALLY ILL WITH MULTIPLE ISSUES INCLUDING: -SEPSIS WITH PNEUMONIA -NSTEMI -ACUTE RENAL FAILURE -UNCONTROLLED DIABETES WITH POSSIBLE DKA -ACIDOSIS--LIKELY MIXED METABOLIC AND RESPIRATORY -CHF -SEVERE ANASARCA -IMMOBILITY WITH BILATERAL BKA'S 05/2022 -MULTIPLE DECUBITUS ULCERS -LONGSTANDING NON-COMPLIANCE -HISTORY OF METHAMAPHETAMINE AND MARIJUANA USE. -INABILITY TO CARE FOR SELF WITH POOR LIVING CONDITIONS. UNABLE TO DO ANY KIND OF FLUID THERAPY FOR SEPSIS AND DIABETES AT THIS TIME DUE TO SIGNIFICANT FLUID OVERLOAD WITH CHF WITH RESPIRATORY FAILURE, AND MASSIVE ANASARCA, WITH ACUTE RENAL FAILURE. REVIEWED PRIOR RECORDS--SINGLE ER VISIT IN 2021, AND ADMIT TO REHAB UNIT POST BILATERAL BKA DONE IN , H&P, CONSULTS AND DISCHARGE SUMMARY A FEMALE FRIEND, THAT PT HAS BEEN LIVING WITH ARRIVES LATER. UPDATED HER ON PT'S CONDITION. ECG Initial ECG Impression Date: Dec 15, 2022 Initial ECG Impression Time: 02:30 Initial ECG Rate: 107 Initial ECG Rhythm: S.Tach Initial ECG Intervals MS 122 QRS 93 QT/QTC 317/380 Initial ECG Impression: Nonspecific Changes Initial ECG Comparisson: No Previous ECG Available Diagnostic Imaging Comments CXR--PENDING RADIOLOGIST REVIEW -CHF -RUL PNUEMONIA -LLL INFILTRATE/ATELECTASIS Reviewed: Reviewed by Me Departure Communication (Admissions) 1856--SPOKE WITH DR. MEJÍA, ACCEPTS PT FOR ADMIT. WILL CONSULT CARDIOLOGY IN AM. CURRENTLY NO ICU BEDS AVAILABLE, BUT WILL HAVE A BED AVAILABLE AT 0700. 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 Referrals: NO,LOCAL PHYSICIAN (PCP/Family) Primary Care Physician SLY POWERS DO Dec 15, 2022 01:53
[2022-12-15 02:09] LABS: ABG BASE EXCESS -7.2 MMOL/L (-2.5-2.5); ABG OXYGEN SATURATION 92 % (94-100); ABG PCO2 47 MMHG (35-45); ABG PO2 79 MMHG (79-93); ABG TCO2 20.6 MMOL/L (21.0-31.0)
[2022-12-15 02:10] LABS: ALLENS TEST YES-POS
[2022-12-15 02:11] LABS: PATIENT TEMP 36.6; VENTILATOR NO
[2022-12-15 02:13] LABS: ABG PH 7.23 (7.37-7.43)
[2022-12-15 02:42] LABS: BASOPHILS # (AUTO) 0.1 10^3/uL (0.0-0.1); BASOPHILS % (AUTO) 1 % (0-10); EOSINOPHILS # (AUTO) 0.1 10^3/uL (0.0-0.3); EOSINOPHILS % (AUTO) 1 % (0-10); HEMATOCRIT 35 % (40-54); LYMPHOCYTES # (AUTO) 0.4 10^3/uL (1.0-4.0); LYMPHOCYTES % (AUTO) 3 % (12-44); MEAN CORPUSCULAR HEMOGLOBIN 26 pg (25-34); MEAN CORPUSCULAR HGB CONC 32 g/dL (32-36); MEAN CORPUSCULAR VOLUME 82 fL (80-99); MEAN PLATELET VOLUME 10.6 fL (9.0-12.2); MONOCYTES # (AUTO) 0.6 10^3/uL (0.0-1.0); MONOCYTES % (AUTO) 4 % (0-12); NEUTROPHILS # (AUTO) 12.5 10^3/uL (1.8-7.8); NEUTROPHILS % (AUTO) 92 % (42-75); PLATELET COUNT 418 10^3/uL (130-400); WHITE BLOOD COUNT 13.6 10^3/uL (4.3-11.0)
[2022-12-15 02:47] LABS: ALBUMIN 1.9 GM/DL (3.2-4.5); CHLORIDE 104 MMOL/L (98-107); POTASSIUM 5.4 MMOL/L (3.6-5.0); SODIUM 132 MMOL/L (135-145)
[2022-12-15 02:48] LABS: CALCIUM 8.1 MG/DL (8.5-10.1)
[2022-12-15 02:49] LABS: AMYLASE 9 U/L (25-125)
[2022-12-15 02:50] LABS: GLUCOSE 334 MG/DL (70-105); TOTAL PROTEIN 5.1 GM/DL (6.4-8.2)
[2022-12-15 02:51] LABS: BILIRUBIN,TOTAL 0.2 MG/DL (0.1-1.0); CARBON DIOXIDE 16 MMOL/L (21-32)
[2022-12-15 02:53] LABS: ALKALINE PHOSPHATASE 208 U/L (40-136); CREATININE SERUM 3.97 MG/DL (0.60-1.30); GFR ESTIMATED 18
[2022-12-15 02:54] LABS: BUN/CREATININE RATIO 17
[2022-12-15 02:56] LABS: ALANINE AMINOTRANSFERASE 25 U/L (0-55)
[2022-12-15 02:57] LABS: FIBRIN DEGRADATION PRODUCTS 6.66 UG/ML (0.00-0.49); INR 1.2 (0.8-1.4); LIPASE 6 U/L (8-78); PROTHROMBIN TIME PATIENT 15.3 SEC (12.2-14.7)
[2022-12-15 02:58] LABS: CREATINE KINASE 71 U/L (30-200)
[2022-12-15] MEDS ORDERED: inSUlin (REGULAR) HUMAN 1 UNIT/0.01 ML (CHARGE PER UNIT) IV ONE (03:00)
[2022-12-15 03:09] LABS: ACETAMINOPHEN < 10 UG/ML (10-30)
[2022-12-15 03:11] LABS: CREATINE KINASE MB 8.2 NG/ML (<6.6)
[2022-12-15] MEDS ORDERED: ENOXAPARIN 150 MG/ML (LOVENOX) SYR SQ ONE (03:15)
[2022-12-15 03:16] LABS: BAND NEUTROPHILS 31 %; BURR CELLS MODERATE; LYMPHOCYTES % (MANUAL) 6 %; MONOCYTES % (MANUAL) 4 %; NEUTROPHILS % (MANUAL) 59 %; POLYCHROMASIA SLIGHT
[2022-12-15 03:17] LABS: ERYTHROCYTE SEDIMENTATION RATE 81 MM/HR (0-15); TSH (THYROID ANALYZER) 3.68 UIU/ML (0.35-4.94)
[2022-12-15] MEDS ORDERED: ENOXAPARIN 60 MG/0.6 ML (LOVENOX) SYR SC ONE (03:30)
[2022-12-15 03:36] LABS: ABG BASE EXCESS -6.6 MMOL/L (-2.5-2.5); ABG OXYGEN SATURATION 90 % (94-100); ABG PCO2 42 MMHG (35-45); ABG PO2 69 MMHG (79-93); ABG TCO2 20.2 MMOL/L (21.0-31.0); ALLENS TEST YES-POS; INSPIRED O2 50%
[2022-12-15 03:37] LABS: ABG PH 7.28 (7.37-7.43); PATIENT TEMP 97.3; VENTILATOR NO
[2022-12-15] MEDS ORDERED: ASPIRIN 81 MG CHEW (CHILDREN'S ASA) PO ONE (04:45)
--- NOTE | 2022-12-15 06:10 | Diagnostic Imaging Report ---
INDICATION: Dyspnea. FINDINGS: There are bilateral airspace opacities consistent with multifocal bilateral pneumonia. The heart is enlarged and an element of congestion could not be excluded. There are small pleural effusions. There is no pneumothorax. IMPRESSION: New bilateral airspace opacities most likely pneumonia with small pleural effusions and upper limits heart size. Dictated by: Dictated on workstation # [id number]
[2022-12-15] MEDS ORDERED: FUROSEMIDE 40 MG/4 ML INJ (LASIX) IV ONE (08:30)
[2022-12-15] MEDS ORDERED: inSUlin ASPART (NovoLOG) 1 UNIT/0.01 ML (CHARGE PER UNIT) SC SCH (09:00)
--- NOTE | 2022-12-15 09:25 | Consultation-Cardiology ---
HPI-Cardiology Cardiology Consultation: Date of Consultation 12/15/22 Time Seen by a Provider: 09:10 Date of Admission Attending Physician No,Local Physician Admitting Physician Admitting Physician: Marcia Funk MD Attending Physician: Marcia Funk MD Consulting Physician RYLEY HANSEN MD, MA, FACP, FACC, FSCAI, CCDS Attending physician: Dr Funk PCP: Amanda Liu APRN ([facility]) HPI: Chief Complaint: Shortness of breath 42 yo man who was brought to the ER with shortness of breath. EMS reported alyssa cast sat in the 70s at initial eval. Pt was found lying in feces and urine (unknown length of time). He says he has been increasingly short of breath for several days. Has had cough productive of yellowish sputum, gen malaise, and increasing weakness. Does report intermittent use of methamphetamine. Last use was 2 days ago, he says. He denies any cp or palp. He does not recally any syncope. He does not report any significant body swelling. 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 States blood sugars have been high lately, can't tell how high Review of Systems-Cardiology Review of Systems Constitutional: malaise, tiredness; No weight loss, No weight gain Eyes: No vision change Ears/Nose/Throat: No ear discharge, No nasal drainage, No recent hearing loss Respiratory: As described under HPI Cardiovascular: As described under HPI Gastrointestinal: No diarrhea, No nausea, No vomiting Genitourinary: No dysuria, No hematuria, No urine frequency changes Musculoskeletal: No back pain, No joint pain; other (bilat BKA) Skin: No rash, No ulcerations Psychiatric/Neurological: No seizure, No focal weakness, No syncope Hematologic: No bleeding abnormalities NXA-Wnftfh-Ncjvau Hx Patient Social History Smoking Status: Former Smoker Have you traveled recently?: No Alcohol Use?: Yes Substance type: Methamphetamine, Marijuana Tobacco type used: Cigarettes Past Medical History PMH As described under Assessment. Family Medical History Family Medical History: He report fam h/o CAD on his mother's side but does not know any details Allergies and Home Medications Allergies Coded Allergies: No Known Drug Allergies (Unverified , 01/29/22) Patient Home Medication List Home Medication List Reviewed: Yes Allopurinol (Allopurinol) 100 Mg Tablet, 100 MG PO DAILY Prescribed by: FINA OTTO on 06/10/22545 Amlodipine Besylate (Amlodipine Besylate) 5 Mg Tablet, 5 MG PO DAILY Prescribed by: FINA OTTO on 06/10/22545 Atorvastatin Calcium (Atorvastatin Calcium) 40 Mg Tablet, 40 MG PO HS Prescribed by: FINA OTTO on 06/10/22545 Bethanechol Chloride (Urecholine) 10 Mg Tablet, 10 MG PO ACHS Prescribed by: FINA OTTO on 06/10/22545 Citalopram Hydrobromide (Citalopram HBr) 20 Mg Tablet, 20 MG PO DAILY Prescribed by: FINA OTTO on 06/10/22545 Famotidine (Famotidine) 20 Mg Tablet, 20 MG PO HS Prescribed by: FINA OTTO on 06/10/22545 Glyburide (Glyburide) 2.5 Mg Tablet, 1.25 MG PO DAILY@0630 Prescribed by: FINA OTTO on 06/10/22545 Hydrocodone/Acetaminophen (Hydrocodone-Acetamin 5-325 mg) 5 Mg-325 Mg Tablet, 1 TAB PO BID PRN for PAIN-MODERATE (5-7) Prescribed by: FINA OTTO on 06/12/22 162 Levetiracetam (Keppra) 500 Mg Tablet, 500 MG PO BID Prescribed by: FINA OTTO on 06/10/22545 Lisinopril (Lisinopril) 10 Mg Tablet, 10 MG PO DAILY Prescribed by: FINA OTTO on 06/10/22545 Tamsulosin HCl (Flomax) 0.4 Mg Cap, 0.4 MG PO BID Prescribed by: FINA OTTO on 06/10/22545 Physical Exam-Cardiology Physical Exam Vital Signs/I&O 12/15/22 12/15/22 12/15/22 12/15/22 01:40 02:00 02:07 03:31 Temp 36.6 Pulse 108 104 101 Resp 28 26 26 B/P (MAP) 125/78 (94) Pulse Ox 95 95 95 O2 Delivery Non Rebreather Non Rebreather O2 Flow Rate 10.00 10.00 50.00 50.00 FiO2 92 12/15/22 12/15/22 07:13 08:04 Pulse 93 90 Resp 23 21 B/P (MAP) 99/63 Pulse Ox 100 100 O2 Delivery Room Air O2 Flow Rate 50.00 Capillary Refill : Less Than 3 Seconds Constitutional: AAO x 3, well-developed, well-nourished, other (on BiPAP) HEENT: EOMI, hearing is well preserved; No xanthelasmas are seen Neck: carotid pulses are 2 + bilaterally, with good upstrokes Respiratory: No accessory muscle use; chest expansion is symmetric, chest is bilaterally symmetric, other (somewhat diminished air entry at the bases, bibasilar crackles) Cardiovascular: regular rate-rhythm, S1 and S2, systolic murmur (soft CHAIM at card base); No friction rub Gastrointestinal: No tender; soft; No guarding, No rebound; audible bowel sounds Extremities: other (bilateral BKA); No clubbing, No cyanosis, No significant edema Neurologic/Psychiatric: oriented x 3, other (moves all limbs) Skin: warm/dry; No cyanosis, No rash on exposed areas, No ulcerations on exposed areas Data Review Labs Laboratory Tests 12/15/22 01:42: Glucometer 280H 12/15/22 01:51: Influenza Type A (RT-PCR) Not Detected, Influenza Type B (RT-PCR) Not Detected, SARS-CoV-2 RNA (RT-PCR) Not Detected 12/15/22 01:52: Blood Gas Puncture Site R RAD, Blood Gas Patient Temperature 36.6, Arterial Bloo d pH 7.23*L, Arterial Blood Partial Pressure CO2 47H, Arterial Blood Partial Pressure O2 79, Arterial Blood HCO3 19L, Arterial Blood Total CO2 20.6L, Arterial Blood Oxygen Saturation 92L, Arterial Blood Base Excess -7.2L, Ariel Test YES-POS, Blood Gas Ventilator Setting NO, Blood Gas Inspired Oxygen UNK 12/15/22 02:12: White Blood Count 13.6H, Red Blood Count 4.21L, Hemoglobin 11.0L, Hematocrit 35L , Mean Corpuscular Volume 82, Mean Corpuscular Hemoglobin 26, Mean Corpuscular Hemoglobin Concent 32, Red Cell Distribution Width 14.1, Platelet Count 418H, Mean Platelet Volume 10.6, Immature Granulocyte % (Auto) 0, Neutrophils (%) (Auto) 92H, Lymphocytes (%) (Auto) 3L, Monocytes (%) (Auto) 4, Eosinophils (%) (Auto) 1, Basophils (%) (Auto) 1, Neutrophils # (Auto) 12.5H, Lymphocytes # (Auto) 0.4L, Monocytes # (Auto) 0.6, Eosinophils # (Auto) 0.1, Basophils # (Auto) 0.1, Immature Granulocyte # (Auto) 0.0, Neutrophils % (Manual) 59, Lymphocytes % (Manual) 6, Monocytes % (Manual) 4, Band Neutrophils 31, Polychromasia SLIGHT, [place] Cells MODERATE, Erythrocyte Sedimentation Rate 81H, Prothrombin Time 15.3H, INR Comment 1.2, Activated Partial Thromboplast Time 40H , D-Dimer 6.66H, Sodium Level 132L, Potassium Level 5.4H, Chloride Level 104, Carbon Dioxide Level 16L, Anion Gap 12, Blood Urea Nitrogen 66H, Creatinine 3.97H, Estimat Glomerular Filtration Rate 18, BUN/Creatinine Ratio 17, Glucose Level 334H, Lactic Acid Level 1.68, Calcium Level 8.1L, Corrected Calcium 9.8, Magnesium Level 2.0, Total Bilirubin 0.2, Aspartate Amino Transf (AST/SGOT) 25, Alanine Aminotransferase (ALT/SGPT) 25, Alkaline Phosphatase 208H, Total Creatine Kinase 71, Creatine Kinase MB 8.2*H, Myoglobin 303.0H, Troponin I 3.698*H, C-Reactive Protein High Sensitivity 39.38H, B-Type Natriuretic Peptide 2774.5H, Total Protein 5.1L, Albumin 1.9L, Amylase Level 9L, Lipase 6L, TSH [place] Testing 3.68, Acetaminophen Level < 10L, Serum Alcohol < 10 12/15/22 03:28: Blood Gas Puncture Site R RAD, Blood Gas Patient Temperature 97.3, Arterial Blood pH 7.28*L, Arterial Blood Partial Pressure CO2 42, Arterial Blood Partial Pressure O2 69L, Arterial Blood HCO3 19L, Arterial Blood Total CO2 20.2L, Arterial Blood Oxygen Saturation 90L, Arterial Blood Base Excess -6.6L, Ariel Test YES-POS, Blood Gas Ventilator Setting NO, Blood Gas Inspired Oxygen 50% Laboratory Tests 12/15/22 02:12 A/P-Cardiology Assessment/Admission Diagnosis Ac resp failure, probably multifactorial - ac systolic CHF (HFrEF) - Echo shows LVEF approx 35-40%, mod MR, PASP 35-40 mm Hg - pneumonia and suspected sepsis Troponin elevation due to hypoxemia (probably prolonged): type 2 [place] Renal failure: probably acute on chronic Diabetes, probably type I, treated with insulin since age 17 Drug use: last meth use two days prior to admission Bilateral BKA, due to DM complications (per patient report) Desires to be managed conservatively only Discussion and Recomendations * Complex management. Guarded prognois * Will try diuretics for heart failure. If not responsive to diuretics or if deteriorating renal function, we recommend transfer to tertiary care facility for nephrology eval / dialysis * Will add dobutamine in low dose to aid cardiac output. Monitor for arrhythmia * We recommend that labs be closely monitored and any electrolyte abnormalities be treated (Hospitalist service managing) * Hosp svce managing DM, pneumonia, sepsis, renal failure RYLEY HANSEN MD FACP FAC CCDS Dec 15, 2022 09:25
[2022-12-15] MEDS: DOBUTamine DRIP 250 ML IV SCH (10:04)
--- NOTE | 2022-12-15 11:03 | Tele-ICU Consult ---
History of Present Illness History of Present Illness Date Seen by Provider: Dec 15, 2022 Time Seen by Provider: 08:58 Date of Admission (Tele-ICU Physician , consultation as per request of PCP Service provided via interactive audio and video telecommunications E-CARE system to a patient admitted to ICU bed in [facility]. Available chart/ vitals / labs / Images reviewed H&P is from ER notes Patient's information available about PMH, Shx, Fhx allergy reviewed inEMR. ROS as per chart and RN report Now in ICU, hemodynamically stable Video assessment done using teleICU camera, rest of exam as per RN Discussed with RN. Hospital course: (12/15) 42M admitted with PNA, hypoxia, ARF, on Bipap 28/04 100% rr 21 - tv 900 A/PAcute resp failure - suspeted CHF - diuresis - on NIPPV 28/04 100% rr 21 - tv 900- will repeat ABG , wean down Fio2 CHF with elv trop and BNP - ECHO ordered - full dolse lovenox -cards consulted - lasix given BO, Cr 3.7 on admission - as per RN , can not place day - will scan bladder - US renal ordered - follow K latter today Elev ddimer - already on full dose of Lovenox for AC - check LE US - ECHO ordered - migh need VQ - follow infection , suspected probable PNA - empiric abx started - UA will be ontained - ? skin /ulcers Hypotension - etiology most likely multifactorial - follow - await echo - ? needs inotrops DM ( with Bilateral BKA, due to DM complications) - ISS Intermittent use of methamphetamine. 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 Discussed with RN to reach out if any questions or concerns A total of 40 minutes of critical care time was devoted to this patient today, required to treat and/or prevent further deterioration of critical care condition ( as above ) . I am remotely monitoring this patient from another state. I am unable to do the bedside exam, and history/physical and pertinent information is taken from other notes in the computer and bedside staff. . Allergies and Home Medications Allergies Coded Allergies: No Known Drug Allergies (Unverified , 01/29/22) Home Medications Allopurinol 100 Mg Tablet, 100 MG PO DAILY Prescribed by: FINA OTTO on 06/10/22 05 Amlodipine Besylate 5 Mg Tablet, 5 MG PO DAILY Prescribed by: FINA OTTO on 06/10/22545 Atorvastatin Calcium 40 Mg Tablet, 40 MG PO HS Prescribed by: FINA OTTO on 06/10/22545 Bethanechol Chloride 10 Mg Tablet, 10 MG PO ACHS Prescribed by: FINA OTTO on 06/10/22545 Citalopram Hydrobromide 20 Mg Tablet, 20 MG PO DAILY Prescribed by: FINA OTTO on 06/10/22545 Famotidine 20 Mg Tablet, 20 MG PO HS Prescribed by: FINA OTTO on 06/10/22545 Glyburide 2.5 Mg Tablet, 1.25 MG PO DAILY@0630 Prescribed by: FINA OTTO on 06/10/22545 Hydrocodone/Acetaminophen 5 Mg-325 Mg Tablet, 1 TAB PO BID PRN for PAIN-MODERATE (5-7) Prescribed by: FINA OTTO on 06/12/22 1627 Levetiracetam 500 Mg Tablet, 500 MG PO BID Prescribed by: FINA OTTO on 06/10/22545 Lisinopril 10 Mg Tablet, 10 MG PO DAILY Prescribed by: FINA OTTO on 06/10/22545 Tamsulosin HCl 0.4 Mg Cap, 0.4 MG PO BID Prescribed by: FINA OTTO on 06/10/22545 Past Medical/Social/Family Hx Patient Social History Tobacco Use?: Yes Tobacco type used: Cigarettes Smoking Status: Former Smoker Substance use?: Yes Substance type: Methamphetamine, Marijuana Substance frequency: Several times a month Alcohol Use?: Yes Alcohol Frequency: Once in a while Immunizations Up To Date Influenza Vaccine Up-to-Date: No; Not Current First/Initial COVID19 Vaccinat: NO Second COVID19 Vaccination Guevara: NO Tetanus Booster (TDap): Unknown Hepatitis B: No TB Skin Test: None Current Status Communicates: Verbally Primary Language: Malian Preferred Spoken Language: Malian Is interpretation needed?: No Family Medical History Family Hx: SOCIAL HISTORY: - SMOKED IN THE PAST, MOSTLY A TEEN. --ETOH--OCCASIONAL USE --DRUGS--SMOKES METH "HERE AND THERE" . DENIES IV USE Review of Systems Constitutional: see HPI Focused Exam Lactate Level 12/15/22 02:12: Lactic Acid Level 1.68 Height, Weight, BMI Height: '" Weight: lbs. oz. kg; 37.00 BMI Method: Time of Focused Exam: 03:20 Exam Exam Patient acknowledged, consented, and participated in this virtual visit which was conducted using real time audio/video Vital Signs Date Time Temp Pulse Resp B/P (MAP) Pulse Ox O2 Delivery O2 Flow Rate FiO2 12/15/22 10:27 NIV Bilevel 50 12/15/22 10:04 90 87/41 12/15/22 08:54 93 22 100 100.00 12/15/22 08:33 90 12/15/22 08:04 90 21 99/63 100 Room Air 12/15/22 07:13 93 23 100 50.00 12/15/22 03:31 101 26 95 50.00 12/15/22 02:07 104 26 95 50.00 12/15/22 02:00 Non Rebreather 10.00 92 12/15/22 01:40 36.6 108 28 125/78 (94) 95 Non Rebreather 10.00 I & O 12/15/22 06:59 Intake Total 50 ml Balance 50 ml Height & Weight Height: '" Weight: lbs. oz. kg; 37.00 BMI Method: General Appearance: Mild Distress, Obese (MORBIDLY OBESE), Other (LETHARGIC BUT AWAKE. VERY UNKEMPT AND EXTREMELY MALODOROUS, CLOTHING / BEDDING SATURATED WITH URINE AND FECES. LARGE AMOUNT OF FECES IS DRIED, CAKED AND ADHERED TO SKIN) Respiratory: No Respiratory Distress, Other (ON BIPAP, NO WHEEZING, INCREASED AERATION, DECREASED RHONCHI. RESPIRATIONS NON-LABORED) Cardiovascular: Regular Rate, Rhythm Capillary Refill: Less Than 3 Seconds Extremity: Other (PT HAS ANASARCA WITH MASSIVE EDEMA OF ENTIRE BODY--FOREARMS WITH 4+ PITTING EDEMA. BILATERAL BKA. ) Neurologic/Psychiatric: Alert, Oriented x3, Other (LETHARGIC, GROSS MOTOR AND SENSORY ARE INTACT. ) Skin: Diaphoresis, Other (WARM. MULTIPLE DECUBITUS ULCERS TO BUTTOCKS, SACRUM AND COCCYX) Results Lab Laboratory Tests 12/15/22 02:12 Assessment/Plan Assessment/Plan 1 KYLE BRAR MD Dec 15, 2022 11:03
--- NOTE | 2022-12-15 11:07 | Diagnostic Imaging Report ---
PROCEDURE: US Venous Lower Ext Kiran. TECHNIQUE: Multiple real-time grayscale images were obtained over the lower extremities in various projections, bilaterally. Additional duplex Doppler and color Doppler images were also obtained. INDICATION: Anasarca. FINDINGS: The common femoral, femoral and popliteal veins demonstrate normal response to compression, augmentation and Valsalva bilaterally. There are no abnormal lower extremity fluid collections or masses. IMPRESSION: No evidence of deep venous thrombosis in either visualized lower extremity. Dictated by: Dictated on workstation # [id number]
--- NOTE | 2022-12-15 11:10 | Diagnostic Imaging Report ---
PROCEDURE: US Renal Bilateral. TECHNIQUE: Multiple real-time grayscale images were obtained over the kidneys in various projections bilaterally. INDICATION: Acute renal failure. FINDINGS: The right kidney measures 11.6 x 6.9 x 6 cm. Left kidney measures 13.2 x 6.4 x 6.5 cm. Both kidneys demonstrate normal renal cortical thickness and echogenicity. There is no hydronephrosis, calculi or mass. Some questionable bladder wall thickening. There may also be some debris within the bladder. The right ureteral jet was not visualized IMPRESSION: Unremarkable sonographic appearance of the kidneys. Questionable bladder wall thickening. Recommend clinical correlation for cystitis. Dictated by: Dictated on workstation # [id number]
[2022-12-15] MEDS: CEFEPIME 1,000 MG/NS 50 ML IVPB IV SCH ×4 (11:52→18:46)
[2022-12-15] MEDS: inSUlin ASPART (NovoLOG) 1 UNIT/0.01 ML (CHARGE PER UNIT) SC SCH ×3 (12:00→20:14)
--- NOTE | 2022-12-15 12:05 | Consultation - Surgery ---
MARK ANTHONY OLSON 12/15/22 1205: History of Present Illness History of Present Illness Patient Consulted On(lin/time) 12/15/22 11:45 Reason for Visit: consult for supra pubic catheter placement History of Present Illness Pt is a 42yo Insulin dependant diabetic with history of methamphetamine abuse(last use reported as 2 days ago), who was seen lying mildly elevated, with active PICC line procedure occurring. He was minimally responsive to questioning due to his medical condition and BiPAP machine. As per ED and Cardiac notes, pt arrived to [facility] ED via EMS for SOB and uncontrolled blood sugar. It was reported that his living conditions were deplorable and he was covered in his own feces and urine, he reported having been sick the whole week prior to admission with a productive cough, SOB, general swelling, and high blood glucose. He has no current PCP and reported being noncompliant to all medications.He is currently on a liquid diet as reported by nursing. Allergies and Home Medications Allergies Coded Allergies: No Known Drug Allergies (Unverified , 01/29/22) Patient Home Medication List Allopurinol (Allopurinol) 100 Mg Tablet, 100 MG PO DAILY Prescribed by: FINA OTTO on 06/10/22545 Amlodipine Besylate (Amlodipine Besylate) 5 Mg Tablet, 5 MG PO DAILY Prescribed by: FINA OTTO on 06/10/22545 Atorvastatin Calcium (Atorvastatin Calcium) 40 Mg Tablet, 40 MG PO HS Prescribed by: FINA OTTO on 06/10/22545 Bethanechol Chloride (Urecholine) 10 Mg Tablet, 10 MG PO ACHS Prescribed by: FINA OTTO on 06/10/22545 Citalopram Hydrobromide (Citalopram HBr) 20 Mg Tablet, 20 MG PO DAILY Prescribed by: FINA OTTO on 06/10/22545 Famotidine (Famotidine) 20 Mg Tablet, 20 MG PO HS Prescribed by: FINA OTTO on 06/10/22545 Glyburide (Glyburide) 2.5 Mg Tablet, 1.25 MG PO DAILY@0630 Prescribed by: FINA OTTO on 06/10/22 05 Hydrocodone/Acetaminophen (Hydrocodone-Acetamin 5-325 mg) 5 Mg-325 Mg Tablet, 1 TAB PO BID PRN for PAIN-MODERATE (5-7) Prescribed by: FINA OTTO on 06/12/22 1627 Levetiracetam (Keppra) 500 Mg Tablet, 500 MG PO BID Prescribed by: FINA OTTO on 06/10/22 0546 Lisinopril (Lisinopril) 10 Mg Tablet, 10 MG PO DAILY Prescribed by: FINA OTTO on 06/10/22 0546 Tamsulosin HCl (Flomax) 0.4 Mg Cap, 0.4 MG PO BID Prescribed by: FINA OTTO on 06/10/22 0546 Past Ovnzifu-Ijgrsv-Uacjcx Hx Patient Social History Smoking Status: Former Smoker Type Used: Cigarettes Recent Hopitalizations: No Alcohol Use?: Yes Substance type: Methamphetamine, Marijuana Have you traveled recently?: No Surgeries History of Surgeries: Yes (BILATERAL BKA) Surgeries: Amputation, Orthopedic Cardiovascular History of Cardiac Disorders: Yes Cardiac Disorders: Chronic Edema/Swelling, High Cholesterol, Hypertension, Peripheral Vascular Neurological History of Neurological Disord: Yes Neurological Disorders: Seizure Disorder Musculoskeletal History of Musculoskeletal Dis: Yes (BILATERAL BKA) Musculoskeletal Disorders: Amputee, Gout Endocrine History of Endocrine Disorders: Yes (MORBID OBESITY) Endocrine Disorders: Diabetes, Insulin dep HEENT History of HEENT Disorders: Yes (DIABETIC RETINOPATHY) Loss of Vision: Bilateral Psychosocial History of Psychiatric Problem: Yes Behavioral Health Disorders: Depression Family Medical History Significant Family History: CAD Over 55 Years Old Review of Systems-General ROS-Unable to Obtain: Due to current medical condition and use of ventilation machine Physical Exam-General Problems Physical Exam Vital Signs Vital Signs - First Documented 12/15/22 12/15/22 01:40 02:00 Temp 36.6 Pulse 108 Resp 28 B/P (MAP) 125/78 (94) Pulse Ox 95 O2 Delivery Non Rebreather O2 Flow Rate 10.00 FiO2 92 Capillary Refill : Less Than 3 Seconds General Appearance: no apparent distress, obese Respiratory: respiratory distress, crackles Cardiovascular: regular rate, rhythm Gastrointestinal: soft, distended; No tenderness Genital/Rectal: No normal genital exam; other (moderate to severe edema to both the scrotum and penis) Back: decreased range of motion Extremities: slow capillary refill, swelling, other (b/l BKA) Neurologic/Psychiatric: alert, other (Flat affect, obtunded) Skin: normal color, warm/dry Lymphatic: no adenopathy (no obvious lymphadenopathy along inguinal regions b/ l) Data Review Labs Laboratory Tests 12/15/22 01:42: Glucometer 280H 12/15/22 01:51: Influenza Type A (RT-PCR) Not Detected, Influenza Type B (RT-PCR) Not Detected, SARS-CoV-2 RNA (RT-PCR) Not Detected 12/15/22 01:52: Blood Gas Puncture Site R RAD, Blood Gas Patient Temperature 36.6, Arterial Blood pH 7.23*L, Arterial Blood Partial Pressure CO2 47H, Arterial Blood Partial Pressure O2 79, Arterial Blood HCO3 19L, Arterial Blood Total CO2 20.6L, Arterial Blood Oxygen Saturation 92L, Arterial Blood Base Excess -7.2L, Ariel Test YES-POS, Blood Gas Ventilator Setting NO, Blood Gas Inspired Oxygen UNK 12/15/22 02:12: White Blood Count 13.6H, Red Blood Count 4.21L, Hemoglobin 11.0L, Hematocrit 35L , Mean Corpuscular Volume 82, Mean Corpuscular Hemoglobin 26, Mean Corpuscular Hemoglobin Concent 32, Red Cell Distribution Width 14.1, Platelet Count 418H, Mean Platelet Volume 10.6, Immature Granulocyte % (Auto) 0, Neutrophils (%) (Auto) 92H, Lymphocytes (%) (Auto) 3L, Monocytes (%) (Auto) 4, Eosinophils (%) (Auto) 1, Basophils (%) (Auto) 1, Neutrophils # (Auto) 12.5H, Lymphocytes # (Auto) 0.4L, Monocytes # (Auto) 0.6, Eosinophils # (Auto) 0.1, Basophils # (Auto) 0.1, Immature Granulocyte # (Auto) 0.0, Neutrophils % (Manual) 59, Lymphocytes % (Manual) 6, Monocytes % (Manual) 4, Band Neutrophils 31, Polychromasia SLIGHT, [place] Cells MODERATE, Erythrocyte Sedimentation Rate 81H, Prothrombin Time 15.3H, INR Comment 1.2, Activated Partial Thromboplast Time 40H , D-Dimer 6.66H, Sodium Level 132L, Potassium Level 5.4H, Chloride Level 104, Carbon Dioxide Level 16L, Anion Gap 12, Blood Urea Nitrogen 66H, Creatinine 3 .97H, Estimat Glomerular Filtration Rate 18, BUN/Creatinine Ratio 17, Glucose Level 334H, Lactic Acid Level 1.68, Calcium Level 8.1L, Corrected Calcium 9.8, Magnesium Level 2.0, Total Bilirubin 0.2, Aspartate Amino Transf (AST/SGOT) 25, Alanine Aminotransferase (ALT/SGPT) 25, Alkaline Phosphatase 208H, Total C reatine Kinase 71, Creatine Kinase MB 8.2*H, Myoglobin 303.0H, Troponin I 3 .698*H, C-Reactive Protein High Sensitivity 39.38H, B-Type Natriuretic Peptide 2774.5H, Total Protein 5.1L, Albumin 1.9L, Amylase Level 9L, Lipase 6L, TSH Divide Testing 3.68, Acetaminophen Level < 10L, Serum Alcohol < 10 12/15/22 03:28: Blood Gas Puncture Site R RAD, Blood Gas Patient Temperature 97.3, Arterial Blood pH 7.28*L, Arterial Blood Partial Pressure CO2 42, Arterial Blood Partial Pressure O2 69L, Arterial Blood HCO3 19L, Arterial Blood Total CO2 20.2L, Arterial Blood Oxygen Saturation 90L, Arterial Blood Base Excess -6.6L, Ariel Test YES-POS, Blood Gas Ventilator Setting NO, Blood Gas Inspired Oxygen 50% 12/15/22 09:39: Glucometer 316H Radiology CXR report suggest current PNA infection bilaterally, small pleural effusions b/l, and cardiomegaly Assessment/Plan Assessment/Plan Admission Diagonsis PNA, hypoxia, ARF, on Bipap 28/04 100% rr 21 - tv 900 Assessment/Plan Acute resp failure infection , suspected probable PNA * empiric abx started * UA will be ordered * continue to monitor skin /ulcers for other infection * suspected CHF involvement * conservative diuretic med management * on NIPPV 28/04 100% rr 21 - tv 900- will repeat ABG , wean down Fio2 CHF with elv trop and BNP NSTEMI Elev ddimer * ECHO ordered * full dolse lovenox * lasix given * PICC line place for dobutamine drip * check LE US * muscogeeh need VQ - follow * diuresis with supra pubic catheter BO, Cr 3.7 on admission * as per RN , can not place day due to groin edema * will scan bladder * US renal ordered * Surgical placement of Supra Pubic Catheter Hypotension * etiology most likely multifactorial - follow * await echo * started on Dobutamine drip DM ( with Bilateral BKA, and bilateral retinopathy, due to DM complications) * Insulin sliding scale Intermittent use of methamphetamine. * Last use was 2 days (per patient report) * monitor Code Status: DNI/DNR RAMILA STRAUSS DO 12/15/22 1328: History of Present Illness History of Present Illness Time Seen by Provider: 13:11 History of Present Illness Surgery asked to consult regarding possible suprapubic catheter placement. HPI per ED: PT ARRIVES VIA EMS FROM LOCAL RESIDENCE, PT HAS BEEN SICK FOR THE LAST WEEK WITH:-PRODUCTIVE COUGH, -SHORTNESS OF BREATH, -SWELLING ALL OVER, - BLOOD SUGARS READING "HIGH" FOR THE LAST WEEK PT HAS NOT SOUGHT CARE UNTIL TONIGHT, EMS REPORT O2 SATS IN 70'S ON ROOM AIR, UP TO 90'S ON 15L/NRB, PT DENIES ANY HISTORY OF PNEUMONIA OR RESPIRATORY PROBLEMS, ACCUCHECK BY EMS--"HIGH", EMS REPORT BP / EMS REPORT THAT LIVING CONDITIONS WERE DEPLORABLE AND PT HAS BEEN LAYING IN HIS OWN FECES AND URINE FOR UNKNOWN LENGTH OF TIME, PT IS INSULIN DEPENDENT DIABETIC, WITH BILATERAL BKA 05/2022 PT WAS ADMITTED HERE 05/2022 TO REHAB UNIT, FOLLOWING BILATERAL BKA DONE AT [facility]. AT THAT TIME HE HAD REPORTED THAT PRIOR TO GOING TO [facility], HE DID NOT TAKE ANY MEDICATION, INCLUDING NO INSULIN, AND NEVER CHECKED HIS BLOO D SUGAR. PT STATES HE HAS NOT SEEN A DR SINCE HE WAS DISMISSED FROM THE HOSPITAL LAST . When I saw pt he was in his ICU bed with BiPap on, able to answer questions. Stated "I guess I want a catheter. He has not been able to urinate and needs diuresis. Allergies and Home Medications Allergies Coded Allergies: No Known Drug Allergies (Unverified , 01/29/22) Patient Home Medication List Home Medication List Reviewed: Yes Allopurinol (Allopurinol) 100 Mg Tablet, 100 MG PO DAILY Prescribed by: FINA OTTO on 06/10/22545 Amlodipine Besylate (Amlodipine Besylate) 5 Mg Tablet, 5 MG PO DAILY Prescribed by: FINA OTTO on 06/10/22545 Atorvastatin Calcium (Atorvastatin Calcium) 40 Mg Tablet, 40 MG PO HS Prescribed by: FINA OTTO on 06/10/22545 Bethanechol Chloride (Urecholine) 10 Mg Tablet, 10 MG PO ACHS Prescribed by: FINA OTTO on 06/10/22 0546 Citalopram Hydrobromide (Citalopram HBr) 20 Mg Tablet, 20 MG PO DAILY Prescribed by: FINA OTTO on 06/10/22 05 Famotidine (Famotidine) 20 Mg Tablet, 20 MG PO HS Prescribed by: FINA OTTO on 06/10/22 0546 Glyburide (Glyburide) 2.5 Mg Tablet, 1.25 MG PO DAILY@0630 Prescribed by: FINA OTTO on 06/10/22 0546 Hydrocodone/Acetaminophen (Hydrocodone-Acetamin 5-325 mg) 5 Mg-325 Mg Tablet, 1 TAB PO BID PRN for PAIN-MODERATE (5-7) Prescribed by: FINA OTTO on 06/12/22 1627 Levetiracetam (Keppra) 500 Mg Tablet, 500 MG PO BID Prescribed by: FINA OTTO on 06/10/22 05 Lisinopril (Lisinopril) 10 Mg Tablet, 10 MG PO DAILY Prescribed by: FINA OTTO on 06/10/22 05 Tamsulosin HCl (Flomax) 0.4 Mg Cap, 0.4 MG PO BID Prescribed by: FINA OTTO on 06/10/22 0546 Past Kgoogpb-Qdjtzi-Qjyipc Hx Patient Social History Smoking Status: Former Smoker Type Used: Cigarettes Alcohol Use?: Yes Substance type: Methamphetamine, Marijuana Surgeries History of Surgeries: Yes (B/L BKA) Respiratory History of Respiratory Disorde: Yes Respiratory Disorders: Chronic Bronchitis, COPD Cardiovascular History of Cardiac Disorders: Yes Cardiac Disorders: Coronary Artery Disease, High Cholesterol, Hypertension, Peripheral Vascular Neurological History of Neurological Disord: Yes Neurological Disorders: Neuropathy Genitourinary History of Genitourinary Disor: Yes Genitourinary Disorders: Renal Failure Musculoskeletal History of Musculoskeletal Dis: Yes Musculoskeletal Disorders: Amputee, Gout Endocrine History of Endocrine Disorders: Yes Endocrine Disorders: Diabetes, Insulin dep HEENT History of HEENT Disorders: Yes HEENT Disorders: Macular Degeneration Loss of Vision: Bilateral Hearing Impairment: Denies Cancer History of Cancer: No Psychosocial History of Psychiatric Problem: Yes Behavioral Health Disorders: Depression Integumentary History of Skin or Integumenta: Yes (skin breakdown) Family Medical History Significant Family History: CAD Over 55 Years Old Review of Systems-General Constitutional: fever, malaise, weakness Respiratory: short of breath Gastrointestinal: No abdominal pain, No nausea, No vomiting Psychiatric/Neurological: Depressed Physical Exam-General Problems Physical Exam General Appearance: moderate distress, obese Eyes: Bilateral Eye PERRL, Bilateral Eye EOMI HEENT: pharynx normal, other (poor dentition) Respiratory: respiratory distress, accessory muscle use, crackles Cardiovascular: regular rate, rhythm, no murmur Gastrointestinal: soft, distended; No tenderness Genital/Rectal: No normal genital exam; other (moderate to severe edema to both the scrotum and penis) Back: decreased range of motion Extremities: slow capillary refill, swelling, other (b/l BKA) Neurologic/Psychiatric: alert, other (Flat affect) Skin: normal color, warm/dry Lymphatic: no adenopathy (no obvious lymphadenopathy along inguinal regions b/l, no cervical) Assessment/Plan Assessment/Plan Assessment/Plan Urinary Retention _ will attempt day in OR and possible suprapubic catheter placement Acute resp failure - needs diuresisi infection , suspected probable PNA * empiric abx started * UA will be ordered * continue to monitor skin /ulcers for other infection * suspected CHF involvement * conservative diuretic med management * on NIPPV 15/8 100% rr 21 - tv 900- will repeat ABG , wean down Fio2 CHF with elev trop and BNP NSTEMI BO, Cr 3.7 on admission * as per RN , can not place day due to groin edema * will scan bladder * US renal ordered * Surgical placement of Supra Pubic Catheter Hypotension * etiology most likely multifactorial - follow * await echo * started on Dobutamine drip DM ( with Bilateral BKA, and bilateral retinopathy, due to DM complications) * Insulin sliding scale Intermittent use of methamphetamine. * Last use was 2 days (per patient report) * monitor Code Status: DNI/DNR Supervisory-Addendum Brief Verification & Attestation Participated in pt care: history, MDM, physical Personally performed: exam, history, MDM, supervision of care Care discussed with: Medical Student Procedures: n/a Verification and Attestation of Medical Student E/M Service A medical student performed and documented this service. I then reviewed and verified all information documented by the medical student and made modifications to such information, when appropriate. I personally performed a physical exam, medical decision making and then discussed any differences between the notes and made revisions as necessary to create one note. Ramila Strauss , 12/15/22 , 13:31 MARK ANTHONY OLSON Dec 15, 2022 12:05 RAMILA STRAUSS DO Dec 15, 2022 13:28
[2022-12-15] MEDS ORDERED: RT-ALBUTEROL HFA 8.5 GM INHALER IH PRN (12:15)
--- NOTE | 2022-12-15 12:23 | History & Physical-Hospitalist ---
History of Present Illness HPI/Chief Complaint Pt is a 42yoCM with a PMH of IDDMII, HTN, s/p bilateral BKA who presented to the ER due to shortness of breath. History is somewhat limited by his BiPAP but he answers yes and no questions all appropriately. He has been short of breath for a few days to a week and EMS was summoned last night. He was foudnt o be hypoxic with sats in the 70s by them and required a nonrebreather to get it up to the 90s. Apparently his home condition was deplorable and he was laying in his own feces and urine. He was found to be in acute renal failure and florrid heart failure with possible pneumonia. He also states his blood sugars had been running high as well. He previously follow with [facility] but has not seen a doctor since last leaving the hospital here. Source: patient Exam Limitations: clinical condition Date Seen 12/15/22 Time Seen by a Provider: 10:00 Attending Physician No,Local Physician PCP Admitting Physician: Marcia Funk MD Attending Physician: Marcia Funk MD Referring Physician Date of Admission Dec 15, 2022 at 08:12 Home Medications & Allergies Home Medications Reviewed patient Home Medication Reconciliation performed by pharmacy medication reconciliations orthotic technician and/or nursing. Patients Allergies have been reviewed. Allergies Allergies Coded Allergies No Known Drug Allergies (Unverified01/29/22) Past Urzhtsg-Grscen-Disotx Hx Patient Social History Tobacco Use?: Yes Tobacco type used: Cigarettes Smoking Status: Former Smoker Substance use?: Yes Substance type: Methamphetamine, Marijuana Substance frequency: Several times a month Alcohol Use?: Yes Alcohol Frequency: Once in a while Immunizations Up To Date First/Initial COVID19 Vaccinat: NO Second COVID19 Vaccination Guevara: NO Tetanus Booster (TDap): Unknown Hepatitis B: No Current Status Communicates: Verbally Primary Language: Turkmen Preferred Spoken Language: Turkmen Is interpretation needed?: No Past Medical History Surgeries: Amputation, Orthopedic Chronic Edema/Swelling, High Cholesterol, Hypertension, Peripheral Vascular Seizure Disorder Amputee, Gout Diabetes, Insulin dep Loss of Vision: Bilateral Depression Family Medical History CAD Over 55 Years Old SOCIAL HISTORY: - SMOKED IN THE PAST, MOSTLY A TEEN. --ETOH--OCCASIONAL USE --DRUGS--SMOKES METH "HERE AND THERE" . DENIES IV USE Review of Systems Constitutional: see HPI Physical Exam Physical Exam Vital Signs Vital Signs - First Documented 12/15/22 12/15/22 01:40 02:00 Temp 36.6 Pulse 108 Resp 28 B/P (MAP) 125/78 (94) Pulse Ox 95 O2 Delivery Non Rebreather O2 Flow Rate 10.00 FiO2 92 Capillary Refill : Less Than 3 Seconds Height, Weight, BMI Height: '" Weight: lbs. oz. kg; 37.00 BMI Method: General Appearance: Chronically ill, Mild Distress, Obese HEENT: Other (BiPAP mask obscures some of exam) Respiratory: No Accessory Muscle Use, Rhonci; No Wheezing; Other (on BiPAP) Cardiovascular: Regular Rate, Rhythm, No Murmur Gastrointestinal: Normal Bowel Sounds, Non Tender, Soft Extremity: Other (BKAs) Neurologic/Psychiatric: Alert, Oriented x3 Skin: Normal Color, Warm/Dry Results Results/Procedures Labs Laboratory Tests 12/17/22 02:56 12/18/22 04:30 Patient resulted labs reviewed. Imaging: Reviewed Imaging Report Imaging [facility] [place], [place] NAME: BRY SMITH [facility] REC#: [id number] PT STATUS: ADM IN : 1980 PHYSICIAN: SLY POWERS DO ADMIT DATE: 12/15/22/ICU Signed Date of Exam:12/15/22 CHEST 1 VIEW, AP/PA ONLY INDICATION: Dyspnea. FINDINGS: There are bilateral airspace opacities consistent with multifocal bilateral pneumonia. The heart is enlarged and an element of congestion could not be excluded. There are small pleural effusions. There is no pneumothorax. IMPRESSION: New bilateral airspace opacities most likely pneumonia with small pleural effusions and upper limits heart size. Dictated by: Dictated on workstation # [id number] Dict: 12/15/22 0607 Trans: 12/15/22 1034 [id number] Interpreted by: MEL RYAN Electronically signed by: MEL RYAN 12/15/22 1034 Assessment/Plan Admission Diagnosis Multiorgan failure Admission Status: Inpatient Order (span 2 midnights) Reason for Inpatient Admission: see below Assessment and Plan Multiorgan failure Respiratory failure with ?pna vs fluid overload renal failure cardiogenic shock NSTEMI Discussed gravity of illness with patient He request no aggressive measures (No CPR, no intubation, no dialysis, no transfers) even in the event that it may result in his he does not want these measures Agreeable to SPT if needed Lasix ordered Dobutamine for hypotension Cardiology consulted, appreciate rocky Spoke with Surgery for SPT, appreciate assistance TeleICU consulted Continue BiPAP Continue IV abx Palliative Care consulted DVT ppx: Lovenox renally dosed Diagnosis/Problems Diagnosis/Problems (1) NSTEMI (non-ST elevated myocardial infarction) Status: Acute (2) Non-compliance Status: Acute (3) Uncontrolled diabetes mellitus Status: Acute (4) Multi-organ failure with heart failure (5) Cardiogenic shock (6) Renal failure (ARF), acute on chronic (7) S/P bilateral below knee amputation (8) Unable to care for self Status: Acute (9) Pneumonia Status: Acute (10) Sepsis Status: Acute (11) CHF (congestive heart failure) Status: Acute (12) Acute renal failure Status: Acute (13) Anasarca Status: Acute (14) Acute respiratory failure Status: Acute (15) History of methamphetamine use Status: Acute JIGAR ARREOLA MD Dec 15, 2022 12:23
[2022-12-15 13:01] LABS: ABG BASE EXCESS -6.3 MMOL/L (-2.5-2.5); ABG OXYGEN SATURATION 95 % (94-100); ABG PCO2 35 MMHG (35-45); ABG PO2 75 MMHG (79-93); ABG TCO2 19.6 MMOL/L (21.0-31.0)
[2022-12-15 13:02] LABS: POTASSIUM 5.3 MMOL/L (3.6-5.0)
[2022-12-15 13:03] LABS: CALCIUM 7.5 MG/DL (8.5-10.1)
[2022-12-15 13:04] LABS: ABG PH 7.34 (7.37-7.43); ALLENS TEST P; INSPIRED O2 100; PATIENT TEMP 36.5; VENTILATOR NO
[2022-12-15 13:08] LABS: CREATININE SERUM 4.15 MG/DL (0.60-1.30)
--- NOTE | 2022-12-15 13:40 | Wound Care Assessment ---
Wound Care Assessment Date Seen by Provider: Dec 15, 2022 Time Seen by Provider: 13:00 Chief Complaint Sacral wound HPI Issa Veras is a 42 yo male with PMHx of insulin dependent type 2 diabetes, HTN and BKA who was admitted for respiratory failure. Pt was having SOA, so EMS was summoned and he was apparently found in deplorable conditions, lying in his urine and feces. Pt was found to be septic upon arrival to ER and cefepime was started. He had significant anasarca as well. He has an albumin of 1.9, ESR of 81, Hgb of 11 and WBC 13.6. He was found to have sacral, bilateral digital and left stump wounds, so wound care was consulted. The pt is unsure of when these wounds started. According to wound care nurse he had a stage IV ulcer of the coccyx during his last hospitalization which was present for >1 year at that time. During exam pt was found to have a stage IV coccygeal ulcer with undermining and bone exposure. Both hands had pressure ulcers on at least one digit, with sloughing of the palms. His left BKA incision showed a small area of necrotic slough with no surrounding erythema or purulent drainage. He also had intertriginous erythema and moisture in his inguinal folds. Issa admits to not following with primary physician since last discharged from hospital (fall). He is not taking any prescribed meds and does admit to illicit drug use. Past Medical History: Admits Diabetes Type I Smoking Status: Former Smoker Recreational Drug Use: Yes (methamphetamine) Review of Systems General: Other (anasarca) Pulmonary: Dyspnea, Cough Cardiovascular: Orthopnea, Edema Genitourinary: Dysuria, Retention Neurological: Weakness Exam Vital Signs Date Time Temp Pulse Resp B/P (MAP) Pulse Ox O2 Delivery O2 Flow Rate FiO2 12/15/22 12:20 91 12/15/22 12:00 NIV Bilevel 50 12/15/22 12:00 37 83/43 (56) 100 55.00 12/15/22 12:00 36.3 Capillary Refill : Less Than 3 Seconds General Appearance: mild distress, obese Respiratory: respiratory distress (on bipap) Gastrointestinal: distended Extremities: swelling (anasarca), other (bilateral BKA) Neurologic/Psychiatric: alert Skin: other (Stage IV coccygeal ulcer 1.0cmx1.0cmx1.0cm with 2.5cm undermining and bone exposure, bilateral digital eschars and palmar sloughing, left BKA eschar without surrounding erythema or purulent drainage) Skin Problem Location: other (see skin assessment) Skin Character: rash (fungal like rash in intertriginous areas) Results Laboratory Tests 12/15/22 01:42: Glucometer 280H 12/15/22 01:51: Influenza Type A (RT-PCR) Not Detected, Influenza Type B (RT-PCR) Not Detected, SARS-CoV-2 RNA (RT-PCR) Not Detected 12/15/22 01:52: Blood Gas Puncture Site R RAD, Blood Gas Patient Temperature 36.6, Arterial Blood pH 7.23*L, Arterial Blood Partial Pressure CO2 47H, Arterial Blood Partial Pressure O2 79, Arterial Blood HCO3 19L, Arterial Blood Total CO2 20.6L, Arterial Blood Oxygen Saturation 92L, Arterial Blood Base Excess -7.2L, Ariel Test YES-POS, Blood Gas Ventilator Setting NO, Blood Gas Inspired Oxygen UNK 12/15/22 02:12: White Blood Count 13.6H, Red Blood Count 4.21L, Hemoglobin 11.0L, Hematocrit 35L , Mean Corpuscular Volume 82, Mean Corpuscular Hemoglobin 26, Mean Corpuscular Hemoglobin Concent 32, Red Cell Distribution Width 14.1, Platelet Count 418H, Mean Platelet Volume 10.6, Immature Granulocyte % (Auto) 0, Neutrophils (%) (Auto) 92H, Lymphocytes (%) (Auto) 3L, Monocytes (%) (Auto) 4, Eosinophils (%) (Auto) 1, Basophils (%) (Auto) 1, Neutrophils # (Auto) 12.5H, Lymphocytes # (Auto) 0.4L, Monocytes # (Auto) 0.6, Eosinophils # (Auto) 0.1, Basophils # (Auto) 0.1, Immature Granulocyte # (Auto) 0.0, Neutrophils % (Manual) 59, Lymphocytes % (Manual) 6, Monocytes % (Manual) 4, Band Neutrophils 31, Polych romasia SLIGHT, [place] Cells MODERATE, Erythrocyte Sedimentation Rate 81H, Prothrombin Time 15.3H, INR Comment 1.2, Activated Partial Thromboplast Time 40H , D-Dimer 6.66H, Sodium Level 132L, Potassium Level 5.4H, Chloride Level 104, Carbon Dioxide Level 16L, Anion Gap 12, Blood Urea Nitrogen 66H, Creatinine 3.97H, Estimat Glomerular Filtration Rate 18, BUN/Creatinine Ratio 17, Glucose Level 334H, Lactic Acid Level 1.68, Calcium Level 8.1L, Corrected Calcium 9.8, Magnesium Level 2.0, Total Bilirubin 0.2, Aspartate Amino Transf (AST/SGOT) 25, Alanine Aminotransferase (ALT/SGPT) 25, Alkaline Phosphatase 208H, Total Creatine Kinase 71, Creatine Kinase MB 8.2*H, Myoglobin 303.0H, Troponin I 3.698*H, C-Reactive Protein High Sensitivity 39.38H, B-Type Natriuretic Peptide 2774.5H, Total Protein 5.1L, Albumin 1.9L, Amylase Level 9L, Lipase 6L, TSH [place] Testing 3.68, Acetaminophen Level < 10L, Serum Alcohol < 10 12/15/22 03:28: Blood Gas Puncture Site R RAD, Blood Gas Patient Temperature 97.3, Arterial Blood pH 7.28*L, Arterial Blood Partial Pressure CO2 42, Arterial Blood Partial Pressure O2 69L, Arterial Blood HCO3 19L, Arterial Blood Total CO2 20.2L, Arterial Blood Oxygen Saturation 90L, Arterial Blood Base Excess -6.6L, Ariel Test YES-POS, Blood Gas Ventilator Setting NO, Blood Gas Inspired Oxygen 50% 12/15/22 09:39: Glucometer 316H 12/15/22 11:51: Glucometer 322H 12/15/22 12:40: Sodium Level 133L, Potassium Level 5.3H, Chloride Level 105, Carbon Dioxide Level 17L, Anion Gap 11, Blood Urea Nitrogen 67H, Creatinine 4.15H, Estimat Glomerular Filtration Rate 17, BUN/Creatinine Ratio 16, Glucose Level 326H, Lactic Acid Level 0.88, Calcium Level 7.5L, Troponin I 6.860*H 12/15/22 12:56: Blood Gas Puncture Site RIGHT RADIAL, Blood Gas Patient Temperature 36.5, Arterial Blood pH 7.34*L, Arterial Blood Partial Pressure CO2 35, Arterial Blood Partial Pressure O2 75L, Arterial Blood HCO3 19L, Arterial Blood Total CO2 19.6L , Arterial Blood Oxygen Saturation 95, Arterial Blood Base Excess -6.3L, Ariel Test P, Blood Gas Ventilator Setting NO, Blood Gas Inspired Oxygen 100 Assessment/Plan/Dx Assessment: Stage IV coccygeal pressure ulcer Bilateral digital eschars with palmar slough Left BKA eschar without erythema or purulent drainage Candidal infection of inguinal folds Protein malnutrition Anemia Elevated ESR Sepsis Insulin dependent T2DM Cardiogenic shock Renal failure and urinary retention secondary to anasarca NSTEMI Vashe WTD BID on coccygeal ulcer with barrier ointment secured by Allevyn BFD. Q2 turns to offload pressure of coccyx Betadine on eschars Miconazole powder BID to intertriginous areas like inguinal folds and pannus Glucerna as tolerated Cefepime, managed per primary Suprapubic catheter being placed per surgery Note: There is a very real possibility that Steffen has a chronic refractory osteomyelitis of his sacrum. However, with his inability to follow up and comply with medical recommendations in regards to his global care, fully treating such a condition is an impossibility. His current glycemic status (and illicit drug use) are not compatable with wound healing. Supervisory-Addendum Brief Verification & Attestation Participated in pt care: history, MDM, physical Personally performed: exam, history, MDM, supervision of care Care discussed with: Medical Student Procedures: n/a Results interpretation: Verified all documentation BRENDA Iglesias MD MED STUDENT Dec 15, 2022 13:40 TOMMY PARRA MD Dec 15, 2022 14:29
[2022-12-15] MEDS ORDERED: LACTATED RINGERS 1,000 ML IV PRN (14:00)
[2022-12-15] MEDS ORDERED: LIDOCAINE UROJET 2% GEL 10 ML PKG ONE (14:20)
[2022-12-15] MEDS: RT-ALBUTEROL HFA 8.5 GM INHALER IH SCH ×3 (15:19→22:19)
[2022-12-15] MEDS: NOREPINEPHRINE 8 MG/250 ML 250 ML IV SCH (17:08)
[2022-12-15 19:08] LABS: POTASSIUM 5.5 MMOL/L (3.6-5.0)
[2022-12-15 19:09] LABS: CALCIUM 7.8 MG/DL (8.5-10.1)
[2022-12-15 19:14] LABS: CREATININE SERUM 4.21 MG/DL (0.60-1.30)
[2022-12-15] MEDS: MICONAZOLE 2% POWDER (DESENEX AF) 90 GM TOP SCH (20:14)
[2022-12-15] MEDS: POVIDONE (BETADINE) 10% SOLN 240 ML BTL TOP SCH (20:14)
[2022-12-15] MEDS ORDERED: NS IV 500 ML 500 ML IV PRN (22:30)
[2022-12-16] MEDS ORDERED: RT-HYPERTONIC SALINE 3% 4 ML NEB INH PRN (02:00)
[2022-12-16] MEDS: CEFEPIME 1,000 MG/NS 50 ML IVPB IV SCH ×2 (02:02)
[2022-12-16 02:27] VITALS: BP 159/118
[2022-12-16] MEDS: ONDANSETRON 4 MG/2 ML (SDV) Z0FRAN IV PRN ×2 (03:31→08:48)
[2022-12-16 03:37] LABS: BASOPHILS % (AUTO) 0 % (0-10); EOSINOPHILS % (AUTO) 0 % (0-10); HEMATOCRIT 32 % (40-54); HEMOGLOBIN 10.4 g/dL (13.3-17.7); LYMPHOCYTES # (AUTO) 0.3 10^3/uL (1.0-4.0); LYMPHOCYTES % (AUTO) 4 % (12-44); MEAN CORPUSCULAR HEMOGLOBIN 26 pg (25-34); MEAN CORPUSCULAR HGB CONC 32 g/dL (32-36); MEAN CORPUSCULAR VOLUME 80 fL (80-99); MEAN PLATELET VOLUME 10.2 fL (9.0-12.2); MONOCYTES # (AUTO) 0.3 10^3/uL (0.0-1.0); MONOCYTES % (AUTO) 4 % (0-12); NEUTROPHILS # (AUTO) 6.8 10^3/uL (1.8-7.8); NEUTROPHILS % (AUTO) 91 % (42-75); PLATELET COUNT 321 10^3/uL (130-400); WHITE BLOOD COUNT 7.4 10^3/uL (4.3-11.0)
[2022-12-16 03:52] LABS: ALBUMIN 1.8 GM/DL (3.2-4.5); POTASSIUM 5.1 MMOL/L (3.6-5.0)
[2022-12-16 03:53] LABS: CALCIUM 7.7 MG/DL (8.5-10.1)
[2022-12-16 03:54] LABS: TOTAL PROTEIN 4.8 GM/DL (6.4-8.2)
[2022-12-16 03:56] LABS: BILIRUBIN,TOTAL 0.2 MG/DL (0.1-1.0)
[2022-12-16 03:58] LABS: CREATININE SERUM 4.3 MG/DL (0.60-1.30); PHOSPHORUS 5.7 MG/DL (2.3-4.7)
[2022-12-16] MEDS: MAGNESIUM 1 GM/100 ML IVPB 100 ML IV SCH (04:05)
[2022-12-16] MEDS: POTASSIUM CL 10MEQ/50ML IVPB 50 ML IV SCH (04:05)
[2022-12-16] MEDS: NOREPINEPHRINE 8 MG/250 ML 250 ML IV SCH ×3 (04:07→21:40)
[2022-12-16] MEDS: KCL 20 MEQ TAB (K-DUR) PO SCH (04:09)
[2022-12-16] MEDS: inSUlin ASPART (NovoLOG) 1 UNIT/0.01 ML (CHARGE PER UNIT) SC SCH ×4 (05:35→21:38)
[2022-12-16] MEDS: ENOXAPARIN 120 MG/0.8 ML (LOVENOX) SQ SCH (05:35)
[2022-12-16] MEDS: RT-ALBUTEROL HFA 8.5 GM INHALER IH SCH ×5 (07:04→22:43)
--- NOTE | 2022-12-16 08:21 | Diagnostic Imaging Report ---
EXAMINATION: Chest 1 view HISTORY: Heart failure. Respiratory failure. COMPARISON: 12/15/2022. FINDINGS: A left-sided PICC has been placed with the tip overlying the low SVC. Persistent patchy and consolidative opacities are seen in the mid and upper lungs with small bilateral pleural effusions. No pneumothorax. Stable cardiomegaly with central pulmonary vascular congestion. IMPRESSION: 1. Continued patchy and consolidative opacities throughout the mid and upper lungs, which may represent infection and/or edema. 2. Small bilateral pleural effusions. 3. Placement of a left PICC with the tip overlying the low SVC. Dictated by: Dictated on workstation # [id number]
[2022-12-16] MEDS: ASPIRIN 325 MG (5 GR) TABLET PO SCH ×2 (09:12→10:57)
[2022-12-16 09:23] LABS: OCCULT BLOOD,GASTRIC FLUID POSITIVE (NEGATIVE)
--- NOTE | 2022-12-16 09:41 | Progress Note - Hospitalist ---
Subjective HPI/CC On Admission Date Seen by Provider: Dec 16, 2022 Pt is a 42yoCM with a PMH of IDDMII, HTN, s/p bilateral BKA who presented to the ER due to shortness of breath. History is somewhat limited by his BiPAP but he answers yes and no questions all appropriately. He has been short of breath for a few days to a week and EMS was summoned last night. He was foudnt o be hypoxic with sats in the 70s by them and required a nonrebreather to get it up to the 90s. Apparently his home condition was deplorable and he was laying in his own feces and urine. He was found to be in acute renal failure and florrid heart failure with possible pneumonia. He also states his blood sugars had been running high as well. He previously follow [facility] but has not seen a doctor since last leaving the hospital here. Subjective/Events-last exam Pt reports feeling about the same. Breathing a little better. Developed dark vomitus this AM. Discussed with him and he would be amenable to EGD if needed but was hesitant at first. We discussed his lab work and poor UOP and how my recommendation remains to transfer tof rHD but he again declines both transfer and HD. Focused Exam Lactate Level Time of Focused Exam: 03:20 Objective Exam Vital Signs Vital Signs Date Time Temp Pulse Resp B/P (MAP) Pulse Ox O2 Delivery O2 Flow Rate FiO2 12/18/22 12:49 106 162/104 12/18/22 12:00 20 96 NIV Bilevel 21.00 12/18/22 12:00 36.0 12/18/22 12:00 21 Capillary Refill : Less Than 3 Seconds General Appearance: No Apparent Distress, Chronically ill, Obese, Other (cup with dark contents reportedly from vomit per patient) Respiratory: No Accessory Muscle Use, Decreased Breath Sounds, Other (on 3lpm) Cardiovascular: Regular Rate, Rhythm, No Murmur Gastrointestinal: Normal Bowel Sounds, Non Tender, Soft Extremity: Swelling (2-3+ in stumps), Other (s/p BKA) Neurologic/Psychiatric: Alert, Oriented x3 Results/Procedures Lab Laboratory Tests 12/18/22 04:30 Patient resulted labs reviewed. Imaging: Reviewed Imaging Report Assessment/Plan Assessment and Plan Assess & Plan/Chief Complaint Multiorgan failure Respiratory failure with ?pna vs fluid overload renal failure cardiogenic shock NSTEMI Discussed gravity of illness with patient again today Reaffirmed his request for no aggressive measures (No CPR, no intubation, no dialysis, no transfers) even in the event that it may result in his he does not want these measures Lasix Dobutamine for hypotension Cardiology consulted, appreciate recs Neprhology consulted, discussed with Dr Alvarez who agreed with diuretics as able to for dyspnea and recommended to add bicarb tabs Surgery consulted, appreciate recs Will add protonix TeleICU consulted Off BiPAP Continue IV abx Strep in sputum culture Palliative Care consulted DVT ppx: Lovenox renally dosed as able Diagnosis/Problems Diagnosis/Problems (1) NSTEMI (non-ST elevated myocardial infarction) Status: Acute (2) Non-compliance Status: Acute (3) Uncontrolled diabetes mellitus Status: Acute (4) Multi-organ failure with heart failure (5) Cardiogenic shock (6) Renal failure (ARF), acute on chronic (7) S/P bilateral below knee amputation (8) Unable to care for self Status: Acute (9) Pneumonia Status: Acute (10) Sepsis Status: Acute (11) CHF (congestive heart failure) Status: Acute (12) Acute renal failure Status: Acute (13) Anasarca Status: Acute (14) Acute respiratory failure Status: Acute (15) History of methamphetamine use Status: Acute JIGAR ARREOLA MD Dec 16, 2022 09:41
[2022-12-16 09:44] LABS: BILIRUBIN,URINE NEGATIVE (NEGATIVE); CLARITY,URINE SL CLOUDY; COLOR,URINE YELLOW; GLUCOSE, URINE (UA) TRACE (NEGATIVE); KETONES,URINE NEGATIVE (NEGATIVE); LEUKOCYTE ESTERASE ,URINE TRACE (NEGATIVE); NITRITE,URINE NEGATIVE (NEGATIVE); PH,URINE 5.5 (5-9); PROTEIN,URINE 3+ (NEGATIVE)
[2022-12-16] MEDS ORDERED: FUROSEMIDE 40 MG/4 ML INJ (LASIX) IVP NR (09:45)
[2022-12-16] MEDS ORDERED: PANTOPRAZOLE 40 MG (PROTONIX) VIAL IV NR (09:45)
[2022-12-16 09:53] LABS: BACTERIA,URINE FEW /HPF; RBC,URINE 0-2 /HPF
[2022-12-16 10:02] LABS: AMPHETAMINE SCREEN, URINE POSITIVE (NEGATIVE); BARBITURATE SCREEN URINE NEGATIVE (NEGATIVE); BENZODIAZEPINES SCREEN URINE NEGATIVE (NEGATIVE); CANNABINOID SCREEN, URINE NEGATIVE (NEGATIVE); COCAINE SCREEN URINE NEGATIVE (NEGATIVE); METHADONE STAT NEGATIVE (NEGATIVE); OPIATE SCREEN URINE NEGATIVE (NEGATIVE); OXYCODONE STAT NEGATIVE (NEGATIVE); PROPOXYPHENE STAT NEGATIVE (NEGATIVE); TRICYCLIC ANTIDEPRESSANTS SCRE NEGATIVE (NEGATIVE)
--- NOTE | 2022-12-16 10:05 | Consultation ---
History of Present Illness History of Present Illness Patient Consulted On(guevara/time) 12/16/22 10:02 Date Seen by Provider: Dec 16, 2022 Time Seen by Provider: 10:02 Reason for Visit: bo, volume overload History of Present Illness Pt is a 42 y/o WM with h/o bilateral lower ext amputations, DM, HTN, and CKD 3 who was admitted chest pain and soa and volume overload. Was satting in th 60s on room air on presentation. now on 3L. Pt has had very low serum albumin 1.8 since 05/2022. Pt is very fluid overloaded with edema in his groin/scrotum making urinating difficult. Surgery had to help with day placement yesterday. Allergies and Home Medications Allergies Coded Allergies: No Known Drug Allergies (Unverified , 01/29/22) Patient Home Medication List Home Medication List Reviewed: Yes No Active Prescriptions or Reported Meds Past [id number] Hx Patient Social History Tobacco Use?: Yes Tobacco type used: Cigarettes Smoking Status: Former Smoker Substance use?: Yes Substance type: Methamphetamine, Marijuana Substance frequency: Several times a month Alcohol Use?: Yes Alcohol Frequency: Once in a while Immunizations Up To Date Influenza Vaccine Up-to-Date: No; Not Current First/Initial COVID19 Vaccinat: NO Second COVID19 Vaccination Guevara: NO Third COVID19 Vaccination Date: NO Past Medical History Surgeries: Yes (B/L BKA) Amputation, Orthopedic Respiratory: Yes Chronic Bronchitis, COPD Cardiac: Yes Coronary Artery Disease, High Cholesterol, Hypertension, Peripheral Vascular Neurological: Yes Neuropathy Genitourinary: Yes Renal Failure Musculoskeletal: Yes Amputee, Gout Endocrine: Yes Diabetes, Insulin dep HEENT: Yes Macular Degeneration Loss of Vision: Bilateral Hearing Impairment: Denies Cancer: No Psychosocial: Yes Depression Integumentary: Yes (skin breakdown) Family Medical History CAD Over 55 Years Old SOCIAL HISTORY: - SMOKED IN THE PAST, MOSTLY A TEEN. --ETOH--OCCASIONAL USE --DRUGS--SMOKES METH "HERE AND THERE" . DENIES IV USE Review of Systems-General Constitutional: see HPI Physical Exam-General Problems Physical Exam Vital Signs Vital Signs - First Documented 12/15/22 12/15/22 01:40 02:00 Temp 36.6 Pulse 108 Resp 28 B/P (MAP) 125/78 (94) Pulse Ox 95 O2 Delivery Non Rebreather O2 Flow Rate 10.00 FiO2 92 Capillary Refill : Less Than 3 Seconds General Appearance: no apparent distress Respiratory: no respiratory distress, no accessory muscle use Extremities: swelling Neurologic/Psychiatric: oriented x 3 Assessment/Plan Assessment/Plan Admission Diagnosis/Plan BO on CKD 2 baseline creatinine 05/2022-1.2, h/o dm since age 17 BO due to ?retention of urine due to scrotal edema + cardio renal syndrome agree with keeping day in place monitor I/Os continue lasix; plan for 40mg bid iv lasix today given extensive edema discussed goals of care; pt has a 3 children with the youngest being 3 years old we discussed if he were to progress to needing dialysis, dialysis could significantly remove edema and help improve volume so he can work with his prosthetics to become independent again check pro/cr; suspect nephrotic range proteinuria as a result of dm volume overload due severely low albumin will third space unfortunately see above severe hypoalbuminemia albumin 1.8 since 05/2022 encourage po intake check pro/cr consider imaging of his liver to r/o cirrhosis met acidosis start po bicarb bid PVD s/p bilateral amputations medically manage Thank you for allowing me to participate in the care of this very pleasant patient. Discussed with Dr. Frey. (This visit was conducted using a secure video chat.) Admission Status: Inpatient Order (span 2 midnights) GENO DIOP MD Dec 16, 2022 10:05
--- NOTE | 2022-12-16 10:22 | Progress Note - Cardiology ---
Cardiology SOAP Progress Note Subjective: C/O gen fatigue C/O nausea, reports emesis this morning C/O SOB C/O freq cough No c/o CP or palpitations Objective: I&O/Vital Signs 12/17/22 12/17/22 12/17/22 12/17/22 01:00 01:00 02:12 02:30 Temp 36.6 36.6 Pulse 96 96 92 93 B/P (MAP) 124/56 (83) 94/41 101/40 (68) Pulse Ox 99 97 O2 Delivery NIV Bilevel NIV Bilevel O2 Flow Rate 30.00 30.00 12/17/22 12/17/22 12/17/22 12/17/22 02:44 02:45 03:00 03:15 Temp 36.5 36.5 36.5 Pulse 93 93 89 93 Resp 19 9 13 B/P (MAP) 98/51 (72) 85/21 (59) 98/46 (77) Pulse Ox 97 98 97 98 O2 Delivery NIV Bilevel NIV Bilevel NIV Bilevel O2 Flow Rate 30.00 30.00 30.00 30.00 12/17/22 12/17/22 12/17/22 12/17/22 03:30 03:51 04:00 04:00 Temp 36.6 36.6 Pulse 98 93 96 Resp 12 7 B/P (MAP) 103/35 (72) 103/32 102/46 (81) Pulse Ox 99 98 96 O2 Delivery NIV Bilevel NIV Bilevel NIV Bilevel O2 Flow Rate 30.00 30.00 FiO2 30 12/17/22 12/17/22 12/17/22 12/17/22 04:15 05:00 05:15 05:45 Temp 36.4 36.6 36.6 Pulse 92 93 Resp 16 12 B/P (MAP) 108/27 (68) 115/57 (83) Pulse Ox 99 98 O2 Delivery NIV Bilevel NIV Bilevel NIV Bilevel Nasal Cannula O2 Flow Rate 30.00 30.00 30.00 3.00 12/17/22 12/17/22 12/17/22 12/17/22 06:00 06:15 06:49 06:51 Temp 36.6 36.6 Pulse 101 97 Resp 12 B/P (MAP) 116/21 (74) 105/34 (77) Pulse Ox 98 98 100 O2 Delivery Nasal Cannula Nasal Cannula Nasal Cannula Nasal Cannula O2 Flow Rate 3.00 3.00 3.00 1.00 12/17/22 12/17/22 12/17/22 12/17/22 07:00 07:17 08:00 08:00 Temp 36.7 36.6 Pulse 98 101 98 Resp 18 15 B/P (MAP) 115/29 (57) 133/39 (70) Pulse Ox 96 96 95 O2 Delivery Nasal Cannula Nasal Cannula Nasal Cannula O2 Flow Rate 1.00 1.00 1.00 12/17/22 12/17/22 12/17/22 12/17/22 09:00 10:00 11:00 12:00 Temp 36.6 36.7 36.8 36.8 Pulse 104 102 105 102 Resp 21 23 7 18 B/P (MAP) 126/23 (57) 118/54 (75) 120/35 (63) 124/23 (56) Pulse Ox 98 96 94 93 O2 Delivery Nasal Cannula Nasal Cannula Nasal Cannula Room Air O2 Flow Rate 1.00 1.00 1.00 12/16/22 23:59 Intake Total 0 ml Output Total 175 ml Balance -175 ml Constitutional: AAO x 3, well-developed, well-nourished, other (on BiPAP) Respiratory: No accessory muscle use; chest expansion is symmetric, chest is bilaterally symmetric, other (somewhat diminished air entry at the bases, bibasilar crackles) Cardiovascular: regular rate-rhythm, S1 and S2, systolic murmur (soft CHAIM at card base); No friction rub Gastrointestional: No tender; soft; No guarding, No rebound; audible bowel sounds Genital/Rectal: No normal genital exam; other (moderate to severe edema to both the scrotum and penis) Extremities: other (bilateral BKA); No clubbing, No cyanosis, No significant edema Neurologic/Psychiatric: oriented x 3, other (moves all limbs) Skin: warm/dry; No cyanosis, No rash on exposed areas, No ulcerations on exposed areas Results/Procedures: Labs Laboratory Tests 12/16/22 15:22: Glucometer 244H 12/16/22 18:59: Glucometer 253H 12/16/22 20:19: Glucometer 248H 12/16/22 21:30: Glucometer 265H 12/17/22 02:56: White Blood Count 9.2, Red Blood Count 3.38L, Hemoglobin 8.8L, Hematocrit 27L, Mean Corpuscular Volume 81, Mean Corpuscular Hemoglobin 26, Mean Corpuscular Hemoglobin Concent 32, Red Cell Distribution Width 13.9, Platelet Count 314, Mean Platelet Volume 10.0, Immature Granulocyte % (Auto) 1, Neutrophils (%) (Auto) 90H, Lymphocytes (%) (Auto) 4L, Monocytes (%) (Auto) 5, Eosinophils (%) (Auto) 0, Basophils (%) (Auto) 0, Neutrophils # (Auto) 8.3H, Lymphocytes # (Auto) 0.4L, Monocytes # (Auto) 0.5, Eosinophils # (Auto) 0.0, Basophils # (Auto) 0.0, Immature Granulocyte # (Auto) 0.1, Sodium Level 135, Potassium Level 5.4H, Chloride Level 105, Carbon Dioxide Level 18L, Anion Gap 12, Blood Urea Nitrogen 79H, Creatinine 4.47H, Estimat Glomerular Filtration Rate 16, BUN/Creatinine Ratio 18, Glucose Level 223H, Calcium Level 7.5L, Corrected Calcium 9.3, Phosphorus Level 5.9H, Magnesium Level 2.0, Total Bilirubin 0.1, Aspartate Amino Transf (AST/SGOT) 7, Alanine Aminotransferase (ALT/SGPT) 14, Alkaline Phosphatase 108, Total Protein 4.2L, Albumin 1.7L 12/17/22 05:41: Glucometer 192H 12/17/22 11:17: Glucometer 220H Microbiology 12/16/22 Urine Culture - Final, Complete NO GROWTH 12/15/22 C. difficile GDH Antigen & Toxins - Final, Complete 12/15/22 MRSA Screen - Final, Complete MRSA not isolated 12/15/22 Blood Culture - Preliminary, Resulted Probable Coag Negative Staph Procedures NAME: BRY SMITH [facility] REC#: [id number] PT STATUS: ADM IN : 1980 PHYSICIAN: ALETHA MEJÍA MD ADMIT DATE: 12/15/22/ICU Signed Date of Exam:12/16/22 CHEST 1 VIEW, AP/PA ONLY EXAMINATION: Chest 1 view HISTORY: Heart failure. Respiratory failure. COMPARISON: 12/15/2022. FINDINGS: A left-sided PICC has been placed with the tip overlying the low SVC. Persistent patchy and consolidative opacities are seen in the mid and upper lungs with small bilateral pleural effusions. No pneumothorax. Stable cardiomegaly with central pulmonary vascular congestion. IMPRESSION: 1. Continued patchy and consolidative opacities throughout the mid and upper lungs, which may represent infection and/or edema. 2. Small bilateral pleural effusions. 3. Placement of a left PICC with the tip overlying the low SVC. Dictated by: Dictated on workstation # [id number] Dict: 12/16/22815 Trans: 12/16/22820 ANEESH [id number] Interpreted by: NATHALY ALLEN DO Electronically signed by: NATHALY ALLEN DO 12/16/22820 A/P: Assessment: Ac resp failure, probably multifactorial - ac systolic CHF (HFrEF) - Echo shows LVEF approx 35-40%, mod MR, PASP 35-40 mmHg - pneumonia and suspected sepsis Hematemesis this morning (12-16-22) Troponin elevation due to hypoxemia (probably prolonged): type 2 VT Renal failure: probably acute on chronic Diabetes, probably type I, treated with insulin 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 Guarded prognois * Will try diuretics for heart failure. If not responsive to diuretics or if deteriorating renal function, we recommend transfer to tertiary care facility for nephrology eval / dialysis * Dr. Jessica Alvarez has been consulted by medical services * Continue dobutamine in low dose to aid cardiac output. Monitor for arrhythmia * We recommend that labs be closely monitored and any electrolyte abnormalities be treated (Hospitalist service managing) * Hematemesis this morning - occult + - advise GI consult for consideration of endoscopy - management per medical services * Hosp svce managing DM, pneumonia, sepsis, renal failure TORI JONES Dec 16, 2022 10:22
[2022-12-16] MEDS: SODIUM BICARBONATE 650 MG TABLET PO SCH ×2 (10:47→20:40)
[2022-12-16] MEDS: cefTRIAXone 2,000 MG/NS 50 ML IVPB IV SCH ×2 (10:48)
[2022-12-16] MEDS: POVIDONE (BETADINE) 10% SOLN 240 ML BTL TOP SCH ×2 (10:49→20:41)
[2022-12-16] MEDS: MICONAZOLE 2% POWDER (DESENEX AF) 90 GM TOP SCH ×2 (10:49→20:41)
[2022-12-16] MEDS: HYPOCHLOROUS ACID/NaCl (VASHE) 250 ML IR PRN (10:49)
[2022-12-16] MEDS: DOBUTamine DRIP 250 ML IV SCH ×2 (11:27→13:51)
--- NOTE | 2022-12-16 11:52 | Tele-ICU Progress Note ---
Subjective Date Seen by a Provider: Dec 16, 2022 Time Seen by a Provider: 08:50 Subjective/Events-last exam (Tele-ICU Physician , Progress Note ) Service provided via interactive audio and video telecommunications E-CARE system to a patient admitted to ICU bed in [facility]. Patient is seen today due to persistent need of ICU care Available chart/ vitals / labs / Images reviewed Video assessment done using teleICU camera, rest of exam as per RN Discussed with RN Events overnight : Afebrile hemodynamically stable Respiratory - I/O = Drips: Pressors- no Hospital course: (12/15) 42M admitted with PNA, hypoxia, ARF, on Bipap 15/8 100% rr 21 - tv 900 , US LE NEG for DVT bilt , ECHO 12/15/22 EF 55% , gr II dst dsfnct, RVSP 40 mm 12/15 - OFF BIPAP, 3 L o2 , cxr better A/PAcute resp failure - suspeted CHF - diuresis - OFF BIPAP - 3 L o2 - cxr is better CHF with elv trop and BNP - ECHO 12/15/22 EF 55% , gr II dst dsfnct, RVSP 40 mm - full dose lovenox- adjusted to renal function -cards follow - diuresis BO, - Cr 3.9 on admission-> 4.3 , total 700 ml UO since admission - renal consulted - day placed 12/15 - US renal - WNL - follow K Elev ddimer - already on full dose of Lovenox for AC - US LE NEG for DVT bilat 12/15/22 - ECHO 12/15/22 RVSP 40 mm - migh need VQ - follow infection , suspected probable PNA - empiric abx started - UA will be ontained - ? 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 Discussed with RN to reach out if any questions or concerns A total of 31 minutes of critical care time was devoted to this patient today, required to treat and/or prevent further deterioration of critical care condition ( as above ) . I am remotely monitoring this patient from another state. I am unable to do the bedside exam, and history/physical and pertinent information is taken from other notes in the computer and bedside staff. . Sepsis Event Evaluation Height, Weight, BMI Height: '" Weight: lbs. oz. kg; 39.75 BMI Method: Focused Exam Lactate Level 12/15/22 02:12: Lactic Acid Level 1.68 12/15/22 12:40: Lactic Acid Level 0.88 Time of Focused Exam: 03:20 Exam Exam Patient acknowledged, consented, and participated in this virtual visit which was conducted using real time audio/video Vital Signs Date Time Temp Pulse Resp B/P (MAP) Pulse Ox O2 Delivery O2 Flow Rate FiO2 12/16/22 11:00 92 14 116/80 (92) 95 Nasal Cannula 3.00 12/16/22 10:26 94 Nasal Cannula 3.00 12/16/22 10:00 95 9 128/38 (68) 94 Nasal Cannula 3.00 12/16/22 09:00 93 13 138/79 (98) 95 Nasal Cannula 3.00 12/16/22 08:00 94 16 141/57 (85) 93 Nasal Cannula 3.00 12/16/22 08:00 96 Nasal Cannula 3.00 12/16/22 07:57 35.6 12/16/22 07:22 93 12/16/22 07:07 92 Nasal Cannula 3.00 12/16/22 07:00 93 17 126/55 (78) 94 Nasal Cannula 3.00 12/16/22 06:00 96 16 136/83 (100) 95 Nasal Cannula 3.00 12/16/22 05:00 93 24 133/78 (96) 93 Nasal Cannula 3.00 12/16/22 04:07 93 133/78 12/16/22 04:00 36.8 94 Nasal Cannula 3.00 12/16/22 04:00 96 Nasal Cannula 3.00 12/16/22 04:00 96 19 130/84 (99) 93 Nasal Cannula 3.00 12/16/22 03:00 99 22 139/86 (103) 95 Nasal Cannula 3.00 12/16/22 02:42 103 22 131/85 (100) Nasal Cannula 3.00 12/16/22 02:35 101 171/106 12/16/22 02:29 159/118 12/16/22 02:27 105 26 100 50.00 12/16/22 02:00 103 21 90/70 (77) 98 Nasal Cannula 3.00 12/16/22 01:17 95 Nasal Cannula 3.00 12/16/22 01:15 101 30 112/87 (95) 95 NIV Bilevel 50.00 12/16/22 01:00 101 12/16/22 00:00 37.2 91 NIV Bilevel 50.00 12/16/22 00:00 99 22 139/95 (101) 97 NIV Bilevel 50.00 12/15/22 23:59 90 NIV Bilevel 50 12/15/22 23:00 97 17 126/66 (84) 98 NIV Bilevel 50.00 12/15/22 22:19 84 17 100 50.00 12/15/22 22:00 93 102/82 (87) 93 NIV Bilevel 50.00 12/15/22 21:00 92 37 111/97 (100) 96 NIV Bilevel 50.00 12/15/22 20:00 37.2 94 NIV Bilevel 50.00 12/15/22 20:00 94 132/76 (82) 100 NIV Bilevel 50.00 12/15/22 20:00 96 NIV Bilevel 50 12/15/22 19:45 92 26 126/37 (86) 100 NIV Bilevel 55.00 12/15/22 19:30 88 113/66 (97) 100 NIV Bilevel 55.00 12/15/22 19:15 90 18 104/70 (83) 100 NIV Bilevel 55.00 12/15/22 19:12 88 19 100 50.00 12/15/22 19:00 94 117/72 (81) 100 NIV Bilevel 55.00 12/15/22 19:00 94 12/15/22 18:00 96 21 136/57 (83) 100 NIV Bilevel 55.00 12/15/22 17:08 85 76/59 12/15/22 17:00 87 18 112/65 (81) 100 NIV Bilevel 55.00 12/15/22 16:00 NIV Bilevel 50 12/15/22 16:00 87 24 92/55 (67) 99 NIV Bilevel 55.00 12/15/22 15:19 85 20 100 100.00 12/15/22 15:00 91 27 94/73 (80) 95 NIV Bilevel 55.00 12/15/22 14:00 84 20 99/60 (73) 100 NIV Bilevel 55.00 12/15/22 13:00 90 19 104/56 (72) 100 NIV Bilevel 55.00 12/15/22 12:20 91 12/15/22 12:00 NIV Bilevel 50 12/15/22 12:00 87 37 83/43 (56) 100 NIV Bilevel 55.00 12/15/22 12:00 36.3 I & O 12/16/22 07:00 Intake Total 600 ml Output Total 755 ml Balance -155 ml Height & Weight Height: '" Weight: lbs. oz. kg; 39.75 BMI Method: General Appearance: No Apparent Distress, Chronically ill, Obese, Other (cup with dark contents reportedly from vomit per patient) HEENT: Other (BiPAP mask obscures some of exam) Respiratory: No Accessory Muscle Use, Decreased Breath Sounds, Other (on 3lpm) Cardiovascular: Regular Rate, Rhythm, No Murmur Capillary Refill: Less Than 3 Seconds Gastrointestinal: distended Extremity: Swelling (2-3+ in stumps), Other (s/p BKA) Neurologic/Psychiatric: Alert, Oriented x3 Skin: Normal Color, Warm/Dry Results Lab Laboratory Tests 12/15/22 02:12 12/15/22 12:40 12/15/22 18:30 12/16/22 03:25 Assessment/Plan Assessment/Plan 1 KYLE BRAR MD Dec 16, 2022 11:52
[2022-12-16] MEDS: guaiFENesin/CODEINE (ROBITUSSIN AC) 10ML UDC PO PRN (13:01)
[2022-12-16] MEDS: PANTOPRAZOLE 40 MG (PROTONIX) VIAL IV SCH (20:40)
--- NOTE | 2022-12-16 21:21 | Progress Note - Cardiology ---
Cardiology SOAP Progress Note Subjective: He is on BiPAP and does not answer my questions Objective: I&O/Vital Signs 12/16/22 12/16/22 12/16/22 12/16/22 10:00 10:26 11:00 12:00 Pulse 95 92 Resp 9 14 B/P (MAP) 128/38 (68) 116/80 (92) Pulse Ox 94 94 95 96 O2 Delivery Nasal Cannula Nasal Cannula Nasal Cannula Nasal Cannula O2 Flow Rate 3.00 3.00 3.00 3.00 12/16/22 12/16/22 12/16/22 12/16/22 12:00 12:06 12:30 13:00 Temp 35.2 Pulse 92 96 93 Resp 15 17 B/P (MAP) 133/80 (97) 117/65 (82) Pulse Ox 93 93 O2 Delivery Nasal Cannula Nasal Cannula O2 Flow Rate 3.00 3.00 12/16/22 12/16/22 12/16/22 12/16/22 13:51 14:00 14:37 15:00 Pulse 91 98 86 Resp 26 25 B/P (MAP) 109/62 80/69 (73) 89/53 (65) Pulse Ox 96 95 97 O2 Delivery Nasal Cannula Nasal Cannula Nasal Cannula O2 Flow Rate 3.00 3.00 3.00 12/16/22 12/16/22 12/16/22 12/16/22 15:23 15:56 16:00 16:15 Temp 35.7 Pulse 92 89 Resp 13 16 B/P (MAP) 47/26 (33) 89/58 (68) Pulse Ox 96 91 97 O2 Delivery Nasal Cannula Nasal Cannula Nasal Cannula O2 Flow Rate 3.00 3.00 3.00 12/16/22 12/16/22 12/16/22 12/16/22 17:00 17:15 18:00 18:46 Pulse 89 87 92 Resp 29 15 15 B/P (MAP) 91/29 (49) 96/84 (88) Pulse Ox 100 100 100 100 O2 Delivery Nasal Cannula Nasal Cannula Nasal Cannula Nasal Cannula O2 Flow Rate 3.00 3.00 3.00 5.00 12/16/22 12/16/22 12/16/22 19:36 19:45 19:59 Temp 34.9 B/P (MAP) O2 Delivery NIV Bilevel NIV Bilevel NIV Bilevel O2 Flow Rate 50.00 40.00 FiO2 50 12/16/22 00:00 Intake Total 550 ml Output Total 650 ml Balance -100 ml Constitutional: well-developed, well-nourished, other (on BiPAP) Respiratory: No accessory muscle use; chest expansion is symmetric, chest is bilaterally symmetric, other (somewhat diminished air entry at the bases, bibasilar crackles) Cardiovascular: regular rate-rhythm, S1 and S2, systolic murmur (soft CHAIM at card base); No friction rub Gastrointestional: No tender; soft; No guarding, No rebound; audible bowel sounds Genital/Rectal: No normal genital exam; other (moderate to severe edema to both the scrotum and penis) Extremities: other (bilateral BKA); No clubbing, No cyanosis, No significant edema Neurologic/Psychiatric: oriented x 3, other (moves all limbs) Skin: warm/dry; No cyanosis, No rash on exposed areas, No ulcerations on exposed areas Results/Procedures: Labs Laboratory Tests 12/16/22 03:25: White Blood Count 7.4, Red Blood Count 4.02L, Hemoglobin 10.4L, Hematocrit 32L, Mean Corpuscular Volume 80, Mean Corpuscular Hemoglobin 26, Mean Corpuscular Hemoglobin Concent 32, Red Cell Distribution Width 13.8, Platelet Count 321, Mean Platelet Volume 10.2, Immature Granulocyte % (Auto) 1, Neutrophils (%) (Auto) 91H, Lymphocytes (%) (Auto) 4L, Monocytes (%) (Auto) 4, Eosinophils (%) (Auto) 0, Basophils (%) (Auto) 0, Neutrophils # (Auto) 6.8, Lymphocytes # (Auto) 0.3L, Monocytes # (Auto) 0.3, Eosinophils # (Auto) 0.0, Basophils # (Auto) 0.0, Immature Granulocyte # (Auto) 0.1, Sodium Level 130L, Potassium Level 5.1H, Chloride Level 101, Carbon Dioxide Level 16L, Anion Gap 13, Blood Urea Nitrogen 73H, Creatinine 4.30H, Estimat Glomerular Filtration Rate 17, BUN/Creatinine Ratio 17, Glucose Level 349H, Calcium Level 7.7L, Corrected Calcium 9.5, Phosphorus Level 5.7H, Magnesium Level 2.0, Total Bilirubin 0.2, Aspartate Amino Transf (AST/SGOT) 11, Alanine Aminotransferase (ALT/SGPT) 20, Alkaline Phosphatase 138H, Total Protein 4.8L, Albumin 1.8L 12/16/22 09:00: Gastric Fluid Occult Blood POSITIVEH 12/16/22 09:30: Urine Color YELLOW, Urine Clarity SL CLOUDY, Urine pH 5.5, Urine Specific [place] 1.025H, Urine Protein 3+H, Urine Glucose (UA) TRACEH, Urine Ketones NEGATIVE, Urine Nitrite NEGATIVE, Urine Bilirubin NEGATIVE, Urine Urobilinogen 0.2, Urine Leukocyte Esterase TRACEH, Urine RBC (Auto) 2+H, Urine RBC 0-2, Urine WBC 2-5, Urine Squamous Epithelial Cells 2-5, Urine Crystals NONE, Urine Bacteria FEWH, Urine Casts PRESENT, Urine Granular Casts 2-5H, Urine Mucus NEGATIVE, Urine Culture Indicated CULTURE PENDING, Urine Opiates Screen NEGATIVE, Urine Oxycodone Screen NEGATIVE, Urine Methadone Screen NEGATIVE, Urine Propoxyphene Screen NEGATIVE, Urine Barbiturates Screen NEGATIVE, Ur Tricyclic Antidepressants Screen NEGATIVE, Urine Phencyclidine Screen NEGATIVE, Urine Amphetamines Screen POSITIVEH, Urine Methamphetamines Screen POSITIVEH, Urine Benzodiazepines Screen NEGATIVE, Urine Cocaine Screen NEGATIVE, Urine Cannabinoids Screen NEGATIVE 12/16/22 10:53: Glucometer 268H 12/16/22 15:22: Glucometer 244H 12/16/22 18:59: Glucometer 253H 12/16/22 20:19: Glucometer 248H Microbiology 12/15/22 C. difficile GDH Antigen & Toxins - Final, Complete 12/15/22 MRSA Screen - Final, Complete MRSA not isolated 12/15/22 Blood Culture - Preliminary, Resulted Probable Coag Negative Staph Laboratory Tests 12/15/22 02:12 12/15/22 12:40 12/15/22 18:30 12/16/22 03:25 A/P: Assessment: Ac resp failure, probably multifactorial - ac systolic CHF (HFrEF) - Echo shows LVEF approx 35-40%, mod MR, PASP 35-40 mmHg - pneumonia and suspected sepsis Hematemesis this morning (12-16-22) Troponin elevation due to hypoxemia (probably prolonged): type 2 MN Renal failure: probably acute on chronic Diabetes, probably type I, treated with insulin 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 Guarded prognosis * We recommend transfer to tertiary care facility for nephrology eval / dialysis * Continue dobutamine in low dose to aid cardiac output. Monitor for arrhythmia * We recommend that labs be closely monitored and any electrolyte abnormalities be treated (Hospitalist service managing) * Hematemesis this morning - occult + - advise GI consult for consideration of endoscopy - management per Medical services * Hosp svce managing DM, pneumonia, sepsis, renal failure RYLEY HANSEN MD FACP FACC CCDS Dec 16, 2022 21:21
[2022-12-17 02:44] VITALS: BP 98/51
[2022-12-17] MEDS: RT-ALBUTEROL HFA 8.5 GM INHALER IH SCH ×5 (02:44→23:27)
[2022-12-17 03:09] LABS: BASOPHILS % (AUTO) 0 % (0-10); EOSINOPHILS % (AUTO) 0 % (0-10); HEMATOCRIT 27 % (40-54); HEMOGLOBIN 8.8 g/dL (13.3-17.7); LYMPHOCYTES # (AUTO) 0.4 10^3/uL (1.0-4.0); LYMPHOCYTES % (AUTO) 4 % (12-44); MEAN CORPUSCULAR HEMOGLOBIN 26 pg (25-34); MEAN CORPUSCULAR HGB CONC 32 g/dL (32-36); MEAN CORPUSCULAR VOLUME 81 fL (80-99); MONOCYTES # (AUTO) 0.5 10^3/uL (0.0-1.0); MONOCYTES % (AUTO) 5 % (0-12); NEUTROPHILS # (AUTO) 8.3 10^3/uL (1.8-7.8); NEUTROPHILS % (AUTO) 90 % (42-75); PLATELET COUNT 314 10^3/uL (130-400); WHITE BLOOD COUNT 9.2 10^3/uL (4.3-11.0)
[2022-12-17 03:29] LABS: ALBUMIN 1.7 GM/DL (3.2-4.5); POTASSIUM 5.4 MMOL/L (3.6-5.0)
[2022-12-17 03:31] LABS: CALCIUM 7.5 MG/DL (8.5-10.1)
[2022-12-17 03:32] LABS: TOTAL PROTEIN 4.2 GM/DL (6.4-8.2)
[2022-12-17 03:34] LABS: BILIRUBIN,TOTAL 0.1 MG/DL (0.1-1.0)
[2022-12-17 03:35] LABS: PHOSPHORUS 5.9 MG/DL (2.3-4.7)
[2022-12-17 03:36] LABS: CREATININE SERUM 4.47 MG/DL (0.60-1.30)
[2022-12-17] MEDS: KCL 20 MEQ TAB (K-DUR) PO SCH (03:45)
[2022-12-17] MEDS: MAGNESIUM 1 GM/100 ML IVPB 100 ML IV SCH (03:45)
[2022-12-17] MEDS: POTASSIUM CL 10MEQ/50ML IVPB 50 ML IV SCH (03:45)
[2022-12-17] MEDS: DOBUTamine DRIP 250 ML IV SCH ×2 (03:51→18:11)
[2022-12-17] MEDS: inSUlin ASPART (NovoLOG) 1 UNIT/0.01 ML (CHARGE PER UNIT) SC SCH ×4 (05:50→21:23)
[2022-12-17] MEDS: ENOXAPARIN 120 MG/0.8 ML (LOVENOX) SQ SCH (05:51)
[2022-12-17] MEDS: PANTOPRAZOLE 40 MG (PROTONIX) VIAL IV SCH ×2 (08:24→21:23)
[2022-12-17] MEDS: SODIUM BICARBONATE 650 MG TABLET PO SCH ×2 (08:24→21:23)
[2022-12-17] MEDS: ASPIRIN 325 MG (5 GR) TABLET PO SCH (08:25)
[2022-12-17] MEDS: POVIDONE (BETADINE) 10% SOLN 240 ML BTL TOP SCH ×2 (08:27→21:25)
[2022-12-17] MEDS: MICONAZOLE 2% POWDER (DESENEX AF) 90 GM TOP SCH ×2 (08:27→21:25)
[2022-12-17] MEDS ORDERED: FUROSEMIDE 40 MG/4 ML INJ (LASIX) IVP SCH (09:00)
--- NOTE | 2022-12-17 09:18 | Tele-ICU Progress Note ---
Subjective Date Seen by a Provider: Dec 17, 2022 Subjective/Events-last exam This virtual visit was conducted using real time audio/video. Thank you for asking us to see this patient for respiratory insufficiency due to pna, systolic CHF,sepsis, cardiogenic shock. Also NSTEMI, stage IV coccygeal decub. Recent events: refusing HD. PE: VSS. O2 sat 95% on 1 LPM. Appears comfortable, obese on camera HEENT: No obvious masses, adenopathy or JVD. Chest: coarse BS on auscultation. CV: RRR S1 S2 No murmur or added sounds. Abd: Non-tender. Bowel sounds Y. : Unremarkable. 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 No obvious focal findings. Extremities: 3+ edema. B BKAs. Capillary refill < 3 seconds. Skin: unremarkable. Results: Elevated BUN 79, Creat 4.47, BG 250, D-Dimer 6.66. Decreased Alb 1.7. AB.34/33/75 on 1005 12/15/22. CXR: B patchy infilts., B small effusions.. Available chart/ vitals / labs / images reviewed. Video assessment done using teleICU camera, rest of exam as per RN. A/P: Respiratory insufficiency: Continue present management with O2, albuterol Monitor for increasing oxygenation needs and/or need for non- invasive ventilation. DNR/DNI. Critical Care: critically ill patient. Cont. Dobut., Levo., Remigio., PPI, abx, ASA, NaHCO3 tabs, SSI. Discussed with RN MILTON. Asked RN to reach out to eICU if any questions or concerns later. Time spent with patient/coordination of care with other health professionals (mins): 22 Sepsis Event Evaluation Height, Weight, BMI Height: '" Weight: lbs. oz. kg; 40.09 BMI Method: Focused Exam Lactate Level 12/15/22 02:12: Lactic Acid Level 1.68 12/15/22 12:40: Lactic Acid Level 0.88 Time of Focused Exam: 03:20 Exam Exam Patient acknowledged, consented, and participated in this virtual visit which wa s conducted using real time audio/video Vital Signs Date Time Temp Pulse Resp B/P (MAP) Pulse Ox O2 Delivery O2 Flow Rate FiO2 12/17/22 08:00 36.6 98 15 133/39 (70) 95 Nasal Cannula 1.00 12/17/22 08:00 96 Nasal Cannula 1.00 12/17/22 07:17 101 12/17/22 07:00 36.7 98 18 115/29 (57) 96 Nasal Cannula 1.00 12/17/22 06:51 Nasal Cannula 1.00 12/17/22 06:49 100 Nasal Cannula 3.00 12/17/22 06:15 36.6 97 12 105/34 (77) 98 Nasal Cannula 3.00 12/17/22 06:00 36.6 101 116/21 (74) 98 Nasal Cannula 3.00 12/17/22 05:45 Nasal Cannula 3.00 12/17/22 05:15 36.6 93 12 115/57 (83) 98 NIV Bilevel 30.00 12/17/22 05:00 36.6 92 16 108/27 (68) 99 NIV Bilevel 30.00 12/17/22 04:15 36.4 NIV Bilevel 30.00 12/17/22 04:00 96 NIV Bilevel 30 12/17/22 04:00 36.6 96 7 102/46 (81) 98 NIV Bilevel 30.00 12/17/22 03:51 93 103/32 12/17/22 03:30 36.6 98 12 103/35 (72) 99 NIV Bilevel 30.00 12/17/22 03:15 36.5 93 13 98/46 (77) 98 NIV Bilevel 30.00 12/17/22 03:00 36.5 89 85/21 (59) 97 NIV Bilevel 30.00 12/17/22 02:45 36.5 93 9 98/51 (72) 98 NIV Bilevel 30.00 12/17/22 02:44 93 19 97 30.00 12/17/22 02:30 36.6 93 101/40 (68) 97 NIV Bilevel 30.00 12/17/22 02:12 92 94/41 12/17/22 01:00 36.6 96 124/56 (83) 99 NIV Bilevel 30.00 12/17/22 01:00 96 12/17/22 00:00 36.4 95 19 124/59 (74) 98 NIV Bilevel 30.00 12/16/22 23:45 36.3 98 18 125/59 (70) 97 NIV Bilevel 30.00 12/16/22 23:30 36.2 91 16 117/21 (72) 98 NIV Bilevel 30.00 12/16/22 23:15 36.1 90 17 113/49 (70) 97 NIV Bilevel 30.00 12/16/22 23:10 100 NIV Bilevel 30 12/16/22 23:00 36 90 12 112/29 (34) 96 NIV Bilevel 30.00 12/16/22 22:45 35.9 88 117/69 (77) 97 NIV Bilevel 30.00 12/16/22 22:30 35.8 92 18 133/63 (84) 97 NIV Bilevel 30.00 12/16/22 22:15 35.7 92 32 137/21 (51) 99 NIV Bilevel 30.00 12/16/22 22:00 35.5 93 128/30 (38) 98 NIV Bilevel 30.00 12/16/22 21:45 35.5 92 11 116/62 (77) 99 NIV Bilevel 30.00 12/16/22 21:39 35.4 90 28 109/71 (84) 100 NIV Bilevel 30.00 12/16/22 21:15 35.3 86 14 97/33 (76) 100 NIV Bilevel 40.00 12/16/22 21:00 35.1 87 14 95/63 (72) 100 NIV Bilevel 40.00 12/16/22 20:45 35.0 89 12 90/64 (71) 100 NIV Bilevel 40.00 12/16/22 20:30 34.9 83 27 94/53 (64) 100 NIV Bilevel 40.00 12/16/22 20:15 34.9 84 11 105/35 (76) 100 NIV Bilevel 40.00 12/16/22 20:00 34.9 84 104/54 (57) 100 NIV Bilevel 40.00 12/16/22 19:59 NIV Bilevel 40.00 12/16/22 19:45 34.9 92 28 118/70 (82) 100 NIV Bilevel 50.00 12/16/22 19:45 NIV Bilevel 50 12/16/22 19:36 34.9 NIV Bilevel 50.00 12/16/22 19:30 91 113/92 (99) 99 Nasal Cannula 10.00 12/16/22 19:15 87 10 131/67 (90) 98 Nasal Cannula 3.00 12/16/22 19:00 87 18 135/62 (108) 95 Nasal Cannula 3.00 12/16/22 19:00 87 12/16/22 18:46 100 Nasal Cannula 5.00 12/16/22 18:00 92 15 100 Nasal Cannula 3.00 12/16/22 17:15 87 15 96/84 (88) 100 Nasal Cannula 3.00 12/16/22 17:00 89 29 91/29 (49) 100 Nasal Cannula 3.00 12/16/22 16:15 89 16 89/58 (68) 97 Nasal Cannula 3.00 12/16/22 16:00 92 13 47/26 (33) 91 Nasal Cannula 3.00 12/16/22 15:56 35.7 12/16/22 15:23 96 Nasal Cannula 3.00 12/16/22 15:00 86 25 89/53 (65) 97 Nasal Cannula 3.00 12/16/22 14:37 95 Nasal Cannula 3.00 12/16/22 14:00 98 26 80/69 (73) 96 Nasal Cannula 3.00 12/16/22 13:51 91 109/62 12/16/22 13:00 93 17 117/65 (82) 93 Nasal Cannula 3.00 12/16/22 12:30 96 12/16/22 12:06 35.2 12/16/22 12:00 92 15 133/80 (97) 93 Nasal Cannula 3.00 12/16/22 12:00 96 Nasal Cannula 3.00 12/16/22 11:00 92 14 116/80 (92) 95 Nasal Cannula 3.00 12/16/22 10:26 94 Nasal Cannula 3.00 12/16/22 10:00 95 9 128/38 (68) 94 Nasal Cannula 3.00 I & O 12/17/22 07:00 Intake Total 550 ml Output Total 345 ml Balance 205 ml Height & Weight Height: '" Weight: lbs. oz. kg; 40.09 BMI Method: General Appearance: No Apparent Distress, Chronically ill, Obese, Other (cup with dark contents reportedly from vomit per patient) HEENT: Other (BiPAP mask obscures some of exam) Respiratory: No Accessory Muscle Use, Decreased Breath Sounds, Other (on 3lpm) Cardiovascular: Regular Rate, Rhythm, No Murmur Capillary Refill: Less Than 3 Seconds Gastrointestinal: distended Extremity: Swelling (2-3+ in stumps), Other (s/p BKA) Neurologic/Psychiatric: Alert, Oriented x3 Skin: Normal Color, Warm/Dry Results Lab Laboratory Tests 12/15/22 12:40 12/15/22 18:30 12/16/22 03:25 12/17/22 02:56 Assessment/Plan Assessment/Plan See free text. Critical Care: Critically Ill Patient LISA STARKEY MD Dec 17, 2022 09:18
--- NOTE | 2022-12-17 09:33 | Progress Note - Hospitalist ---
Subjective HPI/CC On Admission Date Seen by Provider: Dec 17, 2022 Pt is a 42yoCM with a PMH of IDDMII, HTN, s/p bilateral BKA who presented to the ER due to shortness of breath. History is somewhat limited by his BiPAP but he answers yes and no questions all appropriately. He has been short of breath for a few days to a week and EMS was summoned last night. He was foudnt o be hypoxic with sats in the 70s by them and required a nonrebreather to get it up to the 90s. Apparently his home condition was deplorable and he was laying in his own feces and urine. He was found to be in acute renal failure and florrid heart failure with possible pneumonia. He also states his blood sugars had been running high as well. [facility] but has not seen a doctor since last leaving the hospital here. Subjective/Events-last exam Pt reports feeling about the same. Slightly less swollen Focused Exam Lactate Level 12/15/22 02:12: Lactic Acid Level 1.68 12/15/22 12:40: Lactic Acid Level 0.88 Time of Focused Exam: 03:20 Objective Exam Vital Signs Vital Signs Date Time Temp Pulse Resp B/P (MAP) Pulse Ox O2 Delivery O2 Flow Rate FiO2 12/17/22 08:00 36.6 98 15 133/39 (70) 95 Nasal Cannula 1.00 12/17/22 04:00 30 Capillary Refill : Less Than 3 Seconds General Appearance: No Apparent Distress, WD/WN Respiratory: Lungs Clear, No Respiratory Distress Cardiovascular: Regular Rate, Rhythm, No Murmur Neurologic/Psychiatric: Alert, Oriented x3 Results/Procedures Lab Laboratory Tests 12/17/22 02:56 Patient resulted labs reviewed. Imaging: Reviewed Imaging Report Assessment/Plan Assessment and Plan Assess & Plan/Chief Complaint Multiorgan failure Respiratory failure with ?pna vs fluid overload renal failure cardiogenic shock NSTEMI Discussed gravity of illness with patient again today, he is reconsidering dialysis if needed- will talk to his SO Reaffirmed his request for no other aggressive measures (No CPR, no intubation, no transfers) even in the event that it may result in his he does not want these measures Lasix- add albumin Dobutamine for hypotension Cardiology consulted, appreciate recs Neprhology consulted, discussed with Dr Alvarez who agreed with diuretics as able to for dyspnea and recommended to add bicarb tabs Surgery consulted, appreciate recs- Discussed with Dr Guevara Continue protonix TeleICU consulted Off BiPAP Continue IV abx Strep in sputum culture Palliative Care consulted DVT ppx: Lovenox renally dosed as able Critical Care Critically Ill Patient Diagnosis/Problems Diagnosis/Problems (1) NSTEMI (non-ST elevated myocardial infarction) Status: Acute (2) Non-compliance Status: Acute (3) Uncontrolled diabetes mellitus Status: Acute (4) Multi-organ failure with heart failure (5) Cardiogenic shock (6) Renal failure (ARF), acute on chronic (7) S/P bilateral below knee amputation (8) Unable to care for self Status: Acute (9) Pneumonia Status: Acute (10) Sepsis Status: Acute (11) CHF (congestive heart failure) Status: Acute (12) Acute renal failure Status: Acute (13) Anasarca Status: Acute (14) Acute respiratory failure Status: Acute (15) History of methamphetamine use Status: Acute JIGAR ARREOLA MD Dec 17, 2022 09:33
[2022-12-17] MEDS ORDERED: ALBUMIN 25% 25 GM/100 ML 50 ML IV ONE (10:00)
[2022-12-17] MEDS: cefTRIAXone 2,000 MG/NS 50 ML IVPB IV SCH ×2 (10:18)
--- NOTE | 2022-12-17 10:33 | Progress Note ---
Progress Note Assessment/Plan Date Seen by Provider: Dec 17, 2022 Time Seen by Provider: 12:20 Events since last exam Pt states he feels less soa than yesterday. Did require bipap overnight but back on 1L NC. only put out 420ml in 24 hours with 1 dose of lasix. Assessment/Plan BO on CKD 2- not improving baseline creatinine 05/2022-1.2, h/o dm since age 17 BO due to ?retention of urine due to scrotal edema + cardio renal syndrome agree with keeping day in place monitor I/Os continue lasix plan for 40mg bid iv lasix given extensive edema agree with albumin prior to lasix dose Pt is becoming more open to other interventions if we get to that point check pro/cr; suspect nephrotic range proteinuria as a result of dm volume overload due severely low albumin will third space unfortunately see above Hyperkalemia elevated k today should improve with more lasix will also give one dose of kayexalate 12/17/22 severe hypoalbuminemia albumin 1.8 since 05/2022 encourage po intake monitor pro/cr consider imaging of his liver to r/o cirrhosis met acidosis continue po bicarb bid PVD s/p bilateral amputations medically manage Thank you for allowing me to participate in the care of this very pleasant patient. Discussed with Dr. Frey. (This visit was conducted using a secure video chat.) Vitals Last set of Vitals Signs Vital Signs Date Time Temp Pulse Resp B/P (MAP) Pulse Ox O2 Delivery O2 Flow Rate FiO2 12/17/22 10:00 36.7 102 23 118/54 (75) 96 Nasal Cannula 1.00 12/17/22 04:00 30 I&O I&O Intake and Output 12/17/22 00:00 Intake Total 50 ml Output Total 340 ml Balance -290 ml Intake Oral 0 ml IV Total 50 ml Output Urine Total 340 ml Labs Laboratory Tests 12/16/22 10:53: Glucometer 268H 12/16/22 15:22: Glucometer 244H 12/16/22 18:59: Glucometer 253H 12/16/22 20:19: Glucometer 248H 12/16/22 21:30: Glucometer 265H 12/17/22 02:56: White Blood Count 9.2, Red Blood Count 3.38L, Hemoglobin 8.8L, Hematocrit 27L, Mean Corpuscular Volume 81, Mean Corpuscular Hemoglobin 26, Mean Corpuscular Hemoglobin Concent 32, Red Cell Distribution Width 13.9, Platelet Count 314, Mean Platelet Volume 10.0, Immature Granulocyte % (Auto) 1, Neutrophils (%) (Auto) 90H, Lymphocytes (%) (Auto) 4L, Monocytes (%) (Auto) 5, Eosinophils (%) (Auto) 0, Basophils (%) (Auto) 0, Neutrophils # (Auto) 8.3H, Lymphocytes # (Auto) 0.4L, Monocytes # (Auto) 0.5, Eosinophils # (Auto) 0.0, Basophils # (Auto) 0.0, Immature Granulocyte # (Auto) 0.1, Sodium Level 135, Potassium Level 5.4H, Chloride Level 105, Carbon Dioxide Level 18L, Anion Gap 12, Blood Urea Nitrogen 79H, Creatinine 4.47H, Estimat Glomerular Filtration Rate 16, BUN/Creatinine Ratio 18, Glucose Level 223H, Calcium Level 7.5L, Corrected Calcium 9.3, Phosphorus Level 5.9H, Magnesium Level 2.0, Total Bilirubin 0.1, Aspartate Amino Transf (AST/SGOT) 7, Alanine Aminotransferase (ALT/SGPT) 14, Alkaline Phosphatase 108, Total Protein 4.2L, Albumin 1.7L 12/17/22 05:41: Glucometer 192H Microbiology 12/15/22 C. difficile GDH Antigen & Toxins - Final, Complete 12/15/22 MRSA Screen - Final, Complete MRSA not isolated 12/15/22 Blood Culture - Preliminary, Resulted Probable Coag Negative Staph Focused Exam Lactate Level 12/15/22 02:12: Lactic Acid Level 1.68 12/15/22 12:40: Lactic Acid Level 0.88 Time of Focused Exam: 03:20 Respiratory: No Respiratory Distress Cardiovascular: No No Edema GENO DIOP MD Dec 17, 2022 10:33
[2022-12-17] MEDS ORDERED: SODIUM POLYSTYRENE POWDER 15 GM BOTTLE PO NR (12:30)
[2022-12-17] MEDS: NOREPINEPHRINE 8 MG/250 ML 250 ML IV SCH ×2 (13:40→17:28)
--- NOTE | 2022-12-17 17:26 | Progress Note - Cardiology ---
Cardiology SOAP Progress Note Subjective: Gen weakness and malaise No cp No shortness of breath at rest No n/v Objective: I&O/Vital Signs 12/17/22 12/17/22 12/17/22 12/17/22 05:45 06:00 06:15 06:49 Temp 36.6 36.6 Pulse 101 97 Resp 12 B/P (MAP) 116/21 (74) 105/34 (77) Pulse Ox 98 98 100 O2 Delivery Nasal Cannula Nasal Cannula Nasal Cannula Nasal Cannula O2 Flow Rate 3.00 3.00 3.00 3.00 12/17/22 12/17/22 12/17/22 12/17/22 06:51 07:00 07:17 08:00 Temp 36.7 Pulse 98 101 Resp 18 B/P (MAP) 115/29 (57) Pulse Ox 96 96 O2 Delivery Nasal Cannula Nasal Cannula Nasal Cannula O2 Flow Rate 1.00 1.00 1.00 12/17/22 12/17/22 12/17/22 12/17/22 08:00 09:00 10:00 11:00 Temp 36.6 36.6 36.7 36.8 Pulse 98 104 102 105 Resp 15 23 7 B/P (MAP) 133/39 (70) 126/23 (57) 118/54 (75) 120/35 (63) Pulse Ox 95 98 96 94 O2 Delivery Nasal Cannula Nasal Cannula Nasal Cannula Nasal Cannula O2 Flow Rate 1.00 1.00 1.00 1.00 12/17/22 12/17/22 12/17/22 12/17/22 12:00 12:00 13:00 13:00 Temp 36.8 36.7 Pulse 102 103 103 Resp 18 17 B/P (MAP) 124/23 (56) 117/21 (53) Pulse Ox 95 93 95 O2 Delivery Room Air Room Air Room Air 12/17/22 12/17/22 12/17/22 12/17/22 14:00 14:32 15:00 15:21 Temp 36.5 36.4 Pulse 100 98 Resp 18 13 B/P (MAP) 103/41 (61) 134/24 (60) Pulse Ox 95 95 96 95 O2 Delivery Room Air Room Air Room Air Room Air 12/17/22 12/17/22 15:59 16:00 Temp 36.5 36.4 Pulse 102 Resp 22 B/P (MAP) 112/58 (76) Pulse Ox 96 O2 Delivery Room Air 12/17/22 00:00 Intake Total 0 ml Output Total 175 ml Balance -175 ml Constitutional: AAO x 3, well-developed, well-nourished, other Respiratory: No accessory muscle use; chest expansion is symmetric, chest is bilaterally symmetric, other (somewhat diminished air entry at the bases, bibasilar crackles) Cardiovascular: regular rate-rhythm, S1 and S2, systolic murmur (soft CHAIM at card base); No friction rub Gastrointestional: No tender; soft; No guarding, No rebound; audible bowel sounds Genital/Rectal: No normal genital exam; other (moderate to severe edema to both the scrotum and penis) Extremities: other (bilateral BKA); No clubbing, No cyanosis, No significant edema Neurologic/Psychiatric: oriented x 3, other (moves all limbs) Skin: warm/dry; No cyanosis, No rash on exposed areas, No ulcerations on exposed areas Results/Procedures: Labs Laboratory Tests 12/16/22 18:59: Glucometer 253H 12/16/22 20:19: Glucometer 248H 12/16/22 21:30: Glucometer 265H 12/17/22 02:56: White Blood Count 9.2, Red Blood Count 3.38L, Hemoglobin 8.8L, Hematocrit 27L, Mean Corpuscular Volume 81, Mean Corpuscular Hemoglobin 26, Mean Corpuscular Hemoglobin Concent 32, Red Cell Distribution Width 13.9, Platelet Count 314, Mean Platelet Volume 10.0, Immature Granulocyte % (Auto) 1, Neutrophils (%) (Auto) 90H, Lymphocytes (%) (Auto) 4L, Monocytes (%) (Auto) 5, Eosinophils (%) ( Auto) 0, Basophils (%) (Auto) 0, Neutrophils # (Auto) 8.3H, Lymphocytes # (Auto) 0.4L, Monocytes # (Auto) 0.5, Eosinophils # (Auto) 0.0, Basophils # (Auto) 0.0, Immature Granulocyte # (Auto) 0.1, Sodium Level 135, Potassium Level 5.4H, Chloride Level 105, Carbon Dioxide Level 18L, Anion Gap 12, Blood Urea Nitrogen 79H, Creatinine 4.47H, Estimat Glomerular Filtration Rate 16, BUN/Creatinine Ratio 18, Glucose Level 223H, Calcium Level 7.5L, Corrected Calcium 9.3, Phosphorus Level 5.9H, Magnesium Level 2.0, Total Bilirubin 0.1, Aspartate Amino Transf (AST/SGOT) 7, Alanine Aminotransferase (ALT/SGPT) 14, Alkaline Phosphatase 108, Total Protein 4.2L, Albumin 1.7L 12/17/22 05:41: Glucometer 192H 12/17/22 11:17: Glucometer 220H 12/17/22 16:10: Glucometer 206H Microbiology 12/16/22 Urine Culture - Final, Complete NO GROWTH 12/15/22 C. 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 Guarded prognosis * He was alert and oriented today and I was able to communicate with him. I advised treatment of renal failure w/o which it does not seem that we can get rid of the fluid overload and treat CHF * We recommend transfer to tertiary care facility for nephrology eval / dialysis * Continue dobutamine in low dose to aid cardiac output. Monitor for arrhythmia * We recommend that labs be closely monitored and any electrolyte abnormalities be treated (Hospitalist service managing) * Hosp svce managing DM, pneumonia, sepsis, renal failure, GI bleed RYLEY HANSEN MD FACP FAC CCDS Dec 17, 2022 17:26
--- NOTE | 2022-12-17 18:01 | Progress Note - Surgery ---
Subjective Time Seen by a Provider: 17:22 Subjective/Events-last exam Pt seen and examined, sitting up in bed with no oxygen on. I was told pt had some dark, possibly black, emesis. Pt denies problems at this time. Review of Systems Pulmonary: Dyspnea; No Cough Cardiovascular: No: Chest Pain, Palpitations Gastrointestinal: No: Nausea, Vomiting, Abdominal Pain Genitourinary: Dysuria, Retention Focused Exam Lactate Level 12/15/22 02:12: Lactic Acid Level 1.68 12/15/22 12:40: Lactic Acid Level 0.88 Time of Focused Exam: 03:20 Objective Exam Vital Signs Date Time Temp Pulse Resp B/P (MAP) Pulse Ox O2 Delivery O2 Flow Rate FiO2 12/17/22 17:28 102 112/58 12/17/22 16:00 36.4 102 22 112/58 (76) 96 Room Air 12/17/22 15:59 36.5 12/17/22 15:21 95 Room Air 12/17/22 15:00 36.4 98 13 134/24 (60) 96 Room Air 12/17/22 14:32 95 Room Air 12/17/22 14:00 36.5 100 18 103/41 (61) 95 Room Air 12/17/22 13:00 36.7 103 17 117/21 (53) 95 Room Air 12/17/22 13:00 103 12/17/22 12:00 36.8 102 18 124/23 (56) 93 Room Air 12/17/22 12:00 95 Room Air 12/17/22 11:00 36.8 105 7 120/35 (63) 94 Nasal Cannula 1.00 12/17/22 10:00 36.7 102 23 118/54 (75) 96 Nasal Cannula 1.00 12/17/22 09:00 36.6 104 21 126/23 (57) 98 Nasal Cannula 1.00 12/17/22 08:00 36.6 98 15 133/39 (70) 95 Nasal Cannula 1.00 12/17/22 08:00 96 Nasal Cannula 1.00 12/17/22 07:17 101 12/17/22 07:00 36.7 98 18 115/29 (57) 96 Nasal Cannula 1.00 12/17/22 06:51 Nasal Cannula 1.00 12/17/22 06:49 100 Nasal Cannula 3.00 12/17/22 06:15 36.6 97 12 105/34 (77) 98 Nasal Cannula 3.00 12/17/22 06:00 36.6 101 116/21 (74) 98 Nasal Cannula 3.00 12/17/22 05:45 Nasal Cannula 3.00 12/17/22 05:15 36.6 93 12 115/57 (83) 98 NIV Bilevel 30.00 12/17/22 05:00 36.6 92 16 108/27 (68) 99 NIV Bilevel 30.00 12/17/22 04:15 36.4 NIV Bilevel 30.00 12/17/22 04:00 96 NIV Bilevel 30 12/17/22 04:00 36.6 96 7 102/46 (81) 98 NIV Bilevel 30.00 12/17/22 03:51 93 103/32 12/17/22 03:30 36.6 98 12 103/35 (72) 99 NIV Bilevel 30.00 12/17/22 03:15 36.5 93 13 98/46 (77) 98 NIV Bilevel 30.00 12/17/22 03:00 36.5 89 85/21 (59) 97 NIV Bilevel 30.00 12/17/22 02:45 36.5 93 9 98/51 (72) 98 NIV Bilevel 30.00 12/17/22 02:44 93 19 97 30.00 12/17/22 02:30 36.6 93 101/40 (68) 97 NIV Bilevel 30.00 12/17/22 02:12 92 94/41 12/17/22 01:00 36.6 96 124/56 (83) 99 NIV Bilevel 30.00 12/17/22 01:00 96 12/17/22 00:00 36.4 95 19 124/59 (74) 98 NIV Bilevel 30.00 12/16/22 23:45 36.3 98 18 125/59 (70) 97 NIV Bilevel 30.00 12/16/22 23:30 36.2 91 16 117/21 (72) 98 NIV Bilevel 30.00 12/16/22 23:15 36.1 90 17 113/49 (70) 97 NIV Bilevel 30.00 12/16/22 23:10 100 NIV Bilevel 30 12/16/22 23:00 36 90 12 112/29 (34) 96 NIV Bilevel 30.00 12/16/22 22:45 35.9 88 117/69 (77) 97 NIV Bilevel 30.00 12/16/22 22:30 35.8 92 18 133/63 (84) 97 NIV Bilevel 30.00 12/16/22 22:15 35.7 92 32 137/21 (51) 99 NIV Bilevel 30.00 12/16/22 22:00 35.5 93 128/30 (38) 98 NIV Bilevel 30.00 12/16/22 21:45 35.5 92 11 116/62 (77) 99 NIV Bilevel 30.00 12/16/22 21:39 35.4 90 28 109/71 (84) 100 NIV Bilevel 30.00 12/16/22 21:15 35.3 86 14 97/33 (76) 100 NIV Bilevel 40.00 12/16/22 21:00 35.1 87 14 95/63 (72) 100 NIV Bilevel 40.00 12/16/22 20:45 35.0 89 12 90/64 (71) 100 NIV Bilevel 40.00 12/16/22 20:30 34.9 83 27 94/53 (64) 100 NIV Bilevel 40.00 12/16/22 20:15 34.9 84 11 105/35 (76) 100 NIV Bilevel 40.00 12/16/22 20:00 34.9 84 104/54 (57) 100 NIV Bilevel 40.00 12/16/22 19:59 NIV Bilevel 40.00 12/16/22 19:45 34.9 92 28 118/70 (82) 100 NIV Bilevel 50.00 12/16/22 19:45 NIV Bilevel 50 12/16/22 19:36 34.9 NIV Bilevel 50.00 12/16/22 19:30 91 113/92 (99) 99 Nasal Cannula 10.00 12/16/22 19:15 87 10 131/67 (90) 98 Nasal Cannula 3.00 12/16/22 19:00 87 18 135/62 (108) 95 Nasal Cannula 3.00 12/16/22 19:00 87 12/16/22 18:46 100 Nasal Cannula 5.00 12/16/22 18:00 92 15 100 Nasal Cannula 3.00 I & O 12/17/22 07:00 Intake Total 550 ml Output Total 345 ml Balance 205 ml Capillary Refill : Less Than 3 Seconds General Appearance: No Apparent Distress, Obese HEENT: PERRL/EOMI, Other (poor dentition) Respiratory: No Respiratory Distress, Decreased Breath Sounds, Rhonci Cardiovascular: No Murmur, Tachycardia Gastrointestinal: non tender, soft, no organomegaly Extremity: Swelling (2-3+ in stumps), Other (s/p BKA) Neurologic/Psychiatric: Alert, Oriented x3 Results Lab Laboratory Tests 12/16/22 18:59: Glucometer 253H 12/16/22 20:19: Glucometer 248H 12/16/22 21:30: Glucometer 265H 12/17/22 02:56: White Blood Count 9.2, Red Blood Count 3.38L, Hemoglobin 8.8L, Hematocrit 27L, Mean Corpuscular Volume 81, Mean Corpuscular Hemoglobin 26, Mean Corpuscular Hemoglobin Concent 32, Red Cell Distribution Width 13.9, Platelet Count 314, Mean Platelet Volume 10.0, Immature Granulocyte % (Auto) 1, Neutrophils (%) (Auto) 90H, Lymphocytes (%) (Auto) 4L, Monocytes (%) (Auto) 5, Eosinophils (%) (Auto) 0, Basophils (%) (Auto) 0, Neutrophils # (Auto) 8.3H, Lymphocytes # (Auto) 0.4L, Monocytes # (Auto) 0.5, Eosinophils # (Auto) 0.0, Basophils # (A uto) 0.0, Immature Granulocyte # (Auto) 0.1, Sodium Level 135, Potassium Level 5.4H, Chloride Level 105, Carbon Dioxide Level 18L, Anion Gap 12, Blood Urea Nitrogen 79H, Creatinine 4.47H, Estimat Glomerular Filtration Rate 16, BUN/Creatinine Ratio 18, Glucose Level 223H, Calcium Level 7.5L, Corrected Calcium 9.3, Phosphorus Level 5.9H, Magnesium Level 2.0, Total Bilirubin 0.1, Aspartate Amino Transf (AST/SGOT) 7, Alanine Aminotransferase (ALT/SGPT) 14, Alkaline Phosphatase 108, Total Protein 4.2L, Albumin 1.7L 12/17/22 05:41: Glucometer 192H 12/17/22 11:17: Glucometer 220H 12/17/22 16:10: Glucometer 206H Microbiology 12/16/22 Urine Culture - Final, Complete NO GROWTH 12/15/22 C. 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 Agree with keeping day in place to monitor I/Os, continue lasix Hyperkalemia elevated k today should improve with more lasix will also give one dose of kayexalate 12/17/22 PVD s/p bilateral amputations medically manage Pt has not wanted any intervention, but now may consider EGD per Dr. Frey. However, when I talked to him and told him he could have ulcers; which could be causing anemia and the ??melena. He didn't think he wanted an EGD but would think about it overnight. RAMILA STRAUSS DO Dec 17, 2022 18:01
[2022-12-17] MEDS: FUROSEMIDE 40 MG/4 ML INJ (LASIX) IVP SCH (21:23)
[2022-12-17] MEDS: ALBUMIN 25% 25 GM/100 ML 50 ML IV SCH (21:24)
[2022-12-18 03:37] VITALS: BP 81/31
[2022-12-18] MEDS: RT-ALBUTEROL HFA 8.5 GM INHALER IH SCH ×6 (03:40→23:09)
[2022-12-18 04:36] LABS: BASOPHILS % (AUTO) 0 % (0-10); EOSINOPHILS % (AUTO) 0 % (0-10); HEMATOCRIT 29 % (40-54); HEMOGLOBIN 9.3 g/dL (13.3-17.7); LYMPHOCYTES # (AUTO) 0.5 10^3/uL (1.0-4.0); LYMPHOCYTES % (AUTO) 6 % (12-44); MEAN CORPUSCULAR HEMOGLOBIN 26 pg (25-34); MEAN CORPUSCULAR HGB CONC 32 g/dL (32-36); MEAN CORPUSCULAR VOLUME 81 fL (80-99); MEAN PLATELET VOLUME 9.8 fL (9.0-12.2); MONOCYTES # (AUTO) 0.6 10^3/uL (0.0-1.0); MONOCYTES % (AUTO) 7 % (0-12); NEUTROPHILS # (AUTO) 7.2 10^3/uL (1.8-7.8); NEUTROPHILS % (AUTO) 85 % (42-75); PLATELET COUNT 294 10^3/uL (130-400); WHITE BLOOD COUNT 8.6 10^3/uL (4.3-11.0)
[2022-12-18 05:16] LABS: ALBUMIN 2.1 GM/DL (3.2-4.5); POTASSIUM 4.5 MMOL/L (3.6-5.0)
[2022-12-18 05:17] LABS: CALCIUM 7.3 MG/DL (8.5-10.1)
[2022-12-18 05:18] LABS: TOTAL PROTEIN 4.7 GM/DL (6.4-8.2)
[2022-12-18 05:20] LABS: BILIRUBIN,TOTAL 0.1 MG/DL (0.1-1.0)
[2022-12-18 05:22] LABS: CREATININE SERUM 4.47 MG/DL (0.60-1.30); PHOSPHORUS 5.6 MG/DL (2.3-4.7)
[2022-12-18] MEDS: POTASSIUM CL 10MEQ/50ML IVPB 50 ML IV SCH (05:28)
[2022-12-18] MEDS: KCL 20 MEQ TAB (K-DUR) PO SCH (05:28)
[2022-12-18] MEDS: ENOXAPARIN 120 MG/0.8 ML (LOVENOX) SQ SCH (06:06)
[2022-12-18] MEDS: inSUlin ASPART (NovoLOG) 1 UNIT/0.01 ML (CHARGE PER UNIT) SC SCH ×4 (06:07→21:03)
[2022-12-18] MEDS: MAGNESIUM 1 GM/100 ML IVPB 100 ML IV SCH (06:10)
[2022-12-18 07:15] VITALS: BP 75/39
[2022-12-18] MEDS: guaiFENesin/CODEINE (ROBITUSSIN AC) 10ML UDC PO PRN ×2 (08:03→19:06)
[2022-12-18] MEDS: ASPIRIN 325 MG (5 GR) TABLET PO SCH (08:03)
[2022-12-18] MEDS: ALBUMIN 25% 25 GM/100 ML 50 ML IV SCH ×2 (08:03→21:03)
[2022-12-18] MEDS: FUROSEMIDE 40 MG/4 ML INJ (LASIX) IVP SCH ×2 (08:03→21:02)
[2022-12-18] MEDS: PANTOPRAZOLE 40 MG (PROTONIX) VIAL IV SCH ×2 (08:03→21:02)
[2022-12-18] MEDS: SODIUM BICARBONATE 650 MG TABLET PO SCH ×2 (08:03→21:02)
[2022-12-18] MEDS: DOBUTamine DRIP 250 ML IV SCH ×2 (08:03→21:49)
--- NOTE | 2022-12-18 08:06 | Progress Note - Surgery ---
BRUCE BOYLE 12/18/22 0806: Subjective Date Seen by a Provider: Dec 18, 2022 Time Seen by a Provider: 07:13 Subjective/Events-last exam Patient is awake lying in bed, no family at bedside. He appears groggy this morning, but is able to answer all questions. He denies any further episodes of nausea and vomiting, which is confirmed by his nurse. He reports that he has been feeling short of breath occasionally this morning even on the bipap and has been having a nonproductive cough. Patient stated that they were still considering whether they wanted to undergo endoscopy or only conservative management, and hoped to have an answer by later today, patient has no questions about the procedure currently. Review of Systems General: Fatigue, Malaise HEENT: No Visual Changes, No Ear Pain Pulmonary: Dyspnea, Cough Cardiovascular: No: Chest Pain, Palpitations Gastrointestinal: No: Nausea, Vomiting, Abdominal Pain, Diarrhea Genitourinary: No Hematuria; Other (Day in place) Musculoskeletal: No: neck pain, back pain Neurological: No: Numbness, Incoordination Focused Exam Lactate Level 12/15/22 12:40: Lactic Acid Level 0.88 Time of Focused Exam: 03:20 Objective Exam Vital Signs Date Time Temp Pulse Resp B/P (MAP) Pulse Ox O2 Delivery O2 Flow Rate FiO2 12/18/22 07:15 101 21 98 21.00 12/18/22 07:00 100 12/18/22 07:00 36.3 100 15 125/43 (70) 98 NIV Bilevel 21.00 12/18/22 06:00 36.2 105 11 110/84 (93) 99 NIV Bilevel 21.00 12/18/22 05:00 36.1 100 16 86/38 (54) 99 NIV Bilevel 21.00 12/18/22 04:00 36.1 99 92/64 (73) 100 NIV Bilevel 21.00 12/18/22 04:00 95 NIV Bilevel 21 12/18/22 03:37 100 19 93 21.00 12/18/22 03:00 36.0 101 38 136/57 (83) 100 NIV Bilevel 21.00 12/18/22 02:00 36.0 99 25 122/47 (72) 99 NIV Bilevel 21.00 12/18/22 01:00 36.0 99 132/86 (101) 97 NIV Bilevel 21.00 12/18/22 01:00 100 12/18/22 00:00 36.0 105 28 148/46 (80) 95 NIV Bilevel 21.00 12/17/22 23:59 95 Room Air 12/17/22 23:50 NIV Bilevel 21.00 12/17/22 23:29 101 20 96 21.00 12/17/22 23:00 36.1 103 15 135/46 (75) 97 Room Air 12/17/22 22:00 36.2 105 21 132/42 (72) 94 Room Air 12/17/22 21:00 36.3 99 19 152/98 (116) 96 Room Air 12/17/22 20:00 95 Room Air 12/17/22 20:00 36.3 102 15 127/85 (99) 99 Room Air 12/17/22 19:24 100 Room Air 12/17/22 19:00 108 12/17/22 19:00 36.4 108 16 92/41 (58) 98 Room Air 12/17/22 18:11 98 126/97 12/17/22 18:00 36.4 98 19 126/97 (107) 97 Room Air 12/17/22 17:28 102 112/58 12/17/22 17:00 36.4 99 36 150/76 (100) 98 Room Air 12/17/22 16:00 36.4 102 22 112/58 (76) 96 Room Air 12/17/22 15:59 36.5 12/17/22 15:21 95 Room Air 12/17/22 15:00 36.4 98 13 134/24 (60) 96 Room Air 12/17/22 14:32 95 Room Air 12/17/22 14:00 36.5 100 18 103/41 (61) 95 Room Air 12/17/22 13:00 36.7 103 17 117/21 (53) 95 Room Air 12/17/22 13:00 103 12/17/22 12:00 36.8 102 18 124/23 (56) 93 Room Air 12/17/22 12:00 95 Room Air 12/17/22 11:00 36.8 105 7 120/35 (63) 94 Nasal Cannula 1.00 12/17/22 10:00 36.7 102 23 118/54 (75) 96 Nasal Cannula 1.00 12/17/22 09:00 36.6 104 21 126/23 (57) 98 Nasal Cannula 1.00 I & O 12/18/22 07:00 Intake Total 2010 ml Output Total 1705 ml Balance 305 ml Capillary Refill : Less Than 3 Seconds General Appearance: No Apparent Distress, Obese HEENT: PERRL/EOMI, Other (poor dentition) Neck: Non Tender, Supple Respiratory: No Respiratory Distress, Accessory Muscle Use, Decreased Breath Sounds, Rhonci Cardiovascular: No Murmur, Normal Peripheral Pulses (radial 2+ b/l), Tachycardia Gastrointestinal: non tender, soft, no organomegaly Extremity: Swelling (2-3+ in stumps), Other (s/p BKA b/l) Neurologic/Psychiatric: Alert, Oriented x3 Skin: Normal Color, Warm/Dry Lymphatic: No Adenopathy (cervical) Results Lab Laboratory Tests 12/17/22 11:17: Glucometer 220H 12/17/22 16:10: Glucometer 206H 12/17/22 20:48: Glucometer 191H 12/18/22 04:30: White Blood Count 8.6, Red Blood Count 3.54L, Hemoglobin 9.3L, Hematocrit 29L, Mean Corpuscular Volume 81, Mean Corpuscular Hemoglobin 26, Mean Corpuscular Hemoglobin Concent 32, Red Cell Distribution Width 14.0, Platelet Count 294, Mean Platelet Volume 9.8, Immature Granulocyte % (Auto) 2, Neutrophils (%) (Auto) 85H, Lymphocytes (%) (Auto) 6L, Monocytes (%) (Auto) 7, Eosinophils (%) (Auto) 0, Basophils (%) (Auto) 0, Neutrophils # (Auto) 7.2, Lymphocytes # (Auto) 0.5L, Monocytes # (Auto) 0.6, Eosinophils # (Auto) 0.0, Basophils # (Auto) 0.0, Immature Granulocyte # (Auto) 0.2H, Sodium Level 131L, Potassium Level 4.5, Ch loride Level 102, Carbon Dioxide Level 18L, Anion Gap 11, Blood Urea Nitrogen 80H, Creatinine 4.47H, Estimat Glomerular Filtration Rate 16, BUN/Creatinine Ratio 18, Glucose Level 310H, Calcium Level 7.3L, Corrected Calcium 8.8, Phosphorus Level 5.6H, Magnesium Level 2.0, Total Bilirubin 0.1, Aspartate Amino Transf (AST/SGOT) 5, Alanine Aminotransferase (ALT/SGPT) 11, Alkaline Phospha tase 108, Total Protein 4.7L, Albumin 2.1L Microbiology 12/16/22 Urine Culture - Final, Complete NO GROWTH 12/15/22 C. 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 Agree with keeping day in place to monitor I/Os, continue lasix. Hyperkalemia: resolved with lasix and single dose of kayexalate. 4.5 this AM. Will continue to monitor. PVD s/p bilateral amputations medically manage No acute needs at this time Insulin-dependent DM: On SSI Patient is still unsure whether or not he would like to undergo endoscopy, states he is still considering. LEVI STRAUSS DO 12/18/22 1251: Subjective Time Seen by a Provider: 11:14 Subjective/Events-last exam Pt seen and examined, back on BiPap. He has not had any more vomiting. Denies and abdominal pain. Review of Systems General: Fatigue, Malaise Pulmonary: Dyspnea, Cough Cardiovascular: No: Chest Pain, Palpitations Gastrointestinal: No: Nausea, Vomiting, Abdominal Pain Objective Exam General Appearance: Mild Distress, Obese HEENT: PERRL/EOMI, Other (poor dentition) Respiratory: No Respiratory Distress, Accessory Muscle Use, Decreased Breath Sounds, Rhonci Cardiovascular: No Murmur, Tachycardia Gastrointestinal: non tender, soft Extremity: Other (B/L BKA ) Neurologic/Psychiatric: Alert, Oriented x3 Assessment/Plan Assessment/Plan Assessment/Plan Anemia: Stable hemoglobin 8.8 yesterday to 9.3 today Possible Melena: Patient denies having any dark or tarry stools today and yesterday, confirmed by nurse BO on CKD 2- not improving, baseline creatinine 05/2022-1.2, measured at 4.47 this AM, h/o dm since age 17. Agree with keeping day in place to monitor I/Os, continue lasix. Hyperkalemia: resolved with lasix and single dose of kayexalate. 4.5 this AM. Will continue to monitor. PVD Insulin-dependent DM: On SSI Patient does not want an EGD. Since he is stable and hemoglobin didn't drop we can do this as an outpt or in hospital if he gets worse. I will sign off and resee if needed. Supervisory-Addendum Brief Verification & Attestation Participated in pt care: history, MDM, physical Personally performed: exam, history, MDM, supervision of care Care discussed with: Medical Student Procedures: n/a Verification and Attestation of Medical Student E/M Service A medical student performed and documented this service. I then reviewed and verified all information documented by the medical student and made modifications to such information, when appropriate. I personally performed a physical exam, medical decision making and then discussed any differences be tween the notes and made revisions as necessary to create one note. [employer] , 12/18/22 , 12:50 BRUCE BOYLE Dec 18, 2022 08:06 LEVI STRAUSS DO Dec 18, 2022 12:51
[2022-12-18] MEDS: POVIDONE (BETADINE) 10% SOLN 240 ML BTL TOP SCH ×2 (08:59→21:03)
[2022-12-18] MEDS: MICONAZOLE 2% POWDER (DESENEX AF) 90 GM TOP SCH ×2 (08:59→21:03)
--- NOTE | 2022-12-18 09:46 | Tele-ICU Progress Note ---
Subjective Date Seen by a Provider: Dec 18, 2022 Time Seen by a Provider: 09:46 Subjective/Events-last exam (Tele-ICU Physician , Progress Note ) Service provided via interactive audio and video telecommunications E-CARE system to a patient admitted to ICU bed in [facility]. Patient is seen today due to persistent need of ICU care Available chart/ vitals / labs / Images reviewed Video assessment done using teleICU camera, rest of exam as per RN Discussed with RN Events overnight : Afebrile hemodynamically stable Respiratory - ra I/O = neg Drips: Pressors- dobs +levo Hospital course: (12/15) 42M admitted with PNA, hypoxia, ARF, on Bipap / 100% rr 21 - tv 900 , US LE NEG for DVT bilt , ECHO 12/15/22 EF 55% , gr II dst dsfnct, RVSP 40 mm 12/15 - OFF BIPAP, 3 L o2 , cxr better 12/18- BIPAP 15/8 21% rr19 tv 700 MV 14 A/PAcute resp failure - suspeted CHF - diuresis - OFF BIPAP - 3 L o2 - asking fotr BIPAP with c/o SOB - but d not need suppl O2 ( BIPAP 28/04 21% rr19 tv 700 MV 14 CHF with elv trop and BNP - ECHO 12/15/22 EF 55% , gr II dst dsfnct, RVSP 40 mm - full dose lovenox- adjusted to renal function -cards follow - diuresis BO, - Cr 3.9 on admission-> 4.7, stable at this level for 2 days - renal consulted - day placed 12/15 - US renal - WNL -bicarb po , lasix iv 40 bid Elev ddimer - already on full dose of Lovenox for AC - US LE NEG for DVT bilat 12/15/22 - ECHO 12/15/22 RVSP 40 mm infection , suspected probable PNA - empiric abx started , sputum + H.flu and Strep - ? 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 Discussed with RN to reach out if any questions or concerns A total of 31 minutes of critical care time was devoted to this patient today, required to treat and/or prevent further deterioration of critical care condit ion ( as above ) . I am remotely monitoring this patient from another state. I am unable to do the bedside exam, and history/physical and pertinent information is taken from other notes in the computer and bedside staff. . Sepsis Event Evaluation Height, Weight, BMI Height: '" Weight: lbs. oz. kg; 40.09 BMI Method: Focused Exam Lactate Level 12/15/22 12:40: Lactic Acid Level 0.88 Time of Focused Exam: 03:20 Exam Exam Patient acknowledged, consented, and participated in this virtual visit which was conducted using real time audio/video Vital Signs Date Time Temp Pulse Resp B/P (MAP) Pulse Ox O2 Delivery O2 Flow Rate FiO2 12/18/22 08:03 101 75/39 12/18/22 08:00 97 NIV Bilevel 21 12/18/22 08:00 36.3 12/18/22 07:15 101 21 98 21.00 12/18/22 07:00 100 12/18/22 07:00 36.3 100 15 125/43 (70) 98 NIV Bilevel 21.00 12/18/22 06:00 36.2 105 11 110/84 (93) 99 NIV Bilevel 21.00 12/18/22 05:00 36.1 100 16 86/38 (54) 99 NIV Bilevel 21.00 12/18/22 04:00 36.1 99 92/64 (73) 100 NIV Bilevel 21.00 12/18/22 04:00 95 NIV Bilevel 21 12/18/22 03:37 100 19 93 21.00 12/18/22 03:00 36.0 101 38 136/57 (83) 100 NIV Bilevel 21.00 12/18/22 02:00 36.0 99 25 122/47 (72) 99 NIV Bilevel 21.00 12/18/22 01:00 36.0 99 132/86 (101) 97 NIV Bilevel 21.00 12/18/22 01:00 100 12/18/22 00:00 36.0 105 28 148/46 (80) 95 NIV Bilevel 21.00 12/17/22 23:59 95 Room Air 12/17/22 23:50 NIV Bilevel 21.00 12/17/22 23:29 101 20 96 21.00 12/17/22 23:00 36.1 103 15 135/46 (75) 97 Room Air 12/17/22 22:00 36.2 105 21 132/42 (72) 94 Room Air 12/17/22 21:00 36.3 99 19 152/98 (116) 96 Room Air 12/17/22 20:00 95 Room Air 12/17/22 20:00 36.3 102 15 127/85 (99) 99 Room Air 12/17/22 19:24 100 Room Air 12/17/22 19:00 108 12/17/22 19:00 36.4 108 16 92/41 (58) 98 Room Air 12/17/22 18:11 98 126/97 12/17/22 18:00 36.4 98 19 126/97 (107) 97 Room Air 12/17/22 17:28 102 112/58 12/17/22 17:00 36.4 99 36 150/76 (100) 98 Room Air 12/17/22 16:00 36.4 102 22 112/58 (76) 96 Room Air 12/17/22 15:59 36.5 12/17/22 15:21 95 Room Air 12/17/22 15:00 36.4 98 13 134/24 (60) 96 Room Air 12/17/22 14:32 95 Room Air 12/17/22 14:00 36.5 100 18 103/41 (61) 95 Room Air 12/17/22 13:00 36.7 103 17 117/21 (53) 95 Room Air 12/17/22 13:00 103 12/17/22 12:00 36.8 102 18 124/23 (56) 93 Room Air 12/17/22 12:00 95 Room Air 12/17/22 11:00 36.8 105 7 120/35 (63) 94 Nasal Cannula 1.00 12/17/22 10:00 36.7 102 23 118/54 (75) 96 Nasal Cannula 1.00 I & O 12/18/22 07:00 Intake Total 2010 ml Output Total 1705 ml Balance 305 ml Height & Weight Height: '" Weight: lbs. oz. kg; 40.09 BMI Method: General Appearance: No Apparent Distress, Obese HEENT: PERRL/EOMI, Other (poor dentition) Neck: Non Tender, Supple Respiratory: No Respiratory Distress, Accessory Muscle Use, Decreased Breath Sounds, Rhonci Cardiovascular: No Murmur, Normal Peripheral Pulses (radial 2+ b/l), Tachycardia Capillary Refill: Less Than 3 Seconds Gastrointestinal: non tender, soft, no organomegaly Extremity: Swelling (2-3+ in stumps), Other (s/p BKA b/l) Neurologic/Psychiatric: Alert, Oriented x3 Skin: Normal Color, Warm/Dry Lymphatic: No Adenopathy (cervical) Results Lab Laboratory Tests 12/17/22 02:56 12/18/22 04:30 Assessment/Plan Assessment/Plan 1 KYLE BRAR MD Dec 18, 2022 09:46
[2022-12-18 10:50] VITALS: BP 151/60
[2022-12-18] MEDS: cefTRIAXone 2,000 MG/NS 50 ML IVPB IV SCH ×2 (11:31)
[2022-12-18] MEDS: NOREPINEPHRINE 8 MG/250 ML 250 ML IV SCH ×2 (12:49→23:20)
--- NOTE | 2022-12-18 12:57 | Progress Note - Hospitalist ---
Subjective HPI/CC On Admission Date Seen by Provider: Dec 18, 2022 Pt is a 42yoCM with a PMH of IDDMII, HTN, s/p bilateral BKA who presented to the ER due to shortness of breath. History is somewhat limited by his BiPAP but he answers yes and no questions all appropriately. He has been short of breath for a few days to a week and EMS was summoned last night. He was foudnt o be hypoxic with sats in the 70s by them and required a nonrebreather to get it up to the 90s. Apparently his home condition was deplorable and he was laying in his own feces and urine. He was found to be in acute renal failure and florrid heart failure with possible pneumonia. He also states his blood sugars had been running high as well. [facility] but has not seen a doctor since last leaving the hospital here. Subjective/Events-last exam Pt reports feeling a little better today but not a lot. Discussed improving UOP. Pt's only complaint is cough. Focused Exam Time of Focused Exam: 03:20 Objective Exam Vital Signs Vital Signs Date Time Temp Pulse Resp B/P (MAP) Pulse Ox O2 Delivery O2 Flow Rate FiO2 12/18/22 12:49 106 162/104 12/18/22 12:00 20 96 NIV Bilevel 21.00 12/18/22 12:00 36.0 12/18/22 12:00 21 Capillary Refill : Less Than 3 Seconds General Appearance: No Apparent Distress, Chronically ill, Obese Respiratory: No Accessory Muscle Use; No Crackles; Decreased Breath Sounds; No Wheezing Cardiovascular: Regular Rate, Rhythm, No Murmur Gastrointestinal: Normal Bowel Sounds, Soft Extremity: Other (s/p bilateral BKA, decreasing edema) Neurologic/Psychiatric: Alert, Oriented x3 Results/Procedures Lab Laboratory Tests 12/18/22 04:30 Patient resulted labs reviewed. Imaging: Reviewed Imaging Report Assessment/Plan Assessment and Plan Assess & Plan/Chief Complaint Multiorgan failure Respiratory failure renal failure cardiogenic shock NSTEMI Continue Lasix and albumin Improving UOP (already 1600ml UOP today) Dobutamine and Levophed for hypotension Cardiology consulted, appreciate recs Neprhology consulted,appreciate her assistance with case Surgery consulted, appreciate recs Continue protonix, Hgb stable TeleICU consulted Off BiPAP Continue IV abx Strep in sputum culture Palliative Care consulted DVT ppx: Lovenox renally dosed as able Critical Care Critically Ill Patient Diagnosis/Problems Diagnosis/Problems (1) NSTEMI (non-ST elevated myocardial infarction) Status: Acute (2) Non-compliance Status: Acute (3) Uncontrolled diabetes mellitus Status: Acute (4) Multi-organ failure with heart failure (5) Cardiogenic shock (6) Renal failure (ARF), acute on chronic (7) S/P bilateral below knee amputation (8) Unable to care for self Status: Acute (9) Pneumonia Status: Acute (10) Sepsis Status: Acute (11) CHF (congestive heart failure) Status: Acute (12) Acute renal failure Status: Acute (13) Anasarca Status: Acute (14) Acute respiratory failure Status: Acute (15) History of methamphetamine use Status: Acute JIGAR ARREOLA MD Dec 18, 2022 12:57
--- NOTE | 2022-12-18 14:56 | Progress Note ---
Progress Note Assessment/Plan Date Seen by Provider: Dec 18, 2022 Time Seen by Provider: 14:55 Events since last exam Pt had an increase in urine outpt. day remains in place. Assessment/Plan Anemia: Stable hemoglobin 8.8 yesterday to 9.3 today Possible Melena: Patient denies having any dark or tarry stools today and yesterday, confirmed by nurse BO on CKD 2- not improving, baseline creatinine 05/2022-1.2, measured at 4.47 this AM, h/o dm since age 17. Agree with keeping day in place to monitor I/Os, continue lasix. Hyperkalemia: resolved with lasix and single dose of kayexalate. 4.5 this AM. Will continue to monitor. PVD Insulin-dependent DM: On SSI Patient does not want an EGD. Since he is stable and hemoglobin didn't drop we can do this as an outpt or in hospital if he gets worse. I will sign off and resee if needed. Vitals Last set of Vitals Signs Vital Signs Date Time Temp Pulse Resp B/P (MAP) Pulse Ox O2 Delivery O2 Flow Rate FiO2 12/18/22 14:00 113 20 71/32 (45) 92 NIV Bilevel 21.00 12/18/22 12:00 36.0 12/18/22 12:00 21 I&O I&O Intake and Output 12/18/22 00:00 Intake Total 2360 ml Output Total 665 ml Balance 1695 ml Intake Oral 2010 ml IV Total 350 ml Output Urine Total 665 ml Labs Laboratory Tests 12/17/22 16:10: Glucometer 206H 12/17/22 20:48: Glucometer 191H 12/18/22 04:30: White Blood Count 8.6, Red Blood Count 3.54L, Hemoglobin 9.3L, Hematocrit 29L, Mean Corpuscular Volume 81, Mean Corpuscular Hemoglobin 26, Mean Corpuscular Hemoglobin Concent 32, Red Cell Distribution Width 14.0, Platelet Count 294, Mean Platelet Volume 9.8, Immature Granulocyte % (Auto) 2, Neutrophils (%) (Auto) 85H, Lymphocytes (%) (Auto) 6L, Monocytes (%) (Auto) 7, Eosinophils (%) (Auto) 0, Basophils (%) (Auto) 0, Neutrophils # (Auto) 7.2, Lymphocytes # (Auto) 0.5L, Monocytes # (Auto) 0.6, Eosinophils # (Auto) 0.0, Basophils # (Auto) 0.0, Immature Granulocyte # (Auto) 0.2H, Sodium Level 131L, Potassium Level 4.5, Chloride Level 102, Carbon Dioxide Level 18L, Anion Gap 11, Blood Urea Nitrogen 80H, Creatinine 4.47H, Estimat Glomerular Filtration Rate 16, BUN/Creatinine Ratio 18, Glucose Level 310H, Calcium Level 7.3L, Corrected Calcium 8.8, Phosphorus Level 5.6H, Magnesium Level 2.0, Total Bilirubin 0.1, Aspartate Amino Transf (AST/SGOT) 5, Alanine Aminotransferase (ALT/SGPT) 11, Alkaline Phosphatase 108, Total Protein 4.7L, Albumin 2.1L 12/18/22 10:34: Glucometer 189H Microbiology 12/16/22 Urine Culture - Final, Complete NO GROWTH 12/15/22 C. 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
[2022-12-18 15:00] VITALS: BP 151/60
[2022-12-18] MEDS: HYPOCHLOROUS ACID/NaCl (VASHE) 250 ML IR PRN (15:11)
[2022-12-18 16:05] VITALS: BP 151/60
[2022-12-18] MEDS ORDERED: METOLAZONE 2.5 MG (ZAROXOLYN) TAB PO NR (16:30)
--- NOTE | 2022-12-18 18:43 | Progress Note - Cardiology ---
Cardiology SOAP Progress Note Subjective: On BiPAP at the time of my exam this am Did not report cp or palp or syncope Shortness of breath and gen malaise present Objective: I&O/Vital Signs 12/18/22 12/18/22 12/18/22 12/18/22 07:00 07:00 07:15 08:00 Temp 36.3 36.3 Pulse 100 100 101 Resp 15 21 B/P (MAP) 125/43 (70) Pulse Ox 98 98 O2 Delivery NIV Bilevel O2 Flow Rate 21.00 21.00 12/18/22 12/18/22 12/18/22 12/18/22 08:00 08:00 08:03 09:00 Temp 36.4 Pulse 101 101 106 Resp 20 B/P (MAP) 88/28 (48) 75/39 60/33 (42) Pulse Ox 97 94 100 O2 Delivery NIV Bilevel NIV Bilevel NIV Bilevel O2 Flow Rate 21.00 21.00 FiO2 21 12/18/22 12/18/22 12/18/22 12/18/22 09:15 10:02 10:50 11:00 Pulse 106 105 Resp 16 19 19 B/P (MAP) 81/64 (70) 70/55 (60) 122/60 (80) Pulse Ox 97 99 98 O2 Delivery NIV Bilevel NIV Bilevel O2 Flow Rate 21.00 21.00 21.00 12/18/22 12/18/22 12/18/22 12/18/22 12:00 12:00 12:00 12:07 Temp 36.0 Pulse 105 106 Resp 20 B/P (MAP) 162/104 (123) Pulse Ox 98 96 O2 Delivery NIV Bilevel NIV Bilevel O2 Flow Rate 21.00 FiO2 21 12/18/22 12/18/22 12/18/22 12/18/22 12:49 13:00 14:00 15:00 Pulse 106 105 113 111 Resp 19 20 27 B/P (MAP) 162/104 141/106 (118) 71/32 (45) 100/78 (85) Pulse Ox 99 92 94 O2 Delivery NIV Bilevel NIV Bilevel NIV Bilevel O2 Flow Rate 21.00 21.00 21.00 12/18/22 12/18/22 12/18/22 12/18/22 15:00 16:00 16:05 16:11 Pulse 111 111 Resp 22 B/P (MAP) 180/64 (102) Pulse Ox 98 100 98 98 O2 Delivery NIV Bilevel NIV Bilevel O2 Flow Rate 21.00 21.00 FiO2 21 21 12/18/22 12/18/22 17:00 18:00 Pulse 104 103 Resp 15 13 B/P (MAP) 147/51 (83) 181/95 (123) Pulse Ox 100 100 O2 Delivery NIV Bilevel NIV Bilevel O2 Flow Rate 21.00 21.00 12/18/22 00:00 Intake Total 1310 ml Output Total 480 ml Balance 830 ml Constitutional: AAO x 3, well-developed, well-nourished, other Respiratory: No accessory muscle use; chest expansion is symmetric, chest is bilaterally symmetric, other (somewhat diminished air entry at the bases, bibasilar crackles) Cardiovascular: regular rate-rhythm, S1 and S2, systolic murmur (soft CHAIM at card base); No friction rub Gastrointestional: No tender; soft; No guarding, No rebound; audible bowel sounds Genital/Rectal: No normal genital exam; other (moderate to severe edema to both the scrotum and penis) Extremities: other (bilateral BKA); No clubbing, No cyanosis, No significant edema Neurologic/Psychiatric: oriented x 3, other (moves all limbs) Skin: warm/dry; No cyanosis, No rash on exposed areas, No ulcerations on exposed areas Results/Procedures: Labs Laboratory Tests 12/17/22 20:48: Glucometer 191H 12/18/22 04:30: White Blood Count 8.6, Red Blood Count 3.54L, Hemoglobin 9.3L, Hematocrit 29L, Mean Corpuscular Volume 81, Mean Corpuscular Hemoglobin 26, Mean Corpuscular Hemoglobin Concent 32, Red Cell Distribution Width 14.0, Platelet Count 294, Me an Platelet Volume 9.8, Immature Granulocyte % (Auto) 2, Neutrophils (%) (Auto) 85H, Lymphocytes (%) (Auto) 6L, Monocytes (%) (Auto) 7, Eosinophils (%) (Auto) 0, Basophils (%) (Auto) 0, Neutrophils # (Auto) 7.2, Lymphocytes # (Auto) 0.5L, Monocytes # (Auto) 0.6, Eosinophils # (Auto) 0.0, Basophils # (Auto) 0.0, Immature Granulocyte # (Auto) 0.2H, Sodium Level 131L, Potassium Level 4.5, Chloride Level 102, Carbon Dioxide Level 18L, Anion Gap 11, Blood Urea Nitrogen 80H, Creatinine 4.47H, Estimat Glomerular Filtration Rate 16, BUN/Creatinine Ratio 18, Glucose Level 310H, Calcium Level 7.3L, Corrected Calcium 8.8, Phosphorus Level 5.6H, Magnesium Level 2.0, Total Bilirubin 0.1, Aspartate Amino Transf (AST/SGOT) 5, Alanine Aminotransferase (ALT/SGPT) 11, Alkaline Phosphatase 108, Total Protein 4.7L, Albumin 2.1L 12/18/22 10:34: Glucometer 189H 12/18/22 16:21: Glucometer 187H Microbiology 12/16/22 Urine Culture - Final, Complete NO GROWTH 12/15/22 C. 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 Guarded prognosis * We recommend transfer to tertiary care facility for nephrology eval / dialysis * Continue dobutamine in low dose to aid cardiac output. Monitor for arrhythmia * Metolazone added * We recommend that labs be closely monitored and any electrolyte abnormalities be treated (Hospitalist service managing) * Hosp svce managing DM, pneumonia, sepsis, renal failure, GI bleed RYLEY HANSEN MD FACP FAC CCDS Dec 18, 2022 18:43
[2022-12-19 03:07] VITALS: BP 165/63
[2022-12-19] MEDS: RT-ALBUTEROL HFA 8.5 GM INHALER IH SCH ×6 (03:07→21:54)
[2022-12-19 04:57] LABS: BASOPHILS % (AUTO) 0 % (0-10); EOSINOPHILS # (AUTO) 0.1 10^3/uL (0.0-0.3); EOSINOPHILS % (AUTO) 1 % (0-10); HEMATOCRIT 30 % (40-54); HEMOGLOBIN 9.7 g/dL (13.3-17.7); LYMPHOCYTES # (AUTO) 0.5 10^3/uL (1.0-4.0); LYMPHOCYTES % (AUTO) 5 % (12-44); MEAN CORPUSCULAR HEMOGLOBIN 26 pg (25-34); MEAN CORPUSCULAR HGB CONC 32 g/dL (32-36); MEAN CORPUSCULAR VOLUME 81 fL (80-99); MEAN PLATELET VOLUME 9.6 fL (9.0-12.2); MONOCYTES # (AUTO) 0.5 10^3/uL (0.0-1.0); MONOCYTES % (AUTO) 6 % (0-12); NEUTROPHILS # (AUTO) 7.5 10^3/uL (1.8-7.8); NEUTROPHILS % (AUTO) 83 % (42-75); PLATELET COUNT 269 10^3/uL (130-400)
[2022-12-19 05:15] LABS: ALBUMIN 2.3 GM/DL (3.2-4.5); POTASSIUM 3.8 MMOL/L (3.6-5.0)
[2022-12-19 05:17] LABS: CALCIUM 7.6 MG/DL (8.5-10.1)
[2022-12-19 05:18] LABS: TOTAL PROTEIN 4.8 GM/DL (6.4-8.2)
[2022-12-19 05:20] LABS: BILIRUBIN,TOTAL 0.2 MG/DL (0.1-1.0)
[2022-12-19 05:21] LABS: PHOSPHORUS 5.4 MG/DL (2.3-4.7)
[2022-12-19 05:22] LABS: CREATININE SERUM 4.1 MG/DL (0.60-1.30)
[2022-12-19 05:24] LABS: MAGNESIUM 1.9 MG/DL (1.6-2.4)
[2022-12-19] MEDS: ENOXAPARIN 120 MG/0.8 ML (LOVENOX) SQ SCH (06:07)
[2022-12-19] MEDS: POTASSIUM CL 10MEQ/50ML IVPB 50 ML IV SCH (06:33)
[2022-12-19] MEDS: KCL 20 MEQ TAB (K-DUR) PO SCH (06:33)
[2022-12-19] MEDS: MAGNESIUM 1 GM/100 ML IVPB 100 ML IV SCH (06:33)
[2022-12-19] MEDS: inSUlin ASPART (NovoLOG) 1 UNIT/0.01 ML (CHARGE PER UNIT) SC SCH ×4 (06:34→20:53)
[2022-12-19] MEDS: SODIUM BICARBONATE 650 MG TABLET PO SCH ×2 (08:34→20:43)
[2022-12-19] MEDS: ASPIRIN 325 MG (5 GR) TABLET PO SCH (08:34)
[2022-12-19] MEDS: PANTOPRAZOLE 40 MG (PROTONIX) VIAL IV SCH ×2 (08:34→20:42)
[2022-12-19] MEDS: ALBUMIN 25% 25 GM/100 ML 50 ML IV SCH ×2 (08:34→20:42)
[2022-12-19] MEDS: FUROSEMIDE 40 MG/4 ML INJ (LASIX) IVP SCH ×2 (08:35→20:42)
[2022-12-19] MEDS: POVIDONE (BETADINE) 10% SOLN 240 ML BTL TOP SCH ×2 (08:35→20:43)
[2022-12-19] MEDS: MICONAZOLE 2% POWDER (DESENEX AF) 90 GM TOP SCH ×2 (08:35→20:43)
--- NOTE | 2022-12-19 09:20 | Progress Note - Hospitalist ---
Subjective HPI/CC On Admission Date Seen by Provider: Dec 19, 2022 Pt is a 42yoCM with a PMH of IDDMII, HTN, s/p bilateral BKA who presented to the ER due to shortness of breath. History is somewhat limited by his BiPAP but he answers yes and no questions all appropriately. He has been short of breath for a few days to a week and EMS was summoned last night. He was foudnt o be hypoxic with sats in the 70s by them and required a nonrebreather to get it up to the 90s. Apparently his home condition was deplorable and he was laying in his own feces and urine. He was found to be in acute renal failure and florrid heart failure with possible pneumonia. He also states his blood sugars had been running high as well. [facility] but has not seen a doctor since last leaving the hospital here. Subjective/Events-last exam Pt reports doing a little better. Swelling improving. Discussed with RN. Was put back on BiPAP overnight but he told RN it was due to anxiety. Focused Exam Time of Focused Exam: 03:20 Objective Exam Vital Signs Vital Signs Date Time Temp Pulse Resp B/P (MAP) Pulse Ox O2 Delivery O2 Flow Rate FiO2 12/19/22 08:00 92 36 135/52 (86) 100 NIV Bilevel 21.00 12/19/22 04:00 21 12/19/22 04:00 36.8 Capillary Refill : Less Than 3 Seconds General Appearance: No Apparent Distress, WD/WN Respiratory: Lungs Clear, No Accessory Muscle Use Cardiovascular: Regular Rate, Rhythm Extremity: Other (s/p bilateral BKA- edema improving in stumps) Neurologic/Psychiatric: Alert, Oriented x3 Results/Procedures Lab Laboratory Tests 12/19/22 04:45 Patient resulted labs reviewed. Imaging: Reviewed Imaging Report Assessment/Plan Assessment and Plan Assess & Plan/Chief Complaint Multiorgan failure- improving Respiratory failure renal failure cardiogenic shock NSTEMI Creatinine improving Continue Lasix and albumin Improving UOP dramatically- 3500ml urine yesterday and negative ~2500- already another 2200 out today Dobutamine still but off levophed Cardiology consulted, appreciate recs Neprhology consulted,appreciate her assistance with case Surgery consulted, appreciate recs Continue protonix, Hgb stable TeleICU consulted Off BiPAP Continue IV abx Strep in sputum culture Palliative Care consulted DVT ppx: Lovenox renally dosed as able Critical Care Critically Ill Patient Diagnosis/Problems Diagnosis/Problems (1) NSTEMI (non-ST elevated myocardial infarction) Status: Acute (2) Non-compliance Status: Acute (3) Uncontrolled diabetes mellitus Status: Acute (4) Multi-organ failure with heart failure (5) Cardiogenic shock (6) Renal failure (ARF), acute on chronic (7) S/P bilateral below knee amputation (8) Unable to care for self Status: Acute (9) Pneumonia Status: Acute (10) Sepsis Status: Acute (11) CHF (congestive heart failure) Status: Acute (12) Acute renal failure Status: Acute (13) Anasarca Status: Acute (14) Acute respiratory failure Status: Acute (15) History of methamphetamine use Status: Acute JIGAR ARREOLA MD Dec 19, 2022 09:20
[2022-12-19] MEDS ORDERED: busPIRone 5 MG (BUSPAR) TAB PO NR (09:30)
--- NOTE | 2022-12-19 10:27 | Tele-ICU Progress Note ---
Subjective Date Seen by a Provider: Dec 19, 2022 Time Seen by a Provider: 10:25 Subjective/Events-last exam (Tele-ICU Physician , Progress Note ) Service provided via interactive audio and video telecommunications E-CARE system to a patient admitted to ICU bed in [facility]. Patient is seen today due to persistent need of ICU care Available chart/ vitals / labs / Images reviewed Video assessment done using teleICU camera, rest of exam as per RN Discussed with RN Events overnight : Afebrile hemodynamically stable Respiratory - ra I/O = neg 2600 Drips: Pressors- dobs Hospital course: (12/15) 42M admitted with PNA, hypoxia, ARF, on Bipap 28/04 100% rr 21 - tv 900 , US LE NEG for DVT bilt , ECHO 12/15/22 EF 55% , gr II dst dsfnct, RVSP 40 mm 12/15 - OFF BIPAP, 3 L o2 , cxr better ,LEVO , dobs 2.5 12/18- and 12/19 BIPAP 28/04 21% rr19 tv 700 MV 14 - ON RA 21% even on bipap - but he is asking for it for WOB, dobs 2.5, levo OFF A/PAcute resp failure - suspeted CHF - diuresis - OFF BIPAP - 3 L o2 - asking fotr BIPAP with c/o SOB - but d not need suppl O2 ( BIPAP 28/04 21% rr19 tv 700 MV 14 CHF with elv trop and BNP - ECHO 12/15/22 EF 55% , gr II dst dsfnct, RVSP 40 mm - full dose lovenox- adjusted to renal function -cards follow - diuresis BO, - Cr 3.9 on admission-> 4.4 - renal consulted - day placed 12/15 - US renal - WNL -bicarb po , lasix iv 40 bid with albumin - Cr improving slowly Elev ddimer - already on full dose of Lovenox for AC - US LE NEG for DVT bilat 12/15/22 - ECHO 12/15/22 RVSP 40 mm infection , suspected probable PNA / wound - empiric abx started , sputum + H.flu and Strep - ? 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 Discussed with RN to reach out if any questions or concerns A total of 31 minutes of critical care time was devoted to this patient today, required to treat and/or prevent further deterioration of critical care condition ( as above ) . I am remotely monitoring this patient from another state. I am unable to do the bedside exam, and history/physical and pertinent information is taken from other notes in the computer and bedside staff. . Sepsis Event Evaluation Height, Weight, BMI Height: '" Weight: lbs. oz. kg; 40.09 BMI Method: Focused Exam Time of Focused Exam: 03:20 Exam Exam Patient acknowledged, consented, and participated in this virtual visit which was conducted using real time audio/video Vital Signs Date Time Temp Pulse Resp B/P (MAP) Pulse Ox O2 Delivery O2 Flow Rate FiO2 12/19/22 09:00 95 20 126/51 (78) 98 NIV Bilevel 21.00 12/19/22 08:00 92 36 135/52 (86) 100 NIV Bilevel 21.00 12/19/22 07:00 91 12/19/22 07:00 92 11 128/80 (88) 100 NIV Bilevel 21.00 12/19/22 06:36 93 21 100 21.00 12/19/22 06:00 91 27 145/85 (105) 100 NIV Bilevel 21.00 12/19/22 05:00 89 98/48 (65) 100 NIV Bilevel 21.00 12/19/22 04:00 99 NIV Bilevel 21 12/19/22 04:00 36.8 12/19/22 04:00 97 35 145/69 (94) 100 NIV Bilevel 21.00 12/19/22 03:07 93 23 100 21.00 12/19/22 03:00 92 13 152/62 (92) 100 NIV Bilevel 21.00 12/19/22 02:00 93 15 160/69 (99) 100 NIV Bilevel 21.00 12/19/22 01:00 100 12/19/22 01:00 95 28 128/88 (101) 100 NIV Bilevel 21.00 12/19/22 00:00 93 17 151/96 (114) 100 NIV Bilevel 21.00 12/18/22 23:59 99 NIV Bilevel 21 12/18/22 23:10 95 25 100 21.00 12/18/22 23:00 94 17 152/79 (103) 100 NIV Bilevel 21.00 12/18/22 22:00 96 13 151/78 (102) 100 NIV Bilevel 21.00 12/18/22 21:49 106 181/95 12/18/22 21:00 96 12 118/52 (74) 100 NIV Bilevel 21.00 12/18/22 20:00 98 13 150/44 (79) 100 NIV Bilevel 21.00 12/18/22 20:00 99 NIV Bilevel 21 12/18/22 20:00 36.3 12/18/22 19:00 106 12/18/22 19:00 106 15 148/78 (101) 95 NIV Bilevel 21.00 12/18/22 18:50 100 Room Air 12/18/22 18:00 103 13 181/95 (123) 100 NIV Bilevel 21.00 12/18/22 17:00 104 15 147/51 (83) 100 NIV Bilevel 21.00 12/18/22 16:11 98 NIV Bilevel 21 12/18/22 16:05 111 98 21 12/18/22 16:00 180/64 (102) 100 NIV Bilevel 21.00 12/18/22 15:00 111 22 98 21.00 12/18/22 15:00 111 27 100/78 (85) 94 NIV Bilevel 21.00 12/18/22 14:00 113 20 71/32 (45) 92 NIV Bilevel 21.00 12/18/22 13:00 105 19 141/106 (118) 99 NIV Bilevel 21.00 12/18/22 12:49 106 162/104 12/18/22 12:07 106 12/18/22 12:00 105 20 162/104 (123) 96 NIV Bilevel 21.00 12/18/22 12:00 36.0 12/18/22 12:00 98 NIV Bilevel 21 12/18/22 11:00 105 19 122/60 (80) 98 NIV Bilevel 21.00 12/18/22 10:50 106 19 99 21.00 I & O 12/19/22 07:00 Intake Total 650 ml Output Total 4550 ml Balance -3900 ml Height & Weight Height: '" Weight: lbs. oz. kg; 40.09 BMI Method: General Appearance: No Apparent Distress, WD/WN HEENT: Other (BiPAP mask obscures some of exam) Neck: Non Tender, Supple Respiratory: Lungs Clear, No Accessory Muscle Use Cardiovascular: Regular Rate, Rhythm Capillary Refill: Less Than 3 Seconds Gastrointestinal: distended Extremity: Other (s/p bilateral BKA- edema improving in stumps) Neurologic/Psychiatric: Alert, Oriented x3 Skin: Normal Color, Warm/Dry Lymphatic: No Adenopathy (cervical) Results Lab Laboratory Tests 12/18/22 04:30 12/19/22 04:45 Assessment/Plan Assessment/Plan 1 KYLE BRAR MD Dec 19, 2022 10:27
[2022-12-19] MEDS: cefTRIAXone 2,000 MG/NS 50 ML IVPB IV SCH ×2 (10:42)
--- NOTE | 2022-12-19 11:55 | Progress Note - Cardiology ---
Cardiology SOAP Progress Note Subjective: On BiPAP Does not report cp or palp or syncope Gen weakness and malaise present Does not report n/v Does not report focal weakness Objective: I&O/Vital Signs 12/18/22 12/19/22 12/19/22 12/19/22 23:59 00:00 01:00 01:00 Pulse 93 95 100 Resp 17 28 B/P (MAP) 151/96 (114) 128/88 (101) Pulse Ox 99 100 100 O2 Delivery NIV Bilevel NIV Bilevel NIV Bilevel O2 Flow Rate 21.00 21.00 FiO2 21 12/19/22 12/19/22 12/19/22 12/19/22 02:00 03:00 03:07 04:00 Pulse 93 92 93 97 Resp 15 13 23 35 B/P (MAP) 160/69 (99) 152/62 (92) 145/69 (94) Pulse Ox 100 100 100 100 O2 Delivery NIV Bilevel NIV Bilevel NIV Bilevel O2 Flow Rate 21.00 21.00 21.00 21.00 12/19/22 12/19/22 12/19/22 12/19/22 04:00 04:00 05:00 06:00 Temp 36.8 Pulse 89 91 Resp 27 B/P (MAP) 98/48 (65) 145/85 (105) Pulse Ox 99 100 100 O2 Delivery NIV Bilevel NIV Bilevel NIV Bilevel O2 Flow Rate 21.00 21.00 FiO2 21 12/19/22 12/19/22 12/19/22 12/19/22 06:36 07:00 07:00 08:00 Pulse 93 92 91 92 Resp 21 11 36 B/P (MAP) 128/80 (88) 135/52 (86) Pulse Ox 100 100 100 O2 Delivery NIV Bilevel NIV Bilevel O2 Flow Rate 21.00 21.00 21.00 12/19/22 12/19/22 12/19/22 12/19/22 09:00 10:00 11:00 11:19 Pulse 95 96 96 95 Resp 20 18 20 B/P (MAP) 126/51 (78) 152/54 (102) 154/53 (100) Pulse Ox 98 100 99 98 O2 Delivery NIV Bilevel NIV Bilevel NIV Bilevel O2 Flow Rate 21.00 21.00 21.00 21.00 12/19/22 00:00 Intake Total 450 ml Output Total 1900 ml Balance -1450 ml Constitutional: AAO x 3, well-developed, well-nourished, other Respiratory: No accessory muscle use; chest expansion is symmetric, chest is bilaterally symmetric, other (somewhat diminished air entry at the bases, bibasilar crackles) Cardiovascular: regular rate-rhythm, S1 and S2, systolic murmur (soft CHAIM at card base); No friction rub Gastrointestional: No tender; soft; No guarding, No rebound; audible bowel sounds Genital/Rectal: No normal genital exam; other (moderate to severe edema to both the scrotum and penis) Extremities: other (bilateral BKA); No clubbing, No cyanosis, No significant edema Neurologic/Psychiatric: oriented x 3, other (moves all limbs) Skin: warm/dry; No cyanosis, No rash on exposed areas, No ulcerations on exposed areas Results/Procedures: Labs Laboratory Tests 12/18/22 16:21: Glucometer 187H 12/18/22 20:49: Glucometer 121H 12/19/22 04:45: White Blood Count 9.0, Red Blood Count 3.71L, Hemoglobin 9.7L, Hematocrit 30L, Mean Corpuscular Volume 81, Mean Corpuscular Hemoglobin 26, Mean Corpuscular Hemoglobin Concent 32, Red Cell Distribution Width 13.7, Platelet Count 269, Mean Platelet Volume 9.6, Immature Granulocyte % (Auto) 4, Neutrophils (%) (Auto) 83H, Lymphocytes (%) (Auto) 5L, Monocytes (%) (Auto) 6, Eosinophils (%) (Auto) 1, Basophils (%) (Auto) 0, Neutrophils # (Auto) 7.5, Lymphocytes # (Auto) 0.5L, Monocytes # (Auto) 0.5, Eosinophils # (Auto) 0.1, Basophils # (Auto) 0.0, Immature Granulocyte # (Auto) 0.4H, Sodium Level 135, Potassium Level 3.8, Chloride Level 103, Carbon Dioxide Level 20L, Anion Gap 12, Blood Urea Nitrogen 80H, Creatinine 4.10H, Estimat Glomerular Filtration Rate 18, BUN/Creatinine Ratio 20, Glucose Level 137H, Calcium Level 7.6L, Corrected Calcium 9.0, Phosphorus Level 5.4H, Magnesium Level 1.9, Total Bilirubin 0.2, Aspartate Amino Transf (AST/SGOT) 8, Alanine Aminotransferase (ALT/SGPT) 12, Alkaline Phosphatase 94, Total Protein 4.8L, Albumin 2.3L 12/19/22 10:50: Glucometer 101 Microbiology 12/18/22 Gram Stain - Final, Resulted 12/18/22 Wound Culture - Preliminary, Resulted Gram Pos Mixed Bacterial Sona 12/16/22 Urine Culture - Final, Complete NO GROWTH 12/15/22 C. 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) Laboratory Tests 12/18/22 04:30 12/19/22 04:45 A/P: Assessment: Ac resp failure, probably multifactorial - ac systolic CHF (HFrEF) - Echo shows LVEF approx 35-40%, mod MR, PASP 35-40 mmHg - pneumonia and suspected sepsis Hematemesis on 12-16-22 Troponin elevation due to hypoxemia (probably prolonged): type 2 RI Non-oliguric renal failure: probably acute on chronic Diabetes, probably type I, treated with insulin 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 Guarded prognosis * We recommend transfer to tertiary care facility for nephrology eval / dialysis * Continue dobutamine in low dose to aid cardiac output. Monitor for arrhythmia * Metolazone added * We recommend that labs be closely monitored and any electrolyte abnormalities be treated (Hospitalist service managing) * Hosp svce managing DM, pneumonia, sepsis, renal failure, GI bleed RYLEY HANSEN MD FACP FAC CCDS Dec 19, 2022 11:55
[2022-12-19] MEDS: DOBUTamine DRIP 250 ML IV SCH (12:37)
[2022-12-19] MEDS: hydrOXYzine (ATARAX) 10 MG TAB PO PRN (12:37)
[2022-12-19] MEDS: NOREPINEPHRINE 8 MG/250 ML 250 ML IV SCH ×2 (12:43→20:53)
[2022-12-19 16:46] LABS: POTASSIUM 3.8 MMOL/L (3.6-5.0)
[2022-12-19 16:48] LABS: CALCIUM 7.8 MG/DL (8.5-10.1)
[2022-12-19 16:52] LABS: CREATININE SERUM 3.96 MG/DL (0.60-1.30)
[2022-12-19] MEDS: busPIRone 5 MG (BUSPAR) TAB PO SCH (20:43)
[2022-12-19] MEDS: HYPOCHLOROUS ACID/NaCl (VASHE) 250 ML IR PRN (20:43)
[2022-12-20] MEDS: DOBUTamine DRIP 250 ML IV SCH ×2 (01:52→17:59)
[2022-12-20] MEDS: RT-ALBUTEROL HFA 8.5 GM INHALER IH SCH ×6 (01:59→22:05)
[2022-12-20 02:47] LABS: BASOPHILS % (AUTO) 0 % (0-10); EOSINOPHILS # (AUTO) 0.2 10^3/uL (0.0-0.3); EOSINOPHILS % (AUTO) 2 % (0-10); HEMATOCRIT 31 % (40-54); HEMOGLOBIN 10.1 g/dL (13.3-17.7); LYMPHOCYTES # (AUTO) 0.6 10^3/uL (1.0-4.0); LYMPHOCYTES % (AUTO) 5 % (12-44); MEAN CORPUSCULAR HEMOGLOBIN 26 pg (25-34); MEAN CORPUSCULAR HGB CONC 33 g/dL (32-36); MEAN CORPUSCULAR VOLUME 81 fL (80-99); MEAN PLATELET VOLUME 9.7 fL (9.0-12.2); MONOCYTES # (AUTO) 0.6 10^3/uL (0.0-1.0); MONOCYTES % (AUTO) 4 % (0-12); NEUTROPHILS # (AUTO) 10.8 10^3/uL (1.8-7.8); NEUTROPHILS % (AUTO) 85 % (42-75); PLATELET COUNT 301 10^3/uL (130-400); WHITE BLOOD COUNT 12.8 10^3/uL (4.3-11.0)
[2022-12-20 03:00] LABS: ALBUMIN 2.6 GM/DL (3.2-4.5); POTASSIUM 3.6 MMOL/L (3.6-5.0)
[2022-12-20 03:05] LABS: BILIRUBIN,TOTAL 0.2 MG/DL (0.1-1.0)
[2022-12-20 03:06] LABS: CREATININE SERUM 3.82 MG/DL (0.60-1.30); PHOSPHORUS 5.3 MG/DL (2.3-4.7)
[2022-12-20 03:09] LABS: MAGNESIUM 1.9 MG/DL (1.6-2.4)
[2022-12-20] MEDS: POTASSIUM CL 10MEQ/50ML IVPB 50 ML IV SCH (05:26)
[2022-12-20] MEDS: inSUlin ASPART (NovoLOG) 1 UNIT/0.01 ML (CHARGE PER UNIT) SC SCH ×4 (05:26→21:08)
[2022-12-20] MEDS: KCL 20 MEQ TAB (K-DUR) PO SCH (05:26)
[2022-12-20] MEDS: MAGNESIUM 1 GM/100 ML IVPB 100 ML IV SCH (05:26)
[2022-12-20] MEDS: NOREPINEPHRINE 8 MG/250 ML 250 ML IV SCH ×2 (05:27→20:10)
[2022-12-20] MEDS: ENOXAPARIN 120 MG/0.8 ML (LOVENOX) SQ SCH ×2 (05:34→19:37)
[2022-12-20 06:00] VITALS: BP 124/52
--- NOTE | 2022-12-20 08:21 | Tele-ICU Progress Note ---
Progress Note video rounds completed 42 y/o male admitte nickolas respiratory failure. He is on BIPAP at 15/8 and 21% and O2 sat is 98% Has hx of methamphetamine usage Has been hypotensive likely from multifactorial etiology including CHF and sepsis Currently on dobutamine and levophed and being followed by cardiology for an NSTEMI Additionally has ahx of lifelong DM, verónica BS is 97 Admitted with BO, creatinine down to 3.83 down from 3.96 and 4.47 onadmission. Has bilateral BKA and stage IV sacral decubitus Currently on therapeutic lovenox 120 mg BID Ceftriaxone Cardiology following IMP: ARF on BIPAP: improved Sepsis: on ceftriaxone: improved CHF: cardiology following PLAN: continue current plan. There is mention of transfer to tertiary care for possible dialysis I am remotely monitoring this patient from another state. I am unable to do the bedside exam, and history/physical and pertinent information is taken from other notes in the computer and bedside staff. Time spent in review: 30 minutes Focused Exam Height, Weight, BMI Height: '" Weight: lbs. oz. kg; 37.65 BMI Method: Time of Focused Exam: 03:20 Labs Laboratory Tests 12/19/22 16:30 12/20/22 02:40 Results Results/Procedures Lab Laboratory Tests 12/19/22 04:45 12/19/22 16:30 12/20/22 02:40 Results Labs Labs Laboratory Tests 12/19/22 10:50: Glucometer 101 12/19/22 16:30: Sodium Level 138, Potassium Level 3.8, Chloride Level 106, Carbon Dioxide Level 23, Anion Gap 9, Blood Urea Nitrogen 80H, Creatinine 3.96H, Estimat Glomerular Filtration Rate 18, BUN/Creatinine Ratio 20, Glucose Level 67L, Calcium Level 7.8L 12/19/22 16:32: Glucometer 70 12/20/22 02:40: Sodium Level 140, Potassium Level 3.6, Chloride Level 106, Carbon Dioxide Level 21, Anion Gap 13, Blood Urea Nitrogen 78H, Creatinine 3.82H, Estimat Glomerular Filtration Rate 19, BUN/Creatinine Ratio 20, Glucose Level 67L, Calcium Level 8.0L, White Blood Count 12.8H, Red Blood Count 3.85L, Hemoglobin 10.1L, Hematocrit 31L, Mean Corpuscular Volume 81, Mean Corpuscular Hemoglobin 26, Mean Corpuscular Hemoglobin Concent 33, Red Cell Distribution Width 13.7, Platelet Count 301, Mean Platelet Volume 9.7, Immature Granulocyte % (Auto) 5, Neutrophils (%) (Auto) 85H, Lymphocytes (%) (Auto) 5L, Monocytes (%) (Auto) 4, Eosinophils (%) (Auto) 2, Basophils (%) (Auto) 0, Neutrophils # (Auto) 10.8H, Lymphocytes # (Auto) 0.6L, Monocytes # (Auto) 0.6, Eosinophils # (Auto) 0.2, Basophils # (Auto) 0.0, Immature Granulocyte # (Auto) 0.6H, Corrected Calcium 9.1, Phosphorus Level 5.3H, Magnesium Level 1.9, Total Bilirubin 0.2, Aspartate Amino Transf (AST/SGOT) 10, Alanine Aminotransferase (ALT/SGPT) 10, Alkaline Phosphatase 94, Total Protein 5.0L, Albumin 2.6L 12/20/22 05:33: Glucometer 50*L 12/20/22 06:04: Glucometer 67L 12/20/22 06:27: Glucometer 97 Microbiology 12/18/22 Gram Stain - Final, Resulted 12/18/22 Wound Culture - Preliminary, Resulted Gram Pos Mixed Bacterial Sona Staphylococcus aureus 12/16/22 Urine Culture - Final, Complete NO GROWTH 12/15/22 C. 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
[2022-12-20] MEDS: ALBUMIN 25% 25 GM/100 ML 50 ML IV SCH ×2 (08:30→20:40)
--- NOTE | 2022-12-20 08:46 | Cardiology Progress Note ---
Subjective Date Seen by Provider: Dec 20, 2022 Time Seen by Provider: 08:40 Subjective/Events-last exam Patient is maintained on BiPAP, lethargic Unable to provide history, history was obtained by reviewing his records Review of Systems General: Other (Unable to provide review of system) Focused Exam Time of Focused Exam: 03:20 Objective-Cardiology Exam Last Set of Vital Signs Vital Signs 12/20/22 12/20/22 12/20/22 12/20/22 04:00 06:00 07:00 07:53 Temp 35.9 Pulse 98 Resp 16 B/P (MAP) 146/94 (111) Pulse Ox 98 O2 Delivery NIV Bilevel O2 Flow Rate 25.00 FiO2 21 I&O Intake and Output 12/20/22 00:00 Intake Total 925 ml Output Total 5175 ml Balance -4250 ml Intake Oral 875 ml IV Total 50 ml Output Urine Total 5175 ml # Bowel Movements 1 General: Other (Sedated) HEENT: Atraumatic Neck: Supple Lungs: Normal Air Movement, Other (Bilateral rhonchi) Heart: Regular Rate, Normal S1, Normal S2 Abdomen: Normal Bowel Sounds Extremities: Other (Bilateral BKA) Neuro: Other (Sedated) Psych/Mental Status: Other (Sedated) Results Lab Laboratory Tests 12/19/22 16:30 12/20/22 02:40 A/P-Cardiology Admission Diagnosis Acute respiratory failure Type II myocardial infarction Acute renal failure Diabetes mellitus Assessment/Plan Acute respiratory failure, maintained on BiPAP Pulmonary edema. Multifactorial Combination of congestive heart failure and renal failure. Continue Lasix 40 mg IV twice daily and monitor tolerance and response Type II myocardial infarction, mild elevation in troponin, probably secondary to hypoxemia. Conservative management is recommended, continue to monitor Nonoliguric renal failure, acute on chronic Receiving Lasix, continue to monitor closely Diabetes mellitus, followed and managed by primary care physician History of methamphetamine use, last use was 2 days prior to admission History of bilateral BKA. IKER BUI MD Dec 20, 2022 08:46
[2022-12-20] MEDS: PANTOPRAZOLE 40 MG (PROTONIX) VIAL IV SCH ×2 (09:00→20:41)
[2022-12-20] MEDS: FUROSEMIDE 40 MG/4 ML INJ (LASIX) IVP SCH ×2 (09:01→20:41)
[2022-12-20] MEDS: busPIRone 5 MG (BUSPAR) TAB PO SCH ×2 (09:01→20:41)
[2022-12-20] MEDS: SODIUM BICARBONATE 650 MG TABLET PO SCH ×2 (09:01→20:41)
[2022-12-20] MEDS: MICONAZOLE 2% POWDER (DESENEX AF) 90 GM TOP SCH ×2 (09:01→20:42)
[2022-12-20] MEDS: ASPIRIN 325 MG (5 GR) TABLET PO SCH (09:01)
[2022-12-20] MEDS: POVIDONE (BETADINE) 10% SOLN 240 ML BTL TOP SCH ×2 (09:02→20:42)
[2022-12-20] MEDS: cefTRIAXone 2,000 MG/NS 50 ML IVPB IV SCH ×2 (10:00)
--- NOTE | 2022-12-20 10:32 | Diagnostic Imaging Report ---
HISTORY: Shortness of breath COMPARISON: 12/16/2022 TECHNIQUE: Frontal view of the chest.. FINDINGS: There is a small to moderate right pleural effusion which appears mildly increased since prior study. There is a small left pleural effusion which appears stable. There is airspace consolidation in the right upper lobe which appears mildly increased. The cardiac silhouette is large but stable in size. The left PICC line tip projects over the low SVC. IMPRESSION: 1. Bilateral pleural effusions, increasing on the right and stable on the left. 2. Bilateral airspace opacities, mildly increased in the right upper lung. 3. Stable cardiomegaly. Dictated by: Dictated on workstation # [id number]
[2022-12-20] MEDS: hydrOXYzine (ATARAX) 10 MG TAB PO PRN ×2 (11:10→23:11)
--- NOTE | 2022-12-20 12:26 | Progress Note - Hospitalist ---
Subjective HPI/CC On Admission Date Seen by Provider: Dec 20, 2022 Pt is a 42yoCM with a PMH of IDDMII, HTN, s/p bilateral BKA who presented to the ER due to shortness of breath. History is somewhat limited by his BiPAP but he answers yes and no questions all appropriately. He has been short of breath for a few days to a week and EMS was summoned last night. He was foudnt o be hypoxic with sats in the 70s by them and required a nonrebreather to get it up to the 90s. Apparently his home condition was deplorable and he was laying in his own feces and urine. He was found to be in acute renal failure and florrid heart failure with possible pneumonia. He also states his blood sugars had been running high as well. He previously follow [facility] but has not seen a doctor since last leaving the hospital here. Subjective/Events-last exam Pt reports doing ok but still short of breath. Still on BiPAP at 21%. States he gets anxious when BiPAP taking off because he feels like he can't breathe. Focused Exam Time of Focused Exam: 03:20 Objective Exam Vital Signs Vital Signs Date Time Temp Pulse Resp B/P (MAP) Pulse Ox O2 Delivery O2 Flow Rate FiO2 12/20/22 11:51 36.4 12/20/22 11:00 90 27 125/44 (91) 99 NIV Bilevel 21.00 12/20/22 04:00 21 Capillary Refill : Less Than 3 Seconds General Appearance: No Apparent Distress, Chronically ill Respiratory: Lungs Clear, No Accessory Muscle Use, Other (on BiPAP) Cardiovascular: Regular Rate, Rhythm, No Murmur Gastrointestinal: Normal Bowel Sounds, Soft Neurologic/Psychiatric: Alert, Oriented x3 Results/Procedures Lab Laboratory Tests 12/19/22 16:30 12/20/22 02:40 Patient resulted labs reviewed. 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 UOP -4L yesterday Dobutamine and levophed off Cardiology consulted, appreciate recs Neprhology consulted,appreciate recs Continue protonix, Hgb stable TeleICU consulted Off BiPAP Continue IV abx Strep in sputum culture Palliative Care consulted IDDMII Decrease levemir as was hypoglycemic this AM DVT ppx: Lovenox renally dosed Critical Care Critically Ill Patient Diagnosis/Problems Diagnosis/Problems (1) NSTEMI (non-ST elevated myocardial infarction) Status: Acute (2) Non-compliance Status: Acute (3) Uncontrolled diabetes mellitus Status: Acute (4) Multi-organ failure with heart failure (5) Cardiogenic shock (6) Renal failure (ARF), acute on chronic (7) S/P bilateral below knee amputation (8) Unable to care for self Status: Acute (9) Pneumonia Status: Acute (10) Sepsis Status: Acute (11) CHF (congestive heart failure) Status: Acute (12) Acute renal failure Status: Acute (13) Anasarca Status: Acute (14) Acute respiratory failure Status: Acute (15) History of methamphetamine use Status: Acute JIGAR ARREOLA MD Dec 20, 2022 12:26 pm
[2022-12-20 14:55] VITALS: BP 162/53
[2022-12-20 19:07] VITALS: BP 184/88
[2022-12-20 22:05] VITALS: BP 180/85
[2022-12-20] MEDS: guaiFENesin/CODEINE (ROBITUSSIN AC) 10ML UDC PO PRN (23:11)
[2022-12-21 02:35] VITALS: BP 144/57
[2022-12-21] MEDS: RT-ALBUTEROL HFA 8.5 GM INHALER IH SCH ×6 (02:35→22:48)
[2022-12-21 02:49] LABS: BASOPHILS % (AUTO) 0 % (0-10); EOSINOPHILS # (AUTO) 0.3 10^3/uL (0.0-0.3); EOSINOPHILS % (AUTO) 2 % (0-10); HEMATOCRIT 30 % (40-54); HEMOGLOBIN 9.5 g/dL (13.3-17.7); LYMPHOCYTES # (AUTO) 0.7 10^3/uL (1.0-4.0); LYMPHOCYTES % (AUTO) 5 % (12-44); MEAN CORPUSCULAR HEMOGLOBIN 26 pg (25-34); MEAN CORPUSCULAR HGB CONC 32 g/dL (32-36); MEAN CORPUSCULAR VOLUME 83 fL (80-99); MEAN PLATELET VOLUME 9.9 fL (9.0-12.2); MONOCYTES # (AUTO) 0.5 10^3/uL (0.0-1.0); MONOCYTES % (AUTO) 4 % (0-12); NEUTROPHILS # (AUTO) 11.7 10^3/uL (1.8-7.8); NEUTROPHILS % (AUTO) 83 % (42-75); PLATELET COUNT 322 10^3/uL (130-400); WHITE BLOOD COUNT 14.1 10^3/uL (4.3-11.0)
[2022-12-21 03:02] LABS: ALBUMIN 2.5 GM/DL (3.2-4.5); POTASSIUM 3.4 MMOL/L (3.6-5.0)
[2022-12-21 03:03] LABS: CALCIUM 7.8 MG/DL (8.5-10.1)
[2022-12-21 03:05] LABS: TOTAL PROTEIN 4.9 GM/DL (6.4-8.2)
[2022-12-21 03:06] LABS: BILIRUBIN,TOTAL 0.2 MG/DL (0.1-1.0)
[2022-12-21 03:08] LABS: CREATININE SERUM 3.62 MG/DL (0.60-1.30); PHOSPHORUS 5.1 MG/DL (2.3-4.7)
[2022-12-21 03:11] LABS: MAGNESIUM 1.8 MG/DL (1.6-2.4)
[2022-12-21] MEDS: DOBUTamine DRIP 250 ML IV SCH ×2 (03:18→18:54)
[2022-12-21] MEDS: KCL 20 MEQ TAB (K-DUR) PO SCH (03:19)
[2022-12-21] MEDS: NOREPINEPHRINE 8 MG/250 ML 250 ML IV SCH ×2 (03:19→17:31)
[2022-12-21] MEDS: POTASSIUM CL 10MEQ/50ML IVPB 50 ML IV SCH (03:19)
[2022-12-21] MEDS: MAGNESIUM 1 GM/100 ML IVPB 100 ML IV SCH (03:19)
[2022-12-21] MEDS: ENOXAPARIN 120 MG/0.8 ML (LOVENOX) SQ SCH ×2 (06:21→17:12)
[2022-12-21] MEDS: inSUlin ASPART (NovoLOG) 1 UNIT/0.01 ML (CHARGE PER UNIT) SC SCH ×4 (06:21→20:30)
[2022-12-21 07:15] VITALS: BP 127/63
--- NOTE | 2022-12-21 07:55 | Tele-ICU Progress Note ---
Subjective Date Seen by a Provider: Dec 21, 2022 Time Seen by a Provider: 07:54 Subjective/Events-last exam Service provided via interactive audio and video [employer] E-CARE system to a patient admitted to ICU bed in [facility]. Patient is seen today due to persistent need of ICU care Available chart/ vitals / labs / Images reviewed Video assessment done using teleICU camera, rest of exam as per RN Discussed with RN 42 yo M with Hx of amphetamine abuse, admitted with PNA, now on BiPAP / FiO2 21%, tolerating well,, 12/20 CXR shows atelectasis/infiltrate RUL, bilateral effusions, on Rocephin, Lasix, was IV dobutamine now off since 12/19, off IV levophed Also has BO, Cr today 3.62, down from 3.82 IDDM on Levimer 10 units q HS and Aspart, glu has been in 180's Pt is DNR by his choice and appears competent Sepsis Event Evaluation Height, Weight, BMI Height: '" Weight: lbs. oz. kg; 37.03 BMI Method: Focused Exam Time of Focused Exam: 03:20 Exam Exam Patient acknowledged, consented, and participated in this virtual visit which was conducted using real time audio/video Vital Signs Date Time Temp Pulse Resp B/P (MAP) Pulse Ox O2 Delivery O2 Flow Rate FiO2 12/21/22 06:27 NIV Bilevel 21.00 12/21/22 06:00 98 17 138/62 (87) 96 NIV Bilevel 25.00 12/21/22 05:00 96 12 126/60 (82) 100 NIV Bilevel 25.00 12/21/22 04:00 98 NIV Bilevel 25 12/21/22 04:00 96 11 126/72 (90) 99 NIV Bilevel 25.00 12/21/22 03:50 36.4 NIV Bilevel 25.00 12/21/22 03:00 99 12 133/51 (78) 100 NIV Bilevel 25.00 12/21/22 02:35 100 18 99 25.00 12/21/22 02:00 101 16 144/57 (86) 100 NIV Bilevel 25.00 12/21/22 01:00 103 14 151/58 (89) 100 NIV Bilevel 25.00 12/21/22 00:57 102 12/21/22 00:00 102 22 153/70 (97) 100 NIV Bilevel 25.00 12/20/22 23:06 36.6 108 23 145/94 (111) 98 NIV Bilevel 25.00 12/20/22 23:05 97 NIV Bilevel 25 12/20/22 23:00 105 14 145/94 (111) 99 NIV Bilevel 25.00 12/20/22 22:05 102 22 99 25.00 12/20/22 22:00 102 12 168/88 (114) 100 NIV Bilevel 25.00 12/20/22 21:00 110 22 147/94 (111) 91 NIV Bilevel 25.00 12/20/22 20:00 36.5 101 19 157/69 (98) 100 NIV Bilevel 25.00 12/20/22 20:00 99 12 157/69 (98) 100 NIV Bilevel 25.00 12/20/22 20:00 100 NIV Bilevel 25 12/20/22 19:08 100 12/20/22 19:07 102 17 99 25.00 12/20/22 19:00 102 16 179/74 (109) 99 NIV Bilevel 21.00 12/20/22 18:00 98 17 147/92 (107) 100 NIV Bilevel 21.00 12/20/22 17:00 98 14 164/94 (116) 100 NIV Bilevel 21.00 12/20/22 16:00 101 17 171/84 (105) 100 NIV Bilevel 21.00 12/20/22 16:00 100 NIV Bilevel 25 12/20/22 15:23 36.2 12/20/22 15:00 93 10 147/76 (98) 100 NIV Bilevel 21.00 12/20/22 14:55 100 21 98 25.00 12/20/22 14:00 97 23 162/53 (111) 100 NIV Bilevel 21.00 12/20/22 13:00 99 25 118/95 (99) 100 NIV Bilevel 21.00 12/20/22 13:00 97 12/20/22 12:00 100 NIV Bilevel 25 12/20/22 12:00 92 128/88 (96) 99 NIV Bilevel 21.00 12/20/22 11:51 36.4 12/20/22 11:00 90 27 125/44 (91) 99 NIV Bilevel 21.00 12/20/22 10:00 98 145/75 (87) 100 NIV Bilevel 21.00 12/20/22 09:45 100 24 98 25.00 12/20/22 09:01 36.3 12/20/22 09:00 98 150/71 (102) 95 NIV Bilevel 21.00 12/20/22 08:00 93 124/52 (85) 100 NIV Bilevel 21.00 12/20/22 08:00 100 NIV Bilevel 25 I & O 12/21/22 07:00 Intake Total 1225 ml Output Total 4175 ml Balance -2950 ml Height & Weight Height: '" Weight: lbs. oz. kg; 37.03 BMI Method: General Appearance: No Apparent Distress, Chronically ill HEENT: Other (BiPAP mask obscures some of exam) Neck: Non Tender, Supple Respiratory: Lungs Clear, No Accessory Muscle Use, Other (Resp distress if remove BIPAP 15/8, FiO2 21%) Cardiovascular: Regular Rate, Rhythm, No Murmur Capillary Refill: Less Than 3 Seconds Gastrointestinal: normal bowel sounds, non tender, soft, distended Extremity: Other (s/p bilateral BKA- edema improving in stumps) Neurologic/Psychiatric: Alert, Oriented x3 Skin: Normal Color, Warm/Dry Lymphatic: No Adenopathy (cervical) Results Lab Laboratory Tests 12/19/22 16:30 12/20/22 02:40 12/21/22 02:42 Assessment/Plan Assessment/Plan PNA, improving with decreasing oxygen needs, still on BiPAP, will continue IDDM continue on levimer, glu had been low, Levimer was decreased to 10 Units at night bilateral AKA BO, continue to hydrate, Cr slowly decreasing, pt does not want HD pt is DNR and he appears competent Critical Care: Critically Ill Patient Time spent with patient (mins): 25 TRUMAN MANN MD Dec 21, 2022 07:55
[2022-12-21] MEDS: ALBUMIN 25% 25 GM/100 ML 50 ML IV SCH ×2 (08:56→20:29)
[2022-12-21] MEDS: SODIUM BICARBONATE 650 MG TABLET PO SCH ×2 (08:56→20:30)
[2022-12-21] MEDS: busPIRone 5 MG (BUSPAR) TAB PO SCH ×2 (08:56→20:30)
[2022-12-21] MEDS: guaiFENesin/CODEINE (ROBITUSSIN AC) 10ML UDC PO PRN (08:56)
[2022-12-21] MEDS: ASPIRIN 325 MG (5 GR) TABLET PO SCH (08:56)
[2022-12-21] MEDS: POVIDONE (BETADINE) 10% SOLN 240 ML BTL TOP SCH ×2 (08:57→20:31)
[2022-12-21] MEDS: PANTOPRAZOLE 40 MG (PROTONIX) VIAL IV SCH ×2 (08:57→20:29)
[2022-12-21] MEDS: MICONAZOLE 2% POWDER (DESENEX AF) 90 GM TOP SCH ×2 (08:57→20:31)
[2022-12-21] MEDS: HYPOCHLOROUS ACID/NaCl (VASHE) 250 ML IR PRN (08:58)
--- NOTE | 2022-12-21 09:39 | Cardiology Progress Note ---
Subjective Date Seen by Provider: Dec 21, 2022 Time Seen by Provider: 09:37 Subjective/Events-last exam Patient was seen at bedside More awake today, still on BiPAP. Review of Systems General: No Chills, No Night Sweats; Fatigue, Malaise; No Appetite, No Other HEENT: No Head Aches, No Visual Changes, No Eye Pain, No Ear Pain, No Dysphasia, No Sinus Congestion, No Post Nasal Drip, No Sore Throat, No Other Pulmonary: Dyspnea; No Cough, No Pleuritic Chest Pain, No Other Cardiovascular: No: Chest Pain, Palpitations, Orthopnea, Paroxysmal Noc. Dyspnea, Edema, Lt Headedness, Other Focused Exam Time of Focused Exam: 03:20 Objective-Cardiology Exam Last Set of Vital Signs Vital Signs 12/21/22 12/21/22 12/21/22 07:45 08:00 09:00 Temp 36.8 Pulse 101 Resp 16 B/P (MAP) 157/63 (116) Pulse Ox 95 O2 Delivery NIV Bilevel O2 Flow Rate 21.00 FiO2 21 I&O Intake and Output 12/21/22 00:00 Intake Total 1205 ml Output Total 5125 ml Balance -3920 ml Intake Oral 1105 ml IV Total 100 ml Output Urine Total 5125 ml # Bowel Movements 3 General: Alert, Cooperative, Moderate Distress HEENT: Atraumatic Neck: Supple Lungs: Normal Air Movement, Other (Bilateral rhonchi) Heart: Regular Rate, Normal S1, Normal S2 Abdomen: Normal Bowel Sounds Extremities: No Clubbing, No Cyanosis, Other (Bilateral BKA) Neuro: Normal Speech Psych/Mental Status: Mood NL Results Lab Laboratory Tests 12/21/22 02:42 A/P-Cardiology Admission Diagnosis Acute respiratory failure Type II myocardial infarction Acute renal failure Diabetes mellitus Assessment/Plan Acute respiratory failure, maintained on BiPAP Pulmonary edema. Multifactorial Combination of congestive heart failure and renal failure. Continue Lasix 40 mg IV twice daily Responding slowly to diuretics, continue with diuresis and monitor Type II myocardial infarction, mild elevation in troponin, probably secondary to hypoxemia. Conservative management is recommended, continue to monitor Nonoliguric renal failure, acute on chronic Receiving Lasix, continue to monitor closely Diabetes mellitus, followed and managed by primary care physician History of methamphetamine use, last use was 2 days prior to admission History of bilateral BKA. IKER BUI MD Dec 21, 2022 09:39
[2022-12-21] MEDS: FUROSEMIDE 40 MG/4 ML INJ (LASIX) IVP SCH ×2 (10:01→20:30)
[2022-12-21] MEDS: cefTRIAXone 2,000 MG/NS 50 ML IVPB IV SCH ×2 (10:01)
[2022-12-21] MEDS: LORazepam 0.5 MG (ATIVAN) TABLET PO PRN (10:27)
[2022-12-21 10:30] VITALS: BP 160/75
--- NOTE | 2022-12-21 11:53 | Progress Note - Hospitalist ---
Subjective HPI/CC On Admission Date Seen by Provider: Dec 21, 2022 Pt is a 42yoCM with a PMH of IDDMII, HTN, s/p bilateral BKA who presented to the ER due to shortness of breath. History is somewhat limited by his BiPAP but he answers yes and no questions all appropriately. He has been short of breath for a few days to a week and EMS was summoned last night. He was foudnt o be hypoxic with sats in the 70s by them and required a nonrebreather to get it up to the 90s. Apparently his home condition was deplorable and he was laying in his own feces and urine. He was found to be in acute renal failure and florrid heart failure with possible pneumonia. He also states his blood sugars had been running high as well. He previously follow [facility] but has not seen a doctor since last leaving the hospital here. Subjective/Events-last exam Pt reports feeling short of breath still. Remains on BiPAP. Has been hesitant to take it off and he says he gets short of breath. When off RN reports sats are fine though. Reviewed negative fluid status with patient and CXR findings and hope to be able to wean off BiPAP. Focused Exam Time of Focused Exam: 03:20 Objective Exam Vital Signs Vital Signs Date Time Temp Pulse Resp B/P (MAP) Pulse Ox O2 Delivery O2 Flow Rate FiO2 12/21/22 11:00 100 154/87 (111) 94 NIV Bilevel 21.00 12/21/22 10:00 22 12/21/22 08:00 36.8 12/21/22 07:45 21 Capillary Refill : Less Than 3 Seconds General Appearance: No Apparent Distress, WD/WN Respiratory: No Accessory Muscle Use; No Crackles; Decreased Breath Sounds; No Wheezing; Other (on BiPAP) Cardiovascular: Regular Rate, Rhythm, No Murmur Extremity: Other (s/p bilateral BKA- improving edema) Neurologic/Psychiatric: Alert, Oriented x3 Results/Procedures Lab Laboratory Tests 12/21/22 02:42 Patient resulted labs reviewed. 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 -4L yesterday again and ~10L throughout the admission Will try to DC albumin and IV lasix if he gets less short of breath and can get off BiPAP Dobutamine and levophed off Cardiology consulted, appreciate recs Neprhology consulted,appreciate recs Continue protonix, Hgb stable TeleICU consulted Continue IV abx Strep in sputum culture Palliative Care consulted IDDMII Decrease levemir as was hypoglycemic this AM Quite sensitive to levemir- was hypoglycemic with 15 units Levemir and now hypoglycemic with 10 units- will tolerate some highers to avoid hypoglycemia but increase to 12 units DVT ppx: Lovenox renally dosed Critical Care Critically Ill Patient Diagnosis/Problems Diagnosis/Problems (1) NSTEMI (non-ST elevated myocardial infarction) Status: Acute (2) Non-compliance Status: Acute (3) Uncontrolled diabetes mellitus Status: Acute (4) Multi-organ failure with heart failure (5) Cardiogenic shock (6) Renal failure (ARF), acute on chronic (7) S/P bilateral below knee amputation (8) Unable to care for self Status: Acute (9) Pneumonia Status: Acute (10) Sepsis Status: Acute (11) CHF (congestive heart failure) Status: Acute (12) Acute renal failure Status: Acute (13) Anasarca Status: Acute (14) Acute respiratory failure Status: Acute (15) History of methamphetamine use Status: Acute JIGAR ARREOLA MD Dec 21, 2022 11:53 am
[2022-12-21 14:30] VITALS: BP 152/72
[2022-12-21] MEDS: hydrOXYzine (ATARAX) 10 MG TAB PO PRN (17:12)
[2022-12-21 18:48] VITALS: BP 160/104
[2022-12-21 22:48] VITALS: BP 136/64
[2022-12-22] MEDS: NOREPINEPHRINE 8 MG/250 ML 250 ML IV SCH (02:10)
[2022-12-22 02:53] VITALS: BP 149/83
[2022-12-22] MEDS: RT-ALBUTEROL HFA 8.5 GM INHALER IH SCH ×3 (02:53→10:37)
[2022-12-22] MEDS: LORazepam 0.5 MG (ATIVAN) TABLET PO PRN ×2 (04:19→13:10)
[2022-12-22 04:24] LABS: BASOPHILS # (AUTO) 0.1 10^3/uL (0.0-0.1); BASOPHILS % (AUTO) 0 % (0-10); EOSINOPHILS # (AUTO) 0.4 10^3/uL (0.0-0.3); EOSINOPHILS % (AUTO) 2 % (0-10); HEMATOCRIT 31 % (40-54); HEMOGLOBIN 9.7 g/dL (13.3-17.7); LYMPHOCYTES # (AUTO) 0.8 10^3/uL (1.0-4.0); LYMPHOCYTES % (AUTO) 5 % (12-44); MEAN CORPUSCULAR HEMOGLOBIN 26 pg (25-34); MEAN CORPUSCULAR HGB CONC 31 g/dL (32-36); MEAN CORPUSCULAR VOLUME 83 fL (80-99); MEAN PLATELET VOLUME 9.7 fL (9.0-12.2); MONOCYTES # (AUTO) 0.5 10^3/uL (0.0-1.0); MONOCYTES % (AUTO) 3 % (0-12); NEUTROPHILS # (AUTO) 14.4 10^3/uL (1.8-7.8); NEUTROPHILS % (AUTO) 84 % (42-75); PLATELET COUNT 383 10^3/uL (130-400); WHITE BLOOD COUNT 17.2 10^3/uL (4.3-11.0)
[2022-12-22 04:31] LABS: ALBUMIN 2.6 GM/DL (3.2-4.5)
[2022-12-22 04:32] LABS: POTASSIUM 3.2 MMOL/L (3.6-5.0)
[2022-12-22 04:34] LABS: TOTAL PROTEIN 5.2 GM/DL (6.4-8.2)
[2022-12-22 04:36] LABS: BILIRUBIN,TOTAL 0.2 MG/DL (0.1-1.0)
[2022-12-22 04:38] LABS: CREATININE SERUM 3.3 MG/DL (0.60-1.30)
[2022-12-22 04:40] LABS: MAGNESIUM 1.8 MG/DL (1.6-2.4)
[2022-12-22 04:50] LABS: NEUTROPHILS % (MANUAL) 82 %
[2022-12-22] MEDS: POTASSIUM CL 10MEQ/50ML IVPB 50 ML IV SCH (04:50)
[2022-12-22] MEDS: MAGNESIUM 1 GM/100 ML IVPB 100 ML IV SCH (04:50)
[2022-12-22] MEDS: KCL 20 MEQ TAB (K-DUR) PO SCH (04:50)
[2022-12-22 04:51] LABS: EOSINOPHILS % (MANUAL) 3 %; LYMPHOCYTES % (MANUAL) 8 %; MICROCYTOSIS SLIGHT; MONOCYTES % (MANUAL) 4 %
[2022-12-22 04:52] LABS: METAMYELOCYTES % 3 %
[2022-12-22] MEDS: inSUlin ASPART (NovoLOG) 1 UNIT/0.01 ML (CHARGE PER UNIT) SC SCH ×2 (05:21→13:09)
[2022-12-22] MEDS: ENOXAPARIN 120 MG/0.8 ML (LOVENOX) SQ SCH (05:58)
[2022-12-22] MEDS ORDERED: LABETALOL HCL 20 MG/4 ML VIAL ONE (06:18)
[2022-12-22] MEDS ORDERED: LABETALOL HCL 20 MG/4 ML VIAL IV PRN ×2 (06:30)
[2022-12-22 07:21] VITALS: BP 161/93
[2022-12-22] MEDS: ALBUMIN 25% 25 GM/100 ML 50 ML IV SCH (08:10)
[2022-12-22] MEDS: hydrOXYzine (ATARAX) 10 MG TAB PO PRN ×2 (08:27→13:10)
[2022-12-22] MEDS: guaiFENesin/CODEINE (ROBITUSSIN AC) 10ML UDC PO PRN (08:27)
[2022-12-22] MEDS: PANTOPRAZOLE 40 MG (PROTONIX) VIAL IV SCH (08:28)
[2022-12-22] MEDS: busPIRone 5 MG (BUSPAR) TAB PO SCH (08:28)
[2022-12-22] MEDS: FUROSEMIDE 40 MG/4 ML INJ (LASIX) IVP SCH (08:28)
[2022-12-22] MEDS: MICONAZOLE 2% POWDER (DESENEX AF) 90 GM TOP SCH (08:28)
[2022-12-22] MEDS: ASPIRIN 325 MG (5 GR) TABLET PO SCH (08:28)
[2022-12-22] MEDS: SODIUM BICARBONATE 650 MG TABLET PO SCH (08:28)
[2022-12-22] MEDS: HYPOCHLOROUS ACID/NaCl (VASHE) 250 ML IR PRN (08:28)
[2022-12-22] MEDS: POVIDONE (BETADINE) 10% SOLN 240 ML BTL TOP SCH (08:28)
--- NOTE | 2022-12-22 08:46 | Physical Therapy Evaluation ---
PT Evaluation-General Medical Diagnosis Admission Date Dec 15, 2022 at 08:12 Medical Diagnosis: respiratory failure/NSTEMI/CHF Onset Date: Dec 15, 2022 Therapy Diagnosis Therapy Diagnosis: debility/weakness Precautions Precautions/Isolations: Aspiration, Fall Prevention, Standard Precautions Referral Physician: Tk Reason for Referral: Evaluation/Treatment Medical History Pertinent Medical History: DM, HTN, Neuropathy, PVD Additional Medical History obesity/polysubstance use/bilateral BKA Current History EMS secondary to SOA, cough, edema (found in his own feces and urine/noncompliant) Reviewed History: Yes Prior Prior Level of Function SCALE: Activities may be completed with or without assistive devices. 2-Klplxqsnjp-[id number] completes the activity by him/herself with no assistance from a helper. 5-Set-up or Clean-up Assistance-helper sets up or cleans up; patient completes activity. [place] assists only prior to or following the activity. 4-Supervision or Touching Assistance-helper provides verbal cues and/or touching/steadying and/or contact guard assistance as patient completes activity. Assistance may be provided throughout the activity or intermittently. 3-Partial/Moderate Assistance-helper does LESS THAN HALF the effort. [place] lifts, holds or supports trunk or limbs, but provides less than half the effort. 2-Substantial/Maximal Assistance-helper does MORE THAN HALF the effort. [place] lifts or holds trunk or limbs and provides more than half the effort. 3-Sdtlatuse-ljgsfb does ALL the effort. Patient does none of the effort to complete the activity. Or, the assistance of 2 or more helpers is required for the patient to complete the activity. If activity was not attempted, code reason: 7-Patient Refused. 9-Not Applicable-not attempted and the patient did not perform the activity before the current illness, exacerbation or injury. 10-Not Attempted due to Environmental Limitations-(lack of equipment, weather restraints, etc.). 88-Not Attempted due to Medical Conditions or Safety Concerns. Bed Mobility: 6 Transfers (B,C,W/C): 6 Gait: 9 Stairs: 9 Prior Devices Use: Manual wheelchair per patient PT Evaluation-Current Subjective Patient agrees to bed level activity. Currently on Bipap Objective Patient Orientation: Normal For Age Attachments: Oxygen (BiPap), Jerry Catheter ROM/Strength ROM Lower Extremities bilateral LE WFL (bilateral BKA) Strength Lower Extremities 2-/5 grossly bilateral LE Integumentary/Posture Integumentary refer to nursing notes Bladder Incontinence: Jerry Cath Neuromuscular (Tone, Coordination, Reflexes) diminished coordination due to weakness Sensory Vision: Functional Hearing: Functional Transfers Roll Left to Right (QC): 1 Sit to Lying (QC): 88 Lying to Sitting/Side of Bed(Q: 88 Gait Does the Patient Walk?: No and Walking Goal NOT indicated Treatment bilateral LE exercises 10 reps (LE protocol) in supine Assessment/Needs Patient will be seen short term by skilled PT to address functional strength. Patient will require Filiberto Lift for OOB activity due to severe weakness and safety concerns for patient and staff. Rehab Potential: Poor PT Shelter Goals Shelter Goals PT Shelter Goals Time Frame: Jan 10, 2023 Roll Left & Right (QC): 2 Sit to Lying (QC): 2 Lying-Sitting on Side/Bed(QC): 2 PT Plan Problem List Problem List: Activity Tolerance, Functional Strength, Safety, Transfer, Bed Mo bility Treatment/Plan Treatment Plan: Continue Plan of Care Treatment Plan: Bed Mobility, Education, Functional Activity [place], Functional Strength, Safety, Therapeutic Exercise, Transfers Treatment Duration: Jan 10, 2023 Frequency: 5 times per week Estimated Hrs Per Day: .25 hour per day Patient and/or Family Agrees t: Yes Time Time In: 810 Time Out: 820 DATE: Dec 22, 2022 Total Billed Treatment Time: 10 Total Billed Treatment 1 visit EVMod 10 min VALERIO REYEZ PT Dec 22, 2022 08:46
[2022-12-22] MEDS: DOBUTamine DRIP 250 ML IV SCH (08:48)
--- NOTE | 2022-12-22 09:44 | Diagnostic Imaging Report ---
IMPRESSION: Shortness of breath Portable chest 9:25 AM There is right pleural effusion increased in volume compared to 12/20/2022. Left upper extremity PICC line tip projects over the SVC. There is right perihilar consolidation. There is a small patchy consolidation left upper lobe. There is cardiomegaly. IMPRESSION: Cardiomegaly. Patchy perihilar areas of consolidation in both lungs. Increasing right pleural effusion compared to 12/20/2022. Dictated by: Dictated on workstation # [id number]
--- NOTE | 2022-12-22 09:59 | Tele-ICU Progress Note ---
Subjective Date Seen by a Provider: Dec 22, 2022 Time Seen by a Provider: 09:19 Subjective/Events-last exam (Tele-ICU Physician , Progress Note ) Service provided via interactive audio and video telecommunications E-CARE system to a patient admitted to ICU bed in [facility]. Patient is seen today due to persistent need of ICU care Available chart/ vitals / labs / Images reviewed Video assessment done using teleICU camera, rest of exam as per RN Discussed with RN Events overnight : Afebrile hemodynamically stable Respiratory - ra I/O = neg 2600 Drips: Pressors- OFF Hospital course: (12/15) 42M admitted with PNA, hypoxia, ARF, on Bipap 15/8 100% rr 21 - tv 900 , US LE NEG for DVT bilt , ECHO 12/15/22 EF 55% , gr II dst dsfnct, RVSP 40 mm 12/15 - OFF BIPAP, 3 L o2 , cxr better ,LEVO , dobs 2.5 12/18- and 12/19 BIPAP 15/8 21% rr19 tv 700 MV 14 - ON RA 21% even on bipap - but he is asking for it for WOB, dobs 2.5, levo OFF- - OFF BIPAP - 3 L o2 12/22 - bipap 15 8 25 % tv 480 rr 20 A/PAcute resp failure - suspected CHF - diuresis - asking for BIPAP with c/o SOB - 12/22 - bipap 15 /8 25 % tv 480 rr 20 - will check CXR today CHF with elv trop and BNP - ECHO 12/15/22 EF 55% , gr II dst dsfnct, RVSP 40 mm - full dose lovenox- adjusted to renal function -cards follow - diuresis BO, - renal consulted - day placed 12/15 - US renal - WNL -bicarb po , lasix iv 40 bid with albumin - Cr improving slowly Elev ddimer - already on full dose of Lovenox for AC - US LE NEG for DVT bilat 12/15/22 - ECHO 12/15/22 RVSP 40 mm infection , suspected probable PNA / wound - empiric abx started , sputum + H.flu and Strep - ? 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 Discussed with RN to reach out if any questions or concerns A total of 31 minutes of critical care time was devoted to this patient today, required to treat and/or prevent further deterioration of critical care condition ( as above ) . I am remotely monitoring this patient from another state. I am unable to do the bedside exam, and history/physical and pertinent information is taken from other notes in the computer and bedside staff. . Sepsis Event Evaluation Height, Weight, BMI Height: '" Weight: lbs. oz. kg; 36.69 BMI Method: Focused Exam Time of Focused Exam: 03:20 Exam Exam Patient acknowledged, consented, and participated in this virtual visit which was conducted using real time audio/video Vital Signs Date Time Temp Pulse Resp B/P (MAP) Pulse Ox O2 Delivery O2 Flow Rate FiO2 12/22/22 08:15 97 160/79 (106) 96 NIV Bilevel 25.00 12/22/22 08:00 92 156/77 (103) 100 NIV Bilevel 25.00 12/22/22 07:27 36.3 12/22/22 07:21 90 19 97 25.00 12/22/22 07:11 89 12/22/22 07:00 92 156/73 (100) 99 NIV Bilevel 25.00 12/22/22 06:00 113 181/85 (117) 100 NIV Bilevel 25.00 12/22/22 05:00 100 171/88 (115) 100 NIV Bilevel 25.00 12/22/22 04:21 175/45 (88) 12/22/22 04:15 100 NIV Bilevel 25 12/22/22 04:15 36.2 NIV Bilevel 25.00 12/22/22 04:00 98 169/114 (132) 100 NIV Bilevel 25.00 12/22/22 03:00 95 146/84 (104) 100 NIV Bilevel 25.00 12/22/22 02:53 97 23 100 25.00 12/22/22 02:00 94 147/83 (104) 100 NIV Bilevel 25.00 12/22/22 01:00 94 156/72 (100) 100 NIV Bilevel 25.00 12/22/22 00:44 94 12/22/22 00:00 95 150/75 (100) 100 NIV Bilevel 25.00 12/21/22 23:25 95 NIV Bilevel 35 12/21/22 23:15 36.9 12/21/22 23:00 102 141/90 (107) 100 NIV Bilevel 25.00 12/21/22 22:48 105 21 100 25.00 12/21/22 22:00 105 136/64 (88) 98 NIV Bilevel 25.00 12/21/22 21:00 93 140/82 (101) 95 NIV Bilevel 25.00 12/21/22 20:30 94 NIV Bilevel 25 12/21/22 20:00 36.9 12/21/22 20:00 99 20 155/88 (110) 96 NIV Bilevel 25.00 12/21/22 19:00 97 12 153/96 (115) 97 NIV Bilevel 25.00 12/21/22 19:00 99 12/21/22 18:48 97 19 97 25.00 12/21/22 18:00 102 19 160/104 (119) 100 NIV Bilevel 25.00 12/21/22 17:00 97 29 164/94 (127) 99 NIV Bilevel 25.00 12/21/22 17:00 36.7 12/21/22 16:04 93 NIV Bilevel 25 12/21/22 16:00 99 28 167/46 (110) 96 NIV Bilevel 25.00 12/21/22 15:57 36.1 12/21/22 15:00 96 25 173/62 (107) 99 NIV Bilevel 25.00 12/21/22 14:30 97 20 100 21.00 12/21/22 14:04 NIV Bilevel 25.00 12/21/22 14:00 98 13 152/72 (106) 98 NIV Bilevel 21.00 12/21/22 13:00 103 175/91 (128) 99 NIV Bilevel 21.00 12/21/22 13:00 97 12/21/22 12:00 93 NIV Bilevel 21 12/21/22 12:00 98 36 153/52 (95) 94 NIV Bilevel 21.00 12/21/22 11:00 100 154/87 (111) 94 NIV Bilevel 21.00 12/21/22 10:30 106 22 94 21.00 12/21/22 10:00 106 22 160/75 (114) 92 NIV Bilevel 21.00 I & O 12/22/22 07:00 Intake Total 2370 ml Output Total 3820 ml Balance -1450 ml Height & Weight Height: '" Weight: lbs. oz. kg; 36.69 BMI Method: General Appearance: No Apparent Distress, WD/WN HEENT: Other (BiPAP mask obscures some of exam) Neck: Non Tender, Supple Respiratory: No Accessory Muscle Use; No Crackles; Decreased Breath Sounds; No Wheezing; Other (on BiPAP) Cardiovascular: Regular Rate, Rhythm, No Murmur Capillary Refill: Less Than 3 Seconds Gastrointestinal: normal bowel sounds, non tender, soft, distended Extremity: Other (s/p bilateral BKA- improving edema) Neurologic/Psychiatric: Alert, Oriented x3 Skin: Normal Color, Warm/Dry Lymphatic: No Adenopathy (cervical) Results Lab Laboratory Tests 12/21/22 02:42 12/22/22 04:10 Assessment/Plan Assessment/Plan 1 KYLE BRAR MD Dec 22, 2022 09:58
[2022-12-22 10:38] VITALS: BP 180/111
[2022-12-22] MEDS: cefTRIAXone 2,000 MG/NS 50 ML IVPB IV SCH ×2 (10:44)
--- NOTE | 2022-12-22 10:58 | Cardiology Progress Note ---
Subjective Date Seen by Provider: Dec 22, 2022 Time Seen by Provider: 10:58 Subjective/Events-last exam Patient was seen at bedside, laying down comfortably, still on BiPAP but overall feeling better Review of Systems General: No Chills, No Night Sweats; Fatigue, Malaise; No Appetite, No Other HEENT: No Head Aches, No Visual Changes, No Eye Pain, No Ear Pain, No Dys phasia, No Sinus Congestion, No Post Nasal Drip, No Sore Throat, No Other Pulmonary: Dyspnea; No Cough, No Pleuritic Chest Pain, No Other Cardiovascular: Edema; No: Chest Pain, Palpitations, Orthopnea, Paroxysmal Noc. Dyspnea, Lt Headedness, Other Focused Exam Time of Focused Exam: 03:20 Objective-Cardiology Exam Last Set of Vital Signs Vital Signs 12/22/22 12/22/22 12/22/22 12/22/22 04:15 07:27 10:00 10:38 Temp 36.3 Pulse 103 Resp 20 B/P (MAP) 180/111 (134) Pulse Ox 100 O2 Delivery NIV Bilevel O2 Flow Rate 25.00 FiO2 25 I&O Intake and Output 12/22/22 00:00 Intake Total 1955 ml Output Total 3900 ml Balance -1945 ml Intake Oral 1955 ml Output Urine Total 3900 ml General: Alert, Cooperative, Moderate Distress HEENT: Atraumatic Neck: Supple Lungs: Normal Air Movement, Other (Bilateral rhonchi) Heart: Regular Rate, Normal S1, Normal S2 Abdomen: Normal Bowel Sounds Extremities: No Clubbing, No Cyanosis, Other (Bilateral BKA) Neuro: Normal Speech Psych/Mental Status: Mood NL Results Lab Laboratory Tests 12/22/22 04:10 A/P-Cardiology Admission Diagnosis Acute respiratory failure Type II myocardial infarction Acute renal failure Diabetes mellitus Assessment/Plan Acute respiratory failure, maintained on BiPAP Pulmonary edema. Multifactorial Combination of congestive heart failure and renal failure. Continue Lasix 40 mg IV twice daily Responding slowly to diuretics, continue with diuresis and monitor Type II myocardial infarction, mild elevation in troponin, probably secondary to hypoxemia. Conservative management is recommended, continue to monitor Nonoliguric renal failure, acute on chronic Receiving Lasix, continue to monitor closely Diabetes mellitus, followed and managed by primary care physician History of methamphetamine use, last use was 2 days prior to admission History of bilateral BKA. IKER BUI MD Dec 22, 2022 10:58
[2022-12-22] MEDS ORDERED: RT-ALBUTEROL/IPRATROPIUM 3 ML (DUONEB) VIAL INH PRN (13:30)
[2022-12-22] MEDS ORDERED: BISACODYL 10 MG SUPP (DULCOLAX) PR PRN (13:30)
[2022-12-22] MEDS ORDERED: ARTIFICAL TEARS 0.4 ML UNIT DOSE (REFRESH PLUS) OU PRN (13:30)
[2022-12-22] MEDS ORDERED: SALIVA SUBSTITUTE 60 ML SPRAY(MOUTHKOTE) MM PRN (13:30)
[2022-12-22] MEDS ORDERED: LORazepam 1 MG (ATIVAN) TAB SL PRN (13:30)
[2022-12-22] MEDS ORDERED: PROMETHAZINE INJ 25 MG/ML (PHENERGAN) AMP IVP PRN (13:30)
[2022-12-22] MEDS ORDERED: ONDANSETRON 4 MG/2 ML (SDV) Z0FRAN IVP PRN (13:30)
[2022-12-22] MEDS ORDERED: GLYCOPYRROLATE 0.2 MG/ML (ROBINUL) 2 ML VIAL IV PRN (13:30)
[2022-12-22] MEDS ORDERED: ACETAMINOPHEN 650 MG SUPP (TYLENOL) PR PRN (13:30)
[2022-12-22] MEDS ORDERED: morphine INJ 4 MG/ML 1 ML (VIAL/SYRINGE) IV PRN ×2 (13:30→17:30)
--- NOTE | 2022-12-22 13:47 | Occ Therapy Progress Note ---
Therapy Progress Note OT order received, patient declines OT evaluation this date. Patient does not wish to continue w/ OT services, please discontinue NICOLE FINN OT Dec 22, 2022 13:47
[2022-12-22 14:19] VITALS: BP 173/103
[2022-12-22] MEDS ORDERED: SALIVA SUBSTITUTE 236 ML SPRAY (MOUTHKOTE) MM PRN (14:30)
[2022-12-22] MEDS: morphine INJ 4 MG/ML 1 ML (VIAL/SYRINGE) IV PRN ×2 (18:01→19:57)
[2022-12-22] MEDS: LORazepam INJ 2 MG/ML (ATIVAN) VIAL IVP PRN (18:02)
--- NOTE | 2022-12-22 20:00 | Progress Note - Hospitalist ---
Subjective HPI/CC On Admission Date Seen by Provider: Dec 22, 2022 Time Seen by Provider: 09:45 Pt is a 42yoCM with a PMH of IDDMII, HTN, s/p bilateral BKA who presented to the ER due to shortness of breath. History is somewhat limited by his BiPAP but he answers yes and no questions all appropriately. He has been short of breath for a few days to a week and EMS was summoned last night. He was foudnt o be hypoxic with sats in the 70s by them and required a nonrebreather to get it up to the 90s. Apparently his home condition was deplorable and he was laying in his own feces and urine. He was found to be in acute renal failure and florrid heart failure with possible pneumonia. He also states his blood sugars had been running high as well. He previously follow [facility] but has not seen a doctor since last leaving the hospital here. Subjective/Events-last exam He remains on BiPAP. He is still short of breath. We had a goals of care discussion. He does not want to undergo dialysis. He does not want to remain on the BiPAP. He is worried about being short of breath. We discussed comfort me asures. Palliative care will be consulted. Focused Exam Time of Focused Exam: 03:20 Objective Exam Vital Signs Vital Signs Date Time Temp Pulse Resp B/P (MAP) Pulse Ox O2 Delivery O2 Flow Rate FiO2 12/22/22 14:19 101 18 97 25.00 12/22/22 14:00 173/103 (126) NIV Bilevel 12/22/22 12:00 25 12/22/22 11:47 36.0 Capillary Refill : Less Than 3 Seconds General Appearance: No Apparent Distress, Anxious, Chronically ill, Obese Respiratory: No Respiratory Distress, Crackles, Decreased Breath Sounds, Other (wearing BiPAP) Cardiovascular: Regular Rate, Rhythm, No Murmur Gastrointestinal: Normal Bowel Sounds, Soft Extremity: Pedal Edema, Swelling, Other (bilateral BKAs) Neurologic/Psychiatric: Alert, Oriented x3 Results/Procedures Lab Laboratory Tests 12/22/22 04:10 Patient resulted labs reviewed. Imaging: Reviewed Imaging Report Assessment/Plan Assessment and Plan Assess & Plan/Chief Complaint Multiorgan failure Acute respiratory failure with hypoxia Cardiogenic shock, resolved BO on CKD NSTEMI Uncontrolled diabetes mellitus Poor prognosis Goals of care discussion Creatinine improving Remains on BiPAP Cardiology following Neprhology following TeleICU following IV antibiotics Palliative care consulted Patient would like to transition to comfort measures only Comfort care order set in place Critical Care Critically Ill Patient Diagnosis/Problems Diagnosis/Problems (1) Poor prognosis Status: Acute (2) Goals of care, counseling/discussion Status: Acute (3) Multi-organ failure with heart failure Status: Acute (4) Renal failure (ARF), acute on chronic Status: Acute (5) Cardiogenic shock Status: Resolved Resolution Date/Time: 12/22/22 @ 20:06 (6) NSTEMI (non-ST elevated myocardial infarction) Status: Acute (7) Uncontrolled diabetes mellitus Status: Acute (8) S/P bilateral below knee amputation Status: Chronic ALETHA MEJÍA MD Dec 22, 2022 20:00
[2022-12-23] MEDS: morphine INJ 4 MG/ML 1 ML (VIAL/SYRINGE) IV PRN ×3 (02:41→09:45)
--- NOTE | 2022-12-23 06:57 | Physical Therapy Progress Note ---
Therapy Progress Note PT to dismiss patient from services at this time due to comfort care measures being issued. VALERIO REYEZ PT Dec 23, 2022 06:57
[2022-12-23] MEDS: LORazepam INJ 2 MG/ML (ATIVAN) VIAL IVP PRN ×2 (07:52→10:22)
[2022-12-23 14:09] VITALS: BP 173/103
--- NOTE | 2022-12-23 14:48 | Physician Query Clarification ---
Physician Query-General Query to Physician: The medical record reflects the following clinical scenario: History/Risk factors: Bilateral BKA, multiple decubitus ulcers, pneumonia, Multiorgan failure Clinical Findings: Admission VS/LABS: HR 108, RR 28, BP 125/78, SpO2 95% sat on 10 L nonrebreather, T 36.6, WBC 13.6 troponin I 3.698, lactic acid 1.68, BNP 2774 Elevated treatment: ER: Cefepime IV, Lasix IV, No fluids initially due to elevated BNP , later started on Dobutamine Question: Is Sepsis a clinically valid diagnosis? Sepsis was documented in the H and P and several progress notes with no further documentation of Sepsis in the medical record. If yes, please document in the Progress Notes and Discharge Summary. Yes, Sepsis clinically valid, present on admission No, Sepsis ruled out Other, with explanation of clinical findings Undetermined, no explanation for clinical findings In responding to this query, please exercise your independent professional judgment. The purpose of this communication is to more accurately reflect the complexity of your patients condition. The fact that a question is asked does not imply that any particular answer is desired or expected. Thank you for your timely response to this clarification. Amie Williamson MSN, RN Clinical Supervisor [employer] Department [email or web address] PHYSICIAN RESPONSE: Based on the clinical findings in the record, please respond to the query above on this document as an addendum. Physician Response: Physician Response Yes If you have questions please contact: Labor Contractor: Ext: Thank you for your time and cooperation. Clinical Supervisor [employer] Department/Labor Contractor This is a permanent part of the medical record AMIE WILLIAMSON Dec 23, 2022 14:48 ALETHA MEJÍA MD Dec 23, 2022 19:15
--- NOTE | 2022-12-23 18:30 | Discharge Summary ---
Discharge Summary Hospital Course Problems/Dx: (1) Comfort measures only status Status: Acute (2) Poor prognosis Status: Acute (3) Goals of care, counseling/discussion Status: Acute (4) Multi-organ failure with heart failure Status: Acute (5) Renal failure (ARF), acute on chronic Status: Acute (6) Cardiogenic shock Status: Resolved (7) NSTEMI (non-ST elevated myocardial infarction) Status: Acute (8) Uncontrolled diabetes mellitus Status: Acute (9) S/P bilateral below knee amputation Status: Chronic (10) Pneumonia Status: Acute (11) Sepsis Status: Acute Hospital Course Date of Admission: Dec 15, 2022 at 08:12 Admission Diagnosis : Multiorgan failure, sepsis due to pneumonia, BO on CKD, cardiogenic shock Family Physician/Provider: Blake Boone Physician Date of Discharge: 12/23/22 Discharge Diagnosis: Multiorgan failure, sepsis due to pneumonia, 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 He had cardiogenic shock and required pressors initially. He had respiratory failure requiring BiPAP. He did not want intubation or resuscitative measures. He had BO on CKD. He did not want dialysis. He was diuresed and his kidney function improved slightly. He remained dependent on BiPAP. He was treated for sepsis due to pneumonia. He did not want to remain on BiPAP. We discussed goals of care and he elected to pursue comfort measures only status. He was started on comfort measures and was able to be taken off the BiPAP. He subsequently on 12/23/2022 at 1032. Labs and Pending Lab Test: Microbiology 12/18/22 Gram Stain - Final, Complete 12/18/22 Wound Culture - Final, Complete Mixed Bacterial Sona Staphylococcus aureus 12/16/22 Urine Culture - Final, Complete NO GROWTH 12/15/22 C. difficile GDH Antigen & Toxins - Final, Complete 12/15/22 MRSA Screen - Final, Complete MRSA not isolated 12/15/22 Blood Culture - Final, Complete Staph, Coag Neg ([employer] DEPARTMENT CHAIR) Home Meds Active Active Prescriptions or Reported Medications Unobtainable Assessment/Pt Instructions Patient Discharge Physical Examination Vital Signs Vital Signs Date Time Temp Pulse Resp B/P (MAP) Pulse Ox O2 Delivery O2 Flow Rate FiO2 12/23/22 14:09 36.0 101 18 173/103 97 NIV Bilevel 2.00 92 Allergies: Coded Allergies: No Known Drug Allergies (Unverified , 01/29/22) Discharge Summary Date of Admission Dec 15, 2022 at 08:12 Date of Discharge Dec 23, 2022 at 14:10 Discharge Date: Dec 23, 2022 Discharge Time: 10:32 Admission Diagnosis Multiorgan failure Comfort Measures/ End of Life Care: Comfort Measures Advance Care discuss with: patient Plan: initiate discussion, clarifying prognosis, identified end-of-life goals, developed treatment plan Cardiopulmonary Arrest: Cardiorespiratory Arrest Date of : Dec 23, 2022 Time of : 10:32 Discharge Diagnosis Multiorgan failure Acute respiratory failure with hypoxia Cardiogenic shock, resolved 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 CKD NSTEMI Uncontrolled diabetes mellitus Poor prognosis Goals of care discussion Comfort measures only status (1) Comfort measures only status Status: Acute (2) Poor prognosis Status: Acute (3) Goals of care, counseling/discussion Status: Acute (4) Multi-organ failure with heart failure Status: Acute (5) Renal failure (ARF), acute on chronic Status: Acute (6) Cardiogenic shock Status: Resolved (7) NSTEMI (non-ST elevated myocardial infarction) Status: Acute (8) Uncontrolled diabetes mellitus Status: Acute (9) S/P bilateral below knee amputation Status: Chronic ALETHA MEJÍA MD Dec 23, 2022 18:30
== END 2022-12-23 14:10 | disposition expired | DRG 871 ==
LOC: EDUNIT# 01:35 → ER 01:36 → ICU 08:12
PROVIDERS: ADMIT Internal Medicine; ATTEND Internal Medicine
PROC: 02HV33Z Insertion of Infusion Device into Superior Vena Cava, Percutaneous Approach (ICD-10-PCS; 2022-12-16)
PROC: 5A09457 Assistance with Respiratory Ventilation, 24-96 Consecutive Hours, Continuous Positive Airway Pressure (ICD-10-PCS; principal; 2022-12-19)
DX: A41.9 Sepsis, unspecified organism (principal); I21.A1 Myocardial infarction type 2; L89.154 Pressure ulcer of sacral region, stage 4; J18.9 Pneumonia, unspecified organism; J96.00 Acute respiratory failure, unspecified whether with hypoxia or hypercapnia; I50.21 Acute systolic (congestive) heart failure; N17.9 Acute kidney failure, unspecified; Z66 Do not resuscitate; Z51.5 Encounter for palliative care; Z20.822 Contact with and (suspected) exposure to COVID-19; I13.0 Hypertensive heart and chronic kidney disease with heart failure and stage 1 through stage 4 chronic kidney disease, or unspecified chronic kidney disease; E87.4 Mixed disorder of acid-base balance; E46 Unspecified protein-calorie malnutrition; K92.0 Hematemesis; R57.0 Cardiogenic shock; E11.22 Type 2 diabetes mellitus with diabetic chronic kidney disease; E11.65 Type 2 diabetes mellitus with hyperglycemia; N18.30 Chronic kidney disease, stage 3 unspecified; R33.9 Retention of urine, unspecified; E11.319 Type 2 diabetes mellitus with unspecified diabetic retinopathy without macular edema; E11.51 Type 2 diabetes mellitus with diabetic peripheral angiopathy without gangrene; E87.5 Hyperkalemia; L89.899 Pressure ulcer of other site, unspecified stage; I34.0 Nonrheumatic mitral (valve) insufficiency; I95.9 Hypotension, unspecified; H35.30 Unspecified macular degeneration; F32.A Depression, unspecified; F41.9 Anxiety disorder, unspecified; R53.81 Other malaise; R53.1 Weakness; B37.2 Candidiasis of skin and nail; Z68.36 Body mass index [BMI] 36.0-36.9, adult; D64.9 Anemia, unspecified; E88.09 Other disorders of plasma-protein metabolism, not elsewhere classified; E78.00 Pure hypercholesterolemia, unspecified; G40.909 Epilepsy, unspecified, not intractable, without status epilepticus; E66.01 Morbid (severe) obesity due to excess calories; R60.1 Generalized edema; F15.10 Other stimulant abuse, uncomplicated; F12.90 Cannabis use, unspecified, uncomplicated; Z79.84 Long term (current) use of oral hypoglycemic drugs; Z91.128 Patient's intentional underdosing of medication regimen for other reason; Z89.512 Acquired absence of left leg below knee; Z89.511 Acquired absence of right leg below knee; Z87.891 Personal history of nicotine dependence; Z28.310 Unvaccinated for COVID-19; Z28.9 Immunization not carried out for unspecified reason
CPT/HCPCS: 36415; 36569; 36600; 71045; 76770; 76937; 80048; 80053; 80306; 80320; 80329; 81000; 82150; 82271; 82550; 82553; 82805; 82947; 83605; 83690; 83735; 83874; 83880; 84100; 84443; 84484; 85007; 85025; 85027; 85379; 85610; 85652; 85730; 86141; 87040; 87070; 87077; 87081; 87088; 87184; 87185; 87186; 87205; 87324; 87449; 87636; 93005; 93041; 93306; 93970; 94640; 94660